=== PATIENT | male | born 1935 | race Caucasian/White ===

== ENCOUNTER → 2018-03-19 | Outpatient (CLI) | payer MEDICARE, BC ==
--- NOTE | 2018-03-19 08:14 | XR ---
EXAMINATION TYPE: XR chest 2V DATE OF EXAM: 03/19/2018 COMPARISON: Chest x-ray April 08, 2010 HISTORY: COPD per order. TECHNIQUE: Frontal and lateral views of the chest are obtained. FINDINGS: There is chronic emphysematous change with right apical scarring redemonstrated. There is no suspicious new focal air space opacity, pleural effusion, or pneumothorax seen. The cardiac silho uette size is stable and upper limits of normal. Underlying scoliosis near thoracolumbar junction is redemonstrated and felt more prominent. IMPRESSION: Chronic emphysematous change without acute pulmonary process.
--- NOTE | 2018-03-19 08:19 | US ---
EXAMINATION TYPE: US duplex aorta DATE OF EXAM: 03/19/2018 COMPARISON: Ultrasound duplex aorta February 26, 2016 CLINICAL HISTORY: I70.0 Atherosclerosis Of Aorta. EXAM MEASUREMENTS: Abdominal Aorta: Proximal: 2.0cm by 2.4 cm transversely Mid: 1.7cm by 1.7 cm Distal: 1.9cm by 1.9 cm Bifurcation: Rt: 1.0cm Lt: 1.0 Aorta is redemonstrated through the bifurcation without aneurysmal change. IMPRESSION: No greater than 3 cm aneurysmal change identified. No significant change from prior.
== END | disposition home or self-care (01) ==
LOC: RADUSWWP 07:26
PROVIDERS: ATTEND Family Medicine
DX: I70.0 Atherosclerosis of aorta (principal); J43.9 Emphysema, unspecified
CPT/HCPCS: 71046; 93979

== ENCOUNTER → 2018-10-31 | Outpatient (CLI) | payer MEDICARE, BC ==
--- NOTE | 2018-10-31 09:22 | US ---
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 FINDINGS: EXAM MEASUREMENTS: Right Kidney: 8.7 x 5.7 x 3.8 cm Left Kidney: 9.2 x 5.0 x 5.3 cm Post Void Residual Volume: 41.1 mL Right Kidney: simple cyst noted lateral mid cortex = 0.5 x 0.5 x 0.6cm; vascular calcifications noted medially as hyperechoic parallel wall lines. No hydronephrosis. Left Kidney: upper pole simple cyst = 1.0 x 1.2 x 0.8cm; vascular calcifications noted medially as hy perechoic parallel wall lines . No hydronephrosis. Bladder: wnl; prominent prostate is noted posteriorly Bilateral Jets seen: yes Normal Post Void Residual: yes IMPRESSION: 1. No hydronephrosis. Some vascular calcifications and a couple benign simple cysts measuring up to 1 .2 cm are demonstrated. 2. Prominent prostate gland. 3. Increased postvoid bladder volume of 41 mL. However, this falls within acceptable limits (normal < 50 mL).
== END | disposition home or self-care (01) ==
LOC: RADUSWWP 08:06
PROVIDERS: ATTEND Family Medicine
DX: N28.1 Cyst of kidney, acquired (principal); N25.9 Disorder resulting from impaired renal tubular function, unspecified
CPT/HCPCS: 76770

== ENCOUNTER 2019-01-27 11:52 | Emergency (ER) | payer MEDICARE, BC ==
[2019-01-27 12:09] VITALS: BP 141/84; PULSE 64; RESP 16; TEMP 98
[2019-01-27] MEDS ORDERED: methylPREDNISolone SOD SUCCI 125 MG/2 ML VIAL IM ONE (12:23)
--- NOTE | 2019-01-27 12:29 | ED ---
Allergic Reaction HPI - General Chief complaint: Allergic Reaction Stated complaint: multiple wasp stings Time Seen by Provider: 01/27/19 12:14 Source: patient, RN notes reviewed, old records reviewed Mode of arrival: ambulatory Limitations: no limitations - History of Present Illness Initial Comments: Patient is a 83-year-old male who presents emergency room today for complaint of ALLERGIC reaction. He reports that he was stung by multiple loss yesterday evening around 4:00. He states that he has over 10 bites over bilateral arms and rib areas. Patient states that he took Benadryl topically of those concerned because the swelling was continue to persist. Patient states that he has had a history of ALLERGIC reaction before but he did not have any tongue swelling or difficulty breathing. Patient states that he's had no fevers or chills or any other complaints. - Related Data Previous Rx's Medication Instructions Recorded EPINEPHrine (Auto Inject) [Epipen] 0.3 mg IM ONCE PRN #2 pen 01/27/19 Famotidine [Pepcid] 20 mg PO BID #20 tablet 01/27/19 predniSONE 20 mg PO BID #6 tab 01/27/19 Allergies Allergy/AdvReac Type Severity Reaction Status Date / Time bee venom protein (honey bee) Allergy Anaphylaxis Verified 01/27/19 12:09 Review of Systems ROS Statement: Those systems with pertinent positive or pertinent negative responses have been documented in the HPI. ROS Other: All systems not noted in ROS Statement are negative. Past Medical History Past Medical History: Cancer, Hyperlipidemia, Hypertension Additional Past Medical History / Comment(s): colon cancer History of Any Multi-Drug Resistant Organisms: None Reported Past Surgical History: Bowel Resection Past Psychological History: No Psychological Hx Reported Smoking Status: Current every day smoker Past Alcohol Use History: Daily Past Drug Use History: None Reported General Exam - General Exam Comments Initial Comments: This is an 83-year-old male. Alert and oriented 3. No distress.General: Well appearing, well nourished, in no distress. Oriented x 3, normal mood and affect . Ambulating without difficulty. Skin: Good turgor, no rash, unusual bruising or prominent lesions Hair: Normal texture and distribution. HEENT: Head: Normocephalic, atraumatic, no visible or palpable masses, depressions, or scaring. Eyes: Visual acuity intact, conjunctiva clear, sclera non-icteric, EOM intact, PERRL. Ears: EACs clear, TMs translucent & cone of light visualized. hearing intact. Nose: No external lesions, mucosa non-inflamed, septum and turbinates normal Mouth: Mucous membranes moist, no mucosal lesions. Teeth/Gums: No obvious caries or periodontal disease. No gingival inflammation or significant resorption. Pharynx: Mucosa non-inflamed, no tonsillar hypertrophy or exudate Neck: Supple, without lesions, bruits, or adenopathy, thyroid non-enlarged and non-tender Heart: No cardiomegaly or thrills; regular rate and rhythm, no murmur or gallop Lungs: Clear to auscultation and percussion Abdomen: Bowel sounds normal, no tenderness, organomegaly, masses, or hernia Back: Spine normal without deformity or tenderness, no CVA tenderness Extremities: No amputations or deformities, Patient has erythema, multiple bites over bilateral forearms. No evidence of stinger retained in the skin. Musculoskeletal: Normal gait and station. No misalignment, asymmetry, crepitation, defects, tenderness, masses, effusions, decreased range of motion, instability, atrophy or abnormal strength or tone in the head, neck, spine, ribs, pelvis or extremities. Neurologic: CN 2-12 normal. Sensation to pain, touch, and proprioception normal. DTRs normal in upper and lower extremities. No pathologic reflexes. Psychiatric: Oriented X3, intact recent and remote memory, judgment and insight, normal mood and affect. Limitations: no limitations Course Vital Signs 01/27/19 12:06 Temperature 98 F Pulse Rate 64 Respiratory 16 Rate Blood Pressure 141/84 O2 Sat by Pulse 100 Oximetry Medical Decision Making - Medical Decision Making Patient is an 83-year-old male presents with bilateral arm swelling and irritation after multiple wasp stings yesterday while weeding his garden. He has no tongue swelling or causing breathing. He reports that history of ALLERGIC reactions to bees. Patient at this time was given IM Solu-Medrol, will discharge Patient with a course of short course of steroid and Pepcid and continuing Benadryl at home. Discussed using Benadryl cream as well. All questions were answered return parameters were discussed. Disposition Clinical Impression: Allergic reaction to bee sting Disposition: HOME SELF-CARE Condition: Good Instructions (If sedation given, give patient instructions): General Allergic Reaction (ED) Additional Instructions: Patient advised to take medication as prescribed. Avoid heat over the area. Patient should have close follow-up with primary care physician of symptoms continue to persist. Apply Benadryl cream over the areas and take Benadryl every 4-6 hours as discussed. Prescriptions: EPINEPHrine (Auto Inject) [Epipen] 0.3 mg IM ONCE PRN #2 pen PRN Reason: Anaphylaxis Famotidine [Pepcid] 20 mg PO BID #20 tablet predniSONE 20 mg PO BID #6 tab Is patient prescribed a controlled substance at d/c from ED?: No Referrals: Sukhdev Wise MD [Primary Care Provider] - 1-2 days Time of Disposition: 12:26
== END 2019-01-27 12:55 | disposition home or self-care (01) ==
LOC: EC 11:52
DX: T63.441A Toxic effect of venom of bees, accidental (unintentional), initial encounter (principal); F17.200 Nicotine dependence, unspecified, uncomplicated; Z91.030 Bee allergy status; Z85.038 Personal history of other malignant neoplasm of large intestine
CPT/HCPCS: 99283; 96372; J2930

== ENCOUNTER 2020-03-15 16:39 | Emergency (ER) | payer MEDICARE, BC ==
[2020-03-15 16:48] VITALS: RESP 18; TEMP 97.5
--- NOTE | 2020-03-15 17:21 | ED ---
General Adult HPI - General Chief complaint: Abdominal Pain Stated complaint: Abd Pain Time Seen by Provider: 03/15/20 16:50 Source: patient, RN notes reviewed Mode of arrival: wheelchair Limitations: no limitations - History of Present Illness Initial comments: 85-year-old male with a past medical history of hyperlipidemia, hypertension, colon cancer with bowel resection presents to the emergency room for a chief complaint of "constipation." Patient reports that he has been unable to have a bowel movement for one week. He states that he had some diarrhea one week ago but has not had any bowel movement since. States that he fell a pressure in his rectum and feels as if he has to go. He does have some cramping abdominal pain. States it comes in waves. He denies fevers or chills. Denies nausea or vomiting or diarrhea.Patient has no other complaints at this time including shortness of breath, chest pain, nausea or vomiting, headache, or visual changes. - Related Data Previous Rx's Medication Instructions Recorded EPINEPHrine (Auto Inject) [Epipen] 0.3 mg IM ONCE PRN #2 pen 01/27/19 Famotidine [Pepcid] 20 mg PO BID #20 tablet 01/27/19 predniSONE [Deltasone] 20 mg PO BID #6 tab 01/27/19 Allergies Allergy/AdvReac Type Severity Reaction Status Date / Time bee venom protein (honey bee) Allergy Anaphylaxis Verified 03/15/20 16:48 Review of Systems ROS Statement: Those systems with pertinent positive or pertinent negative responses have been documented in the HPI. ROS Other: All systems not noted in ROS Statement are negative. Past Medical History Past Medical History: Cancer, Hyperlipidemia, Hypertension Additional Past Medical History / Comment(s): colon cancer, History of Any Multi-Drug Resistant Organisms: None Reported Past Surgical History: Bowel Resection Past Psychological History: No Psychological Hx Reported Smoking Status: Current every day smoker Past Alcohol Use History: Daily Past Drug Use History: None Reported General Exam Limitations: no limitations General appearance: alert, in no apparent distress Head exam: Present: atraumatic, normocephalic, normal inspection Eye exam: Present: normal appearance, PERRL, EOMI. Absent: scleral icterus, conjunctival injection, periorbital swelling ENT exam: Present: normal exam, mucous membranes moist Neck exam: Present: normal inspection, full ROM. Absent: tenderness, meningismus, lymphadenopathy Respiratory exam: Present: normal lung sounds bilaterally. Absent: respiratory distress, wheezes, rales, rhonchi, stridor Cardiovascular Exam: Present: regular rate, normal rhythm, normal heart sounds. Absent: systolic murmur, diastolic murmur, rubs, gallop, clicks GI/Abdominal exam: Present: soft, tenderness (Minimal generalized lower abdominal tenderness without guarding or rebound), normal bowel sounds. Absent: distended, guarding, rebound, rigid Neurological exam: Present: alert Course Vital Signs 03/15/20 16:46 Temperature 97.5 F L Pulse Rate 64 Respiratory 18 Rate Blood Pressure 128/76 O2 Sat by Pulse 99 Oximetry Medical Decision Making - Medical Decision Making Vitals are stable. Patient did initially have some mild lower abdominal tenderness. I did perform a rectal exam and patient does have a fecal impaction. I was able to disimpact him somewhat however was not able to completely disimpact patient. I did therefore order an x-ray that was nonspecific however no evidence of pneumoperitoneum or obstruction. Patient was given an enema and had a significant bowel movement. Patient states he is feeling so much better. States that his cramps are completely gone. Repeat examination reveals no abdominal tenderness whatsoever. Patient does not want further workup today. Patient is requesting discharge. I did discuss that if he has any worsening symptoms or fevers he needs to return to the emergency room for a workup. He is agreeable to this. He will follow-up with his doctor otherwise and try MiraLAX over the counters as well as a high-fiber diet.I discussed this case with attending Dr. Sahu who agrees with this assessment and treatment plan. Disposition Clinical Impression: Constipation Disposition: HOME SELF-CARE Condition: Good Instructions (If sedation given, give patient instructions): Constipation (ED), High Fiber Diet (ED) Additional Instructions: Please try MiraLAX once daily [id number]. Drink plenty of water. Eat fruits and vegetables. If you have any worsening abdominal pain or fevers you need to return to the emergency room. Otherwise follow-up with your doctor on Monday. Is patient prescribed a controlled substance at d/c from ED?: No Referrals: Sukhdev Wise MD [Primary Care Provider] - 1-2 days Time of Disposition: 18:06
--- NOTE | 2020-03-15 17:30 | XR ---
KUB HISTORY: Constipation Frontal KUB submitted and correlated to prior exam dated 04/09/2013 S-shaped thoracic lumbar scoliosis is present. Lung bases are clear, suggestion of hyperinflation may be indicative of underlying COPD. There is no evident bowel obstruction or pneumoperitoneum. Vascula r calcifications are present within the aorta and pelvis. IMPRESSION: Nonspecific abdomen
[2020-03-15 18:31] VITALS: BP 127/78; PULSE 62
== END 2020-03-15 18:29 | disposition home or self-care (01) ==
LOC: EC 16:39
DX: K59.00 Constipation, unspecified (principal); R10.817 Generalized abdominal tenderness; F17.200 Nicotine dependence, unspecified, uncomplicated; Z91.030 Bee allergy status; Z85.038 Personal history of other malignant neoplasm of large intestine; Z98.890 Other specified postprocedural states
CPT/HCPCS: 74018; 99284

== ENCOUNTER 2020-06-05 14:08 | Emergency (ER) | payer MEDICARE, BC ==
[2020-06-05 14:12] VITALS: TEMP 97.6
[2020-06-05 15:04] LABS: Basophils % (A) 0 %; Eosinophils # (A) 0.1 k/uL (0-0.7); Eosinophils % (A) 2 %; HCT 34.1 % (39.0-53.0); HGB 11.4 gm/dL (13.0-17.5); Lymphocytes # (A) 1.6 k/uL (1.0-4.8); Lymphocytes % (A) 34 %; MCH 37.1 pg (25.0-35.0); MCHC 33.5 g/dL (31.0-37.0); MCV 110.7 fL (80.0-100.0); Macrocytosis Marked; Mean Platelet Volume 7.1; Monocytes # (A) 0.4 k/uL (0-1.0); Monocytes % (A) 8 %; Neutrophils # (A) 2.5 k/uL (1.3-7.7); Neutrophils % (A) 52 %; Platelet Count 208 k/uL (150-450); RBC 3.08 m/uL (4.30-5.90); RDW 14.4 % (11.5-15.5); WBC 4.7 k/uL (3.8-10.6)
--- NOTE | 2020-06-05 15:04 | ED ---
General Adult HPI - General Chief complaint: Abdominal Pain Stated complaint: Abd Pain Time Seen by Provider: 06/05/20 14:18 Source: patient Mode of arrival: wheelchair Limitations: no limitations - History of Present Illness Initial comments: Patient is an 85-year-old male, with history of hypertension, colon cancer, presenting to the emergency Department with complaints of constipation. The patient states he has not had a bowel movement in 3-4 days. He states he did take a laxative last night however it did not help. He is able to pass gas. He states he is having some very little lower abdominal pressure but no significant pain. He denies any nausea or vomiting. No diarrhea. He denies any fever or chills, no chest pain or shortness of breath. He states he does have occasional constipation. Patient states he is under a lot of stress, taking care of his who has Alzheimer's. Patient denies any recent illness. Patient denies hi story of abdominal surgeries but upon chart review, he did have a partial colon resection, no other surgeries found. He has no further complaints at this time. Upon arrival to the ER, his vitals are stable. - Related Data Previous Rx's Medication Instructions Recorded EPINEPHrine (Auto Inject) [Epipen] 0.3 mg IM ONCE PRN #2 pen 01/27/19 Famotidine [Pepcid] 20 mg PO BID #20 tablet 01/27/19 predniSONE [Deltasone] 20 mg PO BID #6 tab 01/27/19 Allergies Allergy/AdvReac Type Severity Reaction Status Date / Time bee venom protein (honey bee) Allergy Anaphylaxis Verified 06/05/20 14:12 Review of Systems ROS Statement: Those systems with pertinent positive or pertinent negative responses have been documented in the HPI. ROS Other: All systems not noted in ROS Statement are negative. Past Medical History Past Medical History: Cancer, Hyperlipidemia, Hypertension Additional Past Medical History / Comment(s): colon cancer, History of Any Multi-Drug Resistant Organisms: None Reported Past Surgical History: Bowel Resection Past Psychological History: No Psychological Hx Reported Smoking Status: Current every day smoker Past Alcohol Use History: Daily Past Drug Use History: None Reported General Exam - General Exam Comments Initial Comments: GENERAL: Patient is well-developed and well-nourished. Patient is nontoxic and in no acute distress. HEAD: Atraumatic, normocephalic. EYES: Pupils equal round and reactive to light, extraocular movements intact, sclera anicteric, conjunctiva are normal. Eyelids were unremarkable. ENT: TMs normal, nares patent, oropharynx clear without exudates. Moist mucous membranes. NECK: Normal range of motion, supple without lymphadenopathy or JVD. LUNGS: Unlabored respirations. Breath sounds clear to auscultation bilaterally and equal. No wheezes rales or rhonchi. HEART: Regular rate and rhythm without murmurs, rubs or gallops. ABDOMEN: Minimal pressure with palpation of the lower abdomen, no specific area pain. Soft, normoactive bowel sounds. No guarding, no rebound. No masses appreciated. : Deferred MUSCULOSKELETAL: Normal extremities with adequate strength and normal range of motion, no pitting or edema. No clubbing or cyanosis. NEUROLOGICAL: Patient is alert and oriented x 3. Motor and sensory are also intact. Cranial nerves II through XII grossly intact. Symmetrical smile. Normal speech, normal gait. PSYCH: Normal mood, normal affect. SKIN: Warm, Dry, normal turgor, no rashes or lesions noted. Limitations: no limitations Course Vital Signs 06/05/20 14:09 Temperature 97.6 F Pulse Rate 78 Respiratory 18 Rate Blood Pressure 172/85 O2 Sat by Pulse 100 Oximetry Medical Decision Making - Medical Decision Making Patient is an 85-year-old male here for constipation, last bowel movement was 3- 4 days ago. He did try one laxative last night without success. He is able to pass gas. He has no areas abdominal pain, just lower abdominal pressure at times. No fevers, no other symptoms. Basic labs show no acute process, kidney function is normal, KUB x-ray shows a nonspecific abdomen. We did discuss using an enema to help his constipation however patient was able to have a large bowel movement in the ER before the enema. Patient states he feels so much better. Patient is stable for discharge. I did discuss taking MiraLAX daily for 1-2 weeks to help with regularity. Patient is in agreement with this plan of care. Parameters were discussed with the patient and he verbalized understanding. Case discussed Dr. Lafleur. - Lab Data Result diagrams: 06/05/20 14:50 06/05/20 14:50 Lab Results 06/05/20 06/05/20 Range/Units 14:50 14:50 WBC 4.7 (3.8-10.6) k/uL RBC 3.08 L (4.30-5.90) m/uL Hgb 11.4 L (13.0-17.5) gm/dL Hct 34.1 L (39.0-53.0) % MCV 110.7 H (80.0-100.0) fL MCH 37.1 H (25.0-35.0) pg MCHC 33.5 (31.0-37.0) g/dL RDW 14.4 (11.5-15.5) % Plt Count 208 (150-450) k/uL MPV 7.1 Neutrophils % 52 % Lymphocytes % 34 % Monocytes % 8 % Eosinophils % 2 % Basophils % 0 % Neutrophils # 2.5 (1.3-7.7) k/uL Lymphocytes # 1.6 (1.0-4.8) k/uL Monocytes # 0.4 (0-1.0) k/uL Eosinophils # 0.1 (0-0.7) k/uL Basophils # 0.0 (0-0.2) k/uL Manual Slide Review Performed Macrocytosis Marked A Sodium 137 (137-145) mmol/L Potassium 4.4 (3.5-5.1) mmol/L Chloride 107 (98-107) mmol/L Carbon Dioxide 25 (22-30) mmol/L Anion Gap 5 mmol/L BUN 17 (9-20) mg/dL Creatinine 1.31 H (0.66-1.25) mg/dL Est GFR (CKD-EPI)AfAm 58 (>60 ml/min/1.73 sqM) Est GFR (CKD-EPI)NonAf 50 (>60 ml/min/1.73 sqM) Glucose 114 H (74-99) mg/dL Calcium 9.9 (8.4-10.2) mg/dL Total Bilirubin 0.6 (0.2-1.3) mg/dL AST 32 (17-59) U/L ALT 15 (4-49) U/L Alkaline Phosphatase 68 (38-126) U/L Total Protein 7.7 (6.3-8.2) g/dL Albumin 4.3 (3.5-5.0) g/dL Disposition Clinical Impression: Constipation Disposition: HOME SELF-CARE Condition: Stable Instructions (If sedation given, give patient instructions): Constipation (ED) Additional Instructions: Please return to the Emergency Department if symptoms worsen or any other concerns. Recommend taking MiraLAX daily for 1-2 weeks in the morning, also make sure to drink plenty of water throughout the day. Follow-up with your PCP. Is patient prescribed a controlled substance at d/c from ED?: No Referrals: Sukhdev Wise MD [Primary Care Provider] - 1-2 days
[2020-06-05 15:20] LABS: Albumin 4.3 g/dL (3.5-5.0); Calcium 9.9 mg/dL (8.4-10.2); Potassium 4.4 mmol/L (3.5-5.1); Total Bilirubin 0.6 mg/dL (0.2-1.3); Total Protein 7.7 g/dL (6.3-8.2)
--- NOTE | 2020-06-05 15:46 | XR ---
EXAMINATION TYPE: XR KUB DATE OF EXAM: 06/05/2020 COMPARISON: 03/15/2020 INDICATION: Constipation TECHNIQUE: Single view abdomen upright view FINDINGS: Nonspecific bowel gas pattern Psoas margins are normal. No organomegaly is present. No suspicious calcifications. No significant interval change. IMPRESSION: 1. Nonspecific abdomen
[2020-06-05 17:10] VITALS: BP 128/79; PULSE 56; RESP 17
== END 2020-06-05 17:11 | disposition home or self-care (01) ==
LOC: EC 14:08
DX: K59.00 Constipation, unspecified (principal); F17.200 Nicotine dependence, unspecified, uncomplicated; Z91.030 Bee allergy status; Z85.038 Personal history of other malignant neoplasm of large intestine; Z90.49 Acquired absence of other specified parts of digestive tract
CPT/HCPCS: 36415; 74018; 80053; 85025; 99284

== ENCOUNTER → 2020-09-15 | Outpatient (CLI) | payer MEDICARE, BC ==
--- NOTE | 2020-09-15 15:51 | XR ---
EXAMINATION TYPE: XR chest 2V DATE OF EXAM: 09/15/2020 COMPARISON: Chest x-ray March 19, 2018 HISTORY: Chest pain. Abnormal weight loss. TECHNIQUE: Frontal and lateral views of the chest are obtained. FINDINGS: There there are chronic parenchymal changes bilaterally without suspicious new focal air s pace opacity, pleural effusion, or pneumothorax seen. The cardiac silhouette size is stable and with in normal limits. The osseous structures remain demineralized. Underlying scoliosis centered in the upper to mid lumbar spine is redemonstrated. There are old fractures of the posterolateral right fou rth through 10th ribs redemonstrated. IMPRESSION: Chronic changes without acute pulmonary process.
== END | disposition home or self-care (01) ==
LOC: RADXRMAIN 14:43
PROVIDERS: ATTEND Nurse Practitioner
DX: R63.4 Abnormal weight loss (principal); R07.9 Chest pain, unspecified
CPT/HCPCS: 71046

== ENCOUNTER → 2021-04-09 | Outpatient (CLI) | payer MEDICARE, BC ==
--- NOTE | 2021-04-09 09:50 | US ---
EXAMINATION TYPE: US abdomen complete DATE OF EXAM: 04/09/2021 COMPARISON: CT March 31, 2020 CLINICAL HISTORY: D72.819 Decreased white blood cell count,D64.89,E78.5. Patient states no symptoms EXAM MEASUREMENTS: Liver Length: 11.0 cm Gallbladder Wall: 0.2 cm CBD: 0.2 cm Spleen: 7.1 cm Right Kidney: 7.3 x 3.8 x 4.0 cm Left Kidney: 10.1 x 5.5 x 4.5 cm Pancreas: visualized portions wnl, limited by overlying midline bowel gas Liver: 2.5 x 4.4 x 3.5cm complex cystic area right lobe Gallbladder: wnl Evidence for sonographic Garcia's sign: no CBD: visualized portions wnl, limited by overlying bowel gas Spleen: visualized portions wnl, limited by overlying bowel gas Right Kidney: measures small in size, 0.3cm echogenic focus inferior pole Left Kidney: 1.2cm cyst lateral superior pole Upper IVC: wnl Abd Aorta: ectatic proximal aorta The visualized liver shows 4.4 cm lobulated thin-walled cyst. The intrahepatic portion of the IVC an d proximal abdominal aorta are within normal limits. There is no evidence of cholelithiasis. Common bile duct is unremarkable. The visualized portions of the pancreas are homogenous. The spleen is u nremarkable. Kidneys are symmetric and free of hydronephrosis. There is 1.2 cm thin-walled benign cy st upper pole of the left kidney. IMPRESSION: Spleen is noted to remain normal in size.
== END | disposition home or self-care (01) ==
LOC: RADUSWWP 08:47
PROVIDERS: ATTEND Internal Medicine Hematology & Oncology
DX: D72.819 Decreased white blood cell count, unspecified (principal); E78.5 Hyperlipidemia, unspecified; D64.89 Other specified anemias
CPT/HCPCS: 76700

== ENCOUNTER → 2021-05-11 | Outpatient (CLI) | payer MEDICARE, BC ==
--- NOTE | 2021-05-12 04:29 | XR ---
EXAMINATION TYPE: XR chest 2V DATE OF EXAM: 05/11/2021 COMPARISON: 09/15/2020 HISTORY: 86-year-old male J06.9, cough and congestion TECHNIQUE: Frontal and lateral views FINDINGS: Dextroconvex scoliosis. The spine projects over the right heart margin. Heart likely normal size. Aor ta within normal limits. Suspected bulla or pneumatocele measuring up to 7 cm along the lateral left upper lobe. Old healed right-sided rib fracture deformities. Hyperinflation. Some right apical pleura l parenchymal scarring redemonstrated. No definite consolidation or pleural effusion. Possible nodula rity in the anterior clear space on the lateral view. Additional area of nodularity projecting over t he left heart margin on the lateral view. IMPRESSION: 1. COPD with old healed right-sided rib fracture deformities, dextroconvex scoliosis, and a 7 cm left upper lobe bulla or pneumatocele. 2. Some nodularity in the anterior clear space on the lateral view and also along the posterior heart margin could represent summation artifact. Recommend contrast enhanced CT of the chest to exclude pu lmonary nodules.
== END | disposition home or self-care (01) ==
LOC: RADXRMAIN 15:25
PROVIDERS: ATTEND Nurse Practitioner
DX: J44.9 Chronic obstructive pulmonary disease, unspecified (principal)
CPT/HCPCS: 71046

== ENCOUNTER → 2021-05-14 | Outpatient (CLI) | payer MEDICARE, BC | END | disposition home or self-care (01) | LOC: LABWHC1 12:12 | PROVIDERS: ATTEND Family Medicine | DX: Z53.9 Procedure and treatment not carried out, unspecified reason (principal) ==

== ENCOUNTER → 2021-06-10 | Outpatient (CLI) | payer MEDICARE, BC ==
--- NOTE | 2021-06-10 14:26 | CT ---
EXAMINATION TYPE: CT chest w con DATE OF EXAM: 06/10/2021 COMPARISON: Chest CT March 31, 2010 chest x-ray May 11, 2021 HISTORY: Upper respiratory infection, chest xray showed nodules. CT DLP: 154.8 mGycm. Automated Exposure Control for Dose Reduction was Utilized. TECHNIQUE: CT scan of the thorax is performed following with IV Contrast, patient injected with 80 m L of Isovue M300. FINDINGS: LUNGS: Moderate biapical pleural/parenchymal scarring redemonstrated. Scattered peripheral bulla and blebs again seen extending along the left upper lobe periphery accounting for chest x-ray abnormality . No suspicious focal consolidation or groundglass opacity. There is no pleural effusion or pneumoth orax seen. The tracheobronchial tree is patent. Corresponding to x-ray no suspicious lesion anterior ly above the heart. There is however confirmation of suspicious central 1.3 x 1.2 cm right lower lobe nodule axial image 41. In addition there is posterior suspicious spiculated 1.1 x 1.0 cm nodule axia l image 16. Both findings new from 2010 CT. MEDIASTINUM: There are no greater than 1 cm hilar or mediastinal lymph nodes. No cardiomegaly or pe ricardial effusion is seen. Moderate to severe three-vessel coronary artery calcification. OTHER: There is 4.6 cm simple appearing thin-walled cyst in the liver redemonstrated stable from 2010 . No new adrenal masses. No asymmetric cortical thinning and atrophy to the right kidney with stable 4 mm anterior calculus axial image 64. Underlying scoliosis redemonstrated. Multilevel spurring and d isc space narrowing in the lower thoracic and upper lumbar spine this is more prominent from prior. O ld posterolateral right mid rib fractures redemonstrated. IMPRESSION: Confirmation of emphysematous and bullous change in the lungs with confirmation of suspic ious 1.3 cm right lower lobe nodule, in addition there is reticulated 1.1 cm posterior left upper lob e nodule. This is less well seen on x-ray. Neoplasm needs to be excluded. Further investigation with PET CT is advised.
== END | disposition home or self-care (01) ==
LOC: RADCTMAIN 11:38
PROVIDERS: ATTEND Family Medicine
DX: R91.8 Other nonspecific abnormal finding of lung field (principal); J43.9 Emphysema, unspecified
CPT/HCPCS: 82565; 84520; 71260; 36415; Q9967

== ENCOUNTER → 2021-06-24 | Outpatient (CLI) | payer MEDICARE, BC ==
--- NOTE | 2021-06-28 08:02 | PE ---
EXAMINATION TYPE: PET CT fusion skull to thigh DATE OF EXAM: 06/24/2021 COMPARISON: Prior CT chest June 10, 2021 HISTORY: Solitary pulmonary nodule, abnormal CT TECHNIQUE: Following the intravenous administration of 9.33 mCi of F-18 FDG, whole body images are p erformed from the skull base to the midthigh. Images are reviewed on the computer in the coronal, ax ial, and sagittal planes. Reconstructed rotating images are created on independent workstation and r eviewed on the computer. A localization and attenuation correction CT is performed in conjunction w ith the PET scan. Blood glucose level equals 109. SCAN: Initial Scan FINDINGS: SKULL BASE AND NECK: No areas of abnormal hypermetabolic uptake. CHEST, MEDIASTINUM, AND HILAR REGION: Background fairly moderate underlying emphysematous change rede monstrated. Biapical pleural/parenchymal scarring redemonstrated. There is persistent spiculated 12 x 8 mm left upper lobe nodule that is mildly hypermetabolic, max SUV is 2.61 on axial image 78. There is persistent 11 x 9 mm left lower lobe nodule on axial image 114 but it is ametabolic. No additional areas of abnormal hypermetabolic uptake. ABDOMEN AND PELVIS: No adrenal masses. Nonspecific mild bowel uptake at level of cecum. Normal excret ion. No additional areas of abnormal hypermetabolic uptake. OSSEOUS STRUCTURES: No areas of abnormal hypermetabolic uptake. OTHER CT: Nasal septum deviated to right of midline. Moderate to severe three-vessel coronary artery calcification redemonstrated. Roughly 5.0 cm thin-walled cyst in the liver axial image 137 redemonstrated. Cortical thinning and vo lume loss right kidney with scattered calculi is redemonstrated. Moderate calcified plaque of the aor ta extends into branch vessels. Spine is straightened with multilevel spurring and disc space narrowing. Underlying scoliosis. IMPRESSION: Suspicious hypermetabolic uptake in the left upper lobe nodule. Neoplasm cannot be exclud ed. Subtle right lower lobe nodule is ametabolic. No additional areas of abnormal hypermetabolic upta ke.
== END | disposition home or self-care (01) ==
LOC: RADPETMAIN 09:34
PROVIDERS: ATTEND Nurse Practitioner Family
DX: R91.8 Other nonspecific abnormal finding of lung field (principal); R91.1 Solitary pulmonary nodule
CPT/HCPCS: 78815; A9552

== ENCOUNTER → 2021-10-21 | Outpatient (CLI) | payer MEDICARE, BC ==
--- NOTE | 2021-10-21 23:29 | CT ---
EXAMINATION TYPE: CT chest w con DATE OF EXAM: 10/21/2021 COMPARISON: PET/CT 06/24/[address] chest 06/10/2021 HISTORY: Abnormal finding of lung field. Pt reporting no issues. CT DLP: 320 mGycm. Automated Exposure Control for Dose Reduction was Utilized. TECHNIQUE: Multiple contiguous axial CT images of the chest were obtained with IV Contrast, patient i njected with 80 mL of Isovue 300. Sagittal and coronal reformatted images were obtained. FINDINGS: Cardiac size appears within normal limits. No pericardial effusion. Thoracic aorta and main pulmonary arteries are of normal caliber. No mediastinal, hilar, or axillary lymphadenopathy. Central airways are normal course and caliber. Mild upper lobe predominant emphysematous changes. Curt gs appear clear. No pleural effusion or pneumothorax. -Unchanged spiculated nodule within the left upper lobe measuring 11 mm (previously measuring 11 mm). -Previously described right lower lobe pulmonary nodule has resolved. -New pulmonary nodule within the superior right lower lobe injuring 5 mm (axial image 27/57). -Unchanged 3 mm pulmonary nodule within the medial aspect of the right lower lobe (axial image 34/57) . Visualized osseous structures appear intact. Moderate multilevel degenerative changes of the thoracic spine. Unchanged hepatic cyst. Unchanged left renal cyst. Unchanged asymmetric atrophy of the right kidney w ith a calcification. IMPRESSION: 1. Unchanged 11 mm spiculated nodule in the left upper lobe. Recommend repeat CT in 6 months to ensur e stability. 2. Interval resolution of previously described right lower lobe pulmonary nodule. 3. New 5 mm pulmonary nodule in the superior right lower lobe. 4. Unchanged 3 mm pulmonary nodule in the right lower lobe.
== END | disposition home or self-care (01) ==
LOC: RADCTMAIN 14:53
PROVIDERS: ATTEND Internal Medicine
DX: R91.8 Other nonspecific abnormal finding of lung field (principal)
CPT/HCPCS: 82565; 84520; 71260; 36415; Q9967

== ENCOUNTER → 2022-04-07 | Outpatient (CLI) | payer MEDICARE, BC ==
--- NOTE | 2022-04-07 18:54 | CT ---
EXAMINATION TYPE: CT chest w con DATE OF EXAM: 04/07/2022 COMPARISON: Chest CT October 21, 2021 and older CTs HISTORY: f/u spots on lung. CT DLP: 191.60 mGycm. Automated Exposure Control for Dose Reduction was Utilized. TECHNIQUE: CT scan of the thorax is performed following with IV Contrast, patient injected with 70 m L of Isovue 300. FINDINGS: LUNGS: Mild to moderate underlying emphysematous changes redemonstrated. Moderate biapical pleural/pa renchymal scarring with blebs are redemonstrated. No suspicious focal consolidation or groundglass op acity. There is no pleural effusion or pneumothorax seen. The tracheobronchial tree is patent. There is posterior slow-growing spiculated nodule axial image 12 current study now measuring 1.6 x 1.3 cm. No new greater than 5 mm pulmonary nodules or masses MEDIASTINUM: There are no new greater than 1 cm hilar or mediastinal lymph nodes. No cardiomegaly o r pericardial effusion is seen. Moderate to severe three-vessel coronary artery calcification is red emonstrated. OTHER: There is 4.6 cm simple appearing bilobed thin-walled cyst in the liver redemonstrated stable f rom 2009. No new adrenal masses. Persistent asymmetric cortical thinning and atrophy to the visualize d portion of right kidney with stable 4 mm anterior calculus axial image 64. Underlying scoliosis red emonstrated. Multilevel spurring and disc space narrowing in the lower thoracic and upper lumbar spin e this is more prominent from prior. Old posterolateral right mid rib fractures are redemonstrated. IMPRESSION: Confirmation of emphysematous and bullous change in the lungs with slow growing suspiciou s 1.6 x 1.3 cm left upper lobe nodule. Neoplasm is suspected with mild hypermetabolic uptake noted on PET/CT. Advise cardiothoracic surgical referral.
== END | disposition home or self-care (01) ==
LOC: RADCTMAIN 17:00
PROVIDERS: ATTEND Internal Medicine
DX: J43.9 Emphysema, unspecified (principal)
CPT/HCPCS: 82565; 84520; 71260; 36415; Q9967

== ENCOUNTER → 2022-07-18 | Outpatient (CLI) | payer MEDICARE, BC ==
--- NOTE | 2022-07-18 12:49 | CT ---
EXAMINATION TYPE: CT chest w con CT DLP: 215.60 mGycm, Automated exposure control for dose reduction was used. DATE OF EXAM: 07/18/2022 12:33 PM COMPARISON: CT chest 04/07/2022, 10/21/2021, PET CT 06/24/2021. CLINICAL INDICATION:Male, 87 years old with history of R91.1 solitary pulmonary nodule; TECHNIQUE: Multiple axial images were obtained through the chest following the administration of 70 c c of Isovue 300. FINDINGS: LUNGS/ PLEURA: No pleural effusion or pneumothorax. Mild to moderate underlying emphysematous changes are demonstrated. Moderate biapical pleural parenchymal scarring with blebs redemonstrated. Decrease d size of posterior left upper lobe spiculated nodule measuring 1.2 x 0.6 cm, previously 1.6 x 1.3 cm (series 4, image 15). There are some new tree-in-bud nodules within the left lung base and lingula s uspicious for infectious/inflammatory bronchiolitis. AIRWAY: Patent and unremarkable.. HEART: Size within normal limits. No pericardial effusion. Moderate to severe three-vessel coronary a rtery calcification redemonstrated. MEDIASTINUM: No new adenopathy. VASCULATURE: No aortic aneurysm. MUSCULOSKELETAL: No acute osseous abnormalities. No aggressive osseous lesion. Remote right-sided rib fractures. Scoliotic curvature with multilevel degenerative changes of the visualized spine. SOFT TISSUES/LYMPH NODES: Unremarkable. LOWER NECK: No significant findings. UPPER ABDOMEN: Stable 4.6 mL simple-appearing bilobed cyst within the liver. Persistent asymmetric co rtical thinning and atrophy of the visualized right kidney with nonobstructive renal calculi. IMPRESSION: 1. Decreased size of 1.2 x 0.6 cm spiculated left upper lobe pulmonary nodule, previously 1.6 x 1.3 c m. 2. Several new tree-in-bud nodules within the lingula and left lower lobe suspicious for infectious/i nflammatory bronchiolitis. Malignancy is not entirely excluded. Attention on follow-up examination. 3. Moderate COPD changes.
== END | disposition home or self-care (01) ==
LOC: RADCTMAIN 11:23
PROVIDERS: ATTEND Radiology Radiation Oncology
DX: C34.12 Malignant neoplasm of upper lobe, left bronchus or lung (principal); J44.9 Chronic obstructive pulmonary disease, unspecified; F17.210 Nicotine dependence, cigarettes, uncomplicated; R91.8 Other nonspecific abnormal finding of lung field
CPT/HCPCS: 82565; 84520; 71260; 36415; Q9967

== ENCOUNTER → 2022-09-07 | Outpatient (CLI) | payer MEDICARE, BC ==
--- NOTE | 2022-09-08 11:30 | CA ---
Transthoracic Echo Report Name: Billy Garcia Age: 87 Gender: M : 1935 Exam Date: 09/07/2022 13:03 Exam Location: [place] [facility] Ht (in): 68 Wt (lb): 140 Ordering Physician: Bertram Espana MD Attending/Referring Phys: Bertram Espana MD Relationship Specialist Ortega Diego, [facility] Procedure CPT: Indications: R06.09 Dyspnea Cardiac Hx: COPD; HTN; Technical Quality: Fair Contrast 1: Total Dose (mL): Contrast 2: Total Dose (mL): MEASUREMENTS (Male / Female) Normal Values 2D ECHO LV Diastolic Diameter PLAX 5.0 cm 4.2 - 5.9 / 3.9 - 5.3 cm LV Systolic Diameter PLAX 4.4 cm IVS Diastolic Thickness 0.9 cm 0.6 - 1.0 / 0.6 - 0.9 cm LVPW Diastolic Thickness 0.9 cm 0.6 - 1.0 / 0.6 - 0.9 cm LV Relative Wall Thickness 0.4 RV Internal Dim ED PLAX 2.4 cm LVOT Diameter 2.0 cm LA Systolic Diameter LX 3.5 cm 3.0 - 4.0 / 2.7 - 3.8 cm LV Diastolic Volume MOD BP 76.7 cm??? 67 - 155 / 56 - 104 cm??? LV Systolic Volume MOD BP 29.3 cm??? 22 - 58 / 19 - 49 cm??? LV Ejection Fraction MOD BP 61.7 % >= 55 % LV Diastolic Volume MOD 4C 82.6 cm??? LV Systolic Volume MOD 4C 32.7 cm??? LV Ejection Fraction MOD 4C 60.4 % LV Diastolic Length 4C 7.6 cm LV Systolic Length 4C 5.9 cm LV Diastolic Volume MOD 2C 58.0 cm??? LV Systolic Volume MOD 2C 21.5 cm??? LV Ejection Fraction MOD 2C 62.9 % LV Diastolic Length 2C 6.1 cm LV Systolic Length 2C 4.8 cm Ascending Aorta Diameter 3.3 cm M-MODE Aortic Root Diameter MM 3.2 cm LA Systolic Diameter MM 3.9 cm LA Ao Ratio MM 1.2 MV E Point Septal Separation 0.5 cm AV Cusp Separation MM 1.7 cm DOPPLER AV Peak Velocity 250.9 cm/s AV Peak Gradient 25.2 mmHg LVOT Peak Velocity 134.7 cm/s LVOT Peak Gradient 7.3 mmHg AV Area Cont Eq pk 1.7 cm??? MV Peak Velocity 100.2 cm/s MV Peak Gradient 4.0 mmHg MV Mean Velocity 57.3 cm/s MV Mean Gradient 1.5 mmHg MV Velocity Time Integral 27.5 cm MR Peak Velocity 102.5 cm/s MR Peak Gradient 4.2 mmHg Mitral E Point Velocity 80.1 cm/s Mitral A Point Velocity 93.7 cm/s Mitral E to A Ratio 0.9 MV Deceleration Time 233.1 ms MV E' Velocity 6.7 cm/s Mitral E to MV E' Ratio 12.0 TR Peak Velocity 162.9 cm/s TR Peak Gradient 10.6 mmHg Right Ventricular Systolic Press 15.6 mmHg PV Peak Velocity 105.1 cm/s PV Peak Gradient 4.4 mmHg RVOT Peak Velocity 78.6 cm/s RVOT Peak Gradient 2.5 mmHg FINDINGS Left Ventricle Left ventricular ejection fraction is estimated at 55-60 %. Grade 1 diastolic dysfunction. Right Ventricle Normal right ventricular size and function. Right Atrium Normal right atrial size. Left Atrium Mild left atrial dilatation. Mitral Valve Mitral valve thickened. Mild mitral stenosis. Trace to mild mitral regurgitation. Aortic Valve Focal thickening of the aortic valve cusps. Trileaflet aortic valve. Diffuse thickening (sclerosis) of the aortic valve cusps with type l discreet subaortic stenosis (peak gradient 25 mm Hg) and reduced excursion. Tricuspid Valve mild tricuspid regurgitation. Pulmonic Valve Mild pulmonic regurgitation. Pericardium Echo free space anterior to the right ventricle likely represents a fat pad. Aorta Normal size aortic root and proximal ascending aorta. CONCLUSIONS Normal LV and RV dimension and systolic function Impaired relaxation of the left ventricle/stage I diastolic dysfunction Aortic sclerosis with mild aortic stenosis and mild aortic insufficiency Previewed by: Dr. Markel Loredo MD (Electronically Signed) Final Date: 08 September 2022 11:29
== END | disposition home or self-care (01) ==
LOC: RADECHMAIN 12:38
PROVIDERS: ATTEND Internal Medicine
DX: I08.0 Rheumatic disorders of both mitral and aortic valves (principal); R06.09 Other forms of dyspnea
CPT/HCPCS: 93306

== ENCOUNTER → 2022-12-07 | Outpatient (CLI) | payer MEDICARE, BC ==
[2022-12-07 14:18] LABS: African American GFR (CKD) 76 (>60 ml/min/1.73 sqM); Blood Urea Nitrogen 14 mg/dL (9-20); Non-African American GFR(CKD) 66 (>60 ml/min/1.73 sqM)
--- NOTE | 2022-12-07 15:11 | CT ---
EXAMINATION TYPE: CT chest w con DATE OF EXAM: 12/07/2022 COMPARISON: 08/30/2022 HISTORY: Solitary pulmonary nodule. CT DLP: 229.4 mGycm Automated exposure control for dose reduction was used. TECHNIQUE: CT scan of the chest is performed with IV Contrast, patient injected with 100ml mL of Isovue 300. TN P Images are created on CT scanner and reviewed. 3D reconstructed images are created on an Cross[employer] workstation and reviewed. FINDINGS: LUNGS: There is a spiculated nodule in the left upper lobe measuring 11.8 x 5.1 mm which is unchanged from the recent previous examination. Subpleural 3 mm nodule left lower lobe has a benign appearance. There is moderate diffuse centrilobular and upper lobe predominant paraseptal emphysema. There is phoenix e scattered linear bands of opacity otherwise seen throughout the lungs bilaterally which are likely atelectasis or scarring. There is additional peripheral changes in the right upper lobe which likely related to scarring and are unchanged. There is no focal area of consolidation. MEDIASTINUM: There are no greater than 1 cm hilar or mediastinal lymph nodes. No pericardial effusi on is seen. Heart is enlarged and there is coronary artery calcification. Atherosclerotic change of the aorta with ectasia. There are scattered subcentimeter lymph nodes in the mediastinum. OTHER: Diffuse reduced attenuation throughout the liver with a large hypodense lesion involving the right lobe measuring 3.9 cm and 9 Hounsfield units compatible with simple cyst. There is cortical los s involving the right kidney with cortical calcifications. Hypertrophic degenerative changes of the s pine. Small hiatal hernia. Scoliosis of the spine. Multilevel degenerative disc disease. IMPRESSION: 1. Stable 1.2 cm left apical spiculated nodule. This is been previously evaluated with PET scan with upper hyper-metabolic uptake noted on prior report. Malignancy in the differential diagnosis. 2. COPD 3. 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 4. is abnormal attenuation involving the pancreas on axial image 67 only partially included in field- of-view. Recommend ultrasound follow-up. 5. Cardiomegaly with coronary artery calcification.
== END | disposition home or self-care (01) ==
LOC: RADCTMAIN 13:14
PROVIDERS: ATTEND Radiology Radiation Oncology
DX: C34.12 Malignant neoplasm of upper lobe, left bronchus or lung (principal); J44.9 Chronic obstructive pulmonary disease, unspecified; I25.10 Atherosclerotic heart disease of native coronary artery without angina pectoris; I71.21 Aneurysm of the ascending aorta, without rupture; R91.1 Solitary pulmonary nodule
CPT/HCPCS: 82565; 84520; 71260; 36415; Q9967

== ENCOUNTER → 2023-01-04 | Outpatient (CLI) | payer MEDICARE, BC ==
[2023-01-04 13:07] VITALS: BP 115/73; PULSE 65; RESP 18; TEMP 98.1
--- NOTE | 2023-01-04 14:54 | P.PAINPG ---
PQRS Measure Charge Sheet Comment: HISTORY OF PRESENT ILLNESS: 87 yr old male as a referral from Dr Sukhdev Wise presents today w severe and chronic LBP secondary to DDD, spondylosis and facet arthropathy without myelopathy for evaluation. Pt states pain level is provoked at 8 /10 in intensity, constant, localized in the mid to lower lumbar spine, achy in character w shooting pain towards the R glute and RLE. Pain is provoked by weight bearing activity. Pain is alleviated by PT x 6 wks which ended in November 2022, chiropractic treatments semi weekly x 5 wks in October 2022, heat, ice, medications (Tyl #3, Tyl) topical, repositioning and rest. PMH: OA, Hyperlipidemia, HTN PSH: Bladder Cystoscopy per pt SH: Daily tobacco use, Daily ETOH use, No illicit drug use FH: Non contributory All: See list Meds: See list REVIEW OF ORGAN SYSTEMS: CONSTITUTIONAL: No fevers or chills. No recent weight loss. NEUROLOGICAL: + numbness and tingling along the distal extremities. No seizure disorders or headaches. MUSCULOSKELETAL: + pain PSYCHIATRIC: Denies current depression or suicidal thoughts. Physical Examinations : Constitutional : Cooperative , not in acute distress . Neurologic : Cranial nerve II to XII intact. No focal neurological deficits. Psychiatric : alert & oriented x 3. Matching mood & appropriate affect. Judgment & insight intact. Musculoskeletal : Cervical Spine Motor strength in the deltoid and biceps: Normal right side. Normal Left side Motor strength biceps and the wrist extensors: Normal right side . Normal left side Motor strength in the triceps muscle: Normal right side. Normal left side Deep tendon reflexes: Normal at the biceps. Normal at Brachioradialis. Normal at triceps Vertebral body tenderness to deep palpation over Cervical facet loading test: positive bilaterally Spurling test: positive bilaterally Neck distraction test: positive bilaterally Marco sign: positive bilaterally Lumbar spine Motor strength lower extremities ,thigh and legs 5/5 Right side , 5/5 Left side Deep tendon reflexes : Normal Knee Jerk. Normal Ankle Jerk Vertebral body tenderness over Hill Test positive Lumbar facet Loading Test: positive Right / positive Left Range of motion of the lumbar spine Flexion 30 degrees, extension 10 degrees Straight Leg Raise test: Left/ Right positive at degree Luna test: positive right / positive left. Severe tenderness over the Sacroiliac joint on the Right / Left sides Gaenslen test: positive bilaterally Seated flexion test: positive bilaterally. Sacral spine : Severe tenderness over the Sacroiliac joint: right side / left side Range of motion: Flexion of the lumbar spine <60 degrees Range of motion: Extension of the lumbar spine <20 degrees Gaenslen's Test positive Derek's Test positive Luna test: positive right side / left side Thigh Thrust Test Sacral Thrust Test Imaging: x ray cervical and lumbar sine from 09/07/22 reviewed Assessment/ Plan : Lumbar DDD Recommendation of MRI lumbar spine re: M51.36 and follow up at clinic in 2-4 wks. All questions answered. I have spent greater than 30 minutes on patient care today. Dr Aguayo was bar[place] ilable by phone for the evaluation of this patient. The time was used to review the medical records including relevant urine studies and Prescription history (MAPs), review of the available imaging, evaluation and examination of the patient, coordination of care with the medical staff and if applicable referring physicians, as well as creation of the medical record PQRS Narrative: Smoking Status Current every day smoker Home Medications: Ambulatory Orders EPINEPHrine (Auto Inject) [Epipen] 0.3 mg IM ONCE PRN #2 pen 01/27/19 Famotidine [Pepcid] 20 mg PO BID #20 tablet 01/27/19 predniSONE [Deltasone] 20 mg PO BID #6 tab 01/27/19 Controlled Substance Measures - Controlled Substance Measures Is patient prescribed a controlled substance at discharge?: No
== END ==
LOC: PNWHC3 12:35
PROVIDERS: ATTEND Specialist
DX: M51.36 Other intervertebral disc degeneration, lumbar region (principal); M19.90 Unspecified osteoarthritis, unspecified site; E78.5 Hyperlipidemia, unspecified; I11.0 Hypertensive heart disease with heart failure; F17.200 Nicotine dependence, unspecified, uncomplicated; Z91.030 Bee allergy status
CPT/HCPCS: 99211

== ENCOUNTER → 2023-01-16 | Outpatient (CLI) | payer MEDICARE, BC ==
--- NOTE | 2023-01-17 13:32 | MR ---
EXAMINATION TYPE: MR lumbar spine wo con DATE OF EXAM: 01/16/2023 8:26 PM COMPARISON: Pet/CT 06/24/2021. CLINICAL INDICATION: Male, 87 years old with history of M51.36 DISC DEGENERATION, LUMBAR REGION; PHH, Low back pain that radiates down right leg TECHNIQUE: Multi planar, multi sequence imaging was performed utilizing: T1-weighted, T2-weighted, a nd turbo inversion recovery imaging of the lumbar spine. IV Contrast: None. FINDINGS: Alignment: The lumbar vertebral bodies have preserved heights and straightening of the alignment. Cord: The conus medullaris and the distal spinal cord appear unremarkable with regards to their signa l intensity and morphology. Bones/Discs: Multilevel Modic endplate changes with disc space narrowing osteophyte formation and a f ew scattered Schmorl's nodes. Multilevel facet joint arthropathy is present. Multilevel disc desiccat ion is present. Reactive bony edema seen throughout the spine at areas of significant disc space heig ht loss. Suspected acute Schmorl's node at the inferior posterior endplate of L4. T12-L1: Disc bulge and facet joint arthropathy result in mild spinal canal and moderate to severe darci ateral neural foraminal stenosis. L1-L2: Disc bulge and facet joint arthropathy result in mild spinal canal and moderate to severe bila teral neural foraminal stenosis. L2-L3: Disc bulge and facet joint arthropathy result in mild spinal canal and moderate to severe righ t and moderate left neural foraminal stenosis. L3-L4: Disc bulge and facet joint arthropathy result in mild spinal canal and severe right and modera te severe left neural foraminal stenosis. L4-L5: Disc bulge and facet joint arthropathy result in mild spinal canal and moderate to severe bila teral neural foraminal stenosis. L5-S1: The disc is rounded posterior morphology without significant spinal canal stenosis. Facet join t arthropathy with severe bilateral neural foraminal stenosis. Partially evaluated, Multilevel disc space narrowing with mild spinal canal stenosis and moderate jhony ral foraminal stenosis in the visualized thoracic spine. Other findings: None. IMPRESSION: 1. No definitive evidence of disc herniation or significant spinal canal stenosis. 2. Moderate to severe disc degeneration with associated osteoarthritic changes with multilevel neura l foraminal stenosis which is moderate, moderate to severe and severe. Regarding the right leg radicu lar pain L5 -1 severe, L4-L5 moderate, L1-L2, L2-L3 and L3-L4 moderate to severe neural foraminal shaw nosis.
== END | disposition home or self-care (01) ==
LOC: RADMRIMAIN 19:27
PROVIDERS: ATTEND Specialist
DX: M51.16 Intervertebral disc disorders with radiculopathy, lumbar region (principal); M99.73 Connective tissue and disc stenosis of intervertebral foramina of lumbar region; M47.26 Other spondylosis with radiculopathy, lumbar region
CPT/HCPCS: 72148

== ENCOUNTER → 2023-01-23 | Outpatient (CLI) | payer MEDICARE, BC ==
[2023-01-23 13:35] VITALS: BP 146/88; PULSE 69; RESP 15; TEMP 97.9
--- NOTE | 2023-01-23 14:43 | P.PAINPG ---
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 Pt states pain level is provoked at 8 /10 in intensity, constant, localized in the mid to lower lumbar spine, achy in character w shooting pain towards the R glute and RLE. Pain is provoked by weight bearing activity. Pain is alleviated by PT x 6 wks which ended in November 2022, chiropractic treatments semi weekly x 5 wks in October 2022, heat, ice, medications (Tyl #3, Tyl) topical, repositioning and rest. Oswestry axial pain score of 21. Interventional procedures include DENIES Medications include Tyl #3, Tylenol REVIEW OF ORGAN SYSTEMS: CONSTITUTIONAL: No fevers or chills. No recent weight loss. NEUROLOGICAL: + numbness and tingling along the distal extremities. No seizure disorders or headaches. MUSCULOSKELETAL: + pain PSYCHIATRIC: Denies current depression or suicidal thoughts. Physical Examinations : Constitutional : Cooperative , not in acute distress . Neurologic : Cranial nerve II to XII intact. No focal neurological deficits. Psychiatric : alert & oriented x 3. Matching mood & appropriate affect. Judgment & insight intact. Musculoskeletal : Cervical Spine Motor strength in the deltoid and biceps: Normal right side. Normal Left side Motor strength biceps and the wrist extensors: Normal right side . Normal left side Motor strength in the triceps muscle: Normal right side. Normal left side Deep tendon reflexes: Normal at the biceps. Normal at Brachioradialis. Normal at triceps Vertebral body tenderness to deep palpation over Cervical facet loading test: positive bilaterally Spurling test: positive bilaterally Neck distraction test: positive bilaterally Marco sign: positive bilaterally Lumbar spine Motor strength lower extremities ,thigh and legs 5/5 Right side , 5/5 Left side Deep tendon reflexes : Normal Knee Jerk. Normal Ankle Jerk Vertebral body tenderness over L4 Hill Test positive Lumbar facet Loading Test: positive Right / positive Left Range of motion of the lumbar spine Flexion 30 degrees, extension 10 degrees Straight Leg Raise test: Left/ Right positive at 35 degrees Luna test: positive right / positive left. Severe tenderness over the Sacroiliac joint on the Right / Left sides Gaenslen test: positive bilaterally Seated flexion test: positive bilaterally. Sacral spine : Severe tenderness over the Sacroiliac joint: right side / left side Range of motion: Flexion of the lumbar spine <60 degrees Range of motion: Extension of the lumbar spine <20 degrees Gaenslen's Test positive Derek's Test positive Luna test: positive right side / left side Thigh Thrust Test Sacral Thrust Test Imaging: MRI non contrast of the lumbar spine from 01/16/23 reviewed Assessment/ Plan : Lumbar DDD Recommendation of LAWANDA L4-L5 #1. May need a series of injections for optimal pain relief. Risks, benefits of procedure discussed and patient verbalized understanding. Protocol for discontinuation/continuation of medications surrounding procedure discussed. All questions answered. I have spent greater than 30 minutes on patient care today. Dr Aguayo was available by phone for the evaluation of this patient. The time was used to review the medical records including relevant urine studies and Prescription history (MAPs), review of the available imaging, evaluation and examination of the patient, coordination of care with the medical staff and if applicable referring physicians, as well as creation of the medical record PQRS Narrative: Smoking Status Current every day smoker Hx Alcohol Use (MH) Yes: DAILY Home Medications: Ambulatory Orders EPINEPHrine (Auto Inject) [Epipen] 0.3 mg IM ONCE PRN #2 pen 01/27/19 Famotidine [Pepcid] 20 mg PO BID #20 tablet 01/27/19 predniSONE [Deltasone] 20 mg PO BID #6 tab 01/27/19 Controlled Substance Measures - Controlled Substance Measures Is patient prescribed a controlled substance at discharge?: No
== END ==
LOC: PNWHC3 12:41
PROVIDERS: ATTEND Specialist
DX: M51.36 Other intervertebral disc degeneration, lumbar region (principal); M47.816 Spondylosis without myelopathy or radiculopathy, lumbar region; F17.200 Nicotine dependence, unspecified, uncomplicated; Z91.030 Bee allergy status
CPT/HCPCS: 99211

== ENCOUNTER 2023-02-02 10:31 | Day surgery (SDC) | payer MEDICARE, BC ==
[~2023-02-02 10:31] MED LIST: LACTATED RINGERS 1,000 ML IV SCH
[2023-02-02 10:57] VITALS: TEMP 97.3
[2023-02-02 11:05] LABS: Glucose,Whole Blood 109 mg/dL (70-110)
[2023-02-02] MEDS ORDERED: methylPREDNISolone ACETATE 40 MG/ML 1 ML VIAL ONE (11:51)
[2023-02-02] MEDS ORDERED: IOPAMIDOL M200 10 ML VIAL ONE (11:51)
--- NOTE | 2023-02-02 11:58 | P.PCN ---
Date of Procedure: 02/02/23 Procedure(s) Performed: PREOPERATIVE DIAGNOSIS: 1- Lumbar Degenerative Disc Diseases 2-Lumbar spondylosis with Facet arthropathy without myelopathy. 3-lumbar foraminal stenosis POSTOPERATIVE DIAGNOSIS: 1-lumbar degenerative disc disease. 2-lumbar spondylosis with facet arthropathy without myelopathy. 3-lumbar foraminal stenosis. PROCEDURE 1. Lumbar epidural steroid injection under fluoroscopic guidance at the L4-5 level. (Fluoroscopy imaging was available in radiology department) 2. Lumbar epidurogram. ANESTHESIA: Lidocaine 1% 3 and then only. EBL: Minimal PROCEDURE INDICATION: The patient with low back pain and radiculitis symptoms unresponsive to conservative treatment. Fluoroscopy was used to optimize visualization of the needle placement and to maximize safety. PROCEDURE DESCRIPTION / TECHNIQUE: The patient was seen and identified in the preoperative area. Risks, benefits, complications including but not limited to infections ,bleeding ,allergic reaction to the medications ,nerve damage and not complete pain releife , and alternatives were discussed with the patient. The patient agreed to proceed with the procedure and signed the consent, and vital signs were stable. Patient was taken to the OR and time out was completed. The patient was placed in the prone position on procedure table and a pillow was placed under the abdomen to reduce lumbar lordosis. The lumbosacral area was prepped and draped in the usual sterile fashion.ere closely monitored during the procedure. Vital signs was monitered during the entire procedure. Using anterior-posterior fluoroscopy, the L4-5 interlaminar space was identified and the skin over this site was marked and then infiltrated with 1% lidocaine subcutaneously. Subsequently, a 20-gauge Tuohy epidural needle was inserted and advanced toward the epidural space using the ``Loss of resistance technique and guided by AP and lateral fluoroscopy. The correct needle position in the epidural space was verified with the injection of 2 mL of the water soluble contrast dye Isovue 200 contrast and observing an excellent epidurogram with the epidural spread of the dye, after negative aspiration for blood and CSF and in the absence of paresthesias. Again after negative aspiration, a 6 ml mixture containing 40 mg of Depo-medrol ( Preservetive Free ), and 2 ml of preservative free Normal Saline, and 2 ml of preservative free lidocaine 1% solution was injected and a washout of epidurogram was seen. Needle was withdrawn intact, skin was cleansed, and bandages were applied. COMPLICATIONS: None DISPOSITION / PLANS: The patient was placed in a supine position and transferred to the recovery area in a stable condition for observation. There was no evidence of lower extremity motor or sensory deficit after the procedure. Patient was discharged from the recovery room after meeting discharge criteria. Home discharge instructions were given to the patient by the staff. The patient was reexamined prior to discharge. The patient will schedule a follow up in the clinic in 2-4 weeks.
[2023-02-02 12:06] VITALS: BP 132/79; PULSE 70; RESP 16
--- NOTE | 2023-02-02 12:15 | FL ---
Intraoperative/procedural fluoroscopic services were provided for lumbar epidural steroid injection. Total fluoroscopy time is 12.9 seconds with a total of 1 submitted image to PACS. Total DAP [id number] m Gym[employer]. Please see the operative note for further details.
== END 2023-02-02 12:21 | disposition home or self-care (01) ==
LOC: ORPAIN 10:31
PROVIDERS: ATTEND Specialist
DX: M51.16 Intervertebral disc disorders with radiculopathy, lumbar region (principal); M47.26 Other spondylosis with radiculopathy, lumbar region; M48.061 Spinal stenosis, lumbar region without neurogenic claudication; Z88.8 Allergy status to other drugs, medicaments and biological substances
CPT/HCPCS: 62323; J1030; Q9966

== ENCOUNTER → 2023-02-20 | Outpatient (CLI) | payer MEDICARE, BC ==
[2023-02-20 14:22] VITALS: BP 127/79; PULSE 101; RESP 15; TEMP 98.7
--- NOTE | 2023-02-20 15:05 | P.PAINPG ---
PQRS Measure Charge Sheet Comment: HISTORY OF PRESENT ILLNESS: 87 yr old male presents today w severe and chronic LBP secondary to DDD, spondylosis and facet arthropathy without myelopathy for evaluation s/p LAWANDA L4- L5 #1. Pt states he experienced 70% pain relief x 4 days s/p procedure. Pt states pain level is provoked at 6 /10 in intensity, constant, localized in the mid to lower lumbar spine, achy in character w shooting pain towards the R glute and RLE. Pain is provoked by standing/ walking for periods of 10 min or more. Pain is alleviated by PT x 6 wks which ended in November 2022, chiropractic treatments semi weekly x 5 wks in October 2022, heat, ice, medications (Tyl #3, Tyl) topical, repositioning and rest. Oswestry axial pain score of 24. Interventional procedures include LAWANDA L4-L5 x1 Medications include Tyl #3, Tylenol REVIEW OF ORGAN SYSTEMS: CONSTITUTIONAL: No fevers or chills. No recent weight loss. NEUROLOGICAL: + numbness and tingling along the distal extremities. No seizure disorders or headaches. MUSCULOSKELETAL: + pain PSYCHIATRIC: Denies current depression or suicidal thoughts. Physical Examinations : Constitutional : Cooperative , not in acute distress . Neurologic : Cranial nerve II to XII intact. No focal neurological deficits. Psychiatric : alert & oriented x 3. Matching mood & appropriate affect. Judgment & insight intact. Musculoskeletal : Cervical Spine Motor strength in the deltoid and biceps: Normal right side. Normal Left side Motor strength biceps and the wrist extensors: Normal right side . Normal left side Motor strength in the triceps muscle: Normal right side. Normal left side Deep tendon reflexes: Normal at the biceps. Normal at Brachioradialis. Normal at triceps Vertebral body tenderness to deep palpation over Cervical facet loading test: positive bilaterally Spurling test: positive bilaterally Neck distraction test: positive bilaterally Marco sign: positive bilaterally Lumbar spine Motor strength lower extremities ,thigh and legs 5/5 Right side , 5/5 Left side Deep tendon reflexes : Normal Knee Jerk. Normal Ankle Jerk Vertebral body tenderness Hill Test positive Lumbar facet Loading Test: positive Right / positive Left over L4-L5, L5-S1 Range of motion of the lumbar spine Flexion 30 degrees, extension 10 degrees Straight Leg Raise test: Left/ Right positive Luna test: positive right / positive left. Severe tenderness over the Sacroiliac joint on the Right / Left sides Diogo test: positive bilaterally Seated flexion test: positive bilaterally. Sacral spine : Severe tenderness over the Sacroiliac joint: right side / left side Range of motion: Flexion of the lumbar spine <60 degrees Range of motion: Extension of the lumbar spine <20 degrees Gaenslen's Test positive Derek's Test positive Luna test: positive right side / left side Thigh Thrust Test Sacral Thrust Test Imaging: MRI non contrast of the lumbar spine from 01/16/23 reviewed Assessment/ Plan : Lumbar DDD Recommendation of BL facet block of the medial branches L4-L5, L5-S1 #1. May need a series of injections, up until RFA, for optimal pain relief. Risks, benefits of procedure discussed and patient verbalized understanding. Protocol for discontinuation/continuation of medications surrounding procedure discussed. [place] 5/325mg #15 NR. Use, side effects, adverse reactions and safe storage discussed. All questions answered. I have spent greater than 30 minutes on patient care today. Dr Aguayo was available by phone for the evaluation of this patient. The time was used to review the medical records including relevant urine studies and Prescription history (MAPs), review of the available imaging, evaluation and examination of t he patient, coordination of care with the medical staff and if applicable referring physicians, as well as creation of the medical record PQRS Narrative: Smoking Status Current every day smoker Hx Alcohol Use (MH) Yes: DAILY Home Medications: Ambulatory Orders EPINEPHrine (Auto Inject) [Epipen] 0.3 mg IM ONCE PRN #2 pen 01/27/19 predniSONE [Deltasone] 20 mg PO BID #6 tab 01/27/19 Acetaminophen-Codeine 300-30mg [Tylenol w/codeine #3] 1 tab PO TID PRN 01/26/23 Fluticasone/Umeclidin/Vilanter [Trelegy Ellipta 100-62.5-25] 1 puff INHALATION DAILY 01/26/23 Irbesartan 75 mg PO DAILY 01/26/23 LORazepam [Lorazepam] 0.5 mg PO DAILY 01/26/23 Levothyroxine Sodium 25 mcg PO DAILY 01/26/23 Propranolol HCl [Inderal] 60 mg PO DAILY 01/26/23 amLODIPine BESYLATE 10 mg PO DAILY 01/26/23 Controlled Substance Measures - Controlled Substance Measures Is patient prescribed a controlled substance at discharge?: Yes When asked, does pt state using other controlled substances?: Yes If prescribed controlled substance>3 days was MAPS reviewed?: Prescribed <3 Days
== END ==
LOC: PNWHC3 13:55
PROVIDERS: ATTEND Specialist
DX: M51.37 Other intervertebral disc degeneration, lumbosacral region (principal); F17.200 Nicotine dependence, unspecified, uncomplicated; Z91.030 Bee allergy status
CPT/HCPCS: 99211

== ENCOUNTER → 2023-04-03 | Outpatient (CLI) | payer MEDICARE, BC ==
[2023-04-03 12:51] VITALS: BP 124/77; PULSE 76; RESP 15; TEMP 98.2
--- NOTE | 2023-04-03 14:43 | P.PAINPG ---
PQRS Measure Charge Sheet Comment: HISTORY OF PRESENT ILLNESS: 88 yr old male presents today w severe and chronic LBP secondary to DDD, spondylosis and facet arthropathy without myelopathy for evaluation s/p BL MBB L3-L5 #1. Pt states he experienced 80% pain relief x 3 days s/p procedure. Pt states pain level is provoked at 6 /10 in intensity, constant, localized in the mid to lower lumbar spine, achy in character w shooting pain towards the BLEs. Pain is provoked by standing/ walking for periods of 10 min or more. Pain is alleviated by PT x 6 wks which ended in November 2022, chiropractic treatments semi weekly x 5 wks in October 2022, heat, ice, medications, topical, repositioning and rest. Oswestry axial pain score of 24. Interventional procedures include LAWANDA L4-L5 x1 Medications include Tyl #3, Tylenol REVIEW OF ORGAN SYSTEMS: CONSTITUTIONAL: No fevers or chills. No recent weight loss. NEUROLOGICAL: + numbness and tingling along the distal extremities. No seizure disorders or headaches. MUSCULOSKELETAL: + pain PSYCHIATRIC: Denies current depression or suicidal thoughts. Physical Examinations : Constitutional : Cooperative , not in acute distress . Neurologic : Cranial nerve II to XII intact. No focal neurological deficits. Psychiatric : alert & oriented x 3. Matching mood & appropriate affect. Judgment & insight intact. Musculoskeletal : Cervical Spine Motor strength in the deltoid and biceps: Normal right side. Normal Left side Motor strength biceps and the wrist extensors: Normal right side . Normal left side Motor strength in the triceps muscle: Normal right side. Normal left side Deep tendon reflexes: Normal at the biceps. Normal at Brachioradialis. Normal at triceps Vertebral body tenderness to deep palpation over Cervical facet loading test: positive bilaterally Spurling test: positive bilaterally Neck distraction test: positive bilaterally Marco sign: positive bilaterally Lumbar spine Motor strength lower extremities ,thigh and legs 5/5 Right side , 5/5 Left side Deep tendon reflexes : Normal Knee Jerk. Normal Ankle Jerk Vertebral body tenderness Hill Test positive Lumbar facet Loading Test: positive Right / positive Left over L4-L5, L5-S1 Range of motion of the lumbar spine Flexion 30 degrees, extension 10 degrees Straight Leg Raise test: Left/ Right positive Luna test: positive right / positive left. Severe tenderness over the Sacroiliac joint on the Right / Left sides Gaenslen test: positive bilaterally Seated flexion test: positive bilaterally. Sacral spine : Severe tenderness over the Sacroiliac joint: right side / left side Range of motion: Flexion of the lumbar spine <60 degrees Range of motion: Extension of the lumbar spine <20 degrees Gaenslen's Test positive Derek's Test positive Luna test: positive right side / left side Thigh Thrust Test Sacral Thrust Test Imaging: MRI non contrast of the lumbar spine from 01/16/23 reviewed Assessment/ Plan : Lumbar DDD Recommendation of BL facet block of the medial branches L4-L5, L5-S1 #2. May need a series of injections, up until RFA, for optimal pain relief. Risks, be nefits of procedure discussed and patient verbalized understanding. Protocol for discontinuation/continuation of medications surrounding procedure discussed. [place] 5/325mg #15 NR. Use, side effects, adverse reactions and safe storage discussed. All questions answered. I have spent greater than 30 minutes on patient care today. Dr Aguayo was available by phone for the evaluation of this patient. The time was used to review the medical records including relevant urine studies and Prescription history (MAPs), review of the available imaging, evaluation and examination of the patient, coordination of care with the medical staff and if applicable referring physicians, as well as creation of the medical record PQRS Narrative: Smoking Status Current every day smoker Hx Alcohol Use (MH) Yes: DAILY Home Medications: Ambulatory Orders EPINEPHrine (Auto Inject) [Epipen] 0.3 mg IM ONCE PRN #2 pen 01/27/19 predniSONE [Deltasone] 20 mg PO BID #6 tab 01/27/19 Fluticasone/Umeclidin/Vilanter [Trelegy Ellipta 100-62.5-25] 1 puff INHALATION DAILY 01/26/23 Irbesartan 75 mg PO DAILY 01/26/23 LORazepam [Lorazepam] 0.5 mg PO DAILY 01/26/23 Levothyroxine Sodium 25 mcg PO DAILY 01/26/23 Propranolol HCl [Inderal] 60 mg PO DAILY 01/26/23 amLODIPine BESYLATE 10 mg PO DAILY 01/26/23 HYDROcodone/APAP 5-325MG [[place] 5-325] 1 tab PO Q4HR PRN 3 Days #15 tab 02/20/23 Acetaminophen-Codeine 300-30mg [Tylenol w/codeine #3] 1 tab PO TID PRN 03/15/23 Controlled Substance Measures - Controlled Substance Measures Is patient prescribed a controlled substance at discharge?: No
== END ==
LOC: PNWHC3 12:08
PROVIDERS: ATTEND Specialist
DX: M51.37 Other intervertebral disc degeneration, lumbosacral region (principal); F17.200 Nicotine dependence, unspecified, uncomplicated; Z91.030 Bee allergy status
CPT/HCPCS: 99211

== ENCOUNTER → 2023-04-21 | Day surgery (SDC) | payer MEDICARE, BC ==
[~2023-04-21] MED LIST changes: +IV FLUID CONTINUATION 1,000 ML IV ONE; +ROPIVACAINE 5MG/ML 20ML VIAL ONE; +fentaNYL (PF) 50 MCG/ML 2 ML AMP ONE; +methylPREDNISolone ACETATE 40 MG/ML 1 ML VIAL ONE
[2023-04-21 09:58] LABS: Glucose,Whole Blood 115 mg/dL (70-110)
[2023-04-21 10:08] VITALS: TEMP 97.2
--- NOTE | 2023-04-21 10:36 | P.PCN ---
Date of Procedure: 04/21/23 Procedure(s) Performed: PREOPERATIVE DIAGNOSIS : 1- Lumbar spondylosis with Facet Arthropathy without myelopathy . 2- Lumber degenerative disc disease POSTOPERATIVE DIAGNOSIS: 1- Lumbar spondylosis with Facet Arthropathy without myelopathy . 2- Lumber degenerative disc disease PROCEDURE: Diagnostic bilateral L3 , L4 , and L5 medial branch block under fluoroscopy guidance(fluoroscopy images available in the radiology Department ) ( To target the facet joint between Bilateral L4-5 , and L5-S1 )#2nd ANESTHESIA: Monitored anesthesia care as per anesthesia department. EBL: Minimal COMPLICATION: None PROCEDURE INDICATION: Chronic low back pain secondary to Facet arthropathy unresponsive to conservative treatment. PROCEDURE DESCRIPTION: the patient was seen and identified in the preop holding area , risks and benefits and possible complications of the procedure and alternative were discussed with the patient, and the patient agreed to proceed with the procedure and signed the consent and vital signs monitored during the procedure and fluoroscopy was used to maximize the benefit and accuracy of the needle placement, and sedation was given to decrease patient anxiety, patient was taken to the procedure room and placed in prone position vital signs monitored in the back prepped with chlorhexidine X3 then under strict sterile technique using a right oblique fluoroscopy ,the junction of the transverse process and the superior articulating process of the right L3 , L4 , and L5 vertebra which corresponding to the fluoroscopy image of the eye of the Nestor dog on the block side for the medial branches and subsequently , after local infiltration of skin and subcu tissuies with Ropivacaine 0.5 % , one mL at each level ,then 22-gauge Quincke-type needles , 3 needle was used , each one of them placed at the junction of the base of the transverse process and the superior articular process at the appropriate level, and the needle was advanced until the periosteum contacted, needle placement confirmed with AP oblique and lateral view and after appropriate needle placement confirmed, and after negative aspiration for heme and CSF and there was no paresthesia 1-1/2 mL of Ropivacaine 0.5% mixed with 20 mg Depo-Medrol , then half mL injected at each level after negative aspiration the needle subsequently removed and the same procedure repeated for the left side at left side at L3 , L4 and L5 levels. At the end of the procedure and the needles removed and a bandage applied after the skin was cleaned the cleaning solution patient taken to recovery room in stable condition and monitors in the recovery room for 20-30 minutes and discharged home in stable condition after discharge criteria met and patient will follow up with the pain clinic in 2-4 weeks
[2023-04-21 10:50] VITALS: RESP 16
--- NOTE | 2023-04-21 10:51 | FL ---
Intraoperative/procedural fluoroscopic services were provided for bilateral lumbar facet block. Total fluoroscopy time is 7.4 seconds with a total of 5 submitted images to PACS. Total DAP [id number] mG[employer]2. Please see the operative note for further details.
[2023-04-21 11:11] VITALS: BP 128/78; PULSE 76
== END ==
LOC: ORPAIN 09:28
PROVIDERS: ATTEND Specialist
DX: M47.816 Spondylosis without myelopathy or radiculopathy, lumbar region (principal); M51.36 Other intervertebral disc degeneration, lumbar region; G89.29 Other chronic pain; I11.0 Hypertensive heart disease with heart failure; I50.9 Heart failure, unspecified; J44.9 Chronic obstructive pulmonary disease, unspecified; E78.5 Hyperlipidemia, unspecified; E07.9 Disorder of thyroid, unspecified; F32.A Depression, unspecified; F17.200 Nicotine dependence, unspecified, uncomplicated; Z85.118 Personal history of other malignant neoplasm of bronchus and lung; Z85.51 Personal history of malignant neoplasm of bladder; Z79.51 Long term (current) use of inhaled steroids; Z79.899 Other long term (current) drug therapy; Z79.890 Hormone replacement therapy; Z91.030 Bee allergy status
CPT/HCPCS: 64494 ×2; 64493; J1030; J3010; J2795

== ENCOUNTER → 2023-05-11 | Outpatient (CLI) | payer MEDICARE, BC ==
[2023-05-11 13:06] VITALS: BP 120/73; PULSE 71; RESP 15; TEMP 98.2
--- NOTE | 2023-05-11 14:44 | P.PAINPG ---
PQRS Measure Charge Sheet Comment: HISTORY OF PRESENT ILLNESS: An 88 yr old male presents today w severe and chronic LBP secondary to DDD, spondylosis and facet arthropathy without myelopathy for evaluation s/p BL MBB L3-L5 #1. Pt states he experienced 85% pain relief x 7 days s/p procedure. Pt states pain level is provoked at 6 /10 in intensity, constant, localized in the mid to lower lumbar spine. predominantly axial, achy in character w shooting pain towards the BLEs. Pain is provoked by standing/ walking for periods of 10 min or more. Pain is alleviated by PT x 6 wks which ended in November 2022, chiropractic treatments semi weekly x 5 wks in October 2022, heat, ice, medications, topical, use of a walking cane for ambulatory assistance, repositioning and rest. Oswestry axial pain score of 23. Interventional procedures include LAWANDA L4-L5 x1 Medications include Tyl #3, Tylenol REVIEW OF ORGAN SYSTEMS: CONSTITUTIONAL: No fevers or chills. No recent weight loss. NEUROLOGICAL: + numbness and tingling along the distal extremities. No seizure disorders or headaches. MUSCULOSKELETAL: + pain PSYCHIATRIC: Denies current depression or suicidal thoughts. Physical Examinations : Constitutional : Cooperative , not in acute distress . Neurologic : Cranial nerve II to XII intact. No focal neurological deficits. Psychiatric : alert & oriented x 3. Matching mood & appropriate affect. Judgment & insight intact. Musculoskeletal : Cervical Spine Motor strength in the deltoid and biceps: Normal right side. Normal Left side Motor strength biceps and the wrist extensors: Normal right side . Normal left side Motor strength in the triceps muscle: Normal right side. Normal left side Deep tendon reflexes: Normal at the biceps. Normal at Brachioradialis. Normal at triceps Vertebral body tenderness to deep palpation over Cervical facet loading test: positive bilaterally Spurling test: positive bilaterally Neck distraction test: positive bilaterally Marco sign: positive bilaterally Lumbar spine Motor strength lower extremities ,thigh and legs 5/5 Right side , 5/5 Left side Deep tendon reflexes : Normal Knee Jerk. Normal Ankle Jerk Vertebral body tenderness Hill Test positive Lumbar facet Loading Test: positive Right / positive Left over L4-L5, L5-S1 Range of motion of the lumbar spine Flexion 30 degrees, extension 10 degrees Straight Leg Raise test: Left/ Right positive Luna test: positive right / positive left. Severe tenderness over the Sacroiliac joint on the Right / Left sides Gaenslen test: positive bilaterally Seated flexion test: positive bilaterally. Sacral spine : Severe tenderness over the Sacroiliac joint: right side / left side Range of motion: Flexion of the lumbar spine <60 degrees Range of motion: Extension of the lumbar spine <20 degrees Gaenslen's Test positive Derek's Test positive Luna test: positive right side / left side Thigh Thrust Test Sacral Thrust Test Imaging: MRI non contrast of the lumbar spine from 01/16/23 reviewed Assessment/ Plan : Lumbar DDD Recommendation of BL RFA L4-L5, L5-S1. Exhibited optimal pain relief w prior MBB procedures. Risks, benefits of procedure discussed and patient verbalized understanding. Protocol for discontinuation/continuation of medications surrounding procedure discussed. All questions answered. I have spent greater than 30 minutes on patient care today. Dr Aguayo was available by phone for the evaluation of this patient. The time was used to review the medical records including relevant urine studies and Prescription history (MAPs), review of the available imaging, evaluation and examination of the patient, coordination of care with the medical staff and if applicable referring physicians, as well as creation of the medical record PQRS Narrative: Smoking Status Current every day smoker Hx Alcohol Use (MH) Yes: DAILY Home Medications: Ambulatory Orders EPINEPHrine (Auto Inject) [Epipen] 0.3 mg IM ONCE PRN #2 pen 01/27/19 predniSONE [Deltasone] 20 mg PO BID #6 tab 01/27/19 Fluticasone/Umeclidin/Vilanter [Trelegy Ellipta 100-62.5-25] 1 puff INHALATION DAILY 01/26/23 Irbesartan 75 mg PO DAILY 01/26/23 LORazepam [Lorazepam] 0.5 mg PO DAILY 01/26/23 Levothyroxine Sodium 25 mcg PO DAILY 01/26/23 Propranolol HCl [Inderal] 60 mg PO DAILY 01/26/23 amLODIPine BESYLATE 10 mg PO DAILY 01/26/23 Acetaminophen-Codeine 300-30mg [Tylenol w/codeine #3] 1 tab PO TID PRN 03/15/23 Controlled Substance Measures - Controlled Substance Measures Is patient prescribed a controlled substance at discharge?: No
== END ==
LOC: PNWHC3 12:19
PROVIDERS: ATTEND Specialist
DX: M51.37 Other intervertebral disc degeneration, lumbosacral region (principal); F17.200 Nicotine dependence, unspecified, uncomplicated; Z91.030 Bee allergy status
CPT/HCPCS: 99211

== ENCOUNTER → 2023-06-02 | Outpatient (CLI) | payer MEDICARE, BC ==
--- NOTE | 2023-06-02 14:21 | CT ---
EXAMINATION TYPE: CT chest wo con DATE OF EXAM: 06/02/2023 COMPARISON: 12/07/2022 HISTORY: Hx lung ca, routine follow up CT DLP: 317 mGycm. Automated Exposure Control for Dose Reduction was Utilized. TECHNIQUE: CT scan of the thorax is performed without IV contrast. FINDINGS: LUNGS: There has been significant interval growth in the spiculated left upper lobe mass abutting the major fissure. Currently it measures 11.7 mm. On the prior study was much more ill-defined and left masslik e. It is highly suspicious for recurrent neoplasm. There are moderate diffuse emphysematous changes. There is no airspace consolidation. There is no pleural effusion, pleural thickening or pneumothorax. There is a stable borderline enlarged anterior mediastinal lymph node measuring 9.9 mm in short axis. There is stable mild aneurysmal dilatation of ascending thoracic aorta measuring 3.9 cm. Limited scanning the upper abdomen reveals a stable simple hepatic cysts. The right kidney is markedl y atrophic and contains a small nonobstructing renal calcification. There are multiple healed rib fractures bilaterally but no focal lytic or sclerotic bone lesion. IMPRESSION: 1. Increase masslike density left upper lobe as described above. This is highly suspicious for recurr ent neoplasm. 2. Stable mild aneurysmal dilatation of ascending thoracic aorta. 3. No acute cardiopulmonary disease. 4. Stable emphysematous changes. 5. markedly atrophic right kidney.
== END | disposition home or self-care (01) ==
LOC: RADCTMAIN 12:37
PROVIDERS: ATTEND Radiology Radiation Oncology
DX: C34.12 Malignant neoplasm of upper lobe, left bronchus or lung (principal); I71.21 Aneurysm of the ascending aorta, without rupture; N26.1 Atrophy of kidney (terminal); J98.4 Other disorders of lung; J43.9 Emphysema, unspecified
CPT/HCPCS: 71250

== ENCOUNTER 2023-06-09 11:06 | Day surgery (SDC) | payer MEDICARE, BC ==
[2023-06-07 16:17] VITALS: BMI 20.9
[2023-06-09] MEDS ORDERED: LIDOCAINE 1% (10MG/ML) FOR IV START INTRADERMA PRN (11:29)
[2023-06-09] MEDS ORDERED: LACTATED RINGERS 1,000 ML IV SCH ×2 (11:29)
[2023-06-09 11:47] LABS: Glucose,Whole Blood 95 mg/dL (70-110)
[2023-06-09 11:54] VITALS: TEMP 97.6
[2023-06-09] MEDS ORDERED: fentaNYL (PF) 50 MCG/ML 2 ML AMP ONE (12:13)
[2023-06-09] MEDS ORDERED: MIDAZOLAM 2 MG/2 ML VIAL ONE (12:13)
[2023-06-09] MEDS ORDERED: ROPIVACAINE 5MG/ML 20ML VIAL ONE (12:18)
[2023-06-09] MEDS ORDERED: IV FLUID CONTINUATION 1,000 ML IV ONE (13:08)
--- NOTE | 2023-06-09 13:20 | P.PCN ---
Description of Procedure: Preprocedure diagnosis. 1. Lumbar spondylosis with facet joint arthropathy without myelopathy. 2. Lumbar degenerative disc disease. Procedure diagnosis. 1. Lumbar spondylosis with facet joint arthropathy without myelopathy. Space 2. Lumbar degenerative disc disease. Procedure.Bilateral radiofrequency thermocoagulation L3, L4 and L5 medial branch, with fluoroscopic guidance (fluoroscopy images are available in the radiology department) (to Denervate the facet joint at bilateral L4 5 and L5-S1 levels) Anesthesia. Monitored anesthesia care as per anesthesia department, moderate sedation with intravenous Versed 2 mg and fentanyl 100 g and local infiltration with ropivacaine 0.5%. EBL minimal. Procedure indication. The patient with low back pain secondary to lumbar facet arthropathy who he had more than 50% relief of her pain with previous diagnostic lumbar medial branch block with local anesthetics. Procedure description/technique. The patient was seen and identified in the preoperative area. Risks: Benefits, complications, including but not limited to risk of infection, bleeding, ALLERGIC reaction to the medications and no complete pain relief and alternatives were discussed with the patient, the patient admitted to proceed with the procedure and signed the consent. IV was started, vital signs remained stable throughout the procedure. Patient was taken to the OR and timeout was completed. The patient was placed in prone position on the procedure table. The lumbar area was prepped and draped in the usual sterile fashion. Vital signs were closely monitored during the procedure. IV sedation was used it during the procedure to decrease patient's anxiety. Using AP and then oblique fluoroscopy, the "eye of the Nestor dog" corresponding to the connection between the superior articular process and transverse process of right L4 and L5 and junction of superior articular process with the right ala of the sacrum was identified, marked and localized with 1% lidocaine. Space subsequently, a 18-gauge 100 mm radiofrequency cannula with a 10 mm active tip was advanced and guided by fluoroscopy to each of the" eyes of the Nestor dog" at right L4, L5 and ala of the sacrum. Each site then underwent sensory testing with 50 Hz and 0-1 V and motor testing at 2.5 Hz and 0-3 V with local stimulation but no radicular symptoms down the leg. Thereafter each sites underwent radiofrequency thermocoagulation at 80C for 90 seconds after injecting 1 mL of preservative-free 0.5% ropivacaine. Repeat radiofrequency ablation was done at each points after rotating the needle 180 with same setting. This same procedure was repeated at the level of left L4, L5 and S1 vertebral levels. RF needles were taken out. At the end of the procedure the skin was cleansed and Band-Aids were applied. Disposition patient tolerated the procedure well. No complication. She was placed in supine position and transferred to the recovery area in stable condition for observation and was discharged home from recovery room after meeting discharge criteria. Discharge instructions given to the patient by the staff. The patient were examined prior to discharge the patient will schedule a follow-up in the clinic in 2-4 weeks.
[2023-06-09 13:34] VITALS: RESP 16
[2023-06-09 13:58] VITALS: BP 113/73; PULSE 67
--- NOTE | 2023-06-09 14:02 | FL ---
EXAMINATION TYPE: FL guided pain mgmt statistic Intraoperative/procedural fluoroscopic services were provided. Total fluoroscopy time is 125.8 seconds with a total of 7 submitted images to PACS. Please see the operative/procedural note for further details. DAP: 0.48929 mGym2
== END 2023-06-09 13:59 | disposition home or self-care (01) ==
LOC: ORPAIN 11:06
PROVIDERS: ATTEND Pain Medicine Interventional Pain Medicine
DX: M47.816 Spondylosis without myelopathy or radiculopathy, lumbar region (principal); M51.36 Other intervertebral disc degeneration, lumbar region
CPT/HCPCS: 64635; 64636 ×2; J2250; J3010; J2795

== ENCOUNTER → 2023-07-05 | Outpatient (CLI) | payer MEDICARE, BC ==
[2023-07-05 13:50] VITALS: BP 142/72; PULSE 76; RESP 15; TEMP 97.5
--- NOTE | 2023-07-05 14:33 | P.PAINPG ---
PQRS Measure Charge Sheet Comment: HISTORY OF PRESENT ILLNESS: An 88 yr old male presents today w severe and chronic LBP x 6 mo secondary to DDD, spondylosis and facet arthropathy without myelopathy for evaluation s/p BL RFA L3-L5. Pt states he experienced 50% pain relief s/p procedure. Pt states pain level is provoked at 6 /10 in intensity, constant, localized in the lower lumbar spine, predominantly axial, achy in character w occasional shooting pain towards the BLEs. Pain is provoked by standing/ walking for periods of 10 min or more. Pain is alleviated by PT x 6 wks which ended in November 2022, chiropractic treatments semi weekly x 6 wks in October- Dec 2022, heat, ice, medications, topical, use of a walking cane for ambulatory assistance, repositioning and rest. Oswestry axial pain score of 22. Interventional procedures include LAWANDA L4-L5 x1 Medications include Tyl #3, Tylenol REVIEW OF ORGAN SYSTEMS: CONSTITUTIONAL: No fevers or chills. No recent weight loss. NEUROLOGICAL: + numbness and tingling along the distal extremities. No seizure disorders or headaches. MUSCULOSKELETAL: + pain PSYCHIATRIC: Denies current depression or suicidal thoughts. Physical Examinations : Constitutional : Cooperative , not in acute distress . Neurologic : Cranial nerve II to XII intact. No focal neurological deficits. Psychiatric : alert & oriented x 3. Matching mood & appropriate affect. Judgment & insight intact. Musculoskeletal : Cervical Spine Motor strength in the deltoid and biceps: Normal right side. Normal Left side Motor strength biceps and the wrist extensors: Normal right side . Normal left side Motor strength in the triceps muscle: Normal right side. Normal left side Deep tendon reflexes: Normal at the biceps. Normal at Brachioradialis. Normal at triceps Vertebral body tenderness to deep palpation over Cervical facet loading test: positive bilaterally Spurling test: positive bilaterally Neck distraction test: positive bilaterally Marco sign: positive bilaterally Lumbar spine Motor strength lower extremities ,thigh and legs 5/5 Right side , 5/5 Left side Deep tendon reflexes : Normal Knee Jerk. Normal Ankle Jerk Vertebral body tenderness Hill Test positive Lumbar facet Loading Test: positive Right / positive Left over L4-L5, L5-S1 Range of motion of the lumbar spine F lexion 30 degrees, extension 10 degrees Straight Leg Raise test: Left/ Right positive Luna test: positive right / positive left. Severe tenderness over the Sacroiliac joint on the Right / Left sides Gaenslen test: positive bilaterally Seated flexion test: positive bilaterally. Sacral spine : Severe tenderness over the Sacroiliac joint: right side / left side Range of motion: Flexion of the lumbar spine <60 degrees Range of motion: Extension of the lumbar spine <20 degrees Gaenslen's Test positive Derek's Test positive Luna test: positive right side / left side Thigh Thrust Test Sacral Thrust Test Imaging: MRI non contrast of the lumbar spine from 01/16/23 reviewed Assessment/ Plan : Lumbar DDD Recommendation of BL Iliolumbar Ligament injection #1. May need a series of inj ections for optimal pain relief. Risks, benefits of procedure discussed and patient verbalized understanding. Protocol for discontinuation/continuation of medications surrounding procedure discussed. All questions answered. I have spent greater than 30 minutes on patient care today. Dr Aguayo was available by phone for the evaluation of this patient. The time was used to review the medical records including relevant urine studies and Prescription history (MAPs), review of the available imaging, evaluation and examination of the patient, coordination of care with the medical staff and if applicable referring physicians, as well as creation of the medical record PQRS Narrative: Smoking Status Current every day smoker Hx Alcohol Use (MH) Yes: DAILY Home Medications: Ambulatory Orders EPINEPHrine (Auto Inject) [Epipen] 0.3 mg IM ONCE PRN #2 pen 01/27/19 predniSONE [Deltasone] 20 mg PO BID #6 tab 01/27/19 Fluticasone/Umeclidin/Vilanter [Trelegy Ellipta 100-62.5-25] 1 puff INHALATION DAILY 01/26/23 Irbesartan 75 mg PO DAILY 01/26/23 LORazepam [Lorazepam] 0.5 mg PO DAILY 01/26/23 Levothyroxine Sodium 25 mcg PO DAILY 01/26/23 Propranolol HCl [Inderal] 60 mg PO DAILY 01/26/23 amLODIPine BESYLATE 10 mg PO DAILY 01/26/23 Acetaminophen-Codeine 300-30mg [Tylenol w/codeine #3] 1 tab PO TID PRN 03/15/23 Controlled Substance Measures - Controlled Substance Measures Is patient prescribed a controlled substance at discharge?: No
== END ==
LOC: PNWHC3 13:08
PROVIDERS: ATTEND Specialist
DX: M51.37 Other intervertebral disc degeneration, lumbosacral region (principal); F17.200 Nicotine dependence, unspecified, uncomplicated; Z91.030 Bee allergy status
CPT/HCPCS: 99211

== ENCOUNTER 2023-07-18 12:30 | Day surgery (SDC) | payer MEDICARE, BC ==
[~2023-07-18 12:30] MED LIST changes: -IV FLUID CONTINUATION 1,000 ML IV ONE; -ROPIVACAINE 5MG/ML 20ML VIAL ONE; -fentaNYL (PF) 50 MCG/ML 2 ML AMP ONE; -methylPREDNISolone ACETATE 40 MG/ML 1 ML VIAL ONE
[2023-07-18 13:20] VITALS: TEMP 96.6
[2023-07-18 13:23] LABS: Glucose,Whole Blood 92 mg/dL (70-110)
[2023-07-18] MEDS ORDERED: ROPIVACAINE 5MG/ML 20ML VIAL ONE (13:58)
[2023-07-18] MEDS ORDERED: methylPREDNISolone ACETATE 40 MG/ML 1 ML VIAL ONE (13:58)
--- NOTE | 2023-07-18 14:06 | P.PCN ---
Date of Procedure: 07/18/23 Procedure(s) Performed: Procedure= bilateral iliolumbar ligament steroid injection under fluoroscopy guidance (fluoroscopy image stored on file in the radiology Department ) Preoperative diagnosis= 1- bilateral iliolumbar ligament neuralgia 2-lumbar degenerative disc disease 3-lumbar spondylosis with facet arthropathy Postoperative diagnosis=Same as preop Diagnosis . Complication = none Condition= stable Anesthesia= local anesthesia with ropivacaine 0.5% 4 ml only Indication for the procedure= patient complaining of low back pain , examination was positive for severe tenderness over the iliolumbar ligament bilaterally and patient diagnosed with iliolumbar ligament neuralgia, for this reason he was good candidate for iliolumbar ligament steroid injection. Description of the procedure= procedure risk and benefits discussed with the patient, including but not limited, risk of infection and bleeding, and ALLERGIC reaction to the medication and not complete pain relief and patient agreed with the preceding patient taken to the operating room, placed in prone position or standard monitors applied to the patient then after induction of anesthesia back prepped with chlorhexidine 3 times , Then under strict sterile technique, first I did the right side the which was identified under fluoroscopy guidance been local infiltration of the skin and subcu interstitial with lidocaine 1% then 22-gauge Quincke Needle advanced slowly under fluoroscopy and placed in the middle of the distance between the L5 transver process and the sacral ala ,needle placement confirmed with AP and oblique and lateral view, and after appropriate needle placement confirmed and after negative aspiration, or heme , then Ropivacaine 0.5% 3 mL, and 20 mg of Depo-Medrol mixed together and injected after negative aspiration patient tolerated the procedure well without any complication. Then the exact same procedure done for the left side.
--- NOTE | 2023-07-18 14:26 | FL ---
Intraoperative/procedural fluoroscopic services were provided for ilioinguinal nerve block. Total flu oroscopy time is 5.6 seconds with a total of 3 submitted images to PACS. Total DAP 0.45270 mGycm2. P lease see the operative note for further details.
[2023-07-18 14:36] VITALS: RESP 18
[2023-07-18 15:29] VITALS: BP 132/73; PULSE 63
== END 2023-07-18 14:40 | disposition home or self-care (01) ==
LOC: ORPAIN 12:30
PROVIDERS: ATTEND Specialist
DX: M47.816 Spondylosis without myelopathy or radiculopathy, lumbar region (principal); M51.36 Other intervertebral disc degeneration, lumbar region; G58.8 Other specified mononeuropathies
CPT/HCPCS: 64425; J1030; J2795

== ENCOUNTER → 2023-08-03 | Outpatient (CLI) | payer MEDICARE, BC ==
[2023-08-03 12:32] VITALS: BP 122/66; PULSE 75; RESP 16
--- NOTE | 2023-08-03 14:36 | P.PAINPG ---
PQRS Measure Charge Sheet Comment: HISTORY OF PRESENT ILLNESS: An 88 yr old male w nephew at side presents today w severe and chronic LBP x 6 mo secondary to DDD, spondylosis and facet arthropathy without myelopathy for evaluation s/p BL Iliolumbar Ligament injection #1. Pt states he experienced 0% pain relief s/p procedure. Pt states pain level is provoked at 8 /10 in intensity, constant, localized in the upper spine, predominantly axial, achy in character w occasional shooting pain towards the BL shoulders. Pain is provoked by standing/ walking for periods of 10 min or more. Pain is alleviated by PT x 6 wks which ended in November 2022, chiropractic treatments semi weekly x 6 wks in October- Dec 2022, heat, ice, medications, topical, use of a walking cane for ambulatory assistance, repositioning and rest. Oswestry axial pain score of 21. Interventional procedures include LAWANDA L4-L5 x1, BL RFA L3-L5 x1 (May 2023), BL Iliolumbar x1 (Jun 2023) Medications include Tyl #3, Tylenol REVIEW OF ORGAN SYSTEMS: CONSTITUTIONAL: No fevers or chills. No recent weight loss. NEUROLOGICAL: + numbness and tingling along the distal extremities. No seizure disorders or headaches. MUSCULOSKELETAL: + pain PSYCHIATRIC: Denies current depression or suicidal thought s. Physical Examinations : Constitutional : Cooperative , not in acute distress . Neurologic : Cranial nerve II to XII intact. No focal neurological deficits. Psychiatric : alert & oriented x 3. Matching mood & appropriate affect. Judgment & insight intact. Musculoskeletal : Cervical Spine Motor strength in the deltoid and biceps: Normal right side. Normal Left side Motor strength biceps and the wrist extensors: Normal right side . Normal left side Motor strength in the triceps muscle: Normal right side. Normal left side Deep tendon reflexes: Normal at the biceps. Normal at Brachioradialis. Normal at triceps Vertebral body tenderness to deep palpation over Cervical facet loading test: positive bilaterally Spurling test: positive bilaterally Neck distraction test: positive bilaterally Marco sign: positive bilaterally Lumbar spine Motor strength lower extremities ,thigh and legs 5/5 Right side , 5/5 Left side Deep tendon reflexes : Normal Knee Jerk. Normal Ankle Jerk Vertebral body tenderness Hill Test positive Taut bands w twitch response over BL T6-S1 Lumbar facet Loading Test: positive Right / positive Left over L4-L5, L5-S1 Range of motion of the lumbar spine Flexion 30 degrees, extension 10 degrees Straight Leg Raise test: Left/ Right positive Luna test: positive right / positive left. Severe tenderness over the Sacroiliac joint on the Right / Left sides Gaenslen test: positive bilaterally Seated flexion test: positive bilaterally. Sacral spine : Severe tenderness over the Sacroiliac joint: right side / left side Range of motion: Flexion of the lumbar spine <60 degrees Range of motion: Extension of the lumbar spine <20 degrees Gaenslen's Test positive Derek's Test positive Luna test: positive right side / left side Thigh Thrust Test Sacral Thrust Test Imaging: MRI non contrast of the lumbar spine from 01/16/23 reviewed Assessment/ Plan : Lumbar DDD Recommendation of BL TPIs T6-S1 #1. May need a series of injections for optimal pain relief. Risks, benefits of procedure discussed and patient verbalized understanding. Protocol for discontinuation/continuation of medications surrounding procedure discussed. Recommendation of medication management. Tramadol 50mg #90 and Robaxin 500mg #60 w 1 RF. Use, side effects, adverse reactions and safe stores discussed. Informed pt to discontinue Narcotic agreement w Dr Wise for Tyl #3 as pt states it doesn't help any more. Advised to stop use of Tyl #3 while on Tramadol. Opiate/narcotic agreement signed 08/03/23. All questions answered. I have spent greater than 30 minutes on patient care today. Dr Aguayo was available by phone for the evaluation of this patient. The time was used to review the medical records including relevant urine studies and Prescription history (MAPs), review of the available imaging, evaluation and examination of the patient, coordination of care with the medical staff and if applicable referring physicians, as well as creation of the medical record PQRS Narrative: Smoking Status Current every day smoker Hx Alcohol Use (MH) Yes: DAILY Home Medications: Ambulatory Orders EPINEPHrine (Auto Inject) [Epipen] 0.3 mg IM ONCE PRN #2 pen 01/27/19 Fluticasone/Umeclidin/Vilanter [Trelegy Ellipta 100-62.5-25] 1 puff INHALATION DAILY 01/26/23 Irbesartan 75 mg PO DAILY 01/26/23 LORazepam [Lorazepam] 0.5 mg PO DAILY 01/26/23 Levothyroxine Sodium 25 mcg PO DAILY 01/26/23 Propranolol HCl [Inderal] 60 mg PO DAILY 01/26/23 amLODIPine BESYLATE 10 mg PO DAILY 01/26/23 Acetaminophen-Codeine 300-30mg [Tylenol w/codeine #3] 1 tab PO TID PRN 03/15/23 Albuterol Inhaler [Ventolin Hfa Inhaler] 1 - 2 puff INHALATION Q6H PRN 07/12/23 Simvastatin [Zocor] 20 mg PO DAILY 07/12/23 methocarbamoL [Robaxin] 500 mg PO BID PRN 30 Days #60 tab 08/03/23 traMADol HCL 50 mg PO TID PRN 30 Days #90 tab 08/03/23 Controlled Substance Measures - Controlled Substance Measures Is patient prescribed a controlled substance at discharge?: Yes When asked, does pt state using other controlled substances?: No If prescribed controlled substance>3 days was MAPS reviewed?: Yes If Rx opioid, was Start Talking consent form obtained?: Yes Was information provided regarding opioid addiction?: Yes
== END ==
LOC: PNWHC3 11:21
PROVIDERS: ATTEND Specialist
DX: M51.35 Other intervertebral disc degeneration, thoracolumbar region (principal); M47.815 Spondylosis without myelopathy or radiculopathy, thoracolumbar region; M51.37 Other intervertebral disc degeneration, lumbosacral region; M47.817 Spondylosis without myelopathy or radiculopathy, lumbosacral region; F17.200 Nicotine dependence, unspecified, uncomplicated; Z91.030 Bee allergy status
CPT/HCPCS: 99211

== ENCOUNTER 2023-08-22 09:58 | Day surgery (SDC) | payer MEDICARE, BC ==
[2023-08-22 11:02] LABS: Glucose,Whole Blood 118 mg/dL (70-110)
[2023-08-22 11:20] VITALS: TEMP 97.7
[2023-08-22] MEDS ORDERED: ROPIVACAINE 5MG/ML 20ML VIAL ONE (11:54)
[2023-08-22] MEDS ORDERED: methylPREDNISolone ACETATE 80 MG/ML 1 ML VIAL ONE (11:54)
--- NOTE | 2023-08-22 12:09 | P.PCN ---
Description of Procedure: Preprocedure diagnosis. Myofascial pain. Myofascial trigger point. Postprocedure diagnosis. As above. Procedure done. Myofascial trigger point injection with local anesthetics and steroid at 6 points. Anesthesia. Ethyl chloride spray. Local anesthetic infiltration. In the OR continuous pulse ox, EKG, blood pressure, and verbal communication was maintained with the patient. Blood loss. None. Indication. Discussed with the patient procedure, alternatives and possible complications which may include infection, bleeding, nerve damage, aggravation of pain. Patient understands and all questions were answered. Procedure note. After getting consent patient in the procedure area. Most tender points were identified and marked. A 25-gauge needle attached to syringe was introduced at the trigger points and after negative aspiration 5 mL solution solution injected at each trigger point. I injected 6 trigger points over the paraspinal muscles bilaterally at L5,L4,T9 levels. At each trigger point 5 mL solution was used which consists of 4 mL of 0.5% ropivacaine mixed with 13.3 mg of Depo-Medrol. Disposition. Patient tolerated the procedure well. No complication. Discharged home in stable condition. PATIENT RELATES NO SIGNIFICANT IMPROVEMENT. MAY CONSIDER SURGICAL EVALUATION.
[2023-08-22 12:27] VITALS: BP 133/75; PULSE 63; RESP 16
== END 2023-08-22 12:33 | disposition home or self-care (01) ==
LOC: ORPAIN 09:58
PROVIDERS: ATTEND Pain Medicine Interventional Pain Medicine
DX: M79.18 Myalgia, other site (principal)
CPT/HCPCS: 20553; J1040; J2795

== ENCOUNTER → 2023-09-07 | Outpatient (CLI) | payer MEDICARE, BC ==
[2023-09-07 13:30] VITALS: BP 132/76; PULSE 92; RESP 15; TEMP 98.6
--- NOTE | 2023-09-07 14:00 | P.PAINPG ---
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 Pt states he experienced 50% pain relief x 3 wks s/p procedure. Pt states pain level is provoked at 7 /10 in intensity, constant, localized in the lumbar spine, predominantly axial, achy in character w occasional shooting pain towards the BLEs. Pain is provoked by standing/ walking for periods of 10 min or more. Pain is alleviated by PT x 6 wks which ended in November 2022, chiropractic treatments semi weekly x 6 wks in October- Dec 2022, heat, ice, medications, topical, use of a walking cane for ambulatory assistance, repositioning and rest. Oswestry axial pain score of 20. Interventional procedures include LAWANDA L4-L5 x1, BL RFA L3-L5 x1 (May 2023), BL Iliolumbar x1 (Jun 2023), BL TPIs T6-S1 x1 Medications include Tyl #3, Tylenol REVIEW OF ORGAN SYSTEMS: CONSTITUTIONAL: No fevers or chills. No recent weight loss. NEUROLOGICAL: + numbness and tingling along the distal extremities. No seizure disorders or headaches. MUSCULOSKELETAL: + pain PSYCHIATRIC: Denies current depression or suicidal thoughts. Physical Examinations : Constitutional : Cooperative , not in acute distress . Neurologic : Cranial nerve II to XII intact. No focal neurological deficits. Psychiatric : alert & oriented x 3. Matching mood & appropriate affect. Judgment & insight intact. Musculoskeletal : Cervical Spine Motor strength in the deltoid and biceps: Normal right side. Normal Left side Motor strength biceps and the wrist extensors: Normal right side . Normal left side Motor strength in the triceps muscle: Normal right side. Normal left side Deep tendon reflexes: Normal at the biceps. Normal at Brachioradialis. Normal at triceps Vertebral body tenderness to deep palpation over Cervical facet loading test: positive bilaterally Spurling test: positive bilaterally Neck distraction test: positive bilaterally Marco sign: positive bilaterally Lumbar spine Motor strength lower extremities ,thigh and legs 5/5 Right side , 5/5 Left side Deep tendon reflexes : Normal Knee Jerk. Normal Ankle Jerk Vertebral body tenderness Hill Test positive Taut bands w twitch response Lumbar facet Loading Test: positive Right / positive Left over L4-L5, L5-S1 Range of motion of the lumbar spine Flexion 30 degrees, extension 10 degrees Straight Leg Raise test: Left/ Right positive Luna test: positive right / positive left. Severe tenderness over the Sacroiliac joint on the Right / Left sides Gaenslen test: positive bilaterally Seated flexion test: positive bilaterally. Sacral spine : Severe tenderness over the Sacroiliac joint: right side / left side Range of motion: Flexion of the lumbar spine <60 degrees Range of motion: Extension of the lumbar spine <20 degrees Gaenslen's Test positive Derek's Test positive Luna test: positive right side / left side Thigh Thrust Test Sacral Thrust Test Imaging: MRI non contrast of the lumbar spine from 01/16/23 reviewed Assessment/ Plan : Lumbar DDD Recommendation of referral to [facility] provided G89.4 M54.16. May need a series of injections for optimal pain relief. Risks, benefits of procedure discussed and patient verbalized understanding. Protocol for discontinuation/continuation of medications surrounding procedure discussed. Recommendation of medication management. [place] 5/325mg #90 w 1 RF. Discontinue Tramadol. Has already discontinued Tylenol #3 per pt and nephew at side. Use, side effects, adverse reactions and safe stores discussed. Opiate/narcotic agreement signed 08/03/23. All questions answered. I have spent greater than 30 minutes on patient care today. Dr Aguayo was available by phone for the evaluation of this patient. The time was used to review the medical records including relevant urine studies and Prescription history (MAPs), review of the available imaging, evaluation and examination of the patient, coordination of care with the medical staff and if applicable referring physicians, as well as creation of the medical record PQRS Narrative: Smoking Status Current every day smoker Hx Alcohol Use (MH) Yes: DAILY Home Medications: Ambulatory Orders EPINEPHrine (Auto Inject) [Epipen] 0.3 mg IM ONCE PRN #2 pen 01/27/19 Fluticasone/Umeclidin/Vilanter [Trelegy Ellipta 100-62.5-25] 1 puff INHALATION DAILY 01/26/23 Irbesartan 75 mg PO DAILY 01/26/23 LORazepam [Lorazepam] 0.5 mg PO DAILY 01/26/23 Levothyroxine Sodium 25 mcg PO DAILY 01/26/23 Propranolol HCl [Inderal] 60 mg PO DAILY 01/26/23 amLODIPine BESYLATE 10 mg PO DAILY 01/26/23 Acetaminophen-Codeine 300-30mg [Tylenol w/codeine #3] 1 tab PO TID PRN 03/15/23 Albuterol Inhaler [Ventolin Hfa Inhaler] 1 - 2 puff INHALATION Q6H PRN 07/12/23 Simvastatin [Zocor] 20 mg PO DAILY 07/12/23 methocarbamoL [Robaxin] 500 mg PO BID PRN 30 Days #60 tab 08/03/23 HYDROcodone/APAP 5-325MG [[place] 5-325] 1 tab PO TID PRN 30 Days #90 tab 09/07/23 HYDROcodone/APAP 5-325MG [[place] 5-325] 1 tab PO TID PRN 30 Days #90 tab 09/07/23 Controlled Substance Measures - Controlled Substance Measures Is patient prescribed a controlled substance at discharge?: Yes When asked, does pt state using other controlled substances?: No If prescribed controlled substance>3 days was MAPS reviewed?: Yes
== END ==
LOC: PNWHC3 12:50
PROVIDERS: ATTEND Specialist
DX: G89.4 Chronic pain syndrome (principal); M51.37 Other intervertebral disc degeneration, lumbosacral region; M47.817 Spondylosis without myelopathy or radiculopathy, lumbosacral region; F17.200 Nicotine dependence, unspecified, uncomplicated; Z91.030 Bee allergy status
CPT/HCPCS: 99211

== ENCOUNTER → 2023-09-14 | Outpatient (CLI) | payer MEDICARE, BC ==
--- NOTE | 2023-09-18 07:00 | CT ---
EXAMINATION TYPE: CT chest wo con CT DLP: 190.9 mGycm, Automated exposure control for dose reduction was used. DATE OF EXAM: 09/14/2023 11:14 AM COMPARISON: CT chest June 02, 2023 and older exams CLINICAL INDICATION:Male, 88 years old with history of C34.12 Lung cancer; PHH, Nodule on left lung. TECHNIQUE: Multiple axial images were obtained through the chest. Sagittal and coronal reformats were created for review. Contrast used: None Oral contrast used: None FINDINGS: Examination limited by lack of IV contrast. LUNGS/ PLEURA: Pulmonary emphysematous changes with moderately severe bullous change towards the apic es. Solid slightly spiculated nodule in the posterior left upper lobe superiorly abutting the obliqu e fissure measures 12 x 11 mm and by my measurements was 11 x 10 mm on the previous scan. Lungs other epps are stable. There is no new or enlarging nodule, mass, or consolidation. Costophrenic granuloma in the right lung apex and areas of linear and bandlike scarring appear unchanged. No pleural effusio n or pneumothorax. AIRWAY: Central airways are patent. LOWER NECK: No significant findings. The visualized thyroid is unremarkable. MEDIASTINUM: No enlarged mediastinal nodes by CT criteria. A borderline prominent lymph node anterior to the ascending aorta measuring just under 10 mm short axis is stable over multiple prior scans. No hilar adenopathy visible.. HEART: Mildly to moderately enlarged.. Moderate to severe coronary artery calcification and/or stents . No appreciable pericardial effusion. VASCULATURE: Moderate atherosclerotic calcifications of the aorta and branches. Moderate calcificati on aortic valve.. Aortic root 3.5 cm. Ascending aorta is 3.9 CM, descending is 2.9 CM. Aorta is cons idered ectatic at the root and ascending segments; stable from prior exam. Pulmonary trunk measures 3 CM. Pulmonary trunk is borderline enlarged, can be seen with pulmonary hyp ertension. Vessels otherwise not further assessed without contrast. SOFT TISSUES/LYMPH NODES: Patient appears somewhat cachectic. No enlarged axillary nodes or chest wal l masses. UPPER ABDOMEN: Bilobed hypodense structure measuring up to 4.4 cm in the liver towards the dome remai ns stable, likely a cyst. Mild to moderate right renal atrophy again noted. Similar nonobstructing ca lcifications in the right kidney and mild bilateral perinephric stranding. No evidence of hydronephro sis. No adrenal mass. MUSCULOSKELETAL: Degenerative changes throughout the thoracic spine, wedge compression fracture defor mity of T7 with some overall loss of height and about 60% height loss anteriorly, appears similar to the last exam, but the exact age is indeterminate. Remote right rib fracture deformities appear uncha nged. Prominent apex right lower thoracic/upper lumbar scoliosis redemonstrated. IMPRESSION: 1. Stable to fractionally larger left upper lobe spiculated pulmonary nodule. Recommend continued cl ose follow-up to exclude slow-growing neoplasm. PET/CT may also be considered. 2. Emphysematous changes similar to prior. 3. Cardiomegaly with moderate to severe coronary artery calcifications. 4. Subacute T7 compression fracture with anterior wedge deformity, stable from the prior exam but th e exact age is indeterminate.
== END | disposition home or self-care (01) ==
LOC: RADCTMAIN 10:49
PROVIDERS: ATTEND Radiology Radiation Oncology
DX: C34.12 Malignant neoplasm of upper lobe, left bronchus or lung (principal); R91.1 Solitary pulmonary nodule; I25.10 Atherosclerotic heart disease of native coronary artery without angina pectoris; J43.9 Emphysema, unspecified; I51.7 Cardiomegaly; M48.54XA Collapsed vertebra, not elsewhere classified, thoracic region, initial encounter for fracture; F17.210 Nicotine dependence, cigarettes, uncomplicated
CPT/HCPCS: 71250

== ENCOUNTER 2023-12-14 16:56 | Inpatient (IN) | payer MEDICARE, BC ==
--- NOTE | 2023-12-14 18:13 | ED ---
General Adult HPI - General Chief complaint: Recheck/Abnormal Lab/Rx Stated complaint: Heart Palpitations Time Seen by Provider: 12/14/23 17:05 Source: patient Mode of arrival: wheelchair Limitations: no limitations - History of Present Illness Initial comments: 88-year-old male presents emergency department from Dr. Wise's office. He went into the office today complaining of lower extremity edema and exertional dyspnea. States that over the past week he has had worsening lower extremity edema and shortness of breath. He does have a history of emphysema and lung cancer. He is in remission. He does use inhalers at home however stated has not been helping. He denies fevers, chills or cough and denies any chest pain. No history of congestive heart failure. Patient does not take diuretics. Dr. Wise performed an EKG in office and was concerned about it and therefore sent the patient into the hospital for further evaluation. Patient does admit that he had a fall with head injury - Related Data Home Medications Medication Instructions Recorded Confirmed Fluticasone/Umeclidin/Vilanter 1 puff INHALATION RT-DAILY 01/26/23 12/14/23 [Trelegy Ellipta 100-62.5-25] Irbesartan 75 mg PO DAILY 01/26/23 12/14/23 LORazepam 0.5 mg PO BID PRN 01/26/23 12/14/23 Levothyroxine Sodium 25 mcg PO DAILY 01/26/23 12/14/23 Acetaminophen-Codeine 300-30mg 1 tab PO TID PRN 03/15/23 12/14/23 [Tylenol w/codeine #3] Simvastatin [Zocor] 20 mg PO DAILY 07/12/23 12/14/23 Cyanocobalamin [Vitamin B-12 1,000 mcg SQ QMONTHLY 12/14/23 12/14/23 Injection] Escitalopram [Lexapro] 20 mg PO DAILY 12/14/23 12/14/23 Primidone 50 mg PO HS 12/14/23 12/14/23 Propranolol LA [Inderal LA] 60 mg PO DAILY 12/14/23 12/14/23 Previous Rx's Medication Instructions Recorded EPINEPHrine (Auto Inject) [Epipen] 0.3 mg IM ONCE PRN #2 pen 01/27/19 HYDROcodone/APAP 5-325MG [[place] 1 tab PO TID PRN 30 Days #90 tab 09/07/23 5-325] Allergies Allergy/AdvReac Type Severity Reaction Status Date / Time bee venom protein (honey bee) Allergy Anaphylaxis Verified 12/15/23 08:26 Review of Systems ROS Statement: Those systems with pertinent positive or pertinent negative responses have been documented in the HPI. ROS Other: All systems not noted in ROS Statement are negative. Past Medical History Past Medical History: Cancer, COPD, Hyperlipidemia, Hypertension, Thyroid Disorder Additional Past Medical History / Comment(s): bladder and lung cancer, had radiation tx. lower back pain. sciatic nerve to rt, anemia History of Any Multi-Drug Resistant Organisms: None Reported Past Surgical History: Bowel Resection Additional Past Surgical History / Comment(s): colonscopy, Past Anesthesia/Blood Transfusion Reactions: No Reported Reaction Past Psychological History: Depression Smoking Status: Current every day smoker Past Alcohol Use History: Daily Past Drug Use History: None Reported - Past Family History Mother Family Medical History: Congestive Heart Failure (CHF), Diabetes Mellitus Father Family Medical History: Coronary Artery Disease (CAD) Additional Family Medical History / Comment(s): emphysema and black lung General Exam Limitations: no limitations General appearance: alert, in no apparent distress Head exam: Present: atraumatic, normocephalic, normal inspection Eye exam: Present: normal appearance, PERRL, EOMI. Absent: scleral icterus, c onjunctival injection, periorbital swelling ENT exam: Present: normal exam, mucous membranes moist Neck exam: Present: normal inspection. Absent: tenderness, meningismus, lymphadenopathy Respiratory exam: Present: normal lung sounds bilaterally. Absent: respiratory distress, wheezes, rales, rhonchi, stridor Cardiovascular Exam: Present: regular rate, normal rhythm, normal heart sounds. Absent: systolic murmur, diastolic murmur, rubs, gallop, clicks GI/Abdominal exam: Present: soft, normal bowel sounds. Absent: distended, tenderness, guarding, rebound, rigid Extremities exam: Present: full ROM, normal capillary refill, pedal edema. Absent: tenderness, joint swelling, calf tenderness Back exam: Present: normal inspection Neurological exam: Present: alert, oriented X3, CN II-XII intact Psychiatric exam: Present: normal affect, normal mood Skin exam: Present: warm, dry, intact, normal color. Absent: rash Course Vital Signs 12/14/23 12/14/23 12/14/23 16:59 18:00 20:19 Temperature 97.6 F 98.1 F Pulse Rate 69 66 65 Pulse Rate [ Pulse Oximetery ] Respiratory 20 18 18 Rate Blood Pressure 158/89 134/78 155/89 Blood Pressure [Right Arm] O2 Sat by Pulse 100 92 L 95 Oximetry 12/15/23 12/15/23 12/15/23 01:33 02:37 02:48 Temperature 98.7 F Pulse Rate 60 58 L Pulse Rate [ 65 Pulse Oximetery ] Respiratory 18 Rate Blood Pressure Blood Pressure 112/70 [Right Arm] O2 Sat by Pulse 96 Oximetry 12/15/23 07:04 Temperature Pulse Rate 63 Pulse Rate [ Pulse Oximetery ] Respiratory 16 Rate Blood Pressure 148/87 Blood Pressure [Right Arm] O2 Sat by Pulse 95 Oximetry Medical Decision Making - Medical Decision Making Was pt. sent in by a medical professional or institution (, PA, RN OR LVN, urgent care, hospital, or senior living...) When possible be specific @ -Patient was sent in from Dr. Wise's office Did you speak to anyone other than the patient for history (EMS, parent, family, police, friend...)? What history was obtained from this source @ -No Did you review nursing and triage notes (agree or disagree)? Why? @ -I reviewed and agree with nursing and triage notes Were old charts reviewed (outside hosp., previous admission, EMS record, old EKG, old radiological studies, urgent care reports/EKG's, senior living records)? Report findings @ -No old charts were reviewed Differential Diagnosis (chest pain, altered mental status, abdominal pain women, abdominal pain men, vaginal bleeding, weakness, fever, dyspnea, syncope, headache, dizziness, GI bleed, back pain, seizure, CVA, palpatations, mental health, musculoskeletal)? @ -Differential Dyspnea: Coronary syndrome, arrhythmia, tamponade, asthma, COPD, pulmonary embolism, pneumonia, pneumothorax, pulmonary effusion, anaphylaxis, diabetic ketoacidosis, flailed chest, pulmonary contusion, diaphragmatic rupture, anemia, neuromuscula r, this is not meant to be an all-inclusive list. EKG interpreted by me (3pts min.). @ -Yes and demonstrates sinus rhythm with a rate of 62. MA interval 176. QRS 82. QTc of 394. No acute ST segment elevations or depressions X-rays interpreted by me (1pt min.). @ -Yes and demonstrates COPD changes CT interpreted by me (1pt min.). @ -Yes and demonstrates no acute processes. No PE U/S interpreted by me (1pt. min.). @ -None done What testing was considered but not performed or refused? (CT, X-rays, U/S, labs)? Why? @ -None What meds were considered but not given or refused? Why? @ -None Did you discuss the management of the patient with other professionals (professionals i.e. DrLuz Elena, PA, RN OR LVN, lab, RT, psych nurse, case management social worker, foam rubber molder, teacher, flight deck officer, showcase trimmer)? Give summary @ -I spoke with [facility], Dr. Reinoso for admission Was smoking cessation discussed for >3mins.? @ -No Was critical care preformed (if so, how long)? @ -No Were there social determinants of health that impacted care today? How? (Homelessness, low income, unemployed, alcoholism, drug addiction, trans portation, low edu. Level, literacy, decrease access to med. care, retirement, rehab)? @ -No Was there de-escalation of care discussed even if they declined (Discuss DNR or withdrawal of care, Hospice)? DNR status @ -No What co-morbidities impacted this encounter? (DM, HTN, Smoking, COPD, CAD, Cancer, CVA, ARF, Chemo, Hep., AIDS, mental health diagnosis, sleep apnea, morbid obesity)? @ -COPD Was patient admitted / discharged? Hospital course, mention meds given and route, prescriptions, significant lab abnormalities, going to OR and other pertinent info. @ -Upon arrival patient seen and evaluated in room 7. Thorough history and physical exam was performed. IV was established. Laboratory studies are conducted. Patient has chest x-ray performed. Also has CT of the chest and CT of the brain. Results are discussed with patient. Patient will be admitted to [facility] for echo. Spoke with Dr. Reinoso for admission Undiagnosed new problem with uncertain prognosis? @ -Yes Drug Therapy requiring intensive monitoring for toxicity (Heparin, Nitro, Insulin, Cardizem)? @ -No Were any procedures done? @ -No Diagnosis/symptom? @ -Exertional dyspnea, bilateral lower extremity edema Acute, or Chronic, or Acute on Chronic? @Acute Uncomplicated (without systemic symptoms) or Complicated (systemic symptoms)? @ -Complicated Side effects of treatment? @ -No Exacerbation, Progression, or Severe Exacerbation? @ -No Poses a threat to life or bodily function? How? (Chest pain, [place], [place], pneumonia, PE, COPD, DKA, ARF, appy, cholecystitis, CVA, Diverticulitis, Homicidal, Suicidal, threat to staff... and all critical care pts) @ -Possibly as the patient has concern for new onset heart failure - Lab Data Result diagrams: 12/19/23 10:00 12/18/23 05:03 Lab Results 12/14/23 12/14/23 12/14/23 Range/Units 17:56 17:56 17:56 WBC 3.0 L (3.8-10.6) k/uL RBC 2.26 L (4.30-5.90) m/uL Hgb 9.2 L (13.0-17.5) gm/dL Hct 27.6 L (39.0-53.0) % MCV 122.3 H (80.0-100.0) fL MCH 40.7 H (25.0-35.0) pg MCHC 33.2 (31.0-37.0) g/dL RDW 13.9 (11.5-15.5) % Plt Count 181 (150-450) k/uL Estimated Plt Count (Adequate) MPV 8.0 Immature Gran % (Auto) % Absolute Nucleated RBC % Neutrophils % % Neutrophils % (Manual) 52 % Lymphocytes % % Lymphocytes % (Manual) 32 % Monocytes % % Monocytes % (Manual) 12 % Eosinophils % % Eosinophils % (Manual) 2 % Basophils % % Myelocytes % 3 % Immature Gran # (0.00-0.04) X 10*3/uL Neutrophils # (1.80-7.70) X 10*3/uL Neutrophils # (Manual) 1.56 (1.3-7.7) k/uL Lymphocytes # (0.90-5.00) X 10*3/uL Lymphocytes # (Manual) 0.96 L (1.0-4.8) k/uL Monocytes # (0.20-1.00) X 10*3/uL Monocytes # (Manual) 0.36 (0-1.0) k/uL Eosinophils # (0.04-0.35) X 10*3/uL Eosinophils # (Manual) 0.06 (0-0.7) k/uL Basophils # (0.00-0.10) X 10*3/uL Myelocytes # (Manual) 0.09 H (0) k/uL Nucleated RBCs 0 (0-0) /100 WBC NRBC/100 WBC Diff (0.00-0.01) X 10*3/uL Manual Slide Review Performed Macrocytosis Marked A Macrocytosis (manual) Retic Count (0.5-2.0) % Haptoglobin (31.2-198.0) mg/dL PT 11.6 (10.0-12.5) sec INR 1.1 (<1.2) APTT 24.0 (22.0-30.0) sec D-Dimer (<0.60) mg/L FEU Sodium 130 L (137-145) mmol/L Potassium 4.8 (3.5-5.1) mmol/L Chloride 101 (98-107) mmol/L Carbon Dioxide 22 (22-30) mmol/L Anion Gap 7 mmol/L BUN 23 H (9-20) mg/dL Creatinine 0.80 (0.66-1.25) mg/dL Est GFR (CKD-EPI) (>=60) Est GFR (CKD-EPI)AfAm >90 (>60 ml/min/1.73 sqM) Est GFR (CKD-EPI)NonAf 81 (>60 ml/min/1.73 sqM) BUN/Creatinine Ratio (12.00-20.00) Ratio Glucose 109 H (74-99) mg/dL Plasma Lactic Acid Rex (0.7-2.0) mmol/L Calcium 9.3 (8.4-10.2) mg/dL Magnesium 1.3 L (1.6-2.3) mg/dL Iron (65-175) UG/DL TIBC (228-460) UG/DL % Saturation (15.00-50.00) Transferrin (204.0-354.0) mg/dL Ferritin (22.0-322.0) ng/mL Total Bilirubin 1.1 (0.2-1.3) mg/dL AST 186 H (17-59) U/L ALT 91 H (4-49) U/L Alkaline Phosphatase 100 (38-126) U/L Lactate Dehydrogenase (120-246) U/L Troponin I (0.000-0.034) ng/mL NT-Pro-B Natriuret Pep 1080 pg/mL Total Protein 7.1 (6.3-8.2) g/dL Total Protein (PEP) (6.2-8.2) g/dL Albumin 4.0 (3.5-5.0) g/dL Albumin (PEP) (3.80-4.90) g/dL Nxnpg-6-Gmfryjgwf (0.10-0.40) g/dL Jxibc-9-Ljrbstefe (0.60-1.00) g/dL Beta Globulins (0.60-1.30) g/dL Gamma Globulins (0.70-1.50) g/dL PEP Interpretation Vitamin B12 (200.0-944.0) pg/mL Methylmalonic Acid (<0.40) umol/L Folate (4.40-31.00) ng/mL TSH (0.350-5.500) UIU/ML IgG (700.0-1600.0) mg/dL IgA (60.0-350.0) mg/dL IgM (40.0-280.0) mg/dL Serum MARIA DEL ROSARIO Interpret Free [place] LC, Quant (0.33-1.94) mg/dL Free Lambda LC, Quant (0.57-2.63) mg/dL Influenza Type A (PCR) (Not Detectd) Influenza Type B (PCR) (Not Detectd) RSV (PCR) (Not Detectd) SARS-CoV-2 (PCR) (Not Detectd) 12/14/23 12/14/23 12/14/23 Range/Units 17:56 17:56 17:56 WBC (3.8-10.6) k/uL RBC (4.30-5.90) m/uL Hgb (13.0-17.5) gm/dL Hct (39.0-53.0) % MCV (80.0-100.0) fL MCH (25.0-35.0) pg MCHC (31.0-37.0) g/dL RDW (11.5-15.5) % Plt Count (150-450) k/uL Estimated Plt Count (Adequate) MPV Immature Gran % (Auto) % Absolute Nucleated RBC % Neutrophils % % Neutrophils % (Manual) % Lymphocytes % % Lymphocytes % (Manual) % Monocytes % % Monocytes % (Manual) % Eosinophils % % Eosinophils % (Manual) % Basophils % % Myelocytes % % Immature Gran # (0.00-0.04) X 10*3/uL Neutrophils # (1.80-7.70) X 10*3/uL Neutrophils # (Manual) (1.3-7.7) k/uL Lymphocytes # (0.90-5.00) X 10*3/uL Lymphocytes # (Manual) (1.0-4.8) k/uL Monocytes # (0.20-1.00) X 10*3/uL Monocytes # (Manual) (0-1.0) k/uL Eosinophils # (0.04-0.35) X 10*3/uL Eosinophils # (Manual) (0-0.7) k/uL Basophils # (0.00-0.10) X 10*3/uL Myelocytes # (Manual) (0) k/uL Nucleated RBCs (0-0) /100 WBC NRBC/100 WBC Diff (0.00-0.01) X 10*3/uL Manual Slide Review Macrocytosis Macrocytosis (manual) Retic Count (0.5-2.0) % Haptoglobin (31.2-198.0) mg/dL PT (10.0-12.5) sec INR (<1.2) APTT (22.0-30.0) sec D-Dimer (<0.60) mg/L FEU Sodium (137-145) mmol/L Potassium (3.5-5.1) mmol/L Chloride (98-107) mmol/L Carbon Dioxide (22-30) mmol/L Anion Gap mmol/L BUN (9-20) mg/dL Creatinine (0.66-1.25) mg/dL Est GFR (CKD-EPI) (>=60) Est GFR (CKD-EPI)AfAm (>60 ml/min/1.73 sqM) Est GFR (CKD-EPI)NonAf (>60 ml/min/1.73 sqM) BUN/Creatinine Ratio (12.00-20.00) Ratio Glucose (74-99) mg/dL Plasma Lactic Acid Rex 1.7 (0.7-2.0) mmol/L Calcium (8.4-10.2) mg/dL Magnesium (1.6-2.3) mg/dL Iron (65-175) UG/DL TIBC (228-460) UG/DL % Saturation (15.00-50.00) Transferrin (204.0-354.0) mg/dL Ferritin (22.0-322.0) ng/mL Total Bilirubin (0.2-1.3) mg/dL AST (17-59) U/L ALT (4-49) U/L Alkaline Phosphatase (38-126) U/L Lactate Dehydrogenase (120-246) U/L Troponin I <0.012 (0.000-0.034) ng/mL NT-Pro-B Natriuret Pep pg/mL Total Protein (6.3-8.2) g/dL Total Protein (PEP) (6.2-8.2) g/dL Albumin (3.5-5.0) g/dL Albumin (PEP) (3.80-4.90) g/dL Kxfap-9-Yjsdthdwn (0.10-0.40) g/dL Wdrid-1-Kaplqzsfy (0.60-1.00) g/dL Beta Globulins (0.60-1.30) g/dL Gamma Globulins (0.70-1.50) g/dL PEP Interpretation Vitamin B12 (200.0-944.0) pg/mL Methylmalonic Acid (<0.40) umol/L Folate (4.40-31.00) ng/mL TSH (0.350-5.500) UIU/ML IgG (700.0-1600.0) mg/dL IgA (60.0-350.0) mg/dL IgM (40.0-280.0) mg/dL Serum MARIA DEL ROS[facility]IO Interpret Free [place] LC, Quant (0.33-1.94) mg/dL Free Lambda LC, Quant (0.57-2.63) mg/dL Influenza Type A (PCR) Not Detected (Not Detectd) Influenza Type B (PCR) Not Detected (Not Detectd) RSV (PCR) Not Detected (Not Detectd) SARS-CoV-2 (PCR) Not Detected (Not Detectd) 12/14/23 12/14/23 12/15/23 Range/Units 17:56 23:25 05:01 WBC (3.8-10.6) k/uL RBC (4.30-5.90) m/uL Hgb (13.0-17.5) gm/dL Hct (39.0-53.0) % MCV (80.0-100.0) fL MCH (25.0-35.0) pg MCHC (31.0-37.0) g/dL RDW (11.5-15.5) % Plt Count (150-450) k/uL Estimated Plt Count (Adequate) MPV Immature Gran % (Auto) % Absolute Nucleated RBC % Neutrophils % % Neutrophils % (Manual) % Lymphocytes % % Lymphocytes % (Manual) % Monocytes % % Monocytes % (Manual) % Eosinophils % % Eosinophils % (Manual) % Basophils % % Myelocytes % % Immature Gran # (0.00-0.04) X 10*3/uL Neutrophils # (1.80-7.70) X 10*3/uL Neutrophils # (Manual) (1.3-7.7) k/uL Lymphocytes # (0.90-5.00) X 10*3/uL Lymphocytes # (Manual) (1.0-4.8) k/uL Monocytes # (0.20-1.00) X 10*3/uL Monocytes # (Manual) (0-1.0) k/uL Eosinophils # (0.04-0.35) X 10*3/uL Eosinophils # (Manual) (0-0.7) k/uL Basophils # (0.00-0.10) X 10*3/uL Myelocytes # (Manual) (0) k/uL Nucleated RBCs (0-0) /100 WBC NRBC/100 WBC Diff (0.00-0.01) X 10*3/uL Manual Slide Review Macrocytosis Macrocytosis (manual) Retic Count (0.5-2.0) % Haptoglobin (31.2-198.0) mg/dL PT (10.0-12.5) sec INR (<1.2) APTT (22.0-30.0) sec D-Dimer 2.55 H (<0.60) mg/L FEU Sodium (137-145) mmol/L Potassium (3.5-5.1) mmol/L Chloride (98-107) mmol/L Carbon Dioxide (22-30) mmol/L Anion Gap mmol/L BUN (9-20) mg/dL Creatinine (0.66-1.25) mg/dL Est GFR (CKD-EPI) (>=60) Est GFR (CKD-EPI)AfAm (>60 ml/min/1.73 sqM) Est GFR (CKD-EPI)NonAf (>60 ml/min/1.73 sqM) BUN/Creatinine Ratio (12.00-20.00) Ratio Glucose (74-99) mg/dL Plasma Lactic Acid Rex (0.7-2.0) mmol/L Calcium (8.4-10.2) mg/dL Magnesium (1.6-2.3) mg/dL Iron (65-175) UG/DL TIBC (228-460) UG/DL % Saturation (15.00-50.00) Transferrin (204.0-354.0) mg/dL Ferritin (22.0-322.0) ng/mL Total Bilirubin (0.2-1.3) mg/dL AST (17-59) U/L ALT (4-49) U/L Alkaline Phosphatase (38-126) U/L Lactate Dehydrogenase (120-246) U/L Troponin I 0.016 <0.012 (0.000-0.034) ng/mL NT-Pro-B Natriuret Pep pg/mL Total Protein (6.3-8.2) g/dL Total Protein (PEP) (6.2-8.2) g/dL Albumin (3.5-5.0) g/dL Albumin (PEP) (3.80-4.90) g/dL Flzen-9-Kaijaenmb (0.10-0.40) g/dL Zuplt-0-Bflksmfyy (0.60-1.00) g/dL Beta Globulins (0.60-1.30) g/dL Gamma Globulins (0.70-1.50) g/dL PEP Interpretation Vitamin B12 (200.0-944.0) pg/mL Methylmalonic Acid (<0.40) umol/L Folate (4.40-31.00) ng/mL TSH (0.350-5.500) UIU/ML IgG (700.0-1600.0) mg/dL IgA (60.0-350.0) mg/dL IgM (40.0-280.0) mg/dL Serum MARIA [facility] ROS[facility] Interpret Free [place] LC, Quant (0.33-1.94) mg/dL Free Lambda LC, Quant (0.57-2.63) mg/dL Influenza Type A (PCR) (Not Detectd) Influenza Type B (PCR) (Not Detectd) RSV (PCR) (Not Detectd) SARS-CoV-2 (PCR) (Not Detectd) 12/15/23 12/15/23 12/16/23 Range/Units 05:01 05:01 06:27 WBC 2.7 L 3.01 L (3.8-10.6) k/uL RBC 2.09 L 1.92 L (4.30-5.90) m/uL Hgb 8.5 L 7.9 L (13.0-17.5) gm/dL Hct 25.6 L 23.3 L (39.0-53.0) % MCV 122.4 H 121.4 H (80.0-100.0) fL MCH 40.7 H 41.1 H (25.0-35.0) pg MCHC 33.2 33.9 (31.0-37.0) g/dL RDW 13.8 13.7 (11.5-15.5) % Plt Count 180 169 (150-450) k/uL Estimated Plt Count (Adequate) MPV 8.0 9.8 Immature Gran % (Auto) 0.70 % Absolute Nucleated RBC 0 % Neutrophils % 33.6 % Neutrophils % (Manual) 35 % Lymphocytes % 46.5 % Lymphocytes % (Manual) 51 % Monocytes % 16.6 % Monocytes % (Manual) 12 % Eosinophils % 2.3 % Eosinophils % (Manual) 2 % Basophils % 0.3 % Myelocytes % % Immature Gran # 0.02 (0.00-0.04) X 10*3/uL Neutrophils # 1.01 L (1.80-7.70) X 10*3/uL Neutrophils # (Manual) 0.95 L (1.3-7.7) k/uL Lymphocytes # 1.40 (0.90-5.00) X 10*3/uL Lymphocytes # (Manual) 1.38 (1.0-4.8) k/uL Monocytes # 0.50 (0.20-1.00) X 10*3/uL Monocytes # (Manual) 0.32 (0-1.0) k/uL Eosinophils # 0.07 (0.04-0.35) X 10*3/uL Eosinophils # (Manual) 0.05 (0-0.7) k/uL Basophils # 0.01 (0.00-0.10) X 10*3/uL Myelocytes # (Manual) (0) k/uL Nucleated RBCs 0 (0-0) /100 WBC NRBC/100 WBC Diff 0 (0.00-0.01) X 10*3/uL Manual Slide Review Performed Macrocytosis Marked A Macrocytosis (manual) Retic Count (0.5-2.0) % Haptoglobin (31.2-198.0) mg/dL PT (10.0-12.5) sec INR (<1.2) APTT (22.0-30.0) sec D-Dimer (<0.60) mg/L FEU Sodium 130 L (137-145) mmol/L Potassium 4.6 (3.5-5.1) mmol/L Chloride 101 (98-107) mmol/L Carbon Dioxide 21 L (22-30) mmol/L Anion Gap 8 mmol/L BUN 23 H (9-20) mg/dL Creatinine 0.81 (0.66-1.25) mg/dL Est GFR (CKD-EPI) (>=60) Est GFR (CKD-EPI)AfAm >90 (>60 ml/min/1.73 sqM) Est GFR (CKD-EPI)NonAf 80 (>60 ml/min/1.73 sqM) BUN/Creatinine Ratio (12.00-20.00) Ratio Glucose 99 (74-99) mg/dL Plasma Lactic Acid Rex (0.7-2.0) mmol/L Calcium 9.0 (8.4-10.2) mg/dL Magnesium (1.6-2.3) mg/dL Iron (65-175) UG/DL TIBC (228-460) UG/DL % Saturation (15.00-50.00) Transferrin (204.0-354.0) mg/dL Ferritin (22.0-322.0) ng/mL Total Bilirubin (0.2-1.3) mg/dL AST (17-59) U/L ALT (4-49) U/L Alkaline Phosphatase (38-126) U/L Lactate Dehydrogenase (120-246) U/L Troponin I (0.000-0.034) ng/mL NT-Pro-B Natriuret Pep pg/mL Total Protein (6.3-8.2) g/dL Total Protein (PEP) (6.2-8.2) g/dL Albumin (3.5-5.0) g/dL Albumin (PEP) (3.80-4.90) g/dL Rsyzo-5-Xyhekdokk (0.10-0.40) g/dL Vmlhb-3-Gygxipddg (0.60-1.00) g/dL Beta Globulins (0.60-1.30) g/dL Gamma Globulins (0.70-1.50) g/dL PEP Interpretation Vitamin B12 (200.0-944.0) pg/mL Methylmalonic Acid (<0.40) umol/L Folate (4.40-31.00) ng/mL TSH (0.350-5.500) UIU/ML IgG (700.0-1600.0) mg/dL IgA (60.0-350.0) mg/dL IgM (40.0-280.0) mg/dL Serum MARIA DEL ROS[facility] Interpret Free [place] LC, Quant (0.33-1.94) mg/dL Free Lambda LC, Quant (0.57-2.63) mg/dL Influenza Type A (PCR) (Not Detectd) Influenza Type B (PCR) (Not Detectd) RSV (PCR) (Not Detectd) SARS-CoV-2 (PCR) (Not Detectd) 12/16/23 12/17/23 12/17/23 Range/Units 06:27 03:25 03:25 WBC (3.8-10.6) k/uL RBC (4.30-5.90) m/uL Hgb (13.0-17.5) gm/dL Hct (39.0-53.0) % MCV (80.0-100.0) fL MCH (25.0-35.0) pg MCHC (31.0-37.0) g/dL RDW (11.5-15.5) % Plt Count (150-450) k/uL Estimated Plt Count (Adequate) MPV Immature Gran % (Auto) % Absolute Nucleated RBC % Neutrophils % % Neutrophils % (Manual) % Lymphocytes % % Lymphocytes % (Manual) % Monocytes % % Monocytes % (Manual) % Eosinophils % % Eosinophils % (Manual) % Basophils % % Myelocytes % % Immature Gran # (0.00-0.04) X 10*3/uL Neutrophils # (1.80-7.70) X 10*3/uL Neutrophils # (Manual) (1.3-7.7) k/uL Lymphocytes # (0.90-5.00) X 10*3/uL Lymphocytes # (Manual) (1.0-4.8) k/uL Monocytes # (0.20-1.00) X 10*3/uL Monocytes # (Manual) (0-1.0) k/uL Eosinophils # (0.04-0.35) X 10*3/uL Eosinophils # (Manual) (0-0.7) k/uL Basophils # (0.00-0.10) X 10*3/uL Myelocytes # (Manual) (0) k/uL Nucleated RBCs (0-0) /100 WBC NRBC/100 WBC Diff (0.00-0.01) X 10*3/uL Manual Slide Review Macrocytosis Macrocytosis (manual) Retic Count (0.5-2.0) % Haptoglobin (31.2-198.0) mg/dL PT (10.0-12.5) sec INR (<1.2) APTT (22.0-30.0) sec D-Dimer (<0.60) mg/L FEU Sodium 129 L 129 L (137-145) mmol/L Potassium 4.3 4.2 (3.5-5.1) mmol/L Chloride 99 94 L (98-107) mmol/L Carbon Dioxide 26 22.3 (22-30) mmol/L Anion Gap 4 12.70 H mmol/L BUN 18 20.1 (9-20) mg/dL Creatinine 0.70 0.9 (0.66-1.25) mg/dL Est GFR (CKD-EPI) 83 (>=60) Est GFR (CKD-EPI)AfAm >90 (>60 ml/min/1.73 sqM) Est GFR (CKD-EPI)NonAf 86 (>60 ml/min/1.73 sqM) BUN/Creatinine Ratio 22.33 H (12.00-20.00) Ratio Glucose 97 120 H (74-99) mg/dL Plasma Lactic Acid Rex (0.7-2.0) mmol/L Calcium 9.5 9.2 (8.4-10.2) mg/dL Magnesium 1.3 L (1.6-2.3) mg/dL Iron (65-175) UG/DL TIBC (228-460) UG/DL % Saturation (15.00-50.00) Transferrin (204.0-354.0) mg/dL Ferritin (22.0-322.0) ng/mL Total Bilirubin (0.2-1.3) mg/dL AST (17-59) U/L ALT (4-49) U/L Alkaline Phosphatase (38-126) U/L Lactate Dehydrogenase (120-246) U/L Troponin I (0.000-0.034) ng/mL NT-Pro-B Natriuret Pep pg/mL Total Protein (6.3-8.2) g/dL Total Protein (PEP) (6.2-8.2) g/dL Albumin (3.5-5.0) g/dL Albumin (PEP) (3.80-4.90) g/dL Vlloc-0-Nazythwzs (0.10-0.40) g/dL Aqbbj-7-Lcjpzmmdk (0.60-1.00) g/dL Beta Globulins (0.60-1.30) g/dL Gamma Globulins (0.70-1.50) g/dL PEP Interpretation Vitamin B12 (200.0-944.0) pg/mL Methylmalonic Acid (<0.40) umol/L Folate (4.40-31.00) ng/mL TSH (0.350-5.500) UIU/ML IgG (700.0-1600.0) mg/dL IgA (60.0-350.0) mg/dL IgM (40.0-280.0) mg/dL Serum [place] Interpret Free [place] LC, Quant (0.33-1.94) mg/dL Free [place] LC, Quant (0.57-2.63) mg/dL Influenza Type A (PCR) (Not Detectd) Influenza Type B (PCR) (Not Detectd) RSV (PCR) (Not Detectd) SARS-CoV-2 (PCR) (Not Detectd) 12/17/23 12/17/23 12/17/23 Range/Units 03:29 11:21 11:21 WBC 2.93 L (3.8-10.6) k/uL RBC 1.81 L (4.30-5.90) m/uL Hgb 7.5 L (13.0-17.5) gm/dL Hct 21.8 L (39.0-53.0) % MCV 120.4 H (80.0-100.0) fL MCH 41.4 H (25.0-35.0) pg MCHC 34.4 (31.0-37.0) g/dL RDW 13.7 (11.5-15.5) % Plt Count 173 (150-450) k/uL Estimated Plt Count Adequate (Adequate) MPV 10.2 Immature Gran % (Auto) 0.70 % Absolute Nucleated RBC 0 % Neutrophils % 33.1 % Neutrophils % (Manual) % Lymphocytes % 46.4 % Lymphocytes % (Manual) % Monocytes % 17.1 % Monocytes % (Manual) % Eosinophils % 2.4 % Eosinophils % (Manual) % Basophils % 0.3 % Myelocytes % % Immature Gran # 0.02 (0.00-0.04) X 10*3/uL Neutrophils # 0.97 L (1.80-7.70) X 10*3/uL Neutrophils # (Manual) (1.3-7.7) k/uL Lymphocytes # 1.36 (0.90-5.00) X 10*3/uL Lymphocytes # (Manual) (1.0-4.8) k/uL Monocytes # 0.50 (0.20-1.00) X 10*3/uL Monocytes # (Manual) (0-1.0) k/uL Eosinophils # 0.07 (0.04-0.35) X 10*3/uL Eosinophils # (Manual) (0-0.7) k/uL Basophils # 0.01 (0.00-0.10) X 10*3/uL Myelocytes # (Manual) (0) k/uL Nucleated RBCs (0-0) /100 WBC NRBC/100 WBC Diff 0 (0.00-0.01) X 10*3/uL Manual Slide Review Morph Only Macrocytosis Macrocytosis (manual) 3+ A Retic Count (0.5-2.0) % Haptoglobin (31.2-198.0) mg/dL PT (10.0-12.5) sec INR (<1.2) APTT (22.0-30.0) sec D-Dimer (<0.60) mg/L FEU Sodium (137-145) mmol/L Potassium (3.5-5.1) mmol/L Chloride (98-107) mmol/L Carbon Dioxide (22-30) mmol/L Anion Gap mmol/L BUN (9-20) mg/dL Creatinine (0.66-1.25) mg/dL Est GFR (CKD-EPI) (>=60) Est GFR (CKD-EPI)AfAm (>60 ml/min/1.73 sqM) Est GFR (CKD-EPI)NonAf (>60 ml/min/1.73 sqM) BUN/Creatinine Ratio (12.00-20.00) Ratio Glucose (74-99) mg/dL Plasma Lactic Acid Rex (0.7-2.0) mmol/L Calcium (8.4-10.2) mg/dL Magnesium (1.6-2.3) mg/dL Iron 95 (65-175) UG/DL TIBC 209 L (228-460) UG/DL % Saturation 45.45 (15.00-50.00) Transferrin 149.0 L (204.0-354.0) mg/dL Ferritin 1620.0 H (22.0-322.0) ng/mL Total Bilirubin (0.2-1.3) mg/dL AST (17-59) U/L ALT (4-49) U/L Alkaline Phosphatase (38-126) U/L Lactate Dehydrogenase 277 H (120-246) U/L Troponin I (0.000-0.034) ng/mL NT-Pro-B Natriuret Pep pg/mL Total Protein (6.3-8.2) g/dL Total Protein (PEP) (6.2-8.2) g/dL Albumin (3.5-5.0) g/dL Albumin (PEP) (3.80-4.90) g/dL Lqtxs-0-Ggazducxr (0.10-0.40) g/dL Qudjd-1-Jpklxptvk (0.60-1.00) g/dL Beta Globulins (0.60-1.30) g/dL Gamma Globulins (0.70-1.50) g/dL PEP Interpretation Vitamin B12 793.0 (200.0-944.0) pg/mL Methylmalonic Acid (<0.40) umol/L Folate 7.50 (4.40-31.00) ng/mL TSH 5.480 (0.350-5.500) UIU/ML IgG (700.0-1600.0) mg/dL IgA (60.0-350.0) mg/dL IgM (40.0-280.0) mg/dL Serum MARIA DEL ROSARIO Interpret Free [place] LC, Quant (0.33-1.94) mg/dL Free Lambda LC, Quant (0.57-2.63) mg/dL Influenza Type A (PCR) (Not Detectd) Influenza Type B (PCR) (Not Detectd) RSV (PCR) (Not Detectd) SARS-CoV-2 (PCR) (Not Detectd) 12/17/23 12/17/23 12/17/23 Range/Units 11:21 11:21 11:21 WBC (3.8-10.6) k/uL RBC (4.30-5.90) m/uL Hgb (13.0-17.5) gm/dL Hct (39.0-53.0) % MCV (80.0-100.0) fL MCH (25.0-35.0) pg MCHC (31.0-37.0) g/dL RDW (11.5-15.5) % Plt Count (150-450) k/uL Estimated Plt Count (Adequate) MPV Immature Gran % (Auto) % Absolute Nucleated RBC % Neutrophils % % Neutrophils % (Manual) % Lymphocytes % % Lymphocytes % (Manual) % Monocytes % % Monocytes % (Manual) % Eosinophils % % Eosinophils % (Manual) % Basophils % % Myelocytes % % Immature Gran # (0.00-0.04) X 10*3/uL Neutrophils # (1.80-7.70) X 10*3/uL Neutrophils # (Manual) (1.3-7.7) k/uL Lymphocytes # (0.90-5.00) X 10*3/uL Lymphocytes # (Manual) (1.0-4.8) k/uL Monocytes # (0.20-1.00) X 10*3/uL Monocytes # (Manual) (0-1.0) k/uL Eosinophils # (0.04-0.35) X 10*3/uL Eosinophils # (Manual) (0-0.7) k/uL Basophils # (0.00-0.10) X 10*3/uL Myelocytes # (Manual) (0) k/uL Nucleated RBCs (0-0) /100 WBC NRBC/100 WBC Diff (0.00-0.01) X 10*3/uL Manual Slide Review Macrocytosis Macrocytosis (manual) Retic Count 2.4 H (0.5-2.0) % Haptoglobin (31.2-198.0) mg/dL PT (10.0-12.5) sec INR (<1.2) APTT (22.0-30.0) sec D-Dimer (<0.60) mg/L FEU Sodium (137-145) mmol/L Potassium (3.5-5.1) mmol/L Chloride (98-107) mmol/L Carbon Dioxide (22-30) mmol/L Anion Gap mmol/L BUN (9-20) mg/dL Creatinine (0.66-1.25) mg/dL Est GFR (CKD-EPI) (>=60) Est GFR (CKD-EPI)AfAm (>60 ml/min/1.73 sqM) Est GFR (CKD-EPI)NonAf (>60 ml/min/1.73 sqM) BUN/Creatinine Ratio (12.00-20.00) Ratio Glucose (74-99) mg/dL Plasma Lactic Acid Rex (0.7-2.0) mmol/L Calcium (8.4-10.2) mg/dL Magnesium (1.6-2.3) mg/dL Iron (65-175) UG/DL TIBC (228-460) UG/DL % Saturation (15.00-50.00) Transferrin (204.0-354.0) mg/dL Ferritin (22.0-322.0) ng/mL Total Bilirubin (0.2-1.3) mg/dL AST (17-59) U/L ALT (4-49) U/L Alkaline Phosphatase (38-126) U/L Lactate Dehydrogenase (120-246) U/L Troponin I (0.000-0.034) ng/mL NT-Pro-B Natriuret Pep pg/mL Total Protein (6.3-8.2) g/dL Total Protein (PEP) 6.3 (6.2-8.2) g/dL Albumin (3.5-5.0) g/dL Albumin (PEP) 3.26 L (3.80-4.90) g/dL Jjutj-4-Sortkevps 0.28 (0.10-0.40) g/dL Hluvg-7-Lsazlzenq 0.72 (0.60-1.00) g/dL Beta Globulins 1.01 (0.60-1.30) g/dL Gamma Globulins 1.03 (0.70-1.50) g/dL PEP Interpretation Vitamin B12 (200.0-944.0) pg/mL Methylmalonic Acid 0.18 (<0.40) umol/L Folate (4.40-31.00) ng/mL TSH (0.350-5.500) UIU/ML IgG 1075.0 (700.0-1600.0) mg/dL IgA 654.0 H (60.0-350.0) mg/dL IgM 150.0 (40.0-280.0) mg/dL Serum MARIA DEL ROSARIO Interpret Free [place] LC, Quant 6.72 H (0.33-1.94) mg/dL Free Lambda LC, Quant 3.94 H (0.57-2.63) mg/dL Influenza Type A (PCR) (Not Detectd) Influenza Type B (PCR) (Not Detectd) RSV (PCR) (Not Detectd) SARS-CoV-2 (PCR) (Not Detectd) 12/17/23 12/18/23 Range/Units 11:21 05:03 WBC (3.8-10.6) k/uL RBC (4.30-5.90) m/uL Hgb (13.0-17.5) gm/dL Hct (39.0-53.0) % MCV (80.0-100.0) fL MCH (25.0-35.0) pg MCHC (31.0-37.0) g/dL RDW (11.5-15.5) % Plt Count (150-450) k/uL Estimated Plt Count (Adequate) MPV Immature Gran % (Auto) % Absolute Nucleated RBC % Neutrophils % % Neutrophils % (Manual) % Lymphocytes % % Lymphocytes % (Manual) % Monocytes % % Monocytes % (Manual) % Eosinophils % % Eosinophils % (Manual) % Basophils % % Myelocytes % % Immature Gran # (0.00-0.04) X 10*3/uL Neutrophils # (1.80-7.70) X 10*3/uL Neutrophils # (Manual) (1.3-7.7) k/uL Lymphocytes # (0.90-5.00) X 10*3/uL Lymphocytes # (Manual) (1.0-4.8) k/uL Monocytes # (0.20-1.00) X 10*3/uL Monocytes # (Manual) (0-1.0) k/uL Eosinophils # (0.04-0.35) X 10*3/uL Eosinophils # (Manual) (0-0.7) k/uL Basophils # (0.00-0.10) X 10*3/uL Myelocytes # (Manual) (0) k/uL Nucleated RBCs (0-0) /100 WBC NRBC/100 WBC Diff (0.00-0.01) X 10*3/uL Manual Slide Review Macrocytosis Macrocytosis (manual) Retic Count (0.5-2.0) % Haptoglobin 125.0 (31.2-198.0) mg/dL PT (10.0-12.5) sec INR (<1.2) APTT (22.0-30.0) sec D-Dimer (<0.60) mg/L FEU Sodium 129 L (137-145) mmol/L Potassium 4.3 (3.5-5.1) mmol/L Chloride 94 L (98-107) mmol/L Carbon Dioxide 24.6 (22-30) mmol/L Anion Gap 10.40 mmol/L BUN 18.9 (9-20) mg/dL Creatinine 1.0 (0.66-1.25) mg/dL Est GFR (CKD-EPI) 73 (>=60) Est GFR (CKD-EPI)AfAm (>60 ml/min/1.73 sqM) Est GFR (CKD-EPI)NonAf (>60 ml/min/1.73 sqM) BUN/Creatinine Ratio 18.90 (12.00-20.00) Ratio Glucose 103 (74-99) mg/dL Plasma Lactic Acid Rex (0.7-2.0) mmol/L Calcium 9.2 (8.4-10.2) mg/dL Magnesium (1.6-2.3) mg/dL Iron (65-175) UG/DL TIBC (228-460) UG/DL % Saturation (15.00-50.00) Transferrin (204.0-354.0) mg/dL Ferritin (22.0-322.0) ng/mL Total Bilirubin (0.2-1.3) mg/dL AST (17-59) U/L ALT (4-49) U/L Alkaline Phosphatase (38-126) U/L Lactate Dehydrogenase (120-246) U/L Troponin I (0.000-0.034) ng/mL NT-Pro-B Natriuret Pep pg/mL Total Protein (6.3-8.2) g/dL Total Protein (PEP) (6.2-8.2) g/dL Albumin (3.5-5.0) g/dL Albumin (PEP) (3.80-4.90) g/dL Tbahr-9-Katbxoomb (0.10-0.40) g/dL Yfeba-5-Lykiuuvrk (0.60-1.00) g/dL Beta Globulins (0.60-1.30) g/dL Gamma Globulins (0.70-1.50) g/dL PEP Interpretation Vitamin B12 (200.0-944.0) pg/mL Methylmalonic Acid (<0.40) umol/L Folate (4.40-31.00) ng/mL TSH (0.350-5.500) UIU/ML IgG (700.0-1600.0) mg/dL IgA (60.0-350.0) mg/dL IgM (40.0-280.0) mg/dL Serum MARIA DEL ROSARIO Interpret Free [place] LC, Quant (0.33-1.94) mg/dL Free Lambda LC, Quant (0.57-2.63) mg/dL Influenza Type A (PCR) (Not Detectd) Influenza Type B (PCR) (Not Detectd) RSV (PCR) (Not Detectd) SARS-CoV-2 (PCR) (Not Detectd) Disposition Clinical Impression: Exertional dyspnea, Bilateral lower extremity edema Disposition: ADMITTED IP TO THIS HOSP Condition: Stable Is patient prescribed a controlled substance at d/c from ED?: No Time of Disposition: 21:28 Decision to Admit Reason: Admit from EC Decision Date: 12/14/23 Decision Time: 21:28
[2023-12-14 18:33] LABS: HCT 27.6 % (39.0-53.0); HGB 9.2 gm/dL (13.0-17.5); MCH 40.7 pg (25.0-35.0); MCHC 33.2 g/dL (31.0-37.0); MCV 122.3 fL (80.0-100.0); Macrocytosis Marked; Platelet Count 181 k/uL (150-450); RBC 2.26 m/uL (4.30-5.90); RDW 13.9 % (11.5-15.5)
[2023-12-14 18:35] LABS: ALT 91 U/L (4-49); AST 186 U/L (17-59); African American GFR (CKD) >90 (>60 ml/min/1.73 sqM); Alkaline Phosphatase 100 U/L (38-126); Anion Gap 7 mmol/L; Blood Urea Nitrogen 23 mg/dL (9-20); Calcium 9.3 mg/dL (8.4-10.2); Carbon Dioxide 22 mmol/L (22-30); Chloride 101 mmol/L (98-107); Glucose 109 mg/dL (74-99); Magnesium 1.3 mg/dL (1.6-2.3); Non-African American GFR(CKD) 81 (>60 ml/min/1.73 sqM); Potassium 4.8 mmol/L (3.5-5.1); Sodium 130 mmol/L (137-145); Total Bilirubin 1.1 mg/dL (0.2-1.3); Total Protein 7.1 g/dL (6.3-8.2)
[2023-12-14 18:37] LABS: INR 1.1 (<1.2); Prothrombin Time 11.6 sec (10.0-12.5)
[2023-12-14 18:44] LABS: NT-Pro-B-Type Natriuretic Pept 1080 pg/mL
--- NOTE | 2023-12-14 19:07 | XR ---
EXAMINATION TYPE: XR chest 2V DATE OF EXAM: 12/14/2023 COMPARISON: 01/23/2023 INDICATION: Difficulty breathing TECHNIQUE: Frontal and lateral views of the chest are obtained. FINDINGS: The heart size is mildly prominent. The pulmonary vasculature is normal. The lungs are clear. Scoliosis within the thoracic spine. IMPRESSION: 1. No acute pulmonary process. 2. Cardiomegaly
[2023-12-14 19:09] LABS: Eosinophils # (M) 0.06 k/uL (0-0.7); Lymphocytes # (M) 0.96 k/uL (1.0-4.8); Monocytes # (M) 0.36 k/uL (0-1.0); Myelocytes # (M) 0.09 k/uL (0); Myelocytes % 3 %; Neutrophils # (M) 1.56 k/uL (1.3-7.7); Neutrophils % (M) 52 %; Nucleated Red Blood Cells 0 /100 WBC (0-0); Total Cells Counted 200
--- NOTE | 2023-12-14 19:30 | CT ---
EXAMINATION TYPE: CT brain adriel palmer con DATE OF EXAM: 12/14/2023 COMPARISON: None HISTORY: fall, head injury CT DLP: 1419.6 mGycm, Automated exposure control for dose reduction was used. CONTRAST: Patient injected with 0 mL of Isovue 300. CT of the brain is performed utilizing 3 mm thick sections through the posterior fossa and 3 mm thick sections through the remaining calvarium. Study is performed within 24 hours of arrival to the hospital. No abnormal hyperdensity is present to suggest an acute intracranial hemorrhage. No mass lesion is evident. No acute infarcts are evident. Mild periventricular white matter hypodensity is present, likely on t he basis of chronic white matter ischemic changes. Ventricles and sulci are prominent for the patient age. Paranasal sinuses and mastoid air cells within the gmxho-au-scdt are clear. IMPRESSIONS: 1. Atrophy with chronic appearing periventricular white matter ischemic changes CT cervical spine. COMPARISON: None CT of the cervical spine is performed in the axial plane at 2 mm thick sections. Reconstructed image s in the coronal, and sagittal plane are reviewed on the computer. Other is loss of disc height and possible fusion of the C3-C6 vertebral levels. Loss of disc height i s present C6-7 and C7-T1. Anterior and posterior vertebral body spurring is noted. No acute fractures are evident. 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 Vertebral body heights are preserved. Uncovertebral joint hypertrophy is present contributing to foraminal stenosis. Endplate spurring at C 3-4 may have some spinal canal stenosis. Milder endplate changes are present C4-5 C5-6 without stenos is. Uncovertebral joint hypertrophy C6-7 has mild bilateral foraminal narrowing. Emphysematous changes are in the lung apices. There is some increased density adjacent to the major f issure left apex measuring 1.3 cm there is likely some scarring posterior right apex. IMPRESSION: 1. Advanced degenerative disc changes with endplate spurring contributing to spinal canal narrowing g reatest at C3-4. 2. Uncovertebral joint hypertrophy contributing to multilevel foraminal stenosis. 3. No acute osseous abnormality
--- NOTE | 2023-12-14 21:06 | CT ---
EXAMINATION TYPE: CT chest angio for PE CT DLP: 303.3 mGycm, Automated exposure control for dose reduction was used. DATE OF EXAM: 12/14/2023 8:53 PM COMPARISON: CT chest 09/14/2023. CLINICAL INDICATION:Male, 88 years old with history of sob, leg swelling; SOB, HX OF COPD, Has a posi tive dimer. TECHNIQUE/CONTRAST: CTA scan of the thorax is performed with IV Contrast, patient injected with 65ml mL of Isovue 370, NC P images are created and reviewed these are created on a separate workstation.. FINDINGS: Pulmonary Artery: There is no evidence for a filling defect within the pulmonary vasculature to sugge st acute pulmonary embolism. The pulmonary artery is of normal size. Lungs/Pleura: There is redemonstration of extensive paraseptal and centrilobular emphysematous change s. Overall stable appearance of a solid left upper lung pulmonary nodule which measures 1.[address] eural effusions or pneumothorax. Pleural-based scarring is noted in the right lung apex. Airway: Large airways are patent. Heart: Within normal limits of size. Coronary artery calcifications identified. Vasculature: Mild atherosclerotic calcifications are present throughout the aorta and its branches. Mediastinum: No gross evidence of adenopathy. Musculoskeletal: Dextrocurvature of the thoracic spine. Moderate multilevel degenerative changes are identified. Redemonstration compression deformities of the thoracic spine at T7 with approximately 50 % height loss. Soft Tissues: Unremarkable. Lower neck: No significant findings. Upper Abdomen: No significant findings. IMPRESSION: 1. No evidence of pulmonary embolism. 2. Extensive emphysematous changes. 3. Redemonstrated solid 1.1 cm left upper lung pulmonary nodule. Consider further evaluation with PET /CT or tissue sampling.
[2023-12-14] MEDS ORDERED: NALOXONE 0.4 MG/ML 1 ML VIAL IV PRN (21:28)
[2023-12-14] MEDS: HYDROcodone/APAP 5-325MG 1 EACH TAB PO PRN (22:50)
[2023-12-14] MEDS: PRIMIDONE 50 MG TAB PO SCH (22:51)
[2023-12-14] MEDS: CEFDINIR 300 MG CAP PO SCH (22:51)
[2023-12-15] MEDS: IPRATROPIUM-ALBUTEROL 3 ML NEB INHALATION SCH (02:36)
[2023-12-15 05:36] LABS: African American GFR (CKD) >90 (>60 ml/min/1.73 sqM); Anion Gap 8 mmol/L; Blood Urea Nitrogen 23 mg/dL (9-20); Carbon Dioxide 21 mmol/L (22-30); Chloride 101 mmol/L (98-107); Glucose 99 mg/dL (74-99); Non-African American GFR(CKD) 80 (>60 ml/min/1.73 sqM); Potassium 4.6 mmol/L (3.5-5.1); Sodium 130 mmol/L (137-145)
[2023-12-15 06:06] LABS: HCT 25.6 % (39.0-53.0); HGB 8.5 gm/dL (13.0-17.5); MCH 40.7 pg (25.0-35.0); MCHC 33.2 g/dL (31.0-37.0); MCV 122.4 fL (80.0-100.0); Macrocytosis Marked; Platelet Count 180 k/uL (150-450); RBC 2.09 m/uL (4.30-5.90); RDW 13.8 % (11.5-15.5); WBC 2.7 k/uL (3.8-10.6)
[2023-12-15 07:18] LABS: Eosinophils # (M) 0.05 k/uL (0-0.7); Lymphocytes # (M) 1.38 k/uL (1.0-4.8); Monocytes # (M) 0.32 k/uL (0-1.0); Neutrophils # (M) 0.95 k/uL (1.3-7.7); Neutrophils % (M) 35 %; Nucleated Red Blood Cells 0 /100 WBC (0-0); Total Cells Counted 100
[2023-12-15] MEDS: ATORVASTATIN 10 MG TAB PO SCH (08:29)
[2023-12-15] MEDS: LOSARTAN 25 MG TAB PO SCH (08:29)
[2023-12-15] MEDS: ESCITALOPRAM 20 MG TAB PO SCH (08:29)
[2023-12-15] MEDS: LEVOTHYROXINE 25 MCG TAB PO SCH (08:31)
[2023-12-15] MEDS: PROPRANOLOL LA 60 MG CAP.SA.24H PO SCH (08:31)
[2023-12-15] MEDS: CALCIUM CARBONATE 500 MG CHEWABLE PO ONE (08:40)
[2023-12-15] MEDS: SYMBICORT 80-4.5 MCG INHALER INHALATION SCH (09:03)
--- NOTE | 2023-12-15 09:54 | US ---
EXAMINATION TYPE: US venous doppler duplex LE DATE OF EXAM: 12/14/2023 10:22 PM COMPARISON: NONE CLINICAL INDICATION: Male, 88 years old with history of lower extremity swelling; edema SIDE PERFORMED: Bilateral TECHNIQUE: The lower extremity deep venous system is examined utilizing real time linear array sonog jourdan with graded compression, doppler sonography and color-flow sonography. VESSELS IMAGED: Common Femoral Vein Deep Femoral Vein Greater Saphenous Vein * Femoral Vein Popliteal Vein Small Saphenous Vein * Proximal Calf Veins (* superficial vessels) Right Leg: Negative for DVT Left Leg: Negative for DVT IMPRESSION: Grayscale, color doppler, spectral doppler imaging performed of the deep veins of the lo wer extremities. There is normal flow, compressibility, vascular waveforms.
[2023-12-15] MEDS ORDERED: LORazepam 2 MG/ML INJ IV PRN ×2 (11:41)
[2023-12-15] MEDS: LORazepam 1 MG TAB PO PRN (11:47)
--- NOTE | 2023-12-15 11:56 | CA ---
Transthoracic Echo Report Name: Billy Garcia Age: 88 Gender: M : 1935 Exam Date: 12/15/2023 09:02 Exam Location: [place] [facility] Ht (in): 68 Wt (lb): 135 Ordering Physician: Shannan Simons DO Attending/Referring Phys: [id number], Kristyn Advanced Practice Professional Marycruz Noguera, GERSON Procedure CPT: Indications: exertional dyspnea Cardiac Hx: Technical Quality: Good Contrast 1: Total Dose (mL): Contrast 2: Total Dose (mL): MEASUREMENTS (Male / Female) Normal Values 2D ECHO LV Diastolic Diameter PLAX 4.1 cm 4.2 - 5.9 / 3.9 - 5.3 cm LV Systolic Diameter PLAX 2.9 cm IVS Diastolic Thickness 1.0 cm 0.6 - 1.0 / 0.6 - 0.9 cm LVPW Diastolic Thickness 1.2 cm 0.6 - 1.0 / 0.6 - 0.9 cm LV Relative Wall Thickness 0.5 RV Internal Dim ED PLAX 3.4 cm LVOT Diameter 2.2 cm LA Systolic Diameter LX 3.5 cm 3.0 - 4.0 / 2.7 - 3.8 cm LV Diastolic Volume MOD 4C 39.2 cm??? LV Systolic Volume MOD 4C 15.9 cm??? LV Ejection Fraction MOD 4C 59.5 % LV Cardiac Index MOD 4C 970.2 cm???/min???m??? LV Diastolic Length 4C 7.3 cm LV Systolic Length 4C 6.5 cm LV Diastolic Volume MOD 2C 48.4 cm??? LV Systolic Volume MOD 2C 19.1 cm??? LV Ejection Fraction MOD 2C 60.5 % LV Cardiac Index MOD 2C 1214.9 cm???/min???m??? LV Diastolic Length 2C 7.9 cm LV Systolic Length 2C 6.4 cm M-MODE Aortic Root Diameter MM 3.9 cm DOPPLER AV Peak Velocity 292.0 cm/s AV Peak Gradient 38.0 mmHg AV Mean Velocity 204.7 cm/s AV Mean Gradient 22.0 mmHg AV Velocity Time Integral 67.8 cm Mitral E Point Velocity 80.0 cm/s Mitral A Point Velocity 93.7 cm/s Mitral E to A Ratio 0.9 MV Deceleration Time 348.8 ms MV E' Velocity 9.1 cm/s Mitral E to MV E' Ratio 8.8 TR Peak Velocity 248.3 cm/s TR Peak Gradient 24.7 mmHg Right Ventricular Systolic Press 34.7 mmHg FINDINGS Left Ventricle Left ventricular ejection fraction is estimated at 55-60 %. Left ventricular cavity size normal. Left ventricular wall thickness normal. Right Ventricle Mild right ventricular dilatation. Mild pulmonary hypertension. Right Atrium Normal right atrial size. No right atrial thrombus or mass seen. Left Atrium Normal left atrial size. No left atrial thrombus or mass present. Mitral Valve Structurally normal mitral valve. No mitral stenosis, regurgitation or prolapse. Aortic Valve Trileaflet aortic valve. Aortic valve sclerosis. Moderate aortic stenosis with a peak gradient of 38 mmHg and a mean gradient of 22 mmHg. Tricuspid Valve Structurally normal tricuspid valve. Mild tricuspid regurgitation. Pulmonic Valve Structurally normal pulmonic valve. No pulmonic regurgitation. Pericardium No pericardial effusion. Aorta Mild aortic dilatation at the level of the sinuses of valsalva 39 mm CONCLUSIONS Normal LV systolic function Aortic sclerosis with moderate aortic stenosis Previewed by: Dr. Markel Loredo MD (Electronically Signed) Final Date: 15 December 2023 11:55
--- NOTE | 2023-12-15 15:32 | P.CNPUL ---
History of Present Illness Consult date: 12/15/23 Requesting physician: Sukhdev Wise Reason for consult: dyspnea Chief complaint: Lower extremity edema, shortness of breath History of present illness: This is a pleasant 88-year-old male patient with a known history of lung cancer including a left lung nodule status post radiation proximately 1 year ago, chronic obstructive pulmonary disease, chronic tobacco dependence, hypertension, hyperlipidemia, hypothyroidism, bladder cancer, chronic back pain, daily alcohol use. He had a 1 week history of increasing lower extremity edema and increasing shortness of breath and was seen by his PCP yesterday and was referred here to the emergency room. Chest x-ray revealed cardiomegaly but no acute pulmonary process. CT angiogram ruled out pulmonary embolism. There is extensive and for somatic changes. A redemonstrated solid 1.1 cm left upper lung pulmonary nodule. Doppler of the lower extremity were negative for DVT. Echocardiogram revealed preserved left ventricular systolic function with moderate aortic stenosis. White count 2.7. Hemoglobin 8.5. Platelets 180. Sodium 130. Pota ssium 4.6. Bicarb 21. BUN 23. Creatinine 0.81. Troponins were negative x 3. proBNP 1080. Viral screen was negative. Patient is seen today in consultation on the regular medical floor. He is currently resting comfortably in bed. Awake and alert in no acute distress. He is having some dyspnea on exertion. He is currently maintaining good O2 saturations in the mid 90s on room air. He admits to a cough with white productive mucus. No fever or chills. No hemoptysis. He has been afebrile. Hemodynamically stable. Review of Systems REVIEW OF SYSTEMS: CONSTITUTIONAL: Denies any recent significant weight loss or weight gain. EYES: Denies change in vision. EARS, NOSE, MOUTH, THROAT: Denies headaches, denies sore throat. CARDIOVASCULAR: Denies chest pain, palpitations or syncopal episodes. RESPIRATORY: Positive for shortness of breath, cough, congestion no hemoptysis. GASTROINTESTINAL: Denies change in appetite, denies abdominal pain GENITOURINARY: Denies hematuria, denies infections. MUSKULOSKELETAL: Positive for swelling of the lower extremities. INTEGUMENTARY: Denies rash, denies eczema. NEUROLOGICAL: Denies recent memory loss, no recent seizure activity. PSYCHIATRIC: Denies anxiety, denies depression. HEMATOLOGIC/LYMPHATIC: Denies anemia, denies enlarged lymph nodes. Past Medical History Past Medical History: Cancer, Heart Failure, COPD, Hyperlipidemia, Hypertension, Thyroid Disorder Additional Past Medical History / Comment(s): bladder and lung cancer, had radiation tx a year ago. lower back pain. sciatic nerve to rt, anemia History of Any Multi-Drug Resistant Organisms: None Reported Past Surgical History: Bowel Resection Additional Past Surgical History / Comment(s): colonscopy, Past Anesthesia/Blood Transfusion Reactions: No Reported Reaction Past Psychological History: Depression Smoking Status: Current every day smoker Past Alcohol Use History: Daily Additional Past Alcohol Use History / Comment(s): smokes since 16 yrs ago. 1ppd. > 14 drinks in week. beer and whiskey Past Drug Use History: None Reported - Past Family History Mother Family Medical History: Congestive Heart Failure (CHF), Diabetes Mellitus Father Family Medical History: Coronary Artery Disease (CAD) Additional Family Medical History / Comment(s): emphysema and black lung Medications and Allergies Home Medications Medication Instructions Recorded Confirmed Type EPINEPHrine (Auto Inject) [Epipen] 0.3 mg IM ONCE PRN #2 pen 01/27/19 12/14/23 Rx Fluticasone/Umeclidin/Vilanter 1 puff INHALATION RT-DAILY 01/26/23 12/14/23 History [Trelegy Ellipta 100-62.5-25] Irbesartan 75 mg PO DAILY 01/26/23 12/14/23 History LORazepam [Lorazepam] 0.5 mg PO BID PRN 01/26/23 12/14/23 History Levothyroxine Sodium 25 mcg PO DAILY 01/26/23 12/14/23 History Acetaminophen-Codeine 300-30mg 1 tab PO TID PRN 03/15/23 12/14/23 History [Tylenol w/codeine #3] Simvastatin [Zocor] 20 mg PO DAILY 07/12/23 12/14/23 History HYDROcodone/APAP 5-325MG [[place] 1 tab PO TID PRN 30 Days #90 tab 09/07/23 Rx 5-325] Cefdinir 300 mg PO BID 12/14/23 12/14/23 History Cyanocobalamin [Vitamin B-12 1,000 mcg SQ QMONTHLY 12/14/23 12/14/23 History Injection] Escitalopram [Lexapro] 20 mg PO DAILY 12/14/23 12/14/23 History Primidone 50 mg PO HS 12/14/23 12/14/23 History Propranolol LA [Inderal LA] 60 mg PO DAILY 12/14/23 12/14/23 History amLODIPine [Norvasc] 10 mg PO DAILY 12/14/23 12/14/23 History Allergies Allergy/AdvReac Type Severity Reaction Status Date / Time bee venom protein (honey bee) Allergy Anaphylaxis Verified 12/15/23 08:26 Physical Exam Vitals: Vital Signs Temp Pulse Pulse Resp BP BP Pulse Ox 12/15/23 11:47 62 12/15/23 11:33 65 12/15/23 08:04 98.7 F 61 18 152/77 95 12/15/23 07:04 63 16 148/87 95 12/15/23 02:48 58 L 12/15/23 02:37 60 12/15/23 01:33 98.7 F 65 18 112/70 96 12/14/23 20:19 65 18 155/89 95 12/14/23 18:00 98.1 F 66 18 134/78 92 L 12/14/23 16:59 97.6 F 69 20 158/89 100 Intake and Output 12/15/23 12/15/23 12/15/23 06:59 14:59 22:59 Other: # Voids 2 # Bowel Movements 1 Weight 61.235 kg GENERAL EXAM: Alert, pleasant 88-year-old male patient, on room air, comfortable in no apparent distress. HEAD: Normocephalic. EYES: Normal reaction of pupils, equal size. NOSE: Clear with pink turbinates. THROAT: No erythema or exudates. NECK: No masses, no JVD. CHEST: No chest wall deformity. LUNGS: Equal air entry with no crackles, wheeze, rhonchi or dullness. Diminished. CVS: S1 and S2 normal with an audible murmur, regular rhythm. ABDOMEN: No hepatosplenomegaly, normal bowel sounds, no guarding or rigidity. SPINE: No scoliosis or deformity SKIN: No rashes CENTRAL NERVOUS SYSTEM: No focal deficits, tone is normal in all 4 extremities. EXTREMITIES: There is 1+ peripheral edema. No clubbing, no cyanosis. Peripheral pulses are intact. Results - Laboratory Findings CBC and BMP: 12/15/23 05:01 12/15/23 05:01 PT/INR, D-dimer PT 11.6 sec (10.0-12.5) 12/14/23 17:56 INR 1.1 (<1.2) 12/14/23 17:56 D-Dimer 2.55 mg/L FEU (<0.60) H 12/14/23 17:56 Abnormal lab findings: Abnormal Labs 12/14/23 12/14/23 12/14/23 17:56 17:56 17:56 WBC 3.0 L RBC 2.26 L Hgb 9.2 L Hct 27.6 L MCV 122.3 H MCH 40.7 H Neutrophils # (Manual) Lymphocytes # (Manual) 0.96 L Myelocytes # (Manual) 0.09 H Macrocytosis Marked A D-Dimer 2.55 H Sodium 130 L Carbon Dioxide BUN 23 H Glucose 109 H Magnesium 1.3 L AST 186 H ALT 91 H 12/15/23 12/15/23 05:01 05:01 WBC 2.7 L RBC 2.09 L Hgb 8.5 L Hct 25.6 L MCV 122.4 H MCH 40.7 H Neutrophils # (Manual) 0.95 L Lymphocytes # (Manual) Myelocytes # (Manual) Macrocytosis Marked A D-Dimer Sodium 130 L Carbon Dioxide 21 L BUN 23 H Glucose Magnesium AST ALT - Diagnostic Findings Chest x-ray: image reviewed CT scan - chest: image reviewed Assessment and Plan Assessment: Shortness of breath and lower extremity edema suspect secondary to mild diastolic congestive heart failure and mild COPD exacerbation. Pulmonary embolism ruled out. DVT ruled out. History of left upper lobe nodule suspicious for neoplasm. Status post radiation. Redemonstrated solid 1.1 cm left upper lung pulmonary nodule. Chronic obstructive pulmonary disease, extensive emphysematous changes on CT scan Chronic and ongoing tobacco dependence Daily alcohol use Moderate aortic stenosis Hypertension Hyperlipidemia Hypothyroidism History of bladder cancer History of depression Plan: The patient was seen and evaluated Imaging, labs and medications reviewed Stable and on room air Continued on DuoNeb inhalations, Symbicort Empiric antibiotics in the form of Omnicef Currently in the CIWA protocol We will continue to follow and make further recommendations based on his clinical status I have personally seen and examined the patient, performed the documentation and the assessment and plan as written. Number of minutes spent on the visit: 20.
--- NOTE | 2023-12-15 16:40 | P.HPIM ---
History of Present Illness H&P Date: 12/15/23 Chief Complaint: Dyspnea 88-year-old male patient with a known history of lung cancer including a left lung nodule status post radiation proximately 1 year ago, chronic obstructive pulmonary disease, chronic tobacco dependence, hypertension, hyperlipidemia, hypothyroidism, bladder cancer, chronic back pain, daily alcohol use. He had a 1 week history of increasing lower extremity edema and increasing shortness of breath and was seen by his PCP yesterday and was referred here to the emergency room. Chest x-ray revealed cardiomegaly but no acute pulmonary process. CT angiogram ruled out pulmonary embolism. There is extensive and for somatic changes. A redemonstrated solid 1.1 cm left upper lung pulmonary nodule. Doppler of the lower extremity were negative for DVT. Echocardiogram revealed preserved left ventricular systolic function with moderate aortic stenosis. White count 2.7. Hemoglobin 8.5. Platelets 180. Sodium 130. Potassium 4.6. Bicarb 21. BUN 23. Creatinine 0.81. Troponins were negative x 3. proBNP 1080. Viral screen was negative. Patient is seen today in consultation on the regular medical floor. He is currently resting comfortably in bed. Awake and alert in no acute distress. He is having some dyspnea on exertion. He is cu rrently maintaining good O2 saturations in the mid 90s on room air. He admits to a cough with white productive mucus. Review of Systems REVIEW OF SYSTEMS: CONSTITUTIONAL: No fever, no malaise, no fatigue. HEENT: No recent visual problems or hearing problems. Denied any sore throat. CARDIOVASCULAR: No chest pain, orthopnea, PND, no palpitations, no syncope. PULMONARY: No shortness of breath, no cough, no hemoptysis. GASTROINTESTINAL: No diarrhea, no nausea, no vomiting, no abdominal pain. NEUROLOGICAL: No headaches, no weakness, no numbness. HEMATOLOGICAL: Denies any bleeding or petechiae. GENITOURINARY: Denies any burning micturition, frequency, or urgency. MUSCULOSKELETAL/RHEUMATOLOGICAL: Denies any joint pain, swelling, or any muscle pain. ENDOCRINE: Denies any polyuria or polydipsia. The rest of the 14-point review of systems is negative. Past Medical History Past Medical History: Cancer, Heart Failure, COPD, Hyperlipidemia, Hypertension, Thyroid Disorder Additional Past Medical History / Comment(s): bladder and lung cancer, had radiation tx a year ago. lower back pain. sciatic nerve to rt, anemia History of Any Multi-Drug Resistant Organisms: None Reported Past Surgical History: Bowel Resection Additional Past Surgical History / Comment(s): colonscopy, Past Anesthesia/Blood Transfusion Reactions: No Reported Reaction Past Psychological History: Depression Smoking Status: Current every day smoker Past Alcohol Use History: Daily Additional Past Alcohol Use History / Comment(s): smokes since 16 yrs ago. 1ppd. > 14 drinks in week. beer and whiskey Past Drug Use History: None Reported - Past Family History Mother Family Medical History: Congestive Heart Failure (CHF), Diabetes Mellitus Father Family Medical History: Coronary Artery Disease (CAD) Additional Family Medical History / Comment(s): emphysema and black lung Medications and Allergies Home Medications Medication Instructions Recorded Confirmed Type EPINEPHrine (Auto Inject) [Epipen] 0.3 mg IM ONCE PRN #2 pen 01/27/19 12/14/23 Rx Fluticasone/Umeclidin/Vilanter 1 puff INHALATION RT-DAILY 01/26/23 12/14/23 His tory [Trelegy Ellipta 100-62.5-25] Irbesartan 75 mg PO DAILY 01/26/23 12/14/23 History LORazepam [Lorazepam] 0.5 mg PO BID PRN 01/26/23 12/14/23 History Levothyroxine Sodium 25 mcg PO DAILY 01/26/23 12/14/23 History Acetaminophen-Codeine 300-30mg 1 tab PO TID PRN 03/15/23 12/14/23 History [Tylenol w/codeine #3] Simvastatin [Zocor] 20 mg PO DAILY 07/12/23 12/14/23 History HYDROcodone/APAP 5-325MG [[place] 1 tab PO TID PRN 30 Days #90 tab 09/07/23 12/14/23 Rx 5-325] Cefdinir 300 mg PO BID 12/14/23 12/14/23 History Cyanocobalamin [Vitamin B-12 1,000 mcg SQ QMONTHLY 12/14/23 12/14/23 History Injection] Escitalopram [Lexapro] 20 mg PO DAILY 12/14/23 12/14/23 History Primidone 50 mg PO HS 12/14/23 12/14/23 History Propranolol LA [Inderal LA] 60 mg PO DAILY 12/14/23 12/14/23 History amLODIPine [Norvasc] 10 mg PO DAILY 12/14/23 12/14/23 History Allergies Allergy/AdvReac Type Severity Reaction Status Date / Time bee venom protein (honey bee) Allergy Anaphylaxis Verified 12/15/23 08:26 Physical Exam Vitals: Vital Signs Temp Pulse Pulse Resp BP BP Pulse Ox 12/15/23 08:04 98.7 F 61 18 152/77 95 12/15/23 07:04 63 16 148/87 95 12/15/23 02:48 58 L 12/15/23 02:37 60 12/14/23 20:19 65 18 155/89 95 12/14/23 18:00 98.1 F 66 18 134/78 92 L 12/14/23 16:59 97.6 F 69 20 158/89 100 Intake and Output 12/14/23 12/15/23 12/15/23 22:59 06:59 14:59 Other: Weight 61.235 kg 61.235 kg GENERAL EXAM: Alert, pleasant 88-year-old male patient, on room air, comfortable in no apparent distress. HEAD: Normocephalic. EYES: Normal reaction of pupils, equal size. THROAT: No erythema or exudates. NECK: No masses, no JVD. CHEST: No chest wall deformity. LUNGS: Equal air entry with no crackles, wheeze, rhonchi or dullness. Diminished. CVS: S1 and S2 normal with an audible murmur, regular rhythm. ABDOMEN: No hepatosplenomegaly, normal bowel sounds, no guarding or rigidity. SKIN: No rashes CENTRAL NERVOUS SYSTEM: No focal deficits, tone is normal in all 4 extremities. EXTREMITIES: There is 1+ peripheral edema. No clubbing, no cyanosis. Peripheral pulses are intact. Results CBC & Chem 7: 12/15/23 05:01 12/15/23 05:01 Labs: Abnormal Lab Results - Last 24 Hours (Table) 12/14/23 12/14/23 12/14/23 Range/Units 17:56 17:56 17:56 WBC 3.0 L (3.8-10.6) k/uL RBC 2.26 L (4.30-5.90) m/uL Hgb 9.2 L (13.0-17.5) gm/dL Hct 27.6 L (39.0-53.0) % MCV 122.3 H (80.0-100.0) fL MCH 40.7 H (25.0-35.0) pg Neutrophils # (Manual) (1.3-7.7) k/uL Lymphocytes # (Manual) 0.96 L (1.0-4.8) k/uL Myelocytes # (Manual) 0.09 H (0) k/uL Macrocytosis Marked A D-Dimer 2.55 H (<0.60) mg/L FEU Sodium 130 L (137-145) mmol/L Carbon Dioxide (22-30) mmol/L BUN 23 H (9-20) mg/dL Glucose 109 H (74-99) mg/dL Magnesium 1.3 L (1.6-2.3) mg/dL AST 186 H (17-59) U/L ALT 91 H (4-49) U/L 12/15/23 12/15/23 Range/Units 05:01 05:01 WBC 2.7 L (3.8-10.6) k/uL RBC 2.09 L (4.30-5.90) m/uL Hgb 8.5 L (13.0-17.5) gm/dL Hct 25.6 L (39.0-53.0) % MCV 122.4 H (80.0-100.0) fL MCH 40.7 H (25.0-35.0) pg Neutrophils # (Manual) 0.95 L (1.3-7.7) k/uL Lymphocytes # (Manual) (1.0-4.8) k/uL Myelocytes # (Manual) (0) k/uL Macrocytosis Marked A D-Dimer (<0.60) mg/L FEU Sodium 130 L (137-145) mmol/L Carbon Dioxide 21 L (22-30) mmol/L BUN 23 H (9-20) mg/dL Glucose (74-99) mg/dL Magnesium (1.6-2.3) mg/dL AST (17-59) U/L ALT (4-49) U/L Thrombosis Risk Factor Assmnt - Choose All That Apply Any of the Below Risk Factors Present?: Yes Each Factor Represents 1 point: Heart failure (<1month), Swollen legs (current) Other Risk Factors: Yes Each Risk Factor Represents 3 Points: Age 75 years or older Other congenital or acquired thrombophilia - If yes, enter type in comment: Yes Thrombosis Risk Factor Assessment Total Risk Factor Score: 5 Thrombosis Risk Factor Assessment Level: High Risk Assessment and Plan Assessment: 1. Acute onset dyspnea; likely multifactorial; related to CHF and COPD 2. Mild diastolic CHF in acute exacerbation; patient is currently on room air; chest x-ray reveals pulmonary vascular congestion -2D echo is ordered and pending 3. Acute exacerbation COPD -- Patient remains on DuoNeb nebulizer treatments 4 times daily and as needed; Symbicort inhaler therapy; pulmonary service recommending empiric antibiotics in form of Omnicef 4. Hypertension; Inderal LA 60 mg daily, losartan 25 mg daily 5. Hyperlipidemia; Lipitor 10 mg daily 6. Hypothyroidism; levothyroxine 25 mcg daily 7. History of depression; Lexapro 20 mg daily 8. Daily alcohol use; patient has been placed on Ativan per [facility] protocol DVT prophylaxis; subcu heparin CODE STATUS; full code
[2023-12-15] MEDS: HEPARIN SODIUM,PORCINE 5,000 UNIT/ML 1 ML VIAL SQ SCH (20:00)
[2023-12-16] MEDS: LORazepam 0.5 MG TAB PO PRN (02:19)
[2023-12-16 07:27] LABS: African American GFR (CKD) >90 (>60 ml/min/1.73 sqM); Anion Gap 4 mmol/L; Blood Urea Nitrogen 18 mg/dL (9-20); Calcium 9.5 mg/dL (8.4-10.2); Carbon Dioxide 26 mmol/L (22-30); Chloride 99 mmol/L (98-107); Glucose 97 mg/dL (74-99); Non-African American GFR(CKD) 86 (>60 ml/min/1.73 sqM); Potassium 4.3 mmol/L (3.5-5.1); Sodium 129 mmol/L (137-145)
[2023-12-16 09:41] LABS: Basophils # (A) 0.01 X 10*3/uL (0.00-0.10); Basophils % (A) 0.3 %; Eosinophils # (A) 0.07 X 10*3/uL (0.04-0.35); Eosinophils % (A) 2.3 %; HCT 23.3 % (39.6-50.0); HGB 7.9 g/dL (13.0-17.0); Lymphocytes % (A) 46.5 %; MCH 41.1 pg (27.0-32.0); MCHC 33.9 g/dL (32.0-37.0); MCV 121.4 FL (80.0-97.0); Mean Platelet Volume 9.8 FL (9.5-12.2); Monocytes % (A) 16.6 %; NRBC Per 100 WBC 0 X 10*3/uL (0.00-0.01); Neutrophils # (A) 1.01 X 10*3/uL (1.80-7.70); Neutrophils % (A) 33.6 %; Platelet Count 169 X 10*3/uL (140-440); RBC 1.92 X 10*6/uL (4.40-5.60); RDW 13.7 % (11.5-14.5); WBC 3.01 X 10*3/uL (4.50-10.00)
--- NOTE | 2023-12-16 11:59 | P.PN ---
Subjective Progress Note Date: 12/16/23 This is a pleasant 88-year-old male patient with a known history of lung cancer including a left lung nodule status post radiation proximately 1 year ago, chronic obstructive pulmonary disease, chronic tobacco dependence, hypertension, hyperlipidemia, hypothyroidism, bladder cancer, chronic back pain, daily alcohol use. He had a 1 week history of increasing lower extremity edema and increasing shortness of breath and was seen by his PCP yesterday and was referred here to the emergency room. Chest x-ray revealed cardiomegaly but no acute pulmonary process. CT angiogram ruled out pulmonary embolism. There is extensive and for somatic changes. A redemonstrated solid 1.1 cm left upper lung pulmonary nodule. Doppler of the lower extremity were negative for DVT. Echocardiogram revealed preserved left ventricular systolic function with moderate aortic stenosis. White count 2.7. Hemoglobin 8.5. Platelets 180. Sodium 130. Potassium 4.6. Bicarb 21. BUN 23. Creatinine 0.81. Troponins were negative x 3. proBNP 1080. Viral screen was negative. Patient is seen today in consultation on the regular medical floor. He is currently resting comfortably in bed. Awake and alert in no acute distress. He is having some dyspnea on exertion. He is currently maintaining good O2 saturations in the mid 90s on room air. He admits to a cough with white productive mucus. No fever or chills. No hemoptysis. He has been afebrile. Hemodynamically stable. The patient is seen today December 16, 2023 in follow-up on the regular medical floor. He is currently awake and alert in no acute distress. Resting flat in bed. Maintaining O2 saturations in the 90s on room air. Count 3.0. Hemoglobin 7.9. Platelets 169. Sodium 129. Potassium 4.3. Bicarb 26. BUN 18. Creatinine 0.70. Continue on DuoNeb ventilations, Symbicort. Antibiotics in the form of Omnicef. Heparin for DVT prophylaxis. Remains on the [facility] protocol. Objective - Vital Signs Vital signs: Vital Signs Temp 98.5 F 12/16/23 06:58 Pulse 82 12/16/23 08:58 Resp 18 12/16/23 08:42 BP 156/73 12/16/23 06:58 Pulse Ox 98 12/16/23 06:58 FiO2 Intake & Output 12/15/23 12/16/23 12/16/23 18:59 06:59 18:59 Weight 61.235 kg 59 kg Other: Voiding Method Toilet # Voids 2 4 # Bowel Movements 2 - Exam GENERAL EXAM: Alert, 88-year-old male patient, on room air, in no apparent distress. HEAD: Normocephalic. EYES: Normal reaction of pupils, equal size. NOSE: Clear with pink turbinates. THROAT: No erythema or exudates. NECK: No masses, no JVD. CHEST: No chest wall deformity. LUNGS: Equal air entry with no crackles, wheeze, rhonchi or dullness. Diminished. CVS: S1 and S2 normal with an audible murmur, regular rhythm. ABDOMEN: No hepatosplenomegaly, normal bowel sounds, no guarding or rigidity. SPINE: No scoliosis or deformity SKIN: No rashes CENTRAL NERVOUS SYSTEM: No focal deficits, tone is normal in all 4 extremities. EXTREMITIES: There is 1+ peripheral edema. No clubbing, no cyanosis. Peripheral pulses are intact. - Labs CBC & Chem 7: 12/16/23 06:27 12/16/23 06:27 Labs: Abnormal Lab Results - Last 24 Hours (Table) 12/16/23 12/16/23 Range/Units 06:27 06:27 WBC 3.01 L (4.50-10.00) X 10*3/uL RBC 1.92 L (4.40-5.60) X 10*6/uL Hgb 7.9 L (13.0-17.0) g/dL Hct 23.3 L (39.6-50.0) % MCV 121.4 H (80.0-97.0) FL MCH 41.1 H (27.0-32.0) pg Neutrophils # 1.01 L (1.80-7.70) X 10*3/uL Sodium 129 L (137-145) mmol/L Assessment and Plan Assessment: Shortness of breath and lower extremity edema suspect secondary to mild diastolic congestive heart failure and mild COPD exacerbation. Pulmonary e mbolism ruled out. DVT ruled out. History of left upper lobe nodule suspicious for neoplasm. Status post radiation. Redemonstrated solid 1.1 cm left upper lung pulmonary nodule Chronic obstructive pulmonary disease, extensive emphysematous changes on CT scan Chronic and ongoing tobacco dependence Daily alcohol use Hyponatremia, possible beer potomania Moderate aortic stenosis Hypertension Hyperlipidemia Hypothyroidism History of bladder cancer History of depression Plan: The patient was seen and evaluated Labs and medications reviewed Stable and on room air Continued on DuoNeb inhalations, Symbicort Cleared for discharge from the pulmonary standpoint I have personally seen and examined the patient, performed the documentation and the assessment and plan as written. Number of minutes spent on the visit: 10.
[2023-12-16] MEDS: FUROSEMIDE 20 MG TAB PO STA (13:10)
--- NOTE | 2023-12-16 16:00 | P.PN ---
Subjective Progress Note Date: 12/16/23 88-year-old male patient with a known history of lung cancer including a left lung nodule status post radiation proximately 1 year ago, chronic obstructive pulmonary disease, chronic tobacco dependence, hypertension, hyperlipidemia, hypothyroidism, bladder cancer, chronic back pain, daily alcohol use. He had a 1 week history of increasing lower extremity edema and increasing shortness of breath and was seen by his PCP yesterday and was referred here to the emergency room. Chest x-ray revealed cardiomegaly but no acute pulmonary process. CT angiogram ruled out pulmonary embolism. There is extensive and for somatic changes. A redemonstrated solid 1.1 cm left upper lung pulmonary nodule. Doppl er of the lower extremity were negative for DVT. Echocardiogram revealed preserved left ventricular systolic function with moderate aortic stenosis. White count 2.7. Hemoglobin 8.5. Platelets 180. Sodium 130. Potassium 4.6. Bicarb 21. BUN 23. Creatinine 0.81. Troponins were negative x 3. proBNP 1080. Viral screen was negative. Patient is seen today in consultation on the regular medical floor. He is currently resting comfortably in bed. Awake and alert in no acute distress. He is having some dyspnea on exertion. He is currently maintaining good O2 saturations in the mid 90s on room air. He admits to a cough with white productive mucus. Objective - Vital Signs Vital signs: Vital Signs Temp 98.5 F 12/16/23 06:58 Pulse 82 12/16/23 08:58 Resp 18 12/16/23 08:42 BP 156/73 12/16/23 06:58 Pulse Ox 98 12/16/23 06:58 FiO2 Intake & Output 12/15/23 12/16/23 12/16/23 18:59 06:59 18:59 Weight 61.235 kg 59 kg Other: Voiding Method Toilet # Voids 2 4 # Bowel Movements 2 - Exam GENERAL EXAM: Alert, pleasant 88-year-old male patient, on room air, comfortable in no apparent distress. HEAD: Normocephalic. EYES: Normal reaction of pupils, equal size. THROAT: No erythema or exudates. NECK: No masses, no JVD. CHEST: No chest wall deformity. LUNGS: Equal air entry with no crackles, wheeze, rhonchi or dullness. Dimin ished. CVS: S1 and S2 normal with an audible murmur, regular rhythm. ABDOMEN: No hepatosplenomegaly, normal bowel sounds, no guarding or rigidity. SKIN: No rashes CENTRAL NERVOUS SYSTEM: No focal deficits, tone is normal in all 4 extremities. EXTREMITIES: There is 1+ peripheral edema. No clubbing, no cyanosis. Peripheral pulses are intact. - Labs CBC & Chem 7: 12/16/23 06:27 12/16/23 06:27 Labs: Abnormal Lab Results - Last 24 Hours (Table) 12/16/23 12/16/23 Range/Units 06:27 06:27 WBC 3.01 L (4.50-10.00) X 10*3/uL RBC 1.92 L (4.40-5.60) X 10*6/uL Hgb 7.9 L (13.0-17.0) g/dL Hct 23.3 L (39.6-50.0) % MCV 121.4 H (80.0-97.0) FL MCH 41.1 H (27.0-32.0) pg Neutrophils # 1.01 L (1.80-7.70) X 10*3/uL Sodium 129 L (137-145) mmol/L Assessment and Plan Assessment: 1. Acute onset dyspnea; likely multifactorial; related to CHF and COPD 2. Mild diastolic CHF in acute exacerbation; patient is currently on room air; chest x-ray reveals pulmonary vascular congestion -2D echo is ordered and pending 3. Acute exacerbation COPD -- Patient remains on DuoNeb nebulizer treatments 4 times daily and as needed; Symbicort inhaler therapy; pulmonary service recommending empiric antibiotics in form of Omnicef 4. Hypertension; Inderal LA 60 mg daily, losartan 25 mg daily 5. Hyperlipidemia; Lipitor 10 mg daily 6. Hypothyroidism; levothyroxine 25 mcg daily 7. History of depression; Lexapro 20 mg daily 8. Daily alcohol use; patient has been placed on Ativan per [facility] protocol DVT prophylaxis; subcu heparin CODE STATUS; full code
[2023-12-16] MEDS: LORazepam 2 MG/ML INJ IV PRN (21:39)
[2023-12-17] MEDS: Acetaminophen-Codeine 300-30mg TAB PO PRN (01:08)
[2023-12-17 09:21] LABS: HCT 21.8 % (39.6-50.0); HGB 7.5 g/dL (13.0-17.0); MCH 41.4 pg (27.0-32.0); MCHC 34.4 g/dL (32.0-37.0); MCV 120.4 FL (80.0-97.0); Mean Platelet Volume 10.2 FL (9.5-12.2); NRBC Per 100 WBC 0 X 10*3/uL (0.00-0.01); Platelet Count 173 X 10*3/uL (140-440); RBC 1.81 X 10*6/uL (4.40-5.60); RDW 13.7 % (11.5-14.5); WBC 2.93 X 10*3/uL (4.50-10.00)
[2023-12-17 10:41] LABS: BUN/Creat Ratio 22.33 Ratio (12.00-20.00); Blood Urea Nitrogen 20.1 mg/dL (9.0-27.0); Carbon Dioxide 22.3 mmol/L (21.6-31.8); Chloride 94 mmol/L (96-109); Glucose 120 mg/dL (70-110); Potassium 4.2 mmol/L (3.5-5.5); Sodium 129 mmol/L (135-145)
[2023-12-17 10:42] LABS: Calcium 9.2 mg/dL (8.7-10.3)
[2023-12-17 11:11] LABS: Basophils # (A) 0.01 X 10*3/uL (0.00-0.10); Basophils % (A) 0.3 %; Eosinophils # (A) 0.07 X 10*3/uL (0.04-0.35); Eosinophils % (A) 2.4 %; Lymphocytes # (A) 1.36 X 10*3/uL (0.90-5.00); Lymphocytes % (A) 46.4 %; Macrocytosis (M) 3+; Monocytes % (A) 17.1 %; Neutrophils # (A) 0.97 X 10*3/uL (1.80-7.70); Neutrophils % (A) 33.1 %
[2023-12-17] MEDS: PANTOPRAZOLE 40 MG/10 ML VIAL IVP SCH (12:03)
--- NOTE | 2023-12-17 12:11 | P.PN ---
Subjective Progress Note Date: 12/17/23 This is a pleasant 88-year-old male patient with a known history of lung cancer including a left lung nodule status post radiation proximately 1 year ago, chronic obstructive pulmonary disease, chronic tobacco dependence, hypertension, hyperlipidemia, hypothyroidism, bladder cancer, chronic back pain, daily alcohol use. He had a 1 week history of increasing lower extremity edema and increasing shortness of breath and was seen by his PCP yesterday and was referred here to the emergency room. Chest x-ray revealed cardiomegaly but no acute pulmonary process. CT angiogram ruled out pulmonary embolism. There is extensive and for somatic changes. A redemonstrated solid 1.1 cm left upper lung pulmonary nodule. Doppler of the lower extremity were negative for DVT. Echocardiogram revealed preserved left ventricular systolic function with moderate aortic stenosis. White count 2.7. Hemoglobin 8.5. Platelets 180. Sodium 130. Potassium 4.6. Bicarb 21. BUN 23. Creatinine 0.81. Troponins were negative x 3. proBNP 1080. Viral screen was negative. Patient is seen today in consultation on the regular medical floor. He is currently resting comfortably in bed. Awake and alert in no acute distress. He is having some dyspnea on exertion. He is currently maintaining good O2 saturations in the mid 90s on room air. He admits to a cough with white productive mucus. No fever or chills. No hemoptysis. He has been afebrile. Hemodynamically stable. The patient is seen today December 16, 2023 in follow-up on the regular medical floor. He is currently awake and alert in no acute distress. Resting flat in bed. Maintaining O2 saturations in the 90s on room air. Count 3.0. Hemoglobin 7.9. Platelets 169. Sodium 129. Potassium 4.3. Bicarb 26. BUN 18. Creatinine 0.70. Continue on DuoNeb ventilations, Symbicort. Antibiotics in the form of Omnicef. Heparin for DVT prophylaxis. Remains on the [facility] protocol. The patient is seen today December 17, 2023 in follow-up on the regular medical floor. He is resting in bed. Awake and alert in no acute distress. Maintaining good O2 saturations in the 90s on room air. White count 2.9. Hemoglobin 7.5. Platelets 173. Sodium 129. Potassium 4.2. Bicarb 22. BUN 20. Creatinine 0.9. Glucose 120. He remains on DuoNeb inhalations, Symbicort. Antibiotics in the form of Omnicef. Heparin for DVT prophylaxis. Objective - Vital Signs Vital signs: Vital Signs Temp 98.7 F 12/17/23 06:51 Pulse 76 12/17/23 08:21 Resp 19 12/17/23 07:40 BP 145/89 12/17/23 06:51 Pulse Ox 97 12/17/23 06:51 FiO2 Intake & Output 12/16/23 12/17/23 12/17/23 18:59 06:59 18:59 Intake Total 600 Output Total 500 100 Balance -500 600 -100 Intake: Oral 600 Output: Urine 500 100 Other: Voiding Method Toilet Toilet Urinal # Voids 1 3 # Bowel Movements 1 2 - Exam GENERAL EXAM: Alert, pleasant 88-year-old male patient, resting in bed, on room air, in no apparent distress. HEAD: Normocephalic. EYES: Normal reaction of pupils, equal size. NOSE: Clear with pink turbinates. THROAT: No erythema or exudates. NECK: No masses, no JVD. CHEST: No chest wall deformity. LUNGS: Equal air entry with no crackles, wheeze, rhonchi or dullness. Diminished. CVS: S1 and S2 normal with an audible murmur, regular rhythm. ABDOMEN: No hepatosplenomegaly, normal bowel sounds, no guarding or rigidity. SPINE: No scoliosis or deformity SKIN: No rashes CENTRAL NERVOUS SYSTEM: No focal deficits, tone is normal in all 4 extremities. EXTREMITIES: There is 1+ peripheral edema. No clubbing, no cyanosis. Peripheral pulses are intact. - Labs CBC & Chem 7: 12/17/23 03:29 12/17/23 03:25 Labs: Abnormal Lab Results - Last 24 Hours (Table) 12/17/23 12/17/23 Range/Units 03:25 03:29 WBC 2.93 L (4.50-10.00) X 10*3/uL RBC 1.81 L (4.40-5.60) X 10*6/uL Hgb 7.5 L (13.0-17.0) g/dL Hct 21.8 L (39.6-50.0) % MCV 120.4 H (80.0-97.0) FL MCH 41.4 H (27.0-32.0) pg Neutrophils # 0.97 L (1.80-7.70) X 10*3/uL Macrocytosis (manual) 3+ A Sodium 129 L (135-145) mmol/L Chloride 94 L (96-109) mmol/L Anion Gap 12.70 H (4.00-12.00) mmol/L BUN/Creatinine Ratio 22.33 H (12.00-20.00) Ratio Glucose 120 H (70-110) mg/dL Assessment and Plan Assessment: Shortness of breath and lower extremity edema suspect secondary to mild diastolic congestive heart failure and mild COPD exacerbation. Pulmonary embo lism ruled out. DVT ruled out. History of left upper lobe nodule suspicious for neoplasm. Status post radiation. Redemonstrated solid 1.1 cm left upper lung pulmonary nodule Chronic obstructive pulmonary disease, extensive emphysematous changes on CT scan Chronic and ongoing tobacco dependence Daily alcohol use Transaminitis secondary to above Hyponatremia, possible beer potomania Bicytopenia Moderate aortic stenosis Hypertension Hyperlipidemia Hypothyroidism History of bladder cancer History of depression Plan: The patient was seen and evaluated Labs and medications reviewed Hematology consulted per medicine Remains stable and on room air Continued on DuoNeb inhalations, Symbicort I have personally seen and examined the patient, performed the documentation and the assessment and plan as written. Number of minutes spent on the visit: 10.
[2023-12-17 13:06] LABS: Reticulocyte % 2.4 % (0.5-2.0)
--- NOTE | 2023-12-17 14:20 | P.CONS ---
History of Present Illness - Reason for Consult Consult date: 12/17/23 Anemia, neutropenia - Chief Complaint Dyspnea - History of Present Illness Mr. Garcia is an 88-year-old gentleman with a past medical history significant for lung nodule status post radiation therapy, alcohol abuse, COPD, congestive heart failure, hypertension, and hyperlipidemia for whom we are consulted regarding macrocytic anemia and neutropenia. He has been following with one of my partners, Dr. Thornton, with regards to his macrocytic anemia last on 10/19/2023. CBC at that time was 9.4 (MCV 123.8), WBC 4.53 (ANC 2.14), platelets 225. Workup on that visit revealed no evidence of vitamin B12, folic acid, or iron deficiency. Ferritin was 1616 with iron saturation 55.3%. Absolute reticul ocyte count was inappropriately normal at 5000. Haptoglobin was normal with normal kappa to lambda ratio and no M protein on serum protein electrophoresis. Plan at that time was to follow-up in 3 months with follow-up scheduled on 01/18/2024. He presented to [facility] on 12/14/2023 with increased dyspnea and lower extremity edema concerning for acute exacerbation of diastolic congestive heart failure along with COPD exacerbation. CTA of the chest noted no evidence of pulmonary embolism along with redemonstration of 1.1 cm left upper lung nodule that was previously irradiated and stable in size. Viral PCR was negative. Echocardiogram on 12/15/2023 revealed EF of 55 to 60% with moderate aortic stenosis. He has been receiving DuoNeb inhalers along with Omnicef twice daily. He is on CIWA and has required a total of 4 mg of Ativan since admission. CBC on initial presentation revealed WBC 3 (ANC 1.56), hemoglobin 9.2 (MCV 122.3), platelets 181. CBC on today's consultation reveals WBC 2.93 (ANC 0.97), hemoglobin 7.5 (MCV 120.4), platelets 173. Since admission, he notes improvement in dyspnea and lower extremity edema. He still notes having weakness that is worse than his baseline, but is also improved. He denies any fevers, chills, night sweats, lymphadenopathy, an orexia, or focal bone pain. Review of Systems 14 point review of systems conducted with pertinent positives and negatives as noted per HPI Past Medical History Past Medical History: Cancer, Heart Failure, COPD, Hyperlipidemia, Hypertension, Thyroid Disorder Additional Past Medical History / Comment(s): bladder and lung cancer, had radiation tx a year ago. lower back pain. sciatic nerve to rt, anemia History of Any Multi-Drug Resistant Organisms: None Reported Past Surgical History: Bowel Resection Additional Past Surgical History / Comment(s): colonscopy, Past Anesthesia/Blood Transfusion Reactions: No Reported Reaction Past Psychological History: Depression Smoking Status: Current every day smoker Past Alcohol Use History: Daily Additional Past Alcohol Use History / Comment(s): smokes since 16 yrs ago. 1ppd. > 14 drinks in week. beer and whiskey Past Drug Use History: None Reported - Past Family History Mother Family Medical History: Congestive Heart Failure (CHF), Diabetes Mellitus Father Family Medical History: Coronary Artery Disease (CAD) Additional Family Medical History / Comment(s): emphysema and black lung Medications and Allergies Home Medications Medication Instructions Recorded Confirmed Type EPINEPHrine (Auto Inject) [Epipen] 0.3 mg IM ONCE PRN #2 pen 01/27/19 12/14/23 Rx Fluticasone/Umeclidin/Vilanter 1 puff INHALATION RT-DAILY 01/26/23 12/14/23 History [Trelegy Ellipta 100-62.5-25] Irbesartan 75 mg PO DAILY 01/26/23 12/14/23 History LORazepam [Lorazepam] 0.5 mg PO BID PRN 01/26/23 12/14/23 History Levothyroxine Sodium 25 mcg PO DAILY 01/26/23 12/14/23 History Acetaminophen-Codeine 300-30mg 1 tab PO TID PRN 03/15/23 12/14/23 History [Tylenol w/codeine #3] Simvastatin [Zocor] 20 mg PO DAILY 07/12/23 12/14/23 History HYDROcodone/APAP 5-325MG [Sylvia 1 tab PO TID PRN 30 Days #90 tab 09/07/23 12/14/23 Rx 5-325] Cefdinir 300 mg PO BID 12/14/23 12/14/23 History Cyanocobalamin [Vitamin B-12 1,000 mcg SQ QMONTHLY 12/14/23 12/14/23 History Injection] Escitalopram [Lexapro] 20 mg PO DAILY 12/14/23 12/14/23 History Primidone 50 mg PO HS 12/14/23 12/14/23 History Propranolol LA [Inderal LA] 60 mg PO DAILY 12/14/23 12/14/23 History amLODIPine [Norvasc] 10 mg PO DAILY 12/14/23 12/14/23 History Allergies Allergy/AdvReac Type Severity Reaction Status Date / Time bee venom protein (honey bee) Allergy Anaphylaxis Verified 12/15/23 08:26 Physical Exam Vitals: Vital Signs Temp Pulse Pulse Resp BP Pulse Ox 12/17/23 08:21 76 12/17/23 08:08 74 12/17/23 07:40 74 19 12/17/23 06:51 98.7 F 74 19 145/89 97 12/17/23 01:49 98.7 F 67 17 158/82 96 12/16/23 19:51 97.6 F 69 18 153/75 97 12/16/23 19:50 20 12/16/23 13:43 97.7 F 58 L 18 137/77 95 Intake and Output 12/16/23 12/17/23 12/17/23 22:59 06:59 14:59 Intake Total 600 Output Total 500 100 Balance -500 600 -100 Intake: Oral 600 Output: Urine 500 100 Other: Voiding Method Toilet Urinal # Voids 1 3 # Bowel Movements 1 2 - Constitutional General appearance: cooperative, no acute distress - EENT Eyes: EOMI ENT: hard of hearing - Respiratory Respiratory: bilateral: CTA - Cardiovascular Rhythm: regular Abnormal Heart Sounds: systolic murmur (Crescendo decrescendo murmur heard best at the left lower sternal border) - Gastrointestinal General gastrointestinal: no distended, normal bowel sounds, soft, no tenderness - Integumentary Integumentary: no rash - Neurologic Neurologic: CNII-XII intact Results CBC & Chem 7: 12/17/23 03:29 12/17/23 03:25 Labs: Abnormal Lab Results - Last 24 Hours (Table) 12/17/23 12/17/23 Range/Units 03:25 03:29 WBC 2.93 L (4.50-10.00) X 10*3/uL RBC 1.81 L (4.40-5.60) X 10*6/uL Hgb 7.5 L (13.0-17.0) g/dL Hct 21.8 L (39.6-50.0) % MCV 120.4 H (80.0-97.0) FL MCH 41.4 H (27.0-32.0) pg Neutrophils # 0.97 L (1.80-7.70) X 10*3/uL Macrocytosis (manual) 3+ A Sodium 129 L (135-145) mmol/L Chloride 94 L (96-109) mmol/L Anion Gap 12.70 H (4.00-12.00) mmol/L BUN/Creatinine Ratio 22.33 H (12.00-20.00) Ratio Glucose 120 H (70-110) mg/dL Assessment and Plan (1) Macrocytic anemia Current Visit: Yes Status: Acute Code(s): D53.9 - NUTRITIONAL ANEMIA, UNSPECIFIED SNOMED Code(s): 89508141 (2) Neutropenia Current Visit: Yes Status: Acute Code(s): D70.9 - NEUTROPENIA, UNSPECIFIED SNOMED Code(s): 212454515 Plan: #Macrocytic anemia, neutropenia -This has been noted to be slowly progressive over the past 2 to 3 years -Follows outpatient with primary senior project coordinator Dr. Thornton -Recent outpatient workup on 10/19/2023 revealed no evidence of vitamin B12/efren te deficiency, hemolysis, or monoclonal gammopathy with elevated ferritin and iron saturation -It was thought that he could have underlying dysplasia in addition to prior and current alcohol use -Plan was to have continued close monitoring with follow-up in 3 months -He was admitted on 12/14/2023 with exacerbation of COPD/CHF with mild decrease in hemoglobin and neutrophils likely secondary to acute inflammation superimposed on underlying decreased production from the marrow as above -We will repeat folic acid, vitamin B12, along with thyroid profile -We will not repeat additional workup already obtained in clinic -We did discuss potential for bone marrow biopsy if he has progressive unexplai blaine cytopenias, but discussed he does not require this at this time -If he has progressive decrease in hemoglobin, repeat hemolysis labs could be considered -Transfuse for hemoglobin less than 7 -If labs are stable, he would not require any additional workup until follow-up visit on 01/18/2024 at 1 PM. If he does require transfusion this admission, he may need CBC follow-up outpatient after discharge Eddy Marie MD
[2023-12-17 23:27] LABS: % Iron Saturation 45.45 (15.00-50.00); Iron 95 UG/DL (65-175); LDH 277 U/L (120-246); Total Iron Binding Capacity 209 UG/DL (228-460)
[2023-12-18 08:30] LABS: Protein, Total 6.3 g/dL (6.2-8.2)
[2023-12-18] MEDS: THIAMINE 100 MG/ML 2 ML VIAL IVP SCH (08:32)
[2023-12-18 08:48] LABS: Blood Urea Nitrogen 18.9 mg/dL (9.0-27.0); Calcium 9.2 mg/dL (8.7-10.3); Carbon Dioxide 24.6 mmol/L (21.6-31.8); Chloride 94 mmol/L (96-109); Glucose 103 mg/dL (70-110); Potassium 4.3 mmol/L (3.5-5.5); Sodium 129 mmol/L (135-145)
[2023-12-18] MEDS ORDERED: THIAMINE 100 MG in SODIUM CHLORIDE 0.9% 50 ML IVPB SCH (09:00)
[2023-12-18 12:02] VITALS: BMI 20.4
--- NOTE | 2023-12-18 13:09 | P.PN ---
Subjective Progress Note Date: 12/17/23 88-year-old male patient with a known history of lung cancer including a left lung nodule status post radiation proximately 1 year ago, chronic obstructive pulmonary disease, chronic tobacco dependence, hypertension, hyperlipidemia, hypothyroidism, bladder cancer, chronic back pain, daily alcohol use. He had a 1 week history of increasing lower extremity edema and increasing shortness of breath and was seen by his PCP yesterday and was referred here to the emergency room. Chest x-ray revealed cardiomegaly but no acute pulmonary process. CT angiogram ruled out pulmonary embolism. There is extensive and for somatic changes. A redemonstrated solid 1.1 cm left upper lung pulmonary nodule. Doppl er of the lower extremity were negative for DVT. Echocardiogram revealed preserved left ventricular systolic function with moderate aortic stenosis. White count 2.7. Hemoglobin 8.5. Platelets 180. Sodium 130. Potassium 4.6. Bicarb 21. BUN 23. Creatinine 0.81. Troponins were negative x 3. proBNP 1080. Viral screen was negative. Patient is seen today in consultation on the regular medical floor. He is currently resting comfortably in bed. Awake and alert in no acute distress. He is having some dyspnea on exertion. He is currently maintaining good O2 saturations in the mid 90s on room air. He admits to a cough with white productive mucus. 12/17/2023 Patient is seen and evaluated in room at bedside; eager to be discharged home - vital signs has been reviewed and are stable Blood work reveals a WBC of 2.93 which is trended down from 3.01 yesterday, hemoglobin continues to trend down and is at 7.5 from 8.5 upon admission and platelet count of 173 which is stable, sodium of 129, potassium 4.2, BUNs/creatinine of 20/0.9 -- Bicytopenia discussed with patient in great detail; I recommend patient be evaluated by hematology prior to being discharged; patient is agreeable with the plan -- We will plan to start patient on Protonix 40 mg every 12 hours, monitor H&H closely, stool occult blood x 3 -Further recommendations once patient evaluated by hematology --Plan to discharge patient home in next 24 hours if blood work remains stable and patient is cleared for discharge by hematology Objective - Vital Signs Vital signs: Vital Signs Temp 98.7 F 12/17/23 06:51 Pulse 76 12/17/23 08:21 Resp 19 12/17/23 07:40 BP 145/89 12/17/23 06:51 Pulse Ox 97 12/17/23 06:51 FiO2 Intake & Output 12/16/23 12/17/23 12/17/23 18:59 06:59 18:59 Intake Total 600 Output Total 500 100 Balance -500 600 -100 Intake: Oral 600 Output: Urine 500 100 Other: Voiding Method Toilet Toilet Urinal # Voids 1 3 # Bowel Movements 1 2 - Exam GENERAL EXAM: Alert, pleasant 88-year-old male patient, on room air, comfortable in no apparent distress. HEAD: Normocephalic. EYES: Normal reaction of pupils, equal size. THROAT: No erythema or exudates. NECK: No masses, no JVD. CHEST: No chest wall deformity. LUNGS: Equal air entry with no crackles, wheeze, rhonchi or dullness. Dimini shed. CVS: S1 and S2 normal with an audible murmur, regular rhythm. ABDOMEN: No hepatosplenomegaly, normal bowel sounds, no guarding or rigidity. SKIN: No rashes CENTRAL NERVOUS SYSTEM: No focal deficits, tone is normal in all 4 extremities. EXTREMITIES: There is 1+ peripheral edema. No clubbing, no cyanosis. Peripheral pulses are intact. - Labs CBC & Chem 7: 12/17/23 03:29 12/18/23 05:03 Labs: Abnormal Lab Results - Last 24 Hours (Table) 12/17/23 12/17/23 Range/Units 03:25 03:29 WBC 2.93 L (4.50-10.00) X 10*3/uL RBC 1.81 L (4.40-5.60) X 10*6/uL Hgb 7.5 L (13.0-17.0) g/dL Hct 21.8 L (39.6-50.0) % MCV 120.4 H (80.0-97.0) FL MCH 41.4 H (27.0-32.0) pg Neutrophils # 0.97 L (1.80-7.70) X 10*3/uL Macrocytosis (manual) 3+ A Sodium 129 L (135-145) mmol/L Chloride 94 L (96-109) mmol/L Anion Gap 12.70 H (4.00-12.00) mmol/L BUN/Creatinine Ratio 22.33 H (12.00-20.00) Ratio Glucose 120 H (70-110) mg/dL Assessment and Plan Assessment: 1. Acute onset dyspnea; likely multifactorial; related to CHF and COPD 2. Mild diastolic CHF in acute exacerbation; patient is currently on room air; chest x-ray reveals pulmonary vascular congestion -2D echo is ordered and pending 3. Acute exacerbation COPD -- Patient remains on DuoNeb nebulizer treatments 4 times daily and as needed; Symbicort inhaler therapy; pulmonary service recommending empiric antibiotics in form of Omnicef 4. Hypertension; Inderal LA 60 mg daily, losartan 25 mg daily 5. Hyperlipidemia; Lipitor 10 mg daily 6. Hypothyroidism; levothyroxine 25 mcg daily 7. History of depression; Lexapro 20 mg daily 8. Daily alcohol use; patient has been placed on Ativan per [facility] protocol DVT prophylaxis; subcu heparin CODE STATUS; full code
--- NOTE | 2023-12-18 15:26 | P.PN ---
Subjective Progress Note Date: 12/18/23 This is a pleasant 88-year-old male patient with a known history of lung cancer including a left lung nodule status post radiation proximately 1 year ago, chronic obstructive pulmonary disease, chronic tobacco dependence, hypertension, hyperlipidemia, hypothyroidism, bladder cancer, chronic back pain, daily alcohol use. He had a 1 week history of increasing lower extremity edema and increasing shortness of breath and was seen by his PCP yesterday and was referred here to the emergency room. Chest x-ray revealed cardiomegaly but no acute pulmonary process. CT angiogram ruled out pulmonary embolism. There is extensive and for somatic changes. A redemonstrated solid 1.1 cm left upper lung pulmonary nodule. Doppler of the lower extremity were negative for DVT. Echocardiogram revealed preserved left ventricular systolic function with moderate aortic stenosis. White count 2.7. Hemoglobin 8.5. Platelets 180. Sodium 130. Potassium 4.6. Bicarb 21. BUN 23. Creatinine 0.81. Troponins were negative x 3. proBNP 1080. Viral screen was negative. Patient is seen today in consultation on the regular medical floor. He is currently resting comfortably in bed. Awake and alert in no acute distress. He is having some dyspnea on exertion. He is currently maintaining good O2 saturations in the mid 90s on room air. He admits to a cough with white productive mucus. No fever or chills. No hemoptysis. He has been afebrile. Hemodynamically stable. The patient is seen today December 16, 2023 in follow-up on the regular medical floor. He is currently awake and alert in no acute distress. Resting flat in bed. Maintaining O2 saturations in the 90s on room air. Count 3.0. Hemoglobin 7.9. Platelets 169. Sodium 129. Potassium 4.3. Bicarb 26. BUN 18. Creatinine 0.70. Continue on DuoNeb ventilations, Symbicort. Antibiotics in the form of Omnicef. Heparin for DVT prophylaxis. Remains on the CIWA protocol. The patient is seen today December 17, 2023 in follow-up on the regular medical floor. He is resting in bed. Awake and alert in no acute distress. Maintaining good O2 saturations in the 90s on room air. White count 2.9. Hemoglobin 7.5. Platelets 173. Sodium 129. Potassium 4.2. Bicarb 22. BUN 20. Creatinine 0.9. Glucose 120. He remains on DuoNeb inhalations, Symbicort. Antibiotics in the form of Omnicef. Heparin for DVT prophylaxis. The patient is seen today December 18, 2023 in follow-up on the regular medical floor. He is currently resting in bed. Awake and alert in no acute distress. Continues to maintain good O2 saturations in the 90s on room air. He denies any shortness of breath, cough or congestion. He is afebrile. Hemodynamically stab le. Sodium 129. Potassium 4.3. Bicarb 25. BUN 19. Creatinine 1.0. Glucose 103. He remains on bronchodilators. Antibiotics in the form of Omnicef. Heparin for DVT prophylaxis. Remains on the CIWA protocol. Objective - Vital Signs Vital signs: Vital Signs Temp 98.6 F 12/18/23 08:00 Pulse 74 12/18/23 12:31 Resp 17 12/18/23 08:00 BP 149/81 12/18/23 08:00 Pulse Ox 97 12/18/23 08:00 FiO2 Intake & Output 12/17/23 12/18/23 12/18/23 18:59 06:59 18:59 Output Total 100 Balance -100 Weight 61 kg 61 kg Output: Urine 100 Other: Voiding Method Toilet Urinal # Voids 3 # Bowel Movements 0 - Exam GENERAL EXAM: Alert, 88-year-old male patient,on room air, in no apparent distress. HEAD: Normocephalic. EYES: Normal reaction of pupils, equal size. NOSE: Clear with pink turbinates. THROAT: No erythema or exudates. NECK: No masses, no JVD. CHEST: No chest wall deformity. LUNGS: Equal air entry with no crackles, wheeze, rhonchi or dullness. Diminished. CVS: S1 and S2 normal with an audible murmur, regular rhythm. ABDOMEN: No hepatosplenomegaly, normal bowel sounds, no guarding or rigidity. SPINE: No scoliosis or deformity SKIN: No rashes CENTRAL NERVOUS SYSTEM: No focal deficits, tone is normal in all 4 extremities. EXTREMITIES: There is 1+ peripheral edema. No clubbing, no cyanosis. Peripheral pulses are intact. - Labs CBC & Chem 7: 12/17/23 03:29 12/18/23 05:03 Labs: Abnormal Lab Results - Last 24 Hours (Table) 12/17/23 12/17/23 12/17/23 Range/Units 03:25 11:21 11:21 Sodium (135-145) mmol/L Chloride (96-109) mmol/L Magnesium 1.3 L (1.5-2.4) mg/dL TIBC 209 L (228-460) UG/DL Transferrin 149.0 L (204.0-354.0) mg/dL Ferritin 1620.0 H (22.0-322.0) ng/mL Lactate Dehydrogenase 277 H (120-246) U/L IgA 654.0 H (60.0-350.0) mg/dL 12/18/23 Range/Units 05:03 Sodium 129 L (135-145) mmol/L Chloride 94 L (96-109) mmol/L Magnesium (1.5-2.4) mg/dL TIBC (228-460) UG/DL Transferrin (204.0-354.0) mg/dL Ferritin (22.0-322.0) ng/mL Lactate Dehydrogenase (120-246) U/L IgA (60.0-350.0) mg/dL Assessment and Plan Assessment: Shortness of breath and lower extremity edema suspect secondary to mild diastolic congestive heart failure and mild COPD exacerbation. Pulmonary embolism ruled out. DVT ruled out. History of left upper lobe nodule suspicious for neoplasm. Status post radiation. Redemonstrated solid 1.1 cm left upper lung pulmonary nodule Chronic obstructive pulmonary disease, extensive emphysematous changes on CT scan Chronic and ongoing tobacco dependence Daily alcohol use Transaminitis secondary to above Hyponatremia, possible beer potomania Macrocytic anemia, neutropenia Moderate aortic stenosis Hypertension Hyperlipidemia Hypothyroidism History of bladder cancer History of depression Plan: The patient was seen and evaluated Labs and medications reviewed Remains stable and on room air Continued on DuoNeb inhalations, Symbicort Hematology following regarding anemia I have personally seen and examined the patient, performed the documentation and the assessment and plan as written. Number of minutes spent on the visit: 10.
[2023-12-18 16:24] LABS: Free Kappa Lt Chain Qnt, Serum 6.72 mg/dL (0.33-1.94); Free Lambda Lt Chain Qnt, Seru 3.94 mg/dL (0.57-2.63)
--- NOTE | 2023-12-18 21:19 | P.PN ---
Subjective 88-year-old male patient with a known history of lung cancer including a left lung nodule status post radiation proximately 1 year ago, chronic obstructive pulmonary disease, chronic tobacco dependence, hypertension, hyperlipidemia, hypothyroidism, bladder cancer, chronic back pain, daily alcohol use. He had a 1 week history of increasing lower extremity edema and increasing shortness of breath and was seen by his PCP yesterday and was referred here to the emergency room. Chest x-ray revealed cardiomegaly but no acute pulmonary process. CT angiogram ruled out pulmonary embolism. There is extensive and for somatic changes. A redemonstrated solid 1.1 cm left upper lung pulmonary nodule. Doppler of the lower extremity were negative for DVT. Echocardiogram revealed preserved left ventricular systolic function with moderate aortic stenosis. White count 2.7. Hemoglobin 8.5. Platelets 180. Sodium 130. Potassium 4.6. Bicarb 21. BUN 23. Creatinine 0.81. Troponins were negative x 3. proBNP 1080. Viral screen was negative. Patient is seen today in consultation on the regular medical floor. He is currently resting comfortably in bed. Awake and alert in no acute distress. He is having some dyspnea on exertion. He is currently maintaining good O2 saturations in the mid 90s on room air. He admits to a cough with white productive mucus. 12/17/2023 Patient is seen and evaluated in room at bedside; eager to be discharged home - vital signs has been reviewed and are stable Blood work reveals a WBC of 2.93 which is trended down from 3.01 yesterday, hemoglobin continues to trend down and is at 7.5 from 8.5 upon admission and platelet count of 173 which is stable, sodium of 129, potassium 4.2, BUNs/creatinine of 20/0.9 -- Bicytopenia discussed with patient in great detail; I recommend patient be evaluated by hematology prior to being discharged; patient is agreeable with the plan -- We will plan to start patient on Protonix 40 mg every 12 hours, monitor H&H closely, stool occult blood x 3 -Further recommendations once patient evaluated by hematology 12/18/23 Patient states dyspnea is better No abdominal pain, he tolerates diet 50 to 100% No diarrhea No leg edema No fever chills CIWA is 4 Objective - Vital Signs Vital signs: Vital Signs Temp 98.6 F 12/18/23 08:00 Pulse 74 12/18/23 12:31 Resp 17 06/24/24 08:00 BP 149/81 12/18/23 08:00 Pulse Ox 97 12/18/23 08:00 FiO2 Intake & Output 12/17/23 12/18/23 12/18/23 18:59 06:59 18:59 Output Total 100 Balance -100 Weight 61 kg 61 kg Output: Urine 100 Other: Voiding Method Toilet Urinal # Voids 3 # Bowel Movements 0 - Exam GENERAL: The patient is alert and oriented x3, not in any acute distress. Well developed, well nourished. HEENT: Pupils are round and equally reacting to light. EOMI. No scleral icterus. No conjunctival pallor. Normocephalic, atraumatic. No pharyngeal erythema. No thyromegaly. CARDIOVASCULAR: S1 and S2 present. No murmurs, rubs, or gallops. PULMONARY: Chest is clear to auscultation, no wheezing , no crackles. ABDOMEN: Soft, nontender, nondistended, normoactive bowel sounds. No palpable organomegaly. MUSCULOSKELETAL: No joint swelling or deformity. EXTREMITIES: No cyanosis, clubbing, or pedal edema. NEUROLOGICAL: Gross neurological examination did not reveal any focal deficits. SKIN: No rashes. no petechiae. - Labs CBC & Chem 7: 12/17/23 03:29 12/18/23 05:03 Labs: Abnormal Lab Results - Last 24 Hours (Table) 12/17/23 12/17/23 12/17/23 Range/Units 03:25 11:21 11:21 Retic Count (0.5-2.0) % Sodium (135-145) mmol/L Chloride (96-109) mmol/L Magnesium 1.3 L (1.5-2.4) mg/dL TIBC 209 L (228-460) UG/DL Transferrin 149.0 L (204.0-354.0) mg/dL Ferritin 1620.0 H (22.0-322.0) ng/mL Lactate Dehydrogenase 277 H (120-246) U/L IgA 654.0 H (60.0-350.0) mg/dL 12/17/23 12/18/23 Range/Units 11:21 05:03 Retic Count 2.4 H (0.5-2.0) % Sodium 129 L (135-145) mmol/L Chloride 94 L (96-109) mmol/L Magnesium (1.5-2.4) mg/dL TIBC (228-460) UG/DL Transferrin (204.0-354.0) mg/dL Ferritin (22.0-322.0) ng/mL Lactate Dehydrogenase (120-246) U/L IgA (60.0-350.0) mg/dL Assessment and Plan Assessment: 1. Acute onset dyspnea; likely multifactorial; related to CHF and COPD 2. Mild diastolic CHF in acute exacerbation; patient is currently on room air; chest x-ray reveals pulmonary vascular congestion -2D echo is ordered and pending 3. Acute exacerbation COPD -- Patient remains on DuoNeb nebulizer treatments 4 times daily and as needed; Symbicort inhaler therapy; pulmonary service recommending empiric antibiotics in form of Omnicef 4. Hypertension; Inderal LA 60 mg daily, losartan 25 mg daily 5. Hyperlipidemia; Lipitor 10 mg daily 6. Hypothyroidism; levothyroxine 25 mcg daily 7. History of depression; Lexapro 20 mg daily 8. Daily alcohol use; patient has been placed on Ativan per [facility] protocol DVT prophylaxis; subcu heparin CODE STATUS; full code
[2023-12-19] MEDS ORDERED: IPRATROPIUM-ALBUTEROL 3 ML NEB INHALATION PRN (00:13)
[2023-12-19] MEDS: IPRATROPIUM-ALBUTEROL 3 ML NEB INHALATION SCH (08:31)
[2023-12-19 10:23] LABS: HCT 28.3 % (39.0-53.0); MCH 40.7 pg (25.0-35.0); MCHC 31.9 g/dL (31.0-37.0); Macrocytosis Marked; Mean Platelet Volume 8.6; Platelet Count 253 k/uL (150-450); RBC 2.22 m/uL (4.30-5.90); RDW 14.4 % (11.5-15.5); WBC 3.8 k/uL (3.8-10.6)
[2023-12-19 10:53] LABS: MCV 127.7 fL (80.0-100.0)
--- NOTE | 2023-12-19 11:05 | P.PN ---
Subjective 88-year-old male patient with a known history of lung cancer including a left lung nodule status post radiation proximately 1 year ago, chronic obstructive pulmonary disease, chronic tobacco dependence, hypertension, hyperlipidemia, hypothyroidism, bladder cancer, chronic back pain, daily alcohol use. He had a 1 week history of increasing lower extremity edema and increasing shortness of breath and was seen by his PCP yesterday and was referred here to the emergency room. Chest x-ray revealed cardiomegaly but no acute pulmonary process. CT angiogram ruled out pulmonary embolism. There is extensive and for somatic changes. A redemonstrated solid 1.1 cm left upper lung pulmonary nodule. Doppler of the lower extremity were negative for DVT. Echocardiogram revealed preserved left ventricular systolic function with moderate aortic stenosis. White count 2.7. Hemoglobin 8.5. Platelets 180. Sodium 130. Potassium 4.6. Bicarb 21. BUN 23. Creatinine 0.81. Troponins were negative x 3. proBNP 1080. Viral screen was negative. Patient is seen today in consultation on the regular medical floor. He is currently resting comfortably in bed. Awake and alert in no acute distress. He is having some dyspnea on exertion. He is currently maintaining good O2 saturations in the mid 90s on room air. He admits to a cough with white productive mucus. 12/17/2023 Patient is seen and evaluated in room at bedside; eager to be discharged home - vital signs has been reviewed and are stable Blood work reveals a WBC of 2.93 which is trended down from 3.01 yesterday, hemoglobin continues to trend down and is at 7.5 from 8.5 upon admission and platelet count of 173 which is stable, sodium of 129, potassium 4.2, BUNs/creatinine of 20/0.9 -- Bicytopenia discussed with patient in great detail; I recommend patient be evaluated by hematology prior to being discharged; patient is agreeable with the plan -- We will plan to start patient on Protonix 40 mg every 12 hours, monitor H&H closely, stool occult blood x 3 -Further recommendations once patient evaluated by hematology 12/18/23 Patient states dyspnea is better No abdominal pain, he tolerates diet 50 to 100% No diarrhea No leg edema No fever chills CIWA is 4 12/19/2023 Patient breathing is improving slowly and gradually. His oxygen saturation is acceptable. Afebrile Labs reviewed showing improvement in WBC up to normal at 3.8, hemoglobin impr jules up to 9, platelet count normal 253 He remains hyponatremic but sodium stable over a few days at 129. Will add fluid restriction 1000 mL/day Patient was informed about his lung nodule and the need for PET scan as an outpatient and he verbalized understanding and acceptance Objective - Vital Signs Vital signs: Vital Signs Temp 98.7 F 12/19/23 01:41 Pulse 60 12/19/23 08:32 Resp 18 12/19/23 01:41 BP 123/66 12/19/23 01:41 Pulse Ox 99 12/19/23 01:41 FiO2 Intake & Output 12/18/23 12/19/23 12/19/23 18:59 06:59 18:59 Intake Total 480 Balance 480 Weight 61 kg 59.5 kg Intake: Oral 480 Other: Voiding Method Urinal # Voids 2 3 1 # Bowel Movements 1 - Exam GENERAL: The patient is alert and oriented x3, not in any acute distress. Well developed, well nourished. HEENT: Pupils are round and equally reacting to light. EOMI. No scleral icterus. No conjunctival pallor. Normocephalic, atraumatic. No pharyngeal erythema. No thyromegaly. CARDIOVASCULAR: S1 and S2 present. No murmurs, rubs, or gallops. PULMONARY: Chest is clear to auscultation, no wheezing , no crackles. ABDOMEN: Soft, nontender, nondistended, normoactive bowel sounds. No palpable organomegaly. MUSCULOSKELETAL: No joint swelling or deformity. EXTREMITIES: No cyanosis, clubbing, or pedal edema. NEUROLOGICAL: Gross neurological examination did not reveal any focal deficits. SKIN: No rashes. no petechiae. - Labs CBC & Chem 7: 12/19/23 10:00 12/18/23 05:03 Labs: Abnormal Lab Results - Last 24 Hours (Table) 12/17/23 12/19/23 Range/Units 11:21 10:00 RBC 2.22 L (4.30-5.90) m/uL Hgb 9.0 L (13.0-17.5) gm/dL Hct 28.3 L (39.0-53.0) % MCV 127.7 H D (80.0-100.0) fL MCH 40.7 H (25.0-35.0) pg Macrocytosis Marked A Free [place] LC, Quant 6.72 H (0.33-1.94) mg/dL Free [place]ambda LC, Quant 3.94 H (0.57-2.63) mg/dL Assessment and Plan Assessment: 1. Acute onset dyspnea; likely multifactorial; related to CHF and COPD 2. Mild diastolic CHF in acute exacerbation; patient is currently on room air; chest x-ray reveals pulmonary vascular congestion -2D echo is ordered and pending 3. Acute exacerbation COPD -- Patient remains on DuoNeb nebulizer treatments 4 times daily and as needed; Symbicort inhaler therapy; pulmonary service recommending empiric antibiotics in form of Omnicef 4. Hypertension; Inderal LA 60 mg daily, losartan 25 mg daily 5. Hyperlipidemia; Lipitor 10 mg daily 6. Hypothyroidism; levothyroxine 25 mcg daily 7. History of depression; Lexapro 20 mg daily 8. Daily alcohol use; patient has been placed on Ativan per CIWA protocol 9. Lung nodule, PET scan as an outpatient is recommended, patient informed and he agrees DVT prophylaxis; subcu heparin CODE STATUS; full code
[2023-12-19 11:15] LABS: Band Neutrophils % 1 %; Eosinophils # (M) 0.11 k/uL (0-0.7); Lymphocytes # (M) 1.14 k/uL (1.0-4.8); Monocytes # (M) 0.65 k/uL (0-1.0); Neutrophils % (M) 49 %; Nucleated Red Blood Cells 0 /100 WBC (0-0); Total Cells Counted 100
--- NOTE | 2023-12-19 13:12 | P.PN ---
Subjective Progress Note Date: 12/19/23 This is a pleasant 88-year-old male patient with a known history of lung cancer including a left lung nodule status post radiation proximately 1 year ago, chronic obstructive pulmonary disease, chronic tobacco dependence, hypertension, hyperlipidemia, hypothyroidism, bladder cancer, chronic back pain, daily alcohol use. He had a 1 week history of increasing lower extremity edema and increasing shortness of breath and was seen by his PCP yesterday and was referred here to the emergency room. Chest x-ray revealed cardiomegaly but no acute pulmonary process. CT angiogram ruled out pulmonary embolism. There is extensive and for somatic changes. A redemonstrated solid 1.1 cm left upper lung pulmonary nodule. Doppler of the lower extremity were negative for DVT. Echocardiogram revealed preserved left ventricular systolic function with moderate aortic stenosis. White count 2.7. Hemoglobin 8.5. Platelets 180. Sodium 130. Potassium 4.6. Bicarb 21. BUN 23. Creatinine 0.81. Troponins were negative x 3. proBNP 1080. Viral screen was negative. Patient is seen today in consultation on the regular medical floor. He is currently resting comfortably in bed. Awake and alert in no acute distress. He is having some dyspnea on exertion. He is currently maintaining good O2 saturations in the mid 90s on room air. He admits to a cough with white productive mucus. No fever or chills. No hemoptysis. He has been afebrile. Hemodynamically stable. The patient is seen today December 16, 2023 in follow-up on the regular medical floor. He is currently awake and alert in no acute distress. Resting flat in bed. Maintaining O2 saturations in the 90s on room air. Count 3.0. Hemoglobin 7.9. Platelets 169. Sodium 129. Potassium 4.3. Bicarb 26. BUN 18. Creatinine 0.70. Continue on DuoNeb ventilations, Symbicort. Antibiotics in the form of Omnicef. Heparin for DVT prophylaxis. Remains on the CIWA protocol. The patient is seen today December 17, 2023 in follow-up on the regular medical floor. He is resting in bed. Awake and alert in no acute distress. Maintaining good O2 saturations in the 90s on room air. White count 2.9. Hemoglobin 7.5. Platelets 173. Sodium 129. Potassium 4.2. Bicarb 22. BUN 20. Creatinine 0.9. Glucose 120. He remains on DuoNeb inhalations, Symbicort. Antibiotics in the form of Omnicef. Heparin for DVT prophylaxis. The patient is seen today December 18, 2023 in follow-up on the regular medical floor. He is currently resting in bed. Awake and alert in no acute distress. Continues to maintain good O2 saturations in the 90s on room air. He denies any shortness of breath, cough or congestion. He is afebrile. Hemodynamically stab le. Sodium 129. Potassium 4.3. Bicarb 25. BUN 19. Creatinine 1.0. Glucose 103. He remains on bronchodilators. Antibiotics in the form of Omnicef. Heparin for DVT prophylaxis. Remains on the CIWA protocol. The patient is seen today December 19, 2023 in follow-up on the regular medical floor. He is awake and alert in no acute distress. Resting comfortably in bed. Maintaining good O2 saturations in the 90s on room air. No IV fluids. White count 3.8. Hemoglobin 9.0. Platelets 253. He is continued on DuoNeb inhalations, Symbicort. Heparin for DVT prophylaxis. Objective - Vital Signs Vital signs: Vital Signs Temp 98.3 F 12/19/23 08:00 Pulse 56 L 12/19/23 11:30 Resp 16 12/19/23 08:00 BP 138/81 12/19/23 08:00 Pulse Ox 96 12/19/23 08:00 FiO2 Intake & Output 12/18/23 12/19/23 12/19/23 18:59 06:59 18:59 Intake Total 480 Balance 480 Weight 61 kg 59.5 kg Intake: Oral 480 Other: Voiding Method Urinal # Voids 2 3 1 # Bowel Movements 1 - Exam GENERAL EXAM: Alert, pleasant 88-year-old male patient, on room air, in no apparent distress. HEAD: Normocephalic. EYES: Normal reaction of pupils, equal size. NOSE: Clear with pink turbinates. THROAT: No erythema or exudates. NECK: No masses, no JVD. CHEST: No chest wall deformity. LUNGS: Equal air entry with no crackles, wheeze, rhonchi or dullness. Dimin ished. CVS: S1 and S2 normal with an audible murmur, regular rhythm. ABDOMEN: No hepatosplenomegaly, normal bowel sounds, no guarding or rigidity. SPINE: No scoliosis or deformity SKIN: No rashes CENTRAL NERVOUS SYSTEM: No focal deficits, tone is normal in all 4 extremities. EXTREMITIES: There is 1+ peripheral edema. No clubbing, no cyanosis. Peripheral pulses are intact. - Labs CBC & Chem 7: 12/19/23 10:00 12/18/23 05:03 Labs: Abnormal Lab Results - Last 24 Hours (Table) 12/17/23 12/19/23 Range/Units 11:21 10:00 RBC 2.22 L (4.30-5.90) m/uL Hgb 9.0 L (13.0-17.5) gm/dL Hct 28.3 L (39.0-53.0) % MCV 127.7 H D (80.0-100.0) fL MCH 40.7 H (25.0-35.0) pg Macrocytosis Marked A Free [place] LC, Quant 6.72 H (0.33-1.94) mg/dL Free Lambda LC, Quant 3.94 H (0.57-2.63) mg/dL Assessment and Plan Assessment: Shortness of breath and lower extremity edema suspect secondary to mild diastolic congestive heart failure and mild COPD exacerbation. Pulmonary embolism ruled out. DVT ruled out. History of left upper lobe nodule suspicious for neoplasm. Status post radiation. Redemonstrated solid 1.1 cm left upper lung pulmonary nodule Chronic obstructive pulmonary disease, extensive emphysematous changes on CT scan Chronic and ongoing tobacco dependence Daily alcohol use Transaminitis secondary to above Hyponatremia, possible beer potomania Macrocytic anemia, neutropenia Moderate aortic stenosis Hypertension Hyperlipidemia Hypothyroidism History of bladder cancer History of depression Plan: The patient was seen and evaluated Labs and medications reviewed Remains stable and on room air Cleared for discharge from the pulmonary standpoint I have personally seen and examined the patient, performed the documentation and the assessment and plan as written. Number of minutes spent on the visit: 10.
[2023-12-19 13:31] VITALS: BP 117/69; RESP 18; TEMP 98.2
[2023-12-19 15:40] VITALS: PULSE 58
[2023-12-19 18:31] LABS: Albumin 3.26 g/dL (3.80-4.90); Gamma Globulin 1.03 g/dL (0.70-1.50)
== END 2023-12-19 17:08 | disposition home health service (06) | DRG 291 ==
LOC: EC 16:56 → 6NMEDSUR 21:28 → 4SSUR 12-15 00:39 → OBSVTOIN 12-18 11:46
PROVIDERS: ADMIT Internal Medicine; ATTEND Internal Medicine
DX: I11.0 Hypertensive heart disease with heart failure (principal); I50.33 Acute on chronic diastolic (congestive) heart failure; J44.1 Chronic obstructive pulmonary disease with (acute) exacerbation; E87.1 Hypo-osmolality and hyponatremia; D80.8 Other immunodeficiencies with predominantly antibody defects; R91.1 Solitary pulmonary nodule; G89.29 Other chronic pain; M54.9 Dorsalgia, unspecified; D64.9 Anemia, unspecified; R74.01 Elevation of levels of liver transaminase levels; F10.10 Alcohol abuse, uncomplicated; E03.9 Hypothyroidism, unspecified; E78.5 Hyperlipidemia, unspecified; F17.200 Nicotine dependence, unspecified, uncomplicated; F32.A Depression, unspecified; I35.0 Nonrheumatic aortic (valve) stenosis; J43.9 Emphysema, unspecified; Z92.3 Personal history of irradiation; Z79.890 Hormone replacement therapy; Z79.899 Other long term (current) drug therapy; Z85.118 Personal history of other malignant neoplasm of bronchus and lung; Z85.51 Personal history of malignant neoplasm of bladder; Z90.49 Acquired absence of other specified parts of digestive tract
CPT/HCPCS: 36415; 70450; 71046; 71275; 72125; 80048; 80053; 82607; 82728; 82746; 82784; 83010; 83540; 83550; 83605; 83615; 83735; 83880; 83883; 83921; 84165; 84443; 84484; 85025; 85045; 85379; 85610; 85730; 86334; 87636; 93005; 93306; 93970; 94640; 99285

== ENCOUNTER 2024-01-26 04:49 | Emergency (ER) | payer MEDICARE, BC ==
--- NOTE | 2024-01-26 08:13 | ED ---
General Adult HPI - General Chief complaint: Back Pain/Injury Stated complaint: Back Pain Time Seen by Provider: 01/26/24 07:40 Source: patient, EMS, RN notes reviewed, old records reviewed Mode of arrival: wheelchair Limitations: no limitations - History of Present Illness Initial comments: This is an 88-year-old male who has a past medical history significant for chronic back pain and history of alcoholism. Patient stopped drinking alcohol 1 month ago. Patient states he is fallen multiple times at home and a couple days ago he fell and hit his head and yesterday had a headache but he does not have a headache today. Patient denies any neck pain. Patient denies any numbness or weakness. Patient states he is not eating or drinking much and is lost about 10 pounds over the last week. Patient denies any vomiting diarrhea. Patient [place] any abdominal pain. Patient denies any chest pain difficulty breathing shortness of breath. Patient has any fever chills or cough patient denies any numbness or weakness. Patient does have some lower back pain but he states that is chronic and there is no new symptoms with that except increased pain. - Related Data Home Medications Medication Instructions Recorded Confirmed Fluticasone/Umeclidin/Vilanter 1 puff INHALATION RT-DAILY 01/26/23 12/14/23 [Trelegy Ellipta 100-62.5-25] Irbesartan 75 mg PO DAILY 01/26/23 12/14/23 LORazepam 0.5 mg PO BID PRN 01/26/23 12/14/23 Levothyroxine Sodium 25 mcg PO DAILY 01/26/23 12/14/23 Acetaminophen-Codeine 300-30mg 1 tab PO TID PRN 03/15/23 12/14/23 [Tylenol w/codeine #3] Simvastatin [Zocor] 20 mg PO DAILY 07/12/23 12/14/23 Cyanocobalamin [Vitamin B-12 1,000 mcg SQ QMONTHLY 12/14/23 12/14/23 Injection] Escitalopram [Lexapro] 20 mg PO DAILY 12/14/23 12/14/23 Primidone 50 mg PO HS 12/14/23 12/14/23 Propranolol LA [Inderal LA] 60 mg PO DAILY 12/14/23 12/14/23 Previous Rx's Medication Instructions Recorded EPINEPHrine (Auto Inject) [Epipen] 0.3 mg IM ONCE PRN #2 pen 01/27/19 HYDROcodone/APAP 5-325MG [[place] 1 tab PO TID PRN 30 Days #90 tab 09/07/23 5-325] Allergies Allergy/AdvReac Type Severity Reaction Status Date / Time bee venom protein (honey bee) Allergy Anaphylaxis Verified 01/26/24 05:06 Review of Systems ROS Statement: Those systems with pertinent positive or pertinent negative responses have been documented in the HPI. ROS Other: All systems not noted in ROS Statement are negative. Past Medical History Past Medical History: Cancer, COPD, Hyperlipidemia, Hypertension, Thyroid Disorder Additional Past Medical History / Comment(s): bladder and lung cancer, had radiation tx. lower back pain. sciatic nerve to rt, anemia History of Any Multi-Drug Resistant Organisms: None Reported Past Surgical History: Bowel Resection Additional Past Surgical History / Comment(s): colonscopy, Past Anesthesia/Blood Transfusion Reactions: No Reported Reaction Past Psychological History: Depression Smoking Status: Current every day smoker Past Alcohol Use History: Daily Past Drug Use History: None Reported - Past Family History Mother Family Medical History: Congestive Heart Failure (CHF), Diabetes Mellitus Father Family Medical History: Coronary Artery Disease (CAD) Additional Family Medical History / Comment(s): emphysema and black lung General Exam - General Exam Comments Initial Comments: GENERAL: Patient is well-developed but does appear somewhat cachectic. Patient is nontoxic and well-hydrated and is in mild distress. ENT: Neck is soft and supple. No significant lymphadenopathy is noted. Oropharynx is clear. Dry mucous membranes. Neck has full range of motion without e liciting any pain. EYES: The sclera were anicteric and conjunctiva were pink and moist. Extraocular movements were intact and pupils were equal round and reactive to light. Eyelids were unremarkable. PULMONARY: Unlabored respirations. Good breath sounds bilaterally. No audible rales rhonchi or wheezing was noted. CARDIOVASCULAR: There is a regular rate and rhythm without any murmurs gallops or rubs. ABDOMEN: Soft and nontender with normal bowel sounds. SKIN: Skin is clear with no lesions or rashes and otherwise unremarkable. NEUROLOGIC: Patient is alert and oriented x3. Cranial nerves II through XII are grossly intact. Motor and sensory are also intact. Normal speech, volume and content. Symmetrical smile. MUSCULOSKELETAL: Normal extremities with adequate strength and full range of motion. No lower extremity swelling or edema. No calf tenderness. Patient has negative straight leg test bilaterally LYMPHATICS: No significant lymphadenopathy is noted PSYCHIATRIC: Normal psychiatric evaluation. Limitations: no limitations Course Vital Signs 01/26/24 01/26/24 05:02 09:09 Temperature 98.5 F 97.7 F Pulse Rate 54 L 51 L Respiratory 16 16 Rate Blood Pressure 159/93 176/85 O2 Sat by Pulse 97 98 Oximetry Medical Decision Making - Medical Decision Making EKG is interpreted by myself. EKG shows a sinus bradycardia at 58 beats a minute WA interval is 118 QRS is 89 QT interval is 439 QTc is 436. Patient's EKG shows no ST segment ovation or depression. Was pt. sent in by a medical professional or institution (, PA, MACHINE [employer]ER, urgent care, hospital, or [facility]...) When possible be specific @ -No Did you speak to anyone other than the patient for history (EMS, parent, family, police, friend...)? What history was obtained from this source @ -I spoke with the patient's neighbor and she gave quite a bit of the history that the patient was unable to give Did you review nursing and triage notes (agree or disagree)? Why? @ -I reviewed and agree with nursing and triage notes Were old charts reviewed (outside hosp., previous admission, EMS record, old EKG, old radiological studies, urgent care reports/EKG's, [facility] records)? Report findings @ -No old charts were reviewed Differential Diagnosis? @ -Chronic back pain, subarachnoid, subdural, epidural, cervical spine fracture, compression fractures, this is not an all-inclusive list EKG interpreted by me (3pts min.). @ -As above X-rays interpreted by me (1pt min.). @ -None done CT interpreted by me (1pt min.). @ -CT of the brain shows a small subdural and a CT of the C-spine shows a type III odontoid fracture U/S interpreted by me (1pt. min.). @ -None done What testing was considered but not performed or refused? (CT, X-rays, U/S, labs)? Why? @ -None What meds were considered but not given or refused? Why? @ -None Did you discuss the management of the patient with other professionals (professionals i.e. , PA, MACHINE F[employer] CLEANER, lab, RT, psych nurse, geriatric social worker, trial lawyer, teacher, systems support officer, hospice case manager)? Give summary @ -An attempt was made to speak with the trauma surgeon at [facility] he was busy but did except the patient but was unable to speak with me Was smoking cessation discussed for >3mins.? @ -No Was critical care preformed (if so, how long)? @ -35 minutes Were there social determinants of health that impacted care today? How? (Homelessness, low income, unemployed, alcoholism, drug addiction, transportation, low edu. Level, literacy, decrease access to med. care, usp, rehab)? @ -No Was there de-escalation of care discussed even if they declined (Discuss DNR or withdrawal of care, Hospice)? DNR status @ -No What co-morbidities impacted this encounter? (DM, HTN, Smoking, COPD, CAD, Cancer, CVA, ARF, Chemo, Hep., AIDS, mental health diagnosis, sleep apnea, morbid obesity)? @ -None Was patient admitted / discharged? Hospital course, mention meds given and route, prescriptions, significant lab abnormalities, going to OR and other pertinent info. @ -Patient was taken over to x-ray to x-rays lumbar spine and was told not to get off the stretcher but he attempted to get off the stretcher when the x-ray tech turned around and he fell and hit his head. Patient was taken directly to CAT scan after he was rolled with C-spine per cautions and a collar was placed on him. CAT scan showed a subacute dural hemorrhage as well as a type III odontoid fracture patient will be transferred [facility] Undiagnosed new problem with uncertain prognosis? @ -No Drug Therapy requiring intensive monitoring for toxicity (Heparin, Nitro, Insulin, Cardizem)? @ -No Were any procedures done? @ -No Diagnosis/symptom? @ -Subdural hemorrhage Acute, or Chronic, or Acute on Chronic? @ -Acute Uncomplicated (without systemic symptoms) or Complicated (systemic symptoms)? @ -Complicated Side effects of treatment? @ -No Exacerbation, Progression, or Severe Exacerbation? @ -No Poses a threat to life or bodily function? How? (Chest pain, [place], [place], pneumonia, PE, COPD, DKA, ARF, appy, cholecystitis, CVA, Diverticulitis, Homicidal, Suicidal, threat to staff... and all critical care pts) @ -Yes this can lead to a further bleed and Diagnosis/symptom? @ -Odontoid fracture Acute, or Chronic, or Acute on Chronic? @ -Acute Uncomplicated (without systemic symptoms) or Complicated (systemic symptoms)? @ -Complicated Side effects of treatment? @ -None Exacerbation, Progression, or Severe Exacerbation] @ -No Poses a threat to life or bodily function? @ -Yes this can lead to paralysis. - Lab Data Result diagrams: 01/26/24 08:22 01/26/24 08:22 Lab Results 01/26/24 01/26/24 01/26/24 Range/Units 08:22 08:22 08:22 WBC 4.1 (3.8-10.6) k/uL RBC 2.47 L (4.30-5.90) m/uL Hgb 9.9 L (13.0-17.5) gm/dL Hct 29.4 L (39.0-53.0) % MCV 118.9 H D (80.0-100.0) fL MCH 40.0 H (25.0-35.0) pg MCHC 33.6 (31.0-37.0) g/dL RDW 13.6 (11.5-15.5) % Plt Count 215 (150-450) k/uL MPV 7.4 Neutrophils % (Manual) 55 % Band Neuts % (Manual) 1 % Lymphocytes % (Manual) 36 % Monocytes % (Manual) 8 % Neutrophils # (Manual) 2.20 (1.3-7.7) k/uL Lymphocytes # (Manual) 1.48 (1.0-4.8) k/uL Monocytes # (Manual) 0.33 (0-1.0) k/uL Nucleated RBCs 0 (0-0) /100 WBC Manual Slide Review Performed Macrocytosis Marked A Sodium 137 (137-145) mmol/L Potassium 4.5 (3.5-5.1) mmol/L Chloride 108 H (98-107) mmol/L Carbon Dioxide 23 (22-30) mmol/L Anion Gap 6 mmol/L BUN 19 (9-20) mg/dL Creatinine 0.87 (0.66-1.25) mg/dL Est GFR (CKD-EPI)AfAm >90 (>60 ml/min/1.73 sqM) Est GFR (CKD-EPI)NonAf 78 (>60 ml/min/1.73 sqM) Glucose 104 H (74-99) mg/dL Plasma Lactic Acid Rex 0.9 (0.7-2.0) mmol/L Calcium 9.8 (8.4-10.2) mg/dL Magnesium 1.6 (1.6-2.3) mg/dL Total Bilirubin 0.6 (0.2-1.3) mg/dL AST 35 (17-59) U/L ALT 21 (4-49) U/L Alkaline Phosphatase 99 (38-126) U/L Total Protein 6.9 (6.3-8.2) g/dL Albumin 3.6 (3.5-5.0) g/dL Serum Alcohol <10 mg/dL Critical Care Time Critical Care Time: Yes Total Critical Care Time: 35 Disposition Clinical Impression: Chronic back pain, Subdural hematoma, Odontoid fracture Disposition: OTHER INSTITUTION NOT DEFINED Referrals: Sukhdev Wise MD [Primary Care Provider] - 1-2 days Time of Disposition: 10:22 - Out of Hospital Transfer - Req. Specs Out of Hospital Transfer - Requested Specifics: Other Emergency Center ([facility])
[2024-01-26] MEDS: SODIUM CHLORIDE 0.9% 1,000 ML IV ONE (08:25)
[2024-01-26 08:53] LABS: HCT 29.4 % (39.0-53.0); HGB 9.9 gm/dL (13.0-17.5); MCHC 33.6 g/dL (31.0-37.0); Macrocytosis Marked; Mean Platelet Volume 7.4; Platelet Count 215 k/uL (150-450); RBC 2.47 m/uL (4.30-5.90); RDW 13.6 % (11.5-15.5); WBC 4.1 k/uL (3.8-10.6)
[2024-01-26 08:54] LABS: MCV 118.9 fL (80.0-100.0)
[2024-01-26] MEDS: DIPH,PERTUS(ACELL)TETVAC-LF 0.5 ML VIAL IM ONE (09:06)
[2024-01-26 09:13] VITALS: PULSE 51
[2024-01-26] MEDS: KETOROLAC 15 MG/ML 1 ML VIAL IVP STA (09:17)
[2024-01-26 09:18] LABS: Band Neutrophils % 1 %; Lymphocytes # (M) 1.48 k/uL (1.0-4.8); Monocytes # (M) 0.33 k/uL (0-1.0); Neutrophils % (M) 55 %; Nucleated Red Blood Cells 0 /100 WBC (0-0); Total Cells Counted 100
[2024-01-26] MEDS: HYDROmorphone 0.5 MG/0.5 ML SYRINGE IVP STA (09:18)
[2024-01-26 09:22] LABS: ALT 21 U/L (4-49); AST 35 U/L (17-59); African American GFR (CKD) >90 (>60 ml/min/1.73 sqM); Albumin 3.6 g/dL (3.5-5.0); Alcohol <10 mg/dL; Alkaline Phosphatase 99 U/L (38-126); Anion Gap 6 mmol/L; Blood Urea Nitrogen 19 mg/dL (9-20); Calcium 9.8 mg/dL (8.4-10.2); Carbon Dioxide 23 mmol/L (22-30); Chloride 108 mmol/L (98-107); Glucose 104 mg/dL (74-99); Magnesium 1.6 mg/dL (1.6-2.3); Non-African American GFR(CKD) 78 (>60 ml/min/1.73 sqM); Potassium 4.5 mmol/L (3.5-5.1); Sodium 137 mmol/L (137-145); Total Bilirubin 0.6 mg/dL (0.2-1.3); Total Protein 6.9 g/dL (6.3-8.2)
--- NOTE | 2024-01-26 09:24 | CT ---
EXAMINATION TYPE: CT brain adriel wo con DATE OF EXAM: 01/26/2024 COMPARISON: 12/14/2023 HISTORY: fall CT DLP: 1400.[address] of the brain was performed. The ventricles, basal cisterns and sulci overlying the cerebral convexities demonstrate mild enlargem ent. Small subdural hematoma is difficult to exclude posterior left temporal lobe seen best on sagittal im age 56 sequence 2034, coronal image 48 sequence 2033 and axial image 31 sequence 2032. Small adjacent contusive hemorrhage is also difficult to exclude. There is decreased attenuation about the perivent ricular white matter and deep white matter of both cerebral hemispheres, compatible with chronic smal l vessel ischemia. No mass effects are seen. If symptoms persist consider MRI. Osseous calvarium is intact. Right frontal scalp hematoma. IMPRESSION: 1. Small left-sided posterior temporal subdural hematoma is difficult to exclude as well as adjacent contusive hemorrhage see above. 2. Age related atrophic and chronic small vessel ischemic change. CT Cervical Spine: Unenhanced CT of the cervical spine was performed with bone and soft tissue window settings submitted . Coronal and sagittal reconstruction is obtained. There is a type III odontoid fracture with mild extension into the lateral masses of C2. Displacement of 1.6 mm. Additional fracture seen. Severe degenerative narrowing C3-C6. Anterior subluxation stabl e at C6-7 of 3 mm. Biapical opacities may be related to scarring without edematous change. IMPRESSION: 1. There is a type III odontoid fracture with mild extension into the lateral masses of C2. Displace ment of 1.6 mm.
[2024-01-26 10:39] VITALS: BP 179/98; RESP 18; TEMP 98
[2024-01-26 11:00] LABS: INR 1.1 (<1.2); Partial Thromboplastin Time 21.6 sec (22.0-30.0)
== END 2024-01-26 10:58 | disposition other institution (70) ==
LOC: EC 04:49
DX: M54.50 Low back pain, unspecified
CPT/HCPCS: 36415; 70450; 72125; 80053; 80320; 83605; 83735; 85025; 85610; 85730; 90471; 90715; 93005; 96361; 96374; 99291

== ENCOUNTER 2024-02-29 11:01 | Emergency (ER) | payer MEDICARE, BC ==
[2024-02-29 11:09] VITALS: RESP 18; TEMP 98
--- NOTE | 2024-02-29 11:15 | ED ---
Fall HPI - General Chief Complaint: Fall Stated Complaint: Fall Time Seen by Provider: 02/29/24 11:09 Source: patient, EMS, RN notes reviewed Mode of arrival: ambulatory Limitations: no limitations - History of Present Illness Initial Comments: 88-year-old male presents emergency department with chief complaint of a fall. Patient is currently at rehab he states that he is going to the bathroom states that he slipped off the toilet striking his head on the tile floor. Patient is in current c-collar as he had a recent C2 fracture and prior intracranial hemorrhage. Patient states he does have increasing pain on the right side of his face he has noted hematoma, abrasion. Patient denies any significant extremity injury. He is not on any current blood thinners. - Related Data Home Medications Medication Instructions Recorded Confirmed Fluticasone/Umeclidin/Vilanter 1 puff INHALATION RT-DAILY 01/26/23 12/14/23 [Trelegy Ellipta 100-62.5-25] Irbesartan 75 mg PO DAILY 01/26/23 12/14/23 LORazepam 0.5 mg PO BID PRN 01/26/23 12/14/23 Levothyroxine Sodium 25 mcg PO DAILY 01/26/23 12/14/23 Acetaminophen-Codeine 300-30mg 1 tab PO TID PRN 03/15/23 12/14/23 [Tylenol w/codeine #3] Simvastatin [Zocor] 20 mg PO DAILY 07/12/23 12/14/23 Cyanocobalamin [Vitamin B-12 1,000 mcg SQ QMONTHLY 12/14/23 12/14/23 Injection] Escitalopram [Lexapro] 20 mg PO DAILY 12/14/23 12/14/23 Primidone 50 mg PO HS 12/14/23 12/14/23 Propranolol LA [Inderal LA] 60 mg PO DAILY 12/14/23 12/14/23 Previous Rx's Medication Instructions Recorded EPINEPHrine (Auto Inject) [Epipen] 0.3 mg IM ONCE PRN #2 pen 01/27/19 HYDROcodone/APAP 5-325MG [[place] 1 tab PO TID PRN 30 Days #90 tab 09/07/23 5-325] Allergies Allergy/AdvReac Type Severity Reaction Status Date / Time bee venom protein (honey bee) Allergy Anaphylaxis Verified 02/29/24 11:08 Review of Systems ROS Statement: Those systems with pertinent positive or pertinent negative responses have been documented in the HPI. ROS Other: All systems not noted in ROS Statement are negative. Past Medical History Past Medical History: Cancer, COPD, Hyperlipidemia, Hypertension, Thyroid Disorder Additional Past Medical History / Comment(s): bladder and lung cancer, had radiation tx. lower back pain. sciatic nerve to rt, anemia History of Any Multi-Drug Resistant Organisms: None Reported Past Surgical History: Bowel Resection Additional Past Surgical History / Comment(s): colonscopy, c2 fx no surgery. Past Anesthesia/Blood Transfusion Reactions: No Reported Reaction Past Psychological History: Depression Smoking Status: Current every day smoker Past Alcohol Use History: Daily Past Drug Use History: None Reported - Past Family History Mother Family Medical History: Congestive Heart Failure (CHF), Diabetes Mellitus Father Family Medical History: Coronary Artery Disease (CAD) Additional Family Medical History / Comment(s): emphysema and black lung General Exam Limitations: no limitations General appearance: alert, in no apparent distress Head exam: Present: atraumatic, normocephalic. Absent: normal inspection (Frontal hematoma) Eye exam: Present: normal appearance, PERRL, EOMI. Absent: scleral icterus, conjunctival injection, periorbital swelling ENT exam: Present: normal exam, normal oropharynx, mucous membranes moist, TM's normal bilaterally Neck exam: Present: normal inspection, tenderness. Absent: meningismus, full ROM, lymphadenopathy Respiratory exam: Present: normal lung sounds bilaterally. Absent: respiratory distress, wheezes, rales, rhonchi, stridor Cardiovascular Exam: Present: regular rate, normal rhythm, normal heart sounds. Absent: systolic murmur, diastolic murmur, rubs, gallop, clicks Neurological exam: Present: alert, oriented X3, CN II-XII intact, reflexes normal. Absent: motor sensory deficit Skin exam: Present: warm, dry, intact, normal color. Absent: rash Course Vital Signs 02/29/24 11:02 Temperature 98 F Pulse Rate 100 Respiratory 18 Rate Blood Pressure 142/99 O2 Sat by Pulse 96 Oximetry Medical Decision Making - Medical Decision Making Was pt. sent in by a medical professional or institution (, PA, TOOLS PROGRAMMER, urgent care, hospital, or retirement...) When possible be specific @ -No Did you speak to anyone other than the patient for history (EMS, parent, family, police, friend...)? What history was obtained from this source @ -No Did you review nursing and triage notes (agree or disagree)? Why? @ -I reviewed and agree with nursing and triage notes Were old charts reviewed (outside hosp., previous admission, EMS record, old EKG, old radiological studies, urgent care reports/EKG's, retirement records)? Report findings @ -No old charts were reviewed Differential Diagnosis (chest pain, altered mental status, abdominal pain women, abdominal pain men, vaginal bleeding, weakness, fever, dyspnea, syncope, headache, dizziness, GI bleed, back pain, seizure, CVA, palpatations, mental health, musculoskeletal)? @ -Intracranial hemorrhage, facial contusion, cervical fracture EKG interpreted by me (3pts min.). @ -As above X-rays interpreted by me (1pt min.). @ -None done CT interpreted by me (1pt min.). @ -CT brain, C-spine showing soft tissue swelling, no intracranial hemorrhage C2 fracture noted on prior CT no significant interval changes. U/S interpreted by me (1pt. min.). @ -None done What testing was considered but not performed or refused? (CT, X-rays, U/S, labs)? Why? @ -None What meds were considered but not given or refused? Why? @ -None Did you discuss the management of the patient with other professionals (professionals i.e. , PA, TOOLS PROGRAMMER, lab, RT, psych nurse, marriage and family social worker, printing engineer, teacher, chief knowledge officer, case investigator)? Give summary @ -No Was smoking cessation discussed for >3mins.? @ -No Was critical care preformed (if so, how long)? @ -No Were there social determinants of health that impacted care today? How? (Homelessness, low income, unemployed, alcoholism, drug addiction, transportation, low edu. Level, literacy, decrease access to med. care, penitentiary, rehab)? @ -No Was there de-escalation of care discussed even if they declined (Discuss DNR or withdrawal of care, Hospice)? DNR status @ -No What co-morbidities impacted this encounter? (DM, HTN, Smoking, COPD, CAD, Cancer, CVA, ARF, Chemo, Hep., AIDS, mental health diagnosis, sleep apnea, morbid obesity)? @ -None Was patient admitted / discharged? Hospital course, mention meds given and route, prescriptions, significant lab abnormalities, going to OR and other pertinent info. @ -Discharge patient's CT did not show any significant changes he is neurologically intact he has a facial abrasion without need for repair patient will be discharged in stable condition return for as discussed Undiagnosed new problem with uncertain prognosis? @ -No Drug Therapy requiring intensive monitoring for toxicity (Heparin, Nitro, Insulin, Cardizem)? @ -No Were any procedures done? @ -No Diagnosis/symptom? @ -Fall, facial contusion, head injury Acute, or Chronic, or Acute on Chronic? @ -Acute Uncomplicated (without systemic symptoms) or Complicated (systemic symptoms)? @ -Uncomplicated Side effects of treatment? @ -No Exacerbation, Progression, or Severe Exacerbation? @ -No Poses a threat to life or bodily function? How? (Chest pain, [place], [place], pneumonia, PE, COPD, DKA, ARF, appy, cholecystitis, CVA, Diverticulitis, Homicidal, Suicidal, threat to staff... and all critical care pts) @ -No Disposition Clinical Impression: Fall, Facial contusion, Head injury Disposition: HOME SELF-CARE Condition: Stable Instructions (If sedation given, give patient instructions): Fall Prevention (ED) Additional Instructions: Please return to the Emergency Department if symptoms worsen or any other concerns. Is patient prescribed a controlled substance at d/c from ED?: No Referrals: Sukhdev Wise MD [Primary Care Provider] - 1-2 days Time of Disposition: 12:37
--- NOTE | 2024-02-29 11:33 | CT ---
EXAMINATION TYPE: CT brain cspine wo con DATE OF EXAM: 02/29/2024 COMPARISON: 01/26/2024 HISTORY: fall CT DLP: 1276.2 mGycm Automated exposure control for dose reduction was used. TECHNIQUE: CT scan of the head and cervical spine are performed without contrast. Findings: Head CT: The ventricles, basal cisterns and sulci over the convexities are moderately to markedly enlarged con sistent with moderate to marked atrophy. There is mild to moderate decreased density in the periventr icular white matter consistent with chronic ischemic white matter demyelination. There is no mass effect or shift in midline structures. There is no acute intra or extra-axial hemorrhage. Posterior fossa including the brainstem, fourth ventricle and cerebellar pontine angles are grossly n ormal. The intraorbital contents appear normal and symmetric. There is mild soft tissue swelling over the ri ght frontal bone laterally. Visualized paranasal sinuses are well aerated. CT cervical spine: Craniovertebral junction relationships and prevertebral soft tissues are normal. As seen on the prior study, there is a transverse fracture through the C2 vertebral segment with mild displacement which might have increased slightly in the interval. The remaining vertebral segments are normal in height. There is severe degenerative disc disease from C3 through C7. The degeneration of the facet joints but there are intact. There is no bony compromise of the cervica l canal. There are severe bony neural foraminal encroachment at C3-4 level bilaterally.. IMPRESSION: 1. No acute trauma to the head with no acute bleed or mass effect. Degenerative changes as described above. 2. Mildly displaced comminuted fracture of C2 as was seen on the prior study. There may be slight inc reased displacement compared to prior. 3. Severe degenerative disc disease and bony neural foraminal encroachment at C3-4 bilaterally.
[2024-02-29 13:59] VITALS: BP 142/76; PULSE 70
== END 2024-02-29 13:59 | disposition home or self-care (01) ==
LOC: EC 11:01
CPT/HCPCS: 70450; 72125; 99284

== ENCOUNTER 2024-04-11 10:52 | Emergency (ER) | payer MEDICARE, BC ==
[2024-04-11 11:07] VITALS: TEMP 98.2
--- NOTE | 2024-04-11 11:29 | ED ---
General Adult HPI - General Chief complaint: Recheck/Abnormal Lab/Rx Stated complaint: low hemoglobin Time Seen by Provider: 04/11/24 11:00 Source: patient, EMS, RN notes reviewed, old records reviewed Mode of arrival: EMS - History of Present Illness Initial comments: This is an 89-year-old male who presents to the emergency department with a history of anemia. Patient was at a halfway and they had blood work from last week that showed he had a hemoglobin 7.2 but today it was 6.8 so they sent him to the emergency department. Patient himself states he feels no different than he normally does he often will be lightheaded when he stands up but he states that is relatively normal for him. Patient denies any chest pain palpitations difficulty breathing or shortness of breath. Patient has any back pain. Patient has any fever chills or cough. Patient has headache patient has numbness weakness. Patient has abdominal pain patient has nausea vomiting diarrhea. - Related Data Home Medications Medication Instructions Recorded Confirmed Primidone 25 mg PO HS 12/14/23 04/11/24 Acetaminophen [Tylenol 8 Hour] 650 mg PO Q4H PRN 04/11/24 04/11/24 Albuterol Sulfate [Albuterol 2 puff INHALATION RT-QID PRN 04/11/24 04/11/24 Sulfate Hfa] Atorvastatin [Lipitor] 10 mg PO HS 04/11/24 04/11/24 Citalopram Hydrobromide [CeleXA] 40 mg PO DAILY 04/11/24 04/11/24 Epoetin Yoav-Epbx [Retacrit] 20,000 unit SQ FR 04/11/24 04/11/24 Fluticasone/Vilanterol [Breo 1 puff INHALATION RT-DAILY 04/11/24 04/11/24 Ellipta 100-25 Mcg Inhalr] Ipratropium-Albuterol Nebulize 3 ml INHALATION RT-Q8H PRN 04/11/24 04/11/24 [Duoneb 0.5 mg-3 mg/3 ml Soln] Levothyroxine Sodium [Synthroid] 50 mcg PO DAILY 04/11/24 04/11/24 Losartan [Cozaar] 25 mg PO DAILY 04/11/24 04/11/24 methocarbamoL [Robaxin] 500 mg PO Q8H PRN 04/11/24 04/11/24 oxyCODONE HCL [OxyIR] 5 mg PO Q4H PRN 04/11/24 04/11/24 Allergies Allergy/AdvReac Type Severity Reaction Status Date / Time bee venom protein (honey bee) Allergy Anaphylaxis Verified 04/11/24 11:30 Review of Systems ROS Statement: Those systems with pertinent positive or pertinent negative responses have been documented in the HPI. ROS Other: All systems not noted in ROS Statement are negative. Past Medical History Past Medical History: Cancer, COPD, Hyperlipidemia, Hypertension, Thyroid Disorder Additional Past Medical History / Comment(s): bladder and lung cancer, had radiation tx. lower back pain. sciatic nerve to rt, anemia History of Any Multi-Drug Resistant Organisms: None Reported Past Surgical History: Bowel Resection Additional Past Surgical History / Comment(s): colonscopy, c2 fx no surgery. Past Anesthesia/Blood Transfusion Reactions: No Reported Reaction Past Psychological History: Depression Smoking Status: Former smoker Past Alcohol Use History: Daily Past Drug Use History: None Reported - Past Family History Mother Family Medical History: Congestive Heart Failure (CHF), Diabetes Mellitus Father Family Medical History: Coronary Artery Disease (CAD) Additional Family Medical History / Comment(s): emphysema and black lung General Exam - General Exam Comments Initial Comments: GENERAL: Patient is well-developed and well-nourished. Patient is nontoxic and well- hydrated and is in mild distress. ENT: Neck is soft and supple. No significant lymphadenopathy is noted. Oropharynx is clear. Moist mucous membranes. Neck has full range of motion without eliciting any pain. EYES: The sclera were anicteric and conjunctiva were pink and moist. Extraocular movements were intact and pupils were equal round and reactive to light. Eyelids were unremarkable. PULMONARY: Unlabored respirations. Good breath sounds bilaterally. No audible rales rhonchi or wheezing was noted. CARDIOVASCULAR: There is a regular rate and rhythm without any murmurs gallops or rubs. ABDOMEN: Soft and nontender with normal bowel sounds. SKIN: Patient is somewhat pale NEUROLOGIC: Patient is alert and oriented x3. Cranial nerves II through XII are grossly intact. Motor and sensory are also intact. Normal speech, volume and content. Symmetrical smile. MUSCULOSKELETAL: Normal extremities with adequate strength and full range of motion. LYMPHATICS: No significant lymphadenopathy is noted PSYCHIATRIC: Normal psychiatric evaluation. Course Vital Signs 10/17/24 10/17/24 10/17/24 10:58 11:32 12:46 Temperature 98.2 F Pulse Rate 74 76 78 Respiratory 18 20 18 Rate Blood Pressure 101/66 103/67 118/75 O2 Sat by Pulse 94 L 93 L 98 Oximetry Medical Decision Making - Medical Decision Making Was pt. sent in by a medical professional or institution (, BRANDY, FILM SOUND ENGINEER, urgent care, hospital, or halfway...) When possible be specific @ -Nursing will send the patient in. Did you speak to anyone other than the patient for history (EMS, parent, family, police, friend...)? What history was obtained from this source @ -Spoke with the halfway and they stated that there was no other concern except for the low hemoglobin Did you review nursing and triage notes (agree or disagree)? Why? @ -Yes and I agree with the nursing notes and the triage notes Were old charts reviewed (outside hosp., previous admission, EMS record, old EKG, old radiological studies, urgent care reports/EKG's, halfway records)? Report findings @ -No old charts were reviewed Differential Diagnosis? @ -Anemia, GI bleed, lab error this is not an all-inclusive list EKG interpreted by me (3pts min.). @ -As above X-rays interpreted by me (1pt min.). @ -None done CT interpreted by me (1pt min.). @ -None done U/S interpreted by me (1pt. min.). @ -None done What testing was considered but not performed or refused? (CT, X-rays, U/S, labs)? Why? @ -None What meds were considered but not given or refused? Why? @ -None Did you discuss the management of the patient with other professionals (professionals i.e. , BRANDY, FILM SOUND ENGINEER, lab, RT, psych nurse, oncology social work, development analyst, teacher, armor officer, caseworker intake)? Give summary @ -No Was smoking cessation discussed for >3mins.? @ -No Was critical care preformed (if so, how long)? @ -No Were there social determinants of health that impacted care today? How? (Homelessness, low income, unemployed, alcoholism, drug addiction, transportation, low edu. Level, literacy, decrease access to med. care, [facility], rehab)? @ -No Was there de-escalation of care discussed even if they declined (Discuss DNR or withdrawal of care, Hospice)? DNR status @ -No What co-morbidities impacted this encounter? (DM, HTN, Smoking, COPD, CAD, Cancer, CVA, ARF, Chemo, Hep., AIDS, mental health diagnosis, sleep apnea, morbid obesity)? @ -None Was patient admitted / discharged? Hospital course, mention meds given and route, prescriptions, significant lab abnormalities, going to OR and other pertinent info. @ -Patient had no complaints throughout his ED stay hemoglobin 7.5 so patient will be discharged home to the halfway Undiagnosed new problem with uncertain prognosis? @ -No Drug Therapy requiring intensive monitoring for toxicity (Heparin, Nitro, Insulin, Cardizem)? @ -No Were any procedures done? @ -No Diagnosis/symptom? @ -Anemia Acute, or Chronic, or Acute on Chronic? @ -Chronic Uncomplicated (without systemic symptoms) or Complicated (systemic symptoms)? @ -Uncomplicated Side effects of treatment? @ -No Exacerbation, Progression, or Severe Exacerbation? @ -No Poses a threat to life or bodily function? How? (Chest pain, [place], [place], pneumonia, PE, COPD, DKA, ARF, appy, cholecystitis, CVA, Diverticulitis, Homicidal, Suicidal, threat to staff... and all critical care pts) @ -No - Lab Data Result diagrams: 04/11/24 11:26 04/11/24 11:26 Lab Results 04/11/24 04/11/24 04/11/24 Range/Units 11:26 11:26 11:26 WBC 3.8 (3.8-10.6) k/uL RBC 1.98 L (4.30-5.90) m/uL Hgb 7.5 L (13.0-17.5) gm/dL Hct 22.5 L (39.0-53.0) % MCV 113.6 H (80.0-100.0) fL MCH 37.7 H (25.0-35.0) pg MCHC 33.2 (31.0-37.0) g/dL RDW 19.8 H (11.5-15.5) % Plt Count 365 (150-450) k/uL MPV 7.0 Neutrophils % (Manual) 52 % Lymphocytes % (Manual) 37 % Monocytes % (Manual) 7 % Eosinophils % (Manual) 4 % Neutrophils # (Manual) 1.98 (1.3-7.7) k/uL Lymphocytes # (Manual) 1.41 (1.0-4.8) k/uL Monocytes # (Manual) 0.27 (0-1.0) k/uL Eosinophils # (Manual) 0.15 (0-0.7) k/uL Nucleated RBCs 0 (0-0) /100 WBC Manual Slide Review Performed Anisocytosis Slight Macrocytosis Marked A Spherocytes Present PT 11.5 (10.0-12.5) sec INR 1.1 (<1.2) APTT 23.6 (22.0-30.0) sec Sodium 133 L (137-145) mmol/L Potassium 4.6 (3.5-5.1) mmol/L Chloride 102 (98-107) mmol/L Carbon Dioxide 25 (22-30) mmol/L Anion Gap 6 mmol/L BUN 22 H (9-20) mg/dL Creatinine 0.77 (0.66-1.25) mg/dL Est GFR (CKD-EPI)AfAm >90 (>60 ml/min/1.73 sqM) Est GFR (CKD-EPI)NonAf 82 (>60 ml/min/1.73 sqM) Glucose 96 (74-99) mg/dL Calcium 9.6 (8.4-10.2) mg/dL Magnesium 1.6 (1.6-2.3) mg/dL Total Bilirubin 0.5 (0.2-1.3) mg/dL AST 31 (17-59) U/L ALT 20 (4-49) U/L Alkaline Phosphatase 61 (38-126) U/L Troponin I (0.000-0.034) ng/mL Total Protein 7.0 (6.3-8.2) g/dL Albumin 3.2 L (3.5-5.0) g/dL Blood Type Blood Type Recheck Bld Type Recheck Status Antibody Screen Spec Expiration Date 04/11/24 04/11/24 Range/Units 11:26 11:26 WBC (3.8-10.6) k/uL RBC (4.30-5.90) m/uL Hgb (13.0-17.5) gm/dL Hct (39.0-53.0) % MCV (80.0-100.0) fL MCH (25.0-35.0) pg MCHC (31.0-37.0) g/dL RDW (11.5-15.5) % Plt Count (150-450) k/uL MPV Neutrophils % (Manual) % Lymphocytes % (Manual) % Monocytes % (Manual) % Eosinophils % (Manual) % Neutrophils # (Manual) (1.3-7.7) k/uL Lymphocytes # (Manual) (1.0-4.8) k/uL Monocytes # (Manual) (0-1.0) k/uL Eosinophils # (Manual) (0-0.7) k/uL Nucleated RBCs (0-0) /100 WBC Manual Slide Review Anisocytosis Macrocytosis Spherocytes PT (10.0-12.5) sec INR (<1.2) APTT (22.0-30.0) sec Sodium (137-145) mmol/L Potassium (3.5-5.1) mmol/L Chloride (98-107) mmol/L Carbon Dioxide (22-30) mmol/L Anion Gap mmol/L BUN (9-20) mg/dL Creatinine (0.66-1.25) mg/dL Est GFR (CKD-EPI)AfAm (>60 ml/min/1.73 sqM) Est GFR (CKD-EPI)NonAf (>60 ml/min/1.73 sqM) Glucose (74-99) mg/dL Calcium (8.4-10.2) mg/dL Magnesium (1.6-2.3) mg/dL Total Bilirubin (0.2-1.3) mg/dL AST (17-59) U/L ALT (4-49) U/L Alkaline Phosphatase (38-126) U/L Troponin I <0.012 (0.000-0.034) ng/mL Total Protein (6.3-8.2) g/dL Albumin (3.5-5.0) g/dL Blood Type O Negative Blood Type Recheck O Neg Bld Type Recheck Status No Antibody Screen NEGATIVE Spec Expiration Date 04/14/20242325 Disposition Clinical Impression: Anemia Disposition: HOME SELF-CARE Instructions (If sedation given, give patient instructions): Anemia (ED) Is patient prescribed a controlled substance at d/c from ED?: No Referrals: Sukhdev Wise MD [Primary Care Provider] - 1-2 days Time of Disposition: 12:59
[2024-04-11] MEDS: SODIUM CHLORIDE 0.9% 500 ML 500 ML IV STA (11:31)
[2024-04-11 11:53] LABS: INR 1.1 (<1.2); Partial Thromboplastin Time 23.6 sec (22.0-30.0); Prothrombin Time 11.5 sec (10.0-12.5)
[2024-04-11 11:55] LABS: Anisocytosis Slight; HCT 22.5 % (39.0-53.0); HGB 7.5 gm/dL (13.0-17.5); MCH 37.7 pg (25.0-35.0); MCHC 33.2 g/dL (31.0-37.0); MCV 113.6 fL (80.0-100.0); Macrocytosis Marked; Platelet Count 365 k/uL (150-450); RBC 1.98 m/uL (4.30-5.90); RDW 19.8 % (11.5-15.5); WBC 3.8 k/uL (3.8-10.6)
[2024-04-11 12:13] LABS: ALT 20 U/L (4-49); AST 31 U/L (17-59); African American GFR (CKD) >90 (>60 ml/min/1.73 sqM); Albumin 3.2 g/dL (3.5-5.0); Alkaline Phosphatase 61 U/L (38-126); Anion Gap 6 mmol/L; Blood Urea Nitrogen 22 mg/dL (9-20); Calcium 9.6 mg/dL (8.4-10.2); Carbon Dioxide 25 mmol/L (22-30); Chloride 102 mmol/L (98-107); Glucose 96 mg/dL (74-99); Magnesium 1.6 mg/dL (1.6-2.3); Non-African American GFR(CKD) 82 (>60 ml/min/1.73 sqM); Potassium 4.6 mmol/L (3.5-5.1); Sodium 133 mmol/L (137-145); Total Bilirubin 0.5 mg/dL (0.2-1.3)
[2024-04-11 12:18] LABS: Eosinophils # (M) 0.15 k/uL (0-0.7); Lymphocytes # (M) 1.41 k/uL (1.0-4.8); Monocytes # (M) 0.27 k/uL (0-1.0); Neutrophils # (M) 1.98 k/uL (1.3-7.7); Neutrophils % (M) 52 %; Nucleated Red Blood Cells 0 /100 WBC (0-0); Total Cells Counted 100
[2024-04-11 12:20] LABS: Spherocytes Present
[2024-04-11 12:47] VITALS: BP 118/75; PULSE 78; RESP 18
== END 2024-04-11 13:15 | disposition home or self-care (01) ==
LOC: EC 10:52
DX: D64.9 Anemia, unspecified (principal); Z91.030 Bee allergy status; Z87.891 Personal history of nicotine dependence
CPT/HCPCS: 36415; 80053; 83735; 84484; 85025; 85610; 85730; 86850; 86900; 86901; 99284

== ENCOUNTER → 2024-05-06 | Outpatient (CLI) | payer MEDICARE ==
[2024-05-06 14:45] LABS: African American GFR (CKD) 86 (>60 ml/min/1.73 sqM); Blood Urea Nitrogen 20 mg/dL (9-20); Non-African American GFR(CKD) 75 (>60 ml/min/1.73 sqM)
--- NOTE | 2024-05-07 14:11 | CT ---
EXAMINATION TYPE: CT chest w con DATE OF EXAM: 05/06/2024 3:20 PM COMPARISON: Multiple CT imaging including 12/14/2023, 09/14/2023. CLINICAL INDICATION: Male, 89 years old with history of M17.12 UNILATERAL PRIMARY OSTEOARTHRITIS, LEF T KNE; PHH, lung nodule hx of lung cancer TECHNIQUE: Multiple axial images were obtained through the chest. Sagittal and coronal reformats were created for review. MIP was performed on a separate workstation. Contrast used:100 mL of Isovue 300 with IV Contrast (None if empty) Oral contrast used: (None if empty) CT DLP: 315 mGycm, Automated exposure control for dose reduction was used. FINDINGS: LUNGS/ PLEURA: Left upper lobe consolidation immediately adjacent to some large bullae and paraseptal emphysema changes. The more solid component on axial imaging measuring up to 10 mm in on coronal real ging measuring 11 mm series 5 image 50. Finding seen on 12/14/2023 and also 09/14/2023 95 increased con solidation on today's exam which is in the area of prior nodules measured. Centrilobular and parasept al emphysema changes are present. Scattered related upper lung nodules including 6 mm linear series 3 image 23, somewhat elongated 3 image 19.r left upper lung image 15 measuring 6 mm. AIRWAY: Patent and unremarkable. HEART: Size within normal limits.Atherosclerosis of the arterial vasculature. MEDIASTINUM: No gross evidence of adenopathy. VASCULATURE: No aortic aneurysm. MUSCULOSKELETAL: No acute osseous abnormalities, multi level compression deformities throughout the s pine including T2 T4 T6. SOFT TISSUES/LYMPH NODES: Unremarkable. LOWER NECK: No significant findings. UPPER ABDOMEN: Right hepatic lobe probable slightly complex's. No obstructing right renal calculi. At rophic right kidney. IMPRESSION: 1. Scattered nodular densities throughout the lungs, given history of cancer malignancy is not exclu ded. Consider follow-up PET/CT. Left upper lobe consolidation which is somewhat patchy. Correlate for superimposed infection. Continued surveillance recommended. 2. Compression deformities throughout the upper thoracic spine correlate with back pain consider MRI if this concern for fracture. [facility], , 05/07/2024 2:09 PM
== END | disposition home or self-care (01) ==
LOC: RADCTMAIN 13:02
PROVIDERS: ATTEND Internal Medicine
DX: C34.12 Malignant neoplasm of upper lobe, left bronchus or lung (principal); M17.12 Unilateral primary osteoarthritis, left knee; F17.210 Nicotine dependence, cigarettes, uncomplicated; J98.4 Other disorders of lung; M48.54XA Collapsed vertebra, not elsewhere classified, thoracic region, initial encounter for fracture; N26.1 Atrophy of kidney (terminal)
CPT/HCPCS: 82565; 84520; 71260; 36415; Q9967

== ENCOUNTER → 2024-06-07 | Outpatient (CLI) | payer MEDICARE ==
--- NOTE | 2024-06-09 22:02 | PE ---
EXAMINATION TYPE: PET CT fusion skull to thigh DATE OF EXAM: 06/07/2024 COMPARISON: 05/06/2024 CT chest Prior PET/CT: 06/24/2021 CLINICAL INDICATION: Male, 89 years old with history of R91.8 LUNG NODULE, TECHNIQUE: Following the intravenous administration of 10.77 mCi of F-18 FDG, whole body images are performed from the skull base to the midthigh. Images are reviewed on the computer in the coronal, a xial, and sagittal planes. Reconstructed rotating images are created on independent workstation and reviewed on the computer. A localization and attenuation correction CT is performed in conjunction with the PET scan. DLP: 312.22 mGycm SCAN: Initial Blood glucose: 105 mg/dL Average Mediastinum SUV: 2.38 Average Liver SUV: 2.80 FINDINGS: NECK: No abnormal uptake THORAX: There is diffuse uptake within the left upper lobe density. SUV measures approximately 2.53 t here is a punctate areas of more intense measuring 4.57, image 62. This is different than the There is an intense uptake in the anterior mediastinum, image 93, SUV 5.0 to. Couple of small lymph n odes within the left intermammillary region image 99, had an SUV of 3.64 medially and 2.94 laterally. ABDOMEN: There is intense uptake in the left inferior vena cava region with an SUV of 20.08. The supe rior adrenal gland appears normal. This may be a large retrocaval lymph node. Hyperintense nodule fro m the prior study. This is new from comparison PELVIS: No abnormal uptake OSSEOUS STRUCTURES: No abnormal uptake LOCALIZATION CT: Mass in the right upper quadrant difficult to localize. Pericaval adenopathy is felt to be most likely. Metastasis could be considered COMPARISON: Uptake within the chest in the abdomen are new from comparison. A previous area of uptake is not identified on the current exam. IMPRESSION: 1. Findings within the left apex, anterior chest, and right upper quadrant abdomen are new from prior PET/CT. Workup for metastasis is recommended [facility], Workstation: [facility], 06/09/2024 10:00 PM
== END | disposition home or self-care (01) ==
LOC: RADPETMAIN 12:28
PROVIDERS: ATTEND Family Medicine
DX: R91.8 Other nonspecific abnormal finding of lung field (principal); R19.01 Right upper quadrant abdominal swelling, mass and lump
CPT/HCPCS: 78815; A9552

== ENCOUNTER → 2024-07-09 | Outpatient (CLI) | payer MEDICARE, BC ==
--- NOTE | 2024-07-09 11:06 | MR ---
EXAMINATION TYPE: MR brain wo/w con DATE OF EXAM: 07/09/2024 10:50 AM COMPARISON: 01/02/2024. 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 The patient was then given intravenous contrast and multi planar, T1 fat-saturation images wer e obtained. IV Contrast: 6 mL Gadobutrol FINDINGS: The fajardo-white junctions, ventricular system, basal cisterns appear unremarkable. Diffusion-weighted imaging shows no evidence of restricted diffusion to suggest acute/subacute infarct. Intracranial ar terial flow voids are maintained. Midline structures show no abnormality. Scattered foci of high T2 s ignal intensity are seen within the periventricular white matter. The susceptibility weighted images do not reveal any evidence for micro-hemorrhage. After administration of gadolinium, no abnormal enha ncement is seen. The bone marrow signal is within normal limits. Paranasal sinuses and mastoid air cells: No significant paranasal sinus disease. Visualized orbits: Orbital contents are intact. IMPRESSION: 1. No evidence of intracranial mass, acute/subacute infarct, or abnormal enhancement. 2. Nonspecific white matter changes, likely related to small vessel ischemic disease. [facility], , 07/09/2024 11:03 AM
== END | disposition home or self-care (01) ==
LOC: RADMRIMAIN 10:00
PROVIDERS: ATTEND Internal Medicine Hematology & Oncology
DX: C34.90 Malignant neoplasm of unspecified part of unspecified bronchus or lung (principal); Z85.51 Personal history of malignant neoplasm of bladder; R90.82 White matter disease, unspecified; E78.5 Hyperlipidemia, unspecified; D64.89 Other specified anemias; D72.819 Decreased white blood cell count, unspecified; I10 Essential (primary) hypertension
CPT/HCPCS: 70553; A9585

== ENCOUNTER → 2024-07-25 | Outpatient (CLI) | payer MEDICARE, BC ==
[~2024-07-25] MED LIST changes: -LACTATED RINGERS 1,000 ML IV SCH; +REGADENOSON 0.4 MG/5 ML SYRINGE IV PRN
--- NOTE | 2024-07-25 12:48 | NM ---
EXAMINATION TYPE: NM stress lexiscan cardiolite DATE OF EXAM: 07/25/2024 COMPARISON: NONE CLINICAL INDICATION: Male, 89 years old with history of Z01.818 Pre-surgical clearance; TECHNIQUE: After the intravenous administration of 9.2 mCi Tc 99m Sestamibi - Cardiolite resting SPE CT images acquired 60 minutes post injection. The patient received 0.4mg Lexiscan, 24 mCi Tc 99m Sestamibi - Stress images obtained 50 minutes post injection FINDINGS: Review of stress and rest SPECT images demonstrates small fixed defect lateral basal wall probably at tenuation artifact. Otherwise, no distinct perfusion abnormality. Gated analysis shows normal wall m otion with an estimated left ventricular ejection fraction of 70 %. TID calculated upper limits of normal at 1.12. IMPRESSION: Suspect small area of attenuation artifact lateral basal wall. Otherwise, no scintigraphic evidence f or reversible ischemia. [facility], , 07/25/2024 12:46 PM
--- NOTE | 2024-07-25 13:03 | CA ---
Lexiscan Nuclear Stress Test Report Name: Billy Garcia Exam Date: 07/25/2024 10:12 Exam Location: [place] Stress Ht (in): 64 Wt (lb): 117 BSA: 1.56 Ordering Phys: Sukhdev Wise MD Referring Phys: Sukhdev Wise MD Technologist: ESTHER/JESSI Age: 89 Gender: M : 1935 Procedure CPT: Indications: Z01.818 Pre-surgical clearance ICD-10 Codes: Patient History: Pre OP Shortness of breath on exertion Medications: Meds past 24 hrs: Pretest Chest Pain: STRESS TEST Lexiscan Protocol Exercise Duration (min:sec): 02:[address] Depressions (mm): Angina Score: Felix Score: Resting HR (bpm): 73 Peak HR (bpm): 101 Resting BP (mmHg): 160 / 77 Peak BP (mmHg): 109 / 67 MPHR: 133 Target HR: 113 % MPHR: 76 METS: 1.0 Total Dose: Peak Dose: Atropine: Double Product: 30528 BP Response: Stress Termination: Infusion complete Stress Symptoms: No chest pain or symptoms Stress Summary: ECG ANALYSIS Resting ECG: Stress ECG: CONCLUSIONS RESTING EKG: [Normal sinus rhythm, normal EKG] , Heart rate 73 BPM Patient recieved IV infusion of Lexiscan 0.4mg and at peak infusion. Patient did not encounter any significant symptoms with Lexiscan infusion. STRESS EKG showed: There is [address] depressions noticed in aVF, V5 and V6 with peak Lexiscan infusion. ARRYTHMIAS: [No ectopic rhythms or sustained arrythmias] CONCLUSION: 1. Normal hemodynamic and clinical response to Lexiscan infusion. 2. Abnormal ECG response to Lexiscan infusion Please refer to the nuclear imaging portion of this stress test for complete interpretation of the study. Dr Tyrone Luong (Electronically Signed) Final Date: 25 July 2024 12:36
== END | disposition home or self-care (01) ==
LOC: RADNMMAIN 08:19
PROVIDERS: ATTEND Family Medicine
DX: Z01.818 Encounter for other preprocedural examination (principal); R94.31 Abnormal electrocardiogram [ECG] [EKG]; R06.02 Shortness of breath
CPT/HCPCS: 93017; 78452; A9500; J2785

== ENCOUNTER 2024-08-13 03:15 | Inpatient (IN) | payer MEDICARE, BC ==
--- NOTE | 2024-08-13 03:20 | ED ---
SOB HPI - General Chief Complaint: Shortness of Breath Stated Complaint: NURY Time Seen by Provider: 08/13/24 03:19 Source: EMS, RN notes reviewed, old records reviewed Mode of arrival: EMS Limitations: no limitations - History of Present Illness Initial Comments: This is an 89-year-old male in severe respiratory distress patient comes in respiratory failure hypoxic respiratory failure with known lung cancer COPD severe, patient presents in severe respiratory distress on BiPAP history obtained from EMS Family is on the way MD Complaint: shortness of breath, cough, chest pain, anxiety -: days(s) Severity: moderate Severity scale (1-10): 7 Quality: sharp Consistency: constant Improves With: nothing Worsens With: nothing Known History Of: COPD Context: recent URI, recent illness Associated Symptoms: denies other symptoms - Related Data Home Medications Medication Instructions Recorded Confirmed Primidone 50 mg PO HS 12/14/23 08/13/24 Atorvastatin [Lipitor] 10 mg PO HS 04/11/24 08/13/24 Citalopram Hydrobromide [CeleXA] 20 mg PO DAILY 04/11/24 08/13/24 Epoetin Yoav-Epbx [Retacrit] 20,000 unit SQ TH 04/11/24 08/13/24 Losartan [Cozaar] 25 mg PO DAILY 04/11/24 08/13/24 Cyproheptadine [Cyproheptadine HCl] 2 mg PO BID 08/13/24 08/13/24 Ferrous Sulfate [Feosol] 325 mg PO DAILY 08/13/24 08/13/24 Levothyroxine Sodium [Synthroid] 25 mcg PO DAILY 08/13/24 08/13/24 Magnesium Oxide [Mag-Ox] 400 mg PO DAILY 08/13/24 08/13/24 Multivit-Mins/Iron/Folic/Lycop 1 tab PO DAILY 08/13/24 08/13/24 [Centrum Men's Tablet] Allergies Allergy/AdvReac Type Severity Reaction Status Date / Time bee venom protein (honey bee) Allergy Anaphylaxis Verified 08/13/24 10:03 Review of Systems ROS Statement: Those systems with pertinent positive or pertinent negative responses have been documented in the HPI. ROS Other: All systems not noted in ROS Statement are negative. Past Medical History Past Medical History: Cancer, COPD, Hyperlipidemia, Hypertension, Thyroid Disorder Additional Past Medical History / Comment(s): bladder and lung cancer, had radiation tx. lower back pain. sciatic nerve to rt, anemia History of Any Multi-Drug Resistant Organisms: None Reported Past Surgical History: Bowel Resection Additional Past Surgical History / Comment(s): colonscopy, c2 fx no surgery. Past Anesthesia/Blood Transfusion Reactions: No Reported Reaction Past Psychological History: Depression Smoking Status: Former smoker Past Alcohol Use History: Daily Past Drug Use History: None Reported - Past Family History Mother Family Medical History: Congestive Heart Failure (CHF), Diabetes Mellitus Father Family Medical History: Coronary Artery Disease (CAD) Additional Family Medical History / Comment(s): emphysema and black lung General Exam Limitations: altered mental status, physical limitation General appearance: alert, anxious, in distress Head exam: Present: atraumatic, normocephalic, normal inspection Eye exam: Present: normal appearance, PERRL, EOMI. Absent: scleral icterus, conjunctival injection, periorbital swelling ENT exam: Present: normal exam, mucous membranes moist Neck exam: Present: normal inspection. Absent: tenderness, meningismus, lymphadenopathy Respiratory exam: Present: respiratory distress, wheezes, rhonchi, accessory muscle use, decreased breath sounds, prolonged expiratory. Absent: rales, stridor Cardiovascular Exam: Present: normal rhythm, tachycardia, normal heart sounds. Absent: systolic murmur, diastolic murmur, rubs, gallop, clicks GI/Abdominal exam: Present: soft, normal bowel sounds. Absent: distended, tenderness, guarding, rebound, rigid Extremities exam: Present: normal inspection, full ROM, normal capillary refill. Absent: tenderness, pedal edema, joint swelling, calf tenderness Back exam: Present: normal inspection Neurological exam: Present: alert, oriented X3, CN II-XII intact Psychiatric exam: Present: normal affect, normal mood Skin exam: Present: warm, dry, intact, normal color. Absent: rash Course Vital Signs 08/13/24 08/13/24 08/13/24 03:16 03:19 03:28 Temperature 97.7 F Pulse Rate 170 H 165 H 154 H Respiratory 38 H 40 H Rate Blood Pressure 147/116 138/100 O2 Sat by Pulse 76 L Oximetry Fraction of Inspired Oxygen (FIO2) 08/13/24 08/13/24 08/13/24 03:29 03:31 03:34 Temperature Pulse Rate 151 H Respiratory 40 H 40 H Rate Blood Pressure 115/92 O2 Sat by Pulse Oximetry Fraction of 100 Inspired Oxygen (FIO2) 08/13/24 08/13/24 08/13/24 03:44 03:52 04:00 Temperature Pulse Rate 128 H 133 H 117 H Respiratory 31 H 28 H Rate Blood Pressure 86/61 O2 Sat by Pulse 98 98 Oximetry Fraction of Inspired Oxygen (FIO2) 08/13/24 08/13/24 08/13/24 04:25 04:45 05:00 Temperature Pulse Rate 117 H 112 H 109 H Respiratory 36 H 25 H 33 H Rate Blood Pressure 76/54 69/43 79/50 O2 Sat by Pulse 100 98 100 Oximetry Fraction of Inspired Oxygen (FIO2) 08/13/24 08/13/24 08/13/24 05:07 05:15 05:19 Temperature Pulse Rate 107 H 109 H Respiratory 35 H Rate Blood Pressure 67/55 O2 Sat by Pulse 100 Oximetry Fraction of 70 Inspired Oxygen (FIO2) 08/13/24 08/13/24 08/13/24 05:25 05:30 05:45 Temperature Pulse Rate 109 H 112 H 109 H Respiratory 22 30 H Rate Blood Pressure 68/53 68/53 O2 Sat by Pulse 97 99 Oximetry Fraction of Inspired Oxygen (FIO2) 08/13/24 08/13/24 06:00 06:29 Temperature Pulse Rate 118 H 120 H Respiratory 27 H 24 Rate Blood Pressure 71/52 86/56 O2 Sat by Pulse 100 100 Oximetry Fraction of Inspired Oxygen (FIO2) - Reevaluation(s) Reevaluation #1: 08/13/24 03:30 Records reviewed Reevaluation #2: 08/13/24 04:44 Mild improvement here in the ER blood pressure remains low Patient remains calm able to answer questions on BiPAP blood pressure improving with resuscitation here in the emergency department to systolics over 90 Patient's agitation has improved mental status continues to improve on BiPAP Reevaluation #3: 08/13/24 04:44 Informed of results questions answered Spoke with family, patient is DNR, no intubation Reevaluation #4: Was pt. sent in by a medical professional or institution (, PA, [employer], urgent care, hospital, or fdc...) When possible be specific @ -no Did you speak to anyone other than the patient for history (EMS, parent, family, police, friend...)? What history was obtained from this source @ -no Did you review nursing and triage notes (agree or disagree)? Why? @ -agree Are old charts reviewed (outside hosp., previous admission, EMS record, old EKG, old radiological studies, urgent care reports/EKG's, fdc records)? Report findings @ -yes Differential Diagnosis (chest pain, altered mental status, abdominal pain women, abdominal pain men, vaginal bleeding, weakness, fever, dyspnea, syncope, headache, dizziness, GI bleed, back pain, seizure, CVA, palpatations, mental health, musculoskeletal)? @ -prior EKG interpreted by me (3pts min.). @ -yes X-rays interpreted by me (1pt min.). @ -yes positive for pulmonary edema CT interpreted by me (1pt min.). @ -no U/S interpreted by me (1pt. min.). @ -no What testing was considered but not performed or refused? (CT, X-rays, U/S, labs)? Why? @ -none What meds were considered but not given or refused? Why? @ -none Did you discuss the management of the patient with other professionals (professionals i.e. , PA, [facility] [employer], lab, RT, psych nurse, vp digital marketing social media and crm, pacs specialist, teacher, protection officer, binder caser)? Give summary @ -no Was smoking cessation discussed for >3mins.? @ -no Was critical care preformed (if so, how long)? @ -yes65 Were there social determinants of health that impacted care today? How? (Homelessness, low income, unemployed, alcoholism, drug addiction, transportation, low edu. Level, literacy, decrease access to med. care, senior living, rehab)? @ -none Was there de-escalation of care discussed even if they declined (Discuss DNR or withdrawal of care, Hospice)? DNR status @ -no What co-morbidities impacted this encounter? (DM, HTN, Smoking, COPD, CAD, Cancer, CVA, ARF, Chemo, Hep., AIDS, mental health diagnosis, sleep apnea, morbid obesity)? @ -none Was patient admitted / discharged? Hospital course, mention meds given and route, prescriptions, significant lab abnormalities, going to OR and other pertinent info. @ - 89 male will be admitted in severe respiratory distress on BiPAP respirato ry failure hypoxic patient has low blood pressures here in the ER improving with resuscitation. Patient has multiple medical comorbidities, family states they do want to keep the patient has a no resuscitation no code patient, DO NOT INTUBATE, patient is able to answer questions here in the emergency department Admitted acute respiratory failure hypoxic respiratory failure hypotension sepsis problem Undiagnosed new problem with uncertain prognosis? @ -no Drug Therapy requiring intensive monitoring for toxicity (Heparin, Nitro, Insulin, Cardizem)? @ -no Were any procedures done? @ -no Diagnosis/symptom? @ - Acute, or Chronic, or Acute on Chronic? @ -Acute Uncomplicated (without systemic symptoms) or Complicated (systemic symptoms)? @ -Complicated Side effects of treatment? @ -no Exacerbation, Progression, or Severe Exacerbation? @ -exacerbation Poses a threat to life or bodily function? How? (Chest pain, USA, DC, pneumonia, PE, COPD, DKA, ARF, appy, cholecystitis, CVA, Diverticulitis, Homicidal, Suicidal, threat to staff... and all critical care pts) @ -yes severe respiratory distress Reevaluation #5: Differential Dyspnea: Coronary syndrome, arrhythmia, tamponade, asthma, COPD, pulmonary embolism, pneumonia, pneumothorax, pulmonary effusion, anaphylaxis, diabetic ketoacidosis, flailed chest, pulmonary contusion, diaphragmatic rupture, anemia, neuromuscular, this is not meant to be an all-inclusive list. - Consultations Consultation #1: With EM who agrees to admit the patient Procedures - Sepsis Sepsis Focused Exam #1 Time Sepsis Criteria Met: 04:00 Sepsis Focused Exam Date: 08/13/24 Sepsis Focused Exam Time: 06:30 Sepsis Focused Exam Complete: Yes Vital Signs & RN Notes Reviewed: Yes Capillary Refill: < 2 Seconds: Fingers, Toes Peripheral Pulses: Normal: Radial (R), Radial (L), Posterior Tibialis (R), Posterior Tibialis (L), Dorsalis Pedis (R), Dorsalis Pedis (L) Skin Color: Flushed Respiratory Exam: respiratory distress, wheezes, rales, rhonchi Cardiovascular Exam: tachycardia Medical Decision Making - Medical Decision Making 89 male will be admitted in severe respiratory distress on BiPAP respiratory failure hypoxic patient has low blood pressures here in the ER improving with resuscitation. Patient has multiple medical comorbidities, family states they do want to keep the patient has a no resuscitation no code patient, DO NOT INTUBATE, patient is able to answer questions here in the emergency department - Lab Data Result diagrams: 08/15/24 05:10 08/15/24 09:35 Lab Results 08/13/24 08/13/24 08/13/24 Range/Units 03:28 03:28 03:28 WBC 7.3 (3.8-10.6) k/uL RBC 2.17 L (4.30-5.90) m/uL Hgb 8.4 L (13.0-17.5) gm/dL Hct 26.0 L (39.0-53.0) % MCV 119.9 H (80.0-100.0) fL MCH 38.9 H (25.0-35.0) pg MCHC 32.4 (31.0-37.0) g/dL RDW 16.8 H (11.5-15.5) % Plt Count 333 (150-450) k/uL MPV 8.3 Neutrophils % (Manual) 39 % Band Neuts % (Manual) 1 % Lymphocytes % (Manual) 52 % Monocytes % (Manual) 4 % Eosinophils % (Manual) 4 % Metamyelocytes % 1 % Neutrophils # (Manual) 2.90 (1.3-7.7) k/uL Lymphocytes # (Manual) 3.80 (1.0-4.8) k/uL Monocytes # (Manual) 0.29 (0-1.0) k/uL Eosinophils # (Manual) 0.29 (0-0.7) k/uL Metamyelocytes # (Man) 0.07 H (0) k/uL Nucleated RBCs 0 (0-0) /100 WBC Manual Slide Review Performed Hypochromasia Moderate Poikilocytosis (manual Present Anisocytosis Slight Macrocytosis Marked A PT 11.9 (10.0-12.5) sec INR 1.1 (<1.2) APTT 22.3 (22.0-30.0) sec D-Dimer (<0.60) mg/L FEU Sodium 133 L (137-145) mmol/L Potassium 5.3 H (3.5-5.1) mmol/L Chloride 103 (98-107) mmol/L Carbon Dioxide 11 L (22-30) mmol/L Anion Gap 19 mmol/L BUN 14 (9-20) mg/dL Creatinine 1.05 (0.66-1.25) mg/dL Est GFR (CKD-EPI)AfAm 74 (>60 ml/min/1.73 sqM) Est GFR (CKD-EPI)NonAf 64 (>60 ml/min/1.73 sqM) Glucose 202 H (74-99) mg/dL Lactic Ac Sepsis Rflx Plasma Lactic Acid Rex (0.7-2.0) mmol/L Calcium 8.8 (8.4-10.2) mg/dL Magnesium 1.8 (1.6-2.3) mg/dL Total Bilirubin 0.7 (0.2-1.3) mg/dL AST 33 (17-59) U/L ALT 16 (4-49) U/L Alkaline Phosphatase 69 (38-126) U/L Troponin I (0.000-0.034) ng/mL NT-Pro-B Natriuret Pep 1070 pg/mL Total Protein 6.7 (6.3-8.2) g/dL Albumin 3.3 L (3.5-5.0) g/dL Procalcitonin (0.02-0.50) ng/mL 08/13/24 08/13/24 08/13/24 Range/Units 03:28 03:28 03:28 WBC (3.8-10.6) k/uL RBC (4.30-5.90) m/uL Hgb (13.0-17.5) gm/dL Hct (39.0-53.0) % MCV (80.0-100.0) fL MCH (25.0-35.0) pg MCHC (31.0-37.0) g/dL RDW (11.5-15.5) % Plt Count (150-450) k/uL MPV Neutrophils % (Manual) % Band Neuts % (Manual) % Lymphocytes % (Manual) % Monocytes % (Manual) % Eosinophils % (Manual) % Metamyelocytes % % Neutrophils # (Manual) (1.3-7.7) k/uL Lymphocytes # (Manual) (1.0-4.8) k/uL Monocytes # (Manual) (0-1.0) k/uL Eosinophils # (Manual) (0-0.7) k/uL Metamyelocytes # (Man) (0) k/uL Nucleated RBCs (0-0) /100 WBC Manual Slide Review Hypochromasia Poikilocytosis (manual Anisocytosis Macrocytosis PT (10.0-12.5) sec INR (<1.2) APTT (22.0-30.0) sec D-Dimer 12.47 H (<0.60) mg/L FEU Sodium (137-145) mmol/L Potassium (3.5-5.1) mmol/L Chloride (98-107) mmol/L Carbon Dioxide (22-30) mmol/L Anion Gap mmol/L BUN (9-20) mg/dL Creatinine (0.66-1.25) mg/dL Est GFR (CKD-EPI)AfAm (>60 ml/min/1.73 sqM) Est GFR (CKD-EPI)NonAf (>60 ml/min/1.73 sqM) Glucose (74-99) mg/dL Lactic Ac Sepsis Rflx Plasma Lactic Acid Rex 9.0 H* (0.7-2.0) mmol/L Calcium (8.4-10.2) mg/dL Magnesium (1.6-2.3) mg/dL Total Bilirubin (0.2-1.3) mg/dL AST (17-59) U/L ALT (4-49) U/L Alkaline Phosphatase (38-126) U/L Troponin I 0.136 H* (0.000-0.034) ng/mL NT-Pro-B Natriuret Pep pg/mL Total Protein (6.3-8.2) g/dL Albumin (3.5-5.0) g/dL Procalcitonin (0.02-0.50) ng/mL 08/13/24 08/13/24 Range/Units 03:28 04:15 WBC (3.8-10.6) k/uL RBC (4.30-5.90) m/uL Hgb (13.0-17.5) gm/dL Hct (39.0-53.0) % MCV (80.0-100.0) fL MCH (25.0-35.0) pg MCHC (31.0-37.0) g/dL RDW (11.5-15.5) % Plt Count (150-450) k/uL MPV Neutrophils % (Manual) % Band Neuts % (Manual) % Lymphocytes % (Manual) % Monocytes % (Manual) % Eosinophils % (Manual) % Metamyelocytes % % Neutrophils # (Manual) (1.3-7.7) k/uL Lymphocytes # (Manual) (1.0-4.8) k/uL Monocytes # (Manual) (0-1.0) k/uL Eosinophils # (Manual) (0-0.7) k/uL Metamyelocytes # (Man) (0) k/uL Nucleated RBCs (0-0) /100 WBC Manual Slide Review Hypochromasia Poikilocytosis (manual Anisocytosis Macrocytosis PT (10.0-12.5) sec INR (<1.2) APTT (22.0-30.0) sec D-Dimer (<0.60) mg/L FEU Sodium (137-145) mmol/L Potassium (3.5-5.1) mmol/L Chloride (98-107) mmol/L Carbon Dioxide (22-30) mmol/L Anion Gap mmol/L BUN (9-20) mg/dL Creatinine (0.66-1.25) mg/dL Est GFR (CKD-EPI)AfAm (>60 ml/min/1.73 sqM) Est GFR (CKD-EPI)NonAf (>60 ml/min/1.73 sqM) Glucose (74-99) mg/dL Lactic Ac Sepsis Rflx Y Plasma Lactic Acid Rex (0.7-2.0) mmol/L Calcium (8.4-10.2) mg/dL Magnesium (1.6-2.3) mg/dL Total Bilirubin (0.2-1.3) mg/dL AST (17-59) U/L ALT (4-49) U/L Alkaline Phosphatase (38-126) U/L Troponin I (0.000-0.034) ng/mL NT-Pro-B Natriuret Pep pg/mL Total Protein (6.3-8.2) g/dL Albumin (3.5-5.0) g/dL Procalcitonin 0.24 (0.02-0.50) ng/mL - EKG Data -: EKG Interpreted by Me (EKG Is SVT 163 QRS 106 QTc 358) Rate: tachycardia (EKG is tachycardia 142 LA 134 QRS 94 QTc 394) - Radiology Data Radiology results: report reviewed (Chest x-ray is for pulmonary edema), image reviewed Critical Care Time Critical Care Time: Yes Total Critical Care Time: 65 Disposition Clinical Impression: Exertional dyspnea, Bilateral lower extremity edema, Acute exacerbation of chronic obstructive pulmonary disease, Acute respiratory failure, Acute respiratory distress syndrome in adult, Lactic acidosis, Acute pulmonary edema, Sepsis, Tachycardia, Hypotension Disposition: ADMITTED IP TO THIS HOSP Condition: Critical Is patient prescribed a controlled substance at d/c from ED?: No Time of Disposition: 06:30
[2024-08-13] MEDS: ALBUTEROL NEBULIZED 2.5 MG/3 ML INHALATION STA (03:25)
[2024-08-13] MEDS: IPRATROPIUM 0.5 MG/2.5 ML NEBU INHALATION STA (03:25)
[2024-08-13] MEDS: methylPREDNISolone SOD SUCCI 125 MG/2 ML VIAL IV STA (03:26)
[2024-08-13] MEDS: MORPHINE SULFATE 2 MG/ML SYRINGE IVP STA (03:27)
[2024-08-13 03:52] LABS: ALT 16 U/L (4-49); AST 33 U/L (17-59); African American GFR (CKD) 74 (>60 ml/min/1.73 sqM); Albumin 3.3 g/dL (3.5-5.0); Alkaline Phosphatase 69 U/L (38-126); Anion Gap 19 mmol/L; Blood Urea Nitrogen 14 mg/dL (9-20); Calcium 8.8 mg/dL (8.4-10.2); Carbon Dioxide 11 mmol/L (22-30); Chloride 103 mmol/L (98-107); Glucose 202 mg/dL (74-99); Magnesium 1.8 mg/dL (1.6-2.3); Non-African American GFR(CKD) 64 (>60 ml/min/1.73 sqM); Potassium 5.3 mmol/L (3.5-5.1); Sodium 133 mmol/L (137-145); Total Bilirubin 0.7 mg/dL (0.2-1.3); Total Protein 6.7 g/dL (6.3-8.2)
[2024-08-13 04:00] LABS: NT-Pro-B-Type Natriuretic Pept 1070 pg/mL
[2024-08-13] MEDS ORDERED: PNEUMONIA PROTOCOL UTILIZED 1 EACH MISC PO PRN (04:40)
[2024-08-13] MEDS ORDERED: ONDANSETRON 4 MG/2 ML VIAL IVP PRN (04:40)
[2024-08-13] MEDS ORDERED: NALOXONE 0.4 MG/ML 1 ML VIAL IV PRN (04:40)
[2024-08-13] MEDS: SODIUM CHLORIDE 0.9% 1,000 ML IV STA (04:49)
[2024-08-13] MEDS: LACTATED RINGERS 1,000 ML BAG IV STA (04:53)
[2024-08-13 05:03] LABS: Anisocytosis Slight; HGB 8.4 gm/dL (13.0-17.5); Hypochromasia Moderate; MCH 38.9 pg (25.0-35.0); MCHC 32.4 g/dL (31.0-37.0); MCV 119.9 fL (80.0-100.0); Macrocytosis Marked; Mean Platelet Volume 8.3; Platelet Count 333 k/uL (150-450); RBC 2.17 m/uL (4.30-5.90); RDW 16.8 % (11.5-15.5); WBC 7.3 k/uL (3.8-10.6)
[2024-08-13] MEDS: IPRATROPIUM-ALBUTEROL 3 ML NEB INHALATION PRN (05:04)
[2024-08-13 05:15] LABS: ABG Base Excess -6.5 mmol/L; ABG HCO3 18 mmol/L (21-25); ABG Oxygen Saturation 99.9 % (94-97); ABG PCO2 28 mmHg (35-45); ABG PH 7.41 (7.35-7.45); ABG PO2 191 mmHg (83-108); ABG TCO2 18 mmol/L (19-24); Allen Test Performed? Yes
[2024-08-13] MEDS: PIPERACILLIN-TAZOBACTAM 3.375 GM in SODIUM CHLORIDE 0.9% 100 ML IVPB STA (05:28)
--- NOTE | 2024-08-13 05:38 | XR ---
EXAM: XR Chest, 1 View CLINICAL HISTORY: ITS.REASON XR Reason: sob TECHNIQUE: Frontal view of the chest. COMPARISON: No relevant prior studies available. IMPRESSION: 1. Cardiomegaly with diffuse interstitial changes which can be seen with interstitial pulmonary edema. Associated with this is a small right pleural effusion. 2. Asymmetric right lung airspace disease, most prominent in the right lower lung. Additional airspace disease within the left upper lung. Findings may be infectious in nature.
[2024-08-13] MEDS: AZITHROMYCIN 500 MG in SODIUM CHLORIDE 0.9% 250 ML IVPB STA (05:46)
[2024-08-13 06:02] LABS: Band Neutrophils % 1 %; Eosinophils # (M) 0.29 k/uL (0-0.7); Metamyelocytes # (M) 0.07 k/uL (0); Metamyelocytes % 1 %; Monocytes # (M) 0.29 k/uL (0-1.0); Neutrophils % (M) 39 %; Nucleated Red Blood Cells 0 /100 WBC (0-0); Total Cells Counted 200
[2024-08-13 06:04] LABS: Poikilocytosis (M) Present
[2024-08-13] MEDS: SODIUM CHLORIDE 0.9% 1,000 ML IV ONE (06:05)
[2024-08-13 06:25] LABS: INR 1.1 (<1.2); Partial Thromboplastin Time 22.3 sec (22.0-30.0); Prothrombin Time 11.9 sec (10.0-12.5)
[2024-08-13] MEDS: DEXTROSE 5%-0.45% NACL 1,000 ML IV SCH (06:27)
[2024-08-13] MEDS: NOREPINEPHRINE 4 MG in SODIUM CHLORIDE 0.9% 250 ML IV ONE (06:27)
[2024-08-13 06:54] LABS: Glucose,Whole Blood 168 mg/dL (70-110)
[2024-08-13] MEDS: ADENOSINE 3 MG/ML 2 ML VIAL IVP STA ×2 (07:05→07:22)
[2024-08-13] MEDS: DEXTROSE 5% IN WATER 100 ML with AMIODARONE 150 MG IV ONE (07:18)
[2024-08-13] MEDS: LORazepam 2 MG/ML INJ IV STA (07:19)
[2024-08-13] MEDS: AMIODARONE 360 MG in DEXTROSE 5% IN WATER 200 ML IV ONE (07:23)
[2024-08-13] MEDS: MORPHINE SULFATE 2 MG/ML SYRINGE IV PRN (07:25)
[2024-08-13] MEDS ORDERED: PIPERACILLIN-TAZOBACTAM 3.375 GM in SODIUM CHLORIDE 0.9% 100 ML IVPB SCH (08:00)
[2024-08-13] MEDS: ALBUTEROL NEBULIZED 2.5 MG/3 ML INHALATION SCH (08:29)
[2024-08-13] MEDS: BUDESONIDE 1 MG/2 ML NEBU INHALATION SCH (08:29)
[2024-08-13] MEDS: FORMOTEROL FUMARATE 20 MCG/2 ML NEBU INHALATION SCH (08:32)
[2024-08-13] MEDS: IPRATROPIUM-ALBUTEROL 3 ML NEB INHALATION SCH (08:52)
[2024-08-13] MEDS ORDERED: VANCOMYCIN IV PER PHARMACY 1 EACH MISC MISCELLANE PRN (09:14)
[2024-08-13 09:25] LABS: Influenza A Not Detected (Not Detectd); Influenza B Not Detected (Not Detectd); RSV Not Detected (Not Detectd)
[2024-08-13] MEDS: SODIUM CHLORIDE 0.9% 1,000 ML IV SCH (10:42)
[2024-08-13] MEDS: VANCOMYCIN 1,500 MG in SODIUM CHLORIDE 0.9% 500 ML 500 ML IVPB ONE (10:53)
[2024-08-13] MEDS: HEPARIN SODIUM,PORCINE 5,000 UNIT/ML 1 ML VIAL SQ SCH (11:47)
[2024-08-13] MEDS: methylPREDNISolone SOD SUCCI 125 MG/2 ML VIAL IV SCH (11:50)
--- NOTE | 2024-08-13 12:23 | P.CNPUL ---
History of Present Illness Consult date: 08/13/24 Reason for consult: dyspnea History of present illness: 89-year-old male patient, brought into the emergency department because of increased shortness of breath, hypoxemia, diminished level of consciousness, and the patient was subsequently transferred to the intensive care unit. At the time of my arrival to the ICU, the patient was quite lethargic, arousable, maintained on the BiPAP at a pressure of 12 over 6 cm of water and FiO2 of 100%. The patient was hemodynamically unstable. He was running high dose pressors and the patient is on norepinephrine running at 0.35 mcg/kg/min. He received a total of 2 L of normal saline and 1 L of lactated Ringer and the patient was on D5 half-normal saline at rate of 100 cc an hour. At the same time, the patient was maintained on a BiPAP. He did encounter a episode of SVT, started on amiodarone drip and currently amiodarone running at 1 mg/min and the patient's rhythm is sinus tachycardia. In terms of his blood work, the patient was found to have a white cell count of 7.3 with a hemoglobin 8.4 and a platelet count of 333. Initial lactic acid level was 9.0 dropped down to 4.2 with fluid resuscitation. Serum bicarb was 11 and the patient had an anion gap metabolic acidosis. Sodium levels at 133 with a potassium level of 5.3. BUN was 14 with a creatinine of 1.05. LFTs are normal. Troponin was 0.136. proBNP level was 1070. Albumin level is at 3.3. Urinalysis and urine cultures were not done. Blood cultures were not done. The patient was given broad-spectrum IV antibiotics and the patient is currently on a combination of Zosyn and vancomycin. I had a nice discussion with the patient's family. The niece and her arrived to the intensive care unit. The patient is known to have advanced COPD and the patient has been followed up in our office. At the same time, the patient was being worked up for a left upper lobe mass measuring 1.1 cm in size that was suspicious for malignancy. However, no further diagnostics were done based on his advanced lung disease and poor baseline performance and functional status. Furthermore, a PET/CT that was done back in 2023 showed intense metabolic activity in the right upper quadrant and the patient had a lesion in the IVC area with an SUV of 20. The right-sided adrenal gland was within normal limits. This may be a large retrocaval lymph node. At the same time, the PET scan showed a left upper lobe opacity with an SUV of 2.5 with punctate areas of more intense activity with an SUV of 4.5. There is also some activity anterior mediastinum with an SUV of 5 and couple of smaller lymph nodes in the left intramedullary lesion with an SUV of 3.6. This was worked up through [facility]. Fine-needle aspirate of the lymph node in the right upper quadrant was consistent with non-Hodgkin's lymphoma. He was supposed to start systemic chemotherapy on outpatient basis and treatment has not been initiated. He was being followed up by medical oncology. He also has other comorbidities including history of smoking, history of alcoholism, moderate degree of aortic stenosis based on previous echocardiograms, hypertension hyperlipidemia and hypothyroidism and previous history of bladder cancer. Review of Systems ROS unobtainable: due to mental status Past Medical History Past Medical History: Cancer, COPD, Hyperlipidemia, Hypertension, Thyroid Disorder Additional Past Medical History / Comment(s): bladder and lung cancer, had radiation tx. lower back pain. sciatic nerve to rt, anemia, Non-hodgkin lymphoma, aortic stenosis History of Any Multi-Drug Resistant Organisms: None Reported Past Surgical History: Bowel Resection Additional Past Surgical History / Comment(s): colonscopy, c2 fx no surgery. Past Anesthesia/Blood Transfusion Reactions: No Reported Reaction Past Psychological History: Depression Smoking Status: Former smoker Past Alcohol Use History: Daily Past Drug Use History: None Reported - Past Family History Mother Family Medical History: Congestive Heart Failure (CHF), Diabetes Mellitus Father Family Medical History: Coronary Artery Disease (CAD) Additional Family Medical History / Comment(s): emphysema and black lung Medications and Allergies Home Medications Medication Instructions Recorded Confirmed Type Primidone 50 mg PO HS 12/14/23 08/13/24 History Atorvastatin [Lipitor] 10 mg PO HS 04/11/24 08/13/24 History Citalopram Hydrobromide [CeleXA] 20 mg PO DAILY 04/11/24 08/13/24 History Epoetin Yoav-Epbx [Retacrit] 20,000 unit SQ TH 04/11/24 08/13/24 History Losartan [Cozaar] 25 mg PO DAILY 04/11/24 08/13/24 History Cyproheptadine [Cyproheptadine HCl] 2 mg PO BID 08/13/24 08/13/24 History Ferrous Sulfate [Feosol] 325 mg PO DAILY 08/13/24 08/13/24 History Levothyroxine Sodium [Synthroid] 25 mcg PO DAILY 08/13/24 08/13/24 History Magnesium Oxide [Mag-Ox] 400 mg PO DAILY 08/13/24 08/13/24 History Multivit-Mins/Iron/Folic/Lycop 1 tab PO DAILY 08/13/24 08/13/24 History [Centrum Men's Tablet] Allergies Allergy/AdvReac Type Severity Reaction Status Date / Time bee venom protein (honey bee) Allergy Anaphylaxis Verified 08/13/24 10:03 Physical Exam Vitals: Vital Signs Temp Pulse Resp BP Pulse Ox FiO2 08/13/24 08:44 115 H 08/13/24 08:43 115 H 08/13/24 08:29 118 H 08/13/24 08:16 100 08/13/24 07:30 141 H 34 H 136/89 08/13/24 07:15 158 H 34 H 140/93 08/13/24 07:00 152 H 33 H 138/120 75 L 90 08/13/24 06:52 97.2 F L 156 H 34 H 138/120 82 L 70 08/13/24 06:29 120 H 24 86/56 100 08/13/24 06:00 118 H 27 H 71/52 100 08/13/24 05:45 109 H 30 H 68/53 99 08/13/24 05:30 112 H 22 68/53 97 08/13/24 05:25 109 H 08/13/24 05:19 70 08/13/24 05:15 109 H 35 H 67/55 100 08/13/24 05:07 107 H 08/13/24 05:00 109 H 33 H 79/50 100 08/13/24 04:45 112 H 25 H 69/43 98 08/13/24 04:25 117 H 36 H 76/54 100 08/13/24 04:00 117 H 28 H 86/61 98 08/13/24 03:52 133 H 08/13/24 03:44 128 H 31 H 98 08/13/24 03:34 100 08/13/24 03:31 151 H 40 H 115/92 08/13/24 03:29 40 H 08/13/24 03:28 154 H 08/13/24 03:23 100 08/13/24 03:19 165 H 40 H 138/100 08/13/24 03:16 97.7 F 170 H 38 H 147/116 76 L Intake and Output 08/12/24 08/13/24 08/13/24 22:59 06:59 14:59 Other: Weight 65.771 kg 9 the patient appeared well nourished and normally developed. Vital signs as documented. The patient is elderly, labored breathing and the patient is currently on a BiPAP pressures of 12 over 6 cm with an FiO2 of 100%. Breathing is labored. Head exam is unremarkable. No scleral icterus or corneal arcus noted. Neck is without jugular venous distension, thyromegaly, or carotid bruits. Carotid upstrokes are brisk bilaterally. Lungs diminished breath sound bilaterally and scattered expiratory wheezes heard throughout the lung gomez. Cardiac exam reveals the PMI to be normally sized and situated. Rhythm is regular. First and second heart sounds normal. No murmurs, rubs or gallops. Patient is tachycardic and the patient is currently in sinus tachycardia Abdominal exam reveals normal bowel sounds, no masses, no organomegaly and no aortic enlargement. Extremities are nonedematous and both femoral and pedal pulses are quite diminished and the skin is mottled lower extremities bilaterally. Unable to obtain palpable pulses in the lower extremity. Positive Doppler signals. Examination of the skin revealed no evidence of significant rashes, suspicious appearing nevi or other concerning lesions. Neurologically, the patient is awake and has diminished level of consciousness. Able to move all extremities. Cranial nerves are intact. Results - Laboratory Findings CBC and BMP: 08/13/24 03:28 08/13/24 03:28 ABG ABG pH 7.41 (7.35-7.45) 08/13/24 05:11 ABG pCO2 28 mmHg (35-45) L 08/13/24 05:11 ABG pO2 191 mmHg (83-108) H 08/13/24 05:11 ABG O2 Saturation 99.9 % (94-97) H 08/13/24 05:11 PT/INR, D-dimer PT 11.9 sec (10.0-12.5) 08/13/24 03:28 INR 1.1 (<1.2) 08/13/24 03:28 D-Dimer 12.47 mg/L FEU (<0.60) H 08/13/24 03:28 Abnormal lab findings: Abnormal Labs 08/13/24 08/13/24 08/13/24 03:28 03:28 03:28 RBC 2.17 L Hgb 8.4 L Hct 26.0 L MCV 119.9 H MCH 38.9 H RDW 16.8 H Metamyelocytes # (Man) 0.07 H Macrocytosis Marked A D-Dimer ABG pCO2 ABG pO2 ABG HCO3 ABG Total CO2 ABG O2 Saturation Sodium 133 L Potassium 5.3 H Carbon Dioxide 11 L Glucose 202 H POC Glucose (mg/dL) Plasma Lactic Acid Rex 9.0 H* Troponin I Albumin 3.3 L 08/13/24 08/13/24 08/13/24 03:28 03:28 05:11 RBC Hgb Hct MCV MCH RDW Metamyelocytes # (Man) Macrocytosis D-Dimer 12.47 H ABG pCO2 28 L ABG pO2 191 H ABG HCO3 18 L ABG Total CO2 18 L ABG O2 Saturation 99.9 H Sodium Potassium Carbon Dioxide Glucose POC Glucose (mg/dL) Plasma Lactic Acid Rex Troponin I 0.136 H* Albumin 08/13/24 08/13/24 06:22 06:52 RBC Hgb Hct MCV MCH RDW Metamyelocytes # (Man) Macrocytosis D-Dimer ABG pCO2 ABG pO2 ABG HCO3 ABG Total CO2 ABG O2 Saturation Sodium Potassium Carbon Dioxide Glucose POC Glucose (mg/dL) 168 H Plasma Lactic Acid Rex 4.2 H* Troponin I Albumin - Diagnostic Findings Chest x-ray: image reviewed Assessment and Plan Plan: Shock, likely septic in nature. Exact source is not clear and this needs to be further investigated. The patient is being resuscitated with IV fluids and pressors. The patient received a total of 3 L of IV fluid and the patient will be switched to normal saline at rate of 150 cc an hour. The patient is currently on norepinephrine running at 0.35 mcg/kg/min. Urine output is quite diminished. Acute lactic acidosis Mild hyperkalemia secondary to metabolic acidosis/anion gap metabolic acidosis Acute on chronic shortness of breath with hypoxemic respiratory failure. Curre ntly on a BiPAP pressure of 12/6 with an FiO2 of 100%. Advanced COPD History of left upper lobe nodule suspicious for neoplasm. Patient has a solid 1.1 cm left upper lung pulmonary nodule treated by SBRT. No tissue diagnosis been established. Non-Hodgkin's lymphoma, diagnosed established by biopsy of a right upper quadrant lymph node that has shown intense metabolic activity on the prior PET /CT. Patient also has some nonspecific mediastinal lymph node uptake. Being followed up by medical oncology on outpatient basis. SVT, currently in sinus tachycardia and the patient is on amiodarone drip Daily alcohol use History of smoking Chronic anemia Valvular heart disease with a moderate degree aortic stenosis Hypertension Hyperlipidemia Hypothyroidism History of bladder cancer History of depression Plan: Condition is critical. Discussed intubation and mechanical ventilation with the family. The patient has stated to the family that he does not want to be intubated and he is a DNI DNR CODE STATUS. Continue BiPAP for now at the same setting of 12/6 with an FiO2 of 100%. Continue fluid resuscitation the patient is on normal saline at rate of 150 cc an hour Continue norepinephrine Broad-spectrum IV antibiotics with Zosyn and vancomycin Monitor lactic acid levels Check procalcitonin level Urine analysis and urine cultures Blood cultures x 2 Viral 4 Plex Continue amiodarone drip Involve medical oncology Check amylase and lipase Will need a CAT scan of the chest abdomen and pelvis once more stable. Keep the patient n.p.o. for now Condition is critical and will continue to follow make further recommendations based on the progress. Will establish lines. Evaluation was done and 60 minutes. Time with Patient: Greater than 30
--- NOTE | 2024-08-13 12:24 | P.PCN ---
Date of Procedure: 08/13/24 Preoperative Diagnosis: Septic shock Postoperative Diagnosis: Septic shock Procedure(s) Performed: Triple-lumen insertion, femoral Anesthesia: local Surgeon: Alona Strange Estimated Blood Loss (ml): 0 Pathology: other Condition: critical Disposition: ICU Operative Findings: Indication: Hemodynamic monitoring/Intravenous access. A time-out was completed verifying correct patient, procedure, site, positioning, and implant(s) or special equipment if applicable. The patient was placed in a dependent position appropriate for triple lumen catheter placement based on the vein to be cannulated. The patient's right femoral area was prepped and draped in sterile fashion. 1% Lidocaine was used to anesthetize the surrounding skin area. A triple lumen 9F Cordis catheter was introduced into the femoral vein using Seldinger technique. The catheter was threaded smoothly over the guide wire and appropriate blood return was obtained. Each lumen of the catheter was evacuated of air and flushed with sterile saline. The catheter was then sutured in place to the skin and a sterile dressing applied. Perfusion to the extremity distal to the point of catheter insertion was checked and found to be adequate.
[2024-08-13] MEDS: AMIODARONE 450 MG in DEXTROSE 5% IN WATER 250 ML IV SCH (13:14)
[2024-08-13 13:59] VITALS: BMI 23.3
[2024-08-13] MEDS: PIPERACILLIN-TAZOBACTAM 3.375 GM in SODIUM CHLORIDE 0.9% 100 ML IVPB SCH (14:12)
--- NOTE | 2024-08-13 14:30 | P.HPIM ---
History of Present Illness 89-year-old male came with increased shortness of breath hypoxemia and decreased level of consciousness and patient is presently on BiPAP at this time with FiO2 of 100% patient was also hypotensive presently on norepinephrine and also receiving normal saline at 150 cc/h had an episode of SVT was started on amiodarone drip. Patient source of sepsis is not clear at this time patient is on broad-spectrum antibiotics Zosyn and vancomycin urine analysis was not done yet chest x-ray showed cardiomegaly with diffuse interstitial changes and possible pulmonary edema small right-sided pleural effusion patient was started on empiric antibiotics waiting for pneumonia. Patient does complain of abdominal pain which is very nonspecific. Serum creatinine is 1.05. Patient has history of advanced COPD and had a left upper lobe mass of 1.1 cm suspicious for malignancy and is being worked up as an outpatient patient was diagnosed with non-Hodgkin's lymphoma recently, not yet started on chemotherapy. REVIEW OF SYSTEMS: All other systems are negative except those mentioned in the HPI PHYSICAL EXAMINATION: GENERAL: The patient is alert,Thin built cachectic, on BiPAP HEENT: Pupils are round and equally reacting to light. EOMI. No scleral icterus. No conjunctival pallor. Normocephalic, atraumatic. No pharyngeal erythema. No thyromegaly. CARDIOVASCULAR: S1 and S2 present. No murmurs, rubs, or gallops. PULMONARY: Significantly diminished air entry to bilateral lung gomez. ABDOMEN: Soft, nontender, nondistended, normoactive bowel sounds. No palpable organomegaly. MUSCULOSKELETAL: No joint swelling or deformity. EXTREMITIES: No cyanosis, clubbing, or pedal edema. NEUROLOGICAL: Gross neurological examination did not reveal any focal deficits. SKIN: No rashes. Assessment and plan -Shock possibly septic patient is on broad-spectrum antibiotics vancomycin and Zosyn source of sepsis is not clear, infectious disease will be consulted patient is on norepinephrine drip which will be continued -Acute renal failure possibly acute tubular necrosis serum creatinine is presently 1.1 expected to go up patient urine output is quite low today -Lactic acidosis secondary to severe sepsis-hyperkalemia secondary to acute renal failure and secondary to metabolic acidosis-acute hypoxic respiratory failure on BiPAP will obtain a proBNP patient is presently requiring IV fluids which will be continued -Advanced COPD -Non-Hodgkin's lymphoma -SVT for which patient is on amiodarone drip -Alcohol abuse and nicotine use -Moderate aortic stenosis -Hypertension patient is presently hypotensive -Hyperlipidemia -Hypothyroidism -History of bladder cancer in the past -Depression For above-mentioned chronic medical problems patient resumed on appropriate home medications DVT prophylaxis:, Subcutaneous heparin Past Medical History Past Medical History: Cancer, COPD, Hyperlipidemia, Hypertension, Thyroid Disorder Additional Past Medical History / Comment(s): bladder and lung cancer, had radiation tx. lower back pain. sciatic nerve to rt, anemia, Non-hodgkin lymphoma, aortic stenosis History of Any Multi-Drug Resistant Organisms: None Reported Past Surgical History: Bowel Resection Additional Past Surgical History / Comment(s): colonscopy, c2 fx no surgery. Past Anesthesia/Blood Transfusion Reactions: No Reported Reaction Past Psychological History: Depression Smoking Status: Former smoker Past Alcohol Use History: Daily Past Drug Use History: None Reported - Past Family History Mother Family Medical History: Congestive Heart Failure (CHF), Diabetes Mellitus Father Family Medical History: Coronary Artery Disease (CAD) Additional Family Medical History / Comment(s): emphysema and black lung Medications and Allergies Home Medications Medication Instructions Recorded Confirmed Type Primidone 50 mg PO HS 12/14/23 08/13/24 History Atorvastatin [Lipitor] 10 mg PO HS 04/11/24 08/13/24 History Citalopram Hydrobromide [CeleXA] 20 mg PO DAILY 04/11/24 08/13/24 History Epoetin Yoav-Epbx [Retacrit] 20,000 unit SQ TH 04/11/24 08/13/24 History Losartan [Cozaar] 25 mg PO DAILY 04/11/24 08/13/24 History Cyproheptadine [Cyproheptadine HCl] 2 mg PO BID 08/13/24 08/13/24 History Ferrous Sulfate [Feosol] 325 mg PO DAILY 08/13/24 08/13/24 History Levothyroxine Sodium [Synthroid] 25 mcg PO DAILY 08/13/24 08/13/24 History Magnesium Oxide [Mag-Ox] 400 mg PO DAILY 08/13/24 08/13/24 History Multivit-Mins/Iron/Folic/Lycop 1 tab PO DAILY 08/13/24 08/13/24 History [Centrum Men's Tablet] Allergies Allergy/AdvReac Type Severity Reaction Status Date / Time bee venom protein (honey bee) Allergy Anaphylaxis Verified 02/18/25 10:03 Physical Exam Vitals: Vital Signs Temp Pulse Resp BP Pulse Ox FiO2 08/13/24 13:15 97 25 H 104/88 08/13/24 13:00 30 H 103/89 08/13/24 12:45 89 22 98/82 08/13/24 12:42 96 08/13/24 12:30 89 22 98/64 08/13/24 12:24 89 100 08/13/24 12:15 89 20 102/69 08/13/24 12:00 91 22 108/86 100 08/13/24 11:45 97 25 H 102/70 08/13/24 11:30 96 24 73/60 08/13/24 11:15 98 26 H 96/80 08/13/24 11:00 96 26 H 89/44 08/13/24 10:45 95 21 86/63 08/13/24 10:30 92 17 92/70 08/13/24 10:15 92 19 75/60 08/13/24 10:00 94 20 76/59 08/13/24 09:45 104 H 21 78/57 08/13/24 09:30 108 H 25 H 89/78 98 08/13/24 09:15 110 H 26 H 98/69 08/13/24 09:00 112 H 25 H 93/78 08/13/24 08:45 114 H 26 H 105/92 90 08/13/24 08:44 115 H 08/13/24 08:43 115 H 08/13/24 08:30 118 H 26 H 90/56 08/13/24 08:29 118 H 08/13/24 08:16 100 08/13/24 08:15 126 H 34 H 58/44 08/13/24 08:00 97.2 F L 129 H 30 H 89/71 80 08/13/24 07:45 130 H 33 H 97/75 08/13/24 07:30 141 H 34 H 136/89 08/13/24 07:15 158 H 34 H 140/93 08/13/24 07:00 152 H 33 H 138/120 75 L 90 08/13/24 06:52 97.2 F L 156 H 34 H 138/120 82 L 70 08/13/24 06:29 120 H 24 86/56 100 08/13/24 06:00 118 H 27 H 71/52 100 08/13/24 05:45 109 H 30 H 68/53 99 08/13/24 05:30 112 H 22 68/53 97 08/13/24 05:25 109 H 08/13/24 05:19 70 08/13/24 05:15 109 H 35 H 67/55 100 08/13/24 05:07 107 H 08/13/24 05:00 109 H 33 H 79/50 100 08/13/24 04:45 112 H 25 H 69/43 98 08/13/24 04:25 117 H 36 H 76/54 100 08/13/24 04:00 117 H 28 H 86/61 98 08/13/24 03:52 133 H 08/13/24 03:44 128 H 31 H 98 08/13/24 03:34 100 08/13/24 03:31 151 H 40 H 115/92 08/13/24 03:29 40 H 08/13/24 03:28 154 H 08/13/24 03:23 100 08/13/24 03:19 165 H 40 H 138/100 08/13/24 03:16 97.7 F 170 H 38 H 147/116 76 L Intake and Output 08/12/24 08/13/24 08/13/24 22:59 06:59 14:59 Intake Total 1425.908 Output Total 150 Balance 1275.908 Intake: Intake, IV Titration 1425.908 Amount Dextrose 5%-0.45% NaCl 1, 100 000 ml @ 100 mls/hr IV . Q10H [facility] Rx#:[id number] Norepinephrine 4 mg In 225.908 Sodium Chloride 0.9% 250 ml @ 0.03 MCG/KG/MIN 7. 518 mls/hr IV .Q24H [facility] Rx#:[id number] Sodium Chloride 0.9% 1, 600 000 ml @ 150 mls/hr IV . Q6H40M [facility] Rx#:[id number] Vancomycin 1,500 mg In 500 Sodium Chloride 0.9% 500 ml 500 ml @ 167 mls/hr IVPB ONCE [facility] Rx#: [id number] Output: Urine 150 Other: Voiding Method Indwelling Catheter Weight 65.771 kg 65.771 kg Results CBC & Chem 7: 08/13/24 03:28 08/13/24 03:28 Labs: Abnormal Lab Results - Last 24 Hours (Table) 08/13/24 08/13/24 08/13/24 Range/Units 03:28 03: 03:28 RBC 2.17 L (4.30-5.90) m/uL Hgb 8.4 L (13.0-17.5) gm/dL Hct 26.0 L (39.0-53.0) % MCV 119.9 H (80.0-100.0) fL MCH 38.9 H (25.0-35.0) pg RDW 16.8 H (11.5-15.5) % Metamyelocytes # (Man) 0.07 H (0) k/uL Macrocytosis Marked A D-Dimer (<0.60) mg/L FEU ABG pCO2 (35-45) mmHg ABG pO2 (83-108) mmHg ABG HCO3 (21-25) mmol/L ABG Total CO2 (19-24) mmol/L ABG O2 Saturation (94-97) % Sodium 133 L (137-145) mmol/L Potassium 5.3 H (3.5-5.1) mmol/L Carbon Dioxide 11 L (22-30) mmol/L Glucose 202 H (74-99) mg/dL POC Glucose (mg/dL) (70-110) mg/dL Plasma Lactic Acid Rex 9.0 H* (0.7-2.0) mmol/L Troponin I (0.000-0.034) ng/mL Albumin 3.3 L (3.5-5.0) g/dL 08/13/24 08/13/24 08/13/24 Range/Units 03:28 03:28 05:11 RBC (4.30-5.90) m/uL Hgb (13.0-17.5) gm/dL Hct (39.0-53.0) % MCV (80.0-100.0) fL MCH (25.0-35.0) pg RDW (11.5-15.5) % Metamyelocytes # (Man) (0) k/uL Macrocytosis D-Dimer 12.47 H (<0.60) mg/L FEU ABG pCO2 28 L (35-45) mmHg ABG pO2 191 H (83-108) mmHg ABG HCO3 18 L (21-25) mmol/L ABG Total CO2 18 L (19-24) mmol/L ABG O2 Saturation 99.9 H (94-97) % Sodium (137-145) mmol/L Potassium (3.5-5.1) mmol/L Carbon Dioxide (22-30) mmol/L Glucose (74-99) mg/dL POC Glucose (mg/dL) (70-110) mg/dL Plasma Lactic Acid Rex (0.7-2.0) mmol/L Troponin I 0.136 H* (0.000-0.034) ng/mL Albumin (3.5-5.0) g/dL 08/13/24 08/13/24 08/13/24 Range/Units 06:22 06:52 09:12 RBC (4.30-5.90) m/uL Hgb (13.0-17.5) gm/dL Hct (39.0-53.0) % MCV (80.0-100.0) fL MCH (25.0-35.0) pg RDW (11.5-15.5) % Metamyelocytes # (Man) (0) k/uL Macrocytosis D-Dimer (<0.60) mg/L FEU ABG pCO2 (35-45) mmHg ABG pO2 (83-108) mmHg ABG HCO3 (21-25) mmol/L ABG Total CO2 (19-24) mmol/L ABG O2 Saturation (94-97) % Sodium (137-145) mmol/L Potassium (3.5-5.1) mmol/L Carbon Dioxide (22-30) mmol/L Glucose (74-99) mg/dL POC Glucose (mg/dL) 168 H (70-110) mg/dL Plasma Lactic Acid Rex 4.2 H* 7.4 H* (0.7-2.0) mmol/L Troponin I (0.000-0.034) ng/mL Albumin (3.5-5.0) g/dL
[2024-08-13] MEDS: NOREPINEPHRINE 8 MG in SODIUM CHLORIDE 0.9% 250 ML IV SCH (16:18)
[2024-08-13 16:37] LABS: Amylase 86 U/L (30-110); Lipase 131 U/L (23-300)
[2024-08-13 17:12] LABS: Appearance,Urine Cloudy (Clear); Bilirubin,Urine Negative (Negative); Blood,Urine Trace (Negative); Color,Urine Yellow; Glucose,Urine (UA) Negative (Negative); Hyaline Casts,Urine 5 /lpf (0-2); Ketones,Urine Negative (Negative); Leukocyte Esterase,Urine Large (Negative); Mucus,Urine Rare /hpf; Nitrite,Urine Positive (Negative); Protein,Urine 1+ (Negative); RBC,Urine 16 /hpf (0-5); WBC,Urine >182 /hpf (0-5)
[2024-08-13] MEDS: DEXMEDETOMIDINE/0.9% NACL(PMX) 400 MCG in EMPTY BAG 1 BAG IV SCH (21:14)
[2024-08-13] MEDS: FUROSEMIDE 10 MG/ML 10 ML VIAL IV STA (21:41)
[2024-08-13 23:26] LABS: Glucose,Whole Blood 183 mg/dL (70-110)
[2024-08-14] MEDS: VASOPRESSIN 60 UNIT in SODIUM CHLORIDE 0.9% 150 ML IV SCH (00:23)
[2024-08-14 06:54] LABS: African American GFR (CKD) 41 (>60 ml/min/1.73 sqM); Alkaline Phosphatase 77 U/L (38-126); Blood Urea Nitrogen 22 mg/dL (9-20); Calcium 7.5 mg/dL (8.4-10.2); Chloride 109 mmol/L (98-107); Glucose 103 mg/dL (74-99); Non-African American GFR(CKD) 35 (>60 ml/min/1.73 sqM); Phosphorus 8.7 mg/dL (2.5-4.5); Sodium 134 mmol/L (137-145); Total Bilirubin 1.7 mg/dL (0.2-1.3)
[2024-08-14 07:43] LABS: Carbon Dioxide <5 mmol/L (22-30); Potassium 6.7 mmol/L (3.5-5.1)
[2024-08-14 07:46] LABS: ALT 1624 U/L (4-49); AST >750 U/L (17-59)
[2024-08-14 08:00] LABS: Anisocytosis Slight; Basophils # (A) 0.1 k/uL (0-0.2); Basophils % (A) 1 %; Eosinophils % (A) 0 %; HGB 7.9 gm/dL (13.0-17.5); Hypochromasia Marked; Lymphocytes # (A) 1.5 k/uL (1.0-4.8); Lymphocytes % (A) 8 %; MCH 38.1 pg (25.0-35.0); MCHC 30.2 g/dL (31.0-37.0); Macrocytosis Marked; Mean Platelet Volume 9.4; Monocytes # (A) 1.3 k/uL (0-1.0); Monocytes % (A) 6 %; Neutrophils % (A) 81 %; Platelet Count 271 k/uL (150-450); RBC 2.06 m/uL (4.30-5.90); RDW 16.9 % (11.5-15.5); WBC 19.7 k/uL (3.8-10.6)
--- NOTE | 2024-08-14 08:13 | XR ---
EXAMINATION TYPE: XR chest 1V portable DATE OF EXAM: 08/14/2024 5:27 AM COMPARISON: Chest radiographs from 08/13/2024 TECHNIQUE: XR chest 1V portable Portable AP radiograph of the chest. CLINICAL INDICATION:Male, 89 years old with history of pneumonia; FINDINGS: The patient is rotated which limits evaluation. Lungs/Pleura: Blunting of both costophrenic angles with right greater than left. Similar right basila r patchy airspace opacities. Diffuse interstitial prominence redemonstrated. Heart/mediastinum: Cardiomediastinal silhouette is enlarged and stable. Musculoskeletal: No acute osseous pathology. IMPRESSION: 1. Similar right basilar airspace opacities with small bilateral pleural effusions right greater montrell n left. Findings are suspicious for pneumonia. 2. Similar diffuse interstitial prominence which may represent underlying interstitial pulmonary [email or web address], , 08/14/2024 8:11 AM
[2024-08-14] MEDS: SODIUM BICARB 8.4% 50 ML SYR (1 MEQ/ML) IV STA ×2 (08:28→08:57)
[2024-08-14] MEDS: INSULIN REGULAR 100 UNIT/ML VIAL (IV) IV ONE (08:35)
[2024-08-14] MEDS: DEXTROSE 50% SYRINGE 50 ML IVP ONE (08:35)
[2024-08-14] MEDS: CALCIUM GLUCONATE IN NACL 1 GM in SALINE 1 100ML.BAG IVPB ONE (08:36)
--- NOTE | 2024-08-14 08:38 | P.CONS ---
History of Present Illness - Reason for Consult Consult date: 08/13/24 Sepsis, unclear source Requesting physician: Shawnee Marshall - Chief Complaint Shortness of breath x few days - History of Present Illness Patient is a 89-year-old male with a past medical history significant for COPD hypertension hyperlipidemia thyroid disorder non-Hodgkin lymphoma patient was brought into the hospital for evaluation of increasing shortness of breath and decreased level of consciousness and this patient symptom apparently has been getting worse for the last few days patient denies high-grade fever did have some chills denies chest pain he did have some cough but not bring up any sputum patient denies any nausea vomiting abdominal pain or diarrhea and no urinary symptoms on presentation to the hospital patient was afebrile and no fev er have recorded subsequently patient was tachycardic on presentation to the hospital and also hypotensive requiring pressor support and admission to the ICU patient is currently on a BiPAP requiring 100% FiO2 did have a white count of 7.3 creatinine 1.05 elevated lactic acid of 10.9 urine has been positive did have a chest x-ray cardiomegaly diffuse attritional changes asymmetric right lung airspace disease patient tested negative for influenza RSV and COVID patient was started on vancomycin and Zosyn infectious he was consulted regarding sepsis and unclear source Review of Systems Positive point and negatives has been mentioned in the HPI, complete review of systems was performed and all other systems are negative Past Medical History Past Medical History: Cancer, COPD, Hyperlipidemia, Hypertension, Thyroid Disorder Additional Past Medical History / Comment(s): bladder and lung cancer, had r adiation tx. lower back pain. sciatic nerve to rt, anemia, Non-hodgkin lymphoma, aortic stenosis History of Any Multi-Drug Resistant Organisms: None Reported Past Surgical History: Bowel Resection Additional Past Surgical History / Comment(s): colonscopy, c2 fx no surgery. Past Anesthesia/Blood Transfusion Reactions: No Reported Reaction Past Psychological History: Depression Smoking Status: Former smoker Past Alcohol Use History: Daily Additional Past Alcohol Use History / Comment(s): smokes since 18 yrs ago. 1ppd. > 14 drinks in week. beer and whiskey Past Drug Use History: None Reported - Past Family History Mother Family Medical History: Congestive Heart Failure (CHF), Diabetes Mellitus Father Family Medical History: Coronary Artery Disease (CAD) Additional Family Medical History / Comment(s): emphysema and black lung Medications and Allergies Home Medications Medication Instructions Recorded Confirmed Type Primidone 50 mg PO HS 12/14/23 08/13/24 History Atorvastatin [Lipitor] 10 mg PO HS 04/11/24 08/13/24 History Citalopram Hydrobromide [CeleXA] 20 mg PO DAILY 04/11/24 08/13/24 History Epoetin Yoav-Epbx [Retacrit] 20,000 unit SQ TH 04/11/24 08/13/24 History Losartan [Cozaar] 25 mg PO DAILY 04/11/24 08/13/24 History Cyproheptadine [Cyproheptadine HCl] 2 mg PO BID 08/13/24 08/13/24 History Ferrous Sulfate [Feosol] 325 mg PO DAILY 08/13/24 08/13/24 History Levothyroxine Sodium [Synthroid] 25 mcg PO DAILY 08/13/24 08/13/24 History Magnesium Oxide [Mag-Ox] 400 mg PO DAILY 08/13/24 08/13/24 History Multivit-Mins/Iron/Folic/Lycop 1 tab PO DAILY 08/13/24 08/13/24 History [Centrum Men's Tablet] Allergies Allergy/AdvReac Type Severity Reaction Status Date / Time bee venom protein (honey bee) Allergy Anaphylaxis Verified 08/13/24 10:03 Physical Exam Vitals: Vital Signs Temp Pulse Resp BP Pulse Ox FiO2 08/13/24 14:30 86 17 114/78 08/13/24 14:15 89 18 111/83 08/13/24 14:00 97.8 F 89 21 90/70 98 100 08/13/24 13:45 90 20 74/38 08/13/24 13:30 93 28 H 121/93 08/13/24 13:15 97 25 H 104/88 08/13/24 13:00 30 H 103/89 08/13/24 12:45 89 22 98/82 08/13/24 12:42 96 08/13/24 12:30 89 22 98/64 08/13/24 12:24 89 100 08/13/24 12:15 89 20 102/69 08/13/24 12:00 91 22 108/86 100 08/13/24 11:45 97 25 H 102/70 08/13/24 11:30 96 24 73/60 08/13/24 11:15 98 26 H 96/80 08/13/24 11:00 96 26 H 89/44 08/13/24 10:45 95 21 86/63 08/13/24 10:30 92 17 92/70 08/13/24 10:15 92 19 75/60 08/13/24 10:00 94 20 76/59 08/13/24 09:45 104 H 21 78/57 08/13/24 09:30 108 H 25 H 89/78 98 08/13/24 09:15 110 H 26 H 98/69 08/13/24 09:00 112 H 25 H 93/78 08/13/24 08:45 114 H 26 H 105/92 90 08/13/24 08:44 115 H 08/13/24 08:43 115 H 08/13/24 08:30 118 H 26 H 90/56 08/13/24 08:29 118 H 08/13/24 08:16 100 08/13/24 08:15 126 H 34 H 58/44 08/13/24 08:00 97.2 F L 129 H 30 H 89/71 80 08/13/24 07:45 130 H 33 H 97/75 08/13/24 07:30 141 H 34 H 136/89 08/13/24 07:15 158 H 34 H 140/93 08/13/24 07:00 152 H 33 H 138/120 75 L 90 08/13/24 06:52 97.2 F L 156 H 34 H 138/120 82 L 70 08/13/24 06:29 120 H 24 86/56 100 08/13/24 06:00 118 H 27 H 71/52 100 08/13/24 05:45 109 H 30 H 68/53 99 08/13/24 05:30 112 H 22 68/53 97 08/13/24 05:25 109 H 08/13/24 05:19 70 08/13/24 05:15 109 H 35 H 67/55 100 08/13/24 05:07 107 H 08/13/24 05:00 109 H 33 H 79/50 100 08/13/24 04:45 112 H 25 H 69/43 98 08/13/24 04:25 117 H 36 H 76/54 100 08/13/24 04:00 117 H 28 H 86/61 98 08/13/24 03:52 133 H 08/13/24 03:44 128 H 31 H 98 08/13/24 03:34 100 08/13/24 03:31 151 H 40 H 115/92 08/13/24 03:29 40 H 08/13/24 03:28 154 H 08/13/24 03:23 100 08/13/24 03:19 165 H 40 H 138/100 08/13/24 03:16 97.7 F 170 H 38 H 147/116 76 L Intake and Output 08/12/24 08/13/24 08/13/24 22:59 06:59 14:59 Intake Total 1675.908 Output Total 155 Balance 1520.908 Intake: Intake, IV Titration 1675.908 Amount Dextrose 5%-0.45% NaCl 1, 100 000 ml @ 100 mls/hr IV . Q10H [facility] Rx#:[id number] Norepinephrine 4 mg In 225.908 Sodium Chloride 0.9% 250 ml @ 0.03 MCG/KG/MIN 7. 518 mls/hr IV .Q24H [facility] Rx#:[id number] Piperacillin-Tazobactam 3 100 .375 gm In Sodium Chloride 0.9% 100 ml @ 25 mls/hr IVPB Q8H [facility] Rx#: [id number] Sodium Chloride 0.9% 1, 750 000 ml @ 150 mls/hr IV . Q6H40M [facility] Rx#:[id number] Vancomycin 1,500 mg In 500 Sodium Chloride 0.9% 500 ml 500 ml @ 167 mls/hr IVPB [facility] Rx#: [id number] Output: Urine 155 Other: Voiding Method Indwelling Catheter Weight 65.771 kg 65.771 kg GENERAL DESCRIPTION: Elderly male lying in bed, mild distress. No tachypnea or accessory muscle of respiration use. HEENT: Shows Pallor , no scleral icterus. Oral cavity could not be damaged bec ause of the BiPAP NECK: Trachea central, no thyromegaly. LUNGS: Unlabored breathing. Coarse breath sounds HEART: S1, S2, regular rate and rhythm. No loud murmur ABDOMEN: Soft, no tenderness , EXTREMITIES: No edema of feet. SKIN: No rash, no masses palpable. NEUROLOGICAL: The patient is lethargic but arousable, mood and affect normal. Results CBC & Chem 7: 08/14/24 06:09 08/14/24 06:09 Labs: Abnormal Lab Results - Last 24 Hours (Table) 08/13/24 08/13/24 08/13/24 Range/Units 03: 03: 03:28 RBC 2.17 L (4.30-5.90) m/uL Hgb 8.4 L (13.0-17.5) gm/dL Hct 26.0 L (39.0-53.0) % MCV 119.9 H (80.0-100.0) fL MCH 38.9 H (25.0-35.0) pg RDW 16.8 H (11.5-15.5) % Metamyelocytes # (Man) 0.07 H (0) k/uL Macrocytosis Marked A D-Dimer (<0.60) mg/L FEU ABG pCO2 (35-45) mmHg ABG pO2 (83-108) mmHg ABG HCO3 (21-25) mmol/L ABG Total CO2 (19-24) mmol/L ABG O2 Saturation (94-97) % Sodium 133 L (137-145) mmol/L Potassium 5.3 H (3.5-5.1) mmol/L Carbon Dioxide 11 L (22-30) mmol/L Glucose 202 H (74-99) mg/dL POC Glucose (mg/dL) (70-110) mg/dL Plasma Lactic Acid Rex 9.0 H* (0.7-2.0) mmol/L Troponin I (0.000-0.034) ng/mL Albumin 3.3 L (3.5-5.0) g/dL 08/13/24 08/13/24 08/13/24 Range/Units 03: 03:28 05:11 RBC (4.30-5.90) m/uL Hgb (13.0-17.5) gm/dL Hct (39.0-53.0) % MCV (80.0-100.0) fL MCH (25.0-35.0) pg RDW (11.5-15.5) % Metamyelocytes # (Man) (0) k/uL Macrocytosis D-Dimer 12.47 H (<0.60) mg/L FEU ABG pCO2 28 L (35-45) mmHg ABG pO2 191 H (83-108) mmHg ABG HCO3 18 L (21-25) mmol/L ABG Total CO2 18 L (19-24) mmol/L ABG O2 Saturation 99.9 H (94-97) % Sodium (137-145) mmol/L Potassium (3.5-5.1) mmol/L Carbon Dioxide (22-30) mmol/L Glucose (74-99) mg/dL POC Glucose (mg/dL) (70-110) mg/dL Plasma Lactic Acid Rex (0.7-2.0) mmol/L Troponin I 0.136 H* (0.000-0.034) ng/mL Albumin (3.5-5.0) g/dL 08/13/24 08/13/24 08/13/24 Range/Units 06:22 06:52 09:12 RBC (4.30-5.90) m/uL Hgb (13.0-17.5) gm/dL Hct (39.0-53.0) % MCV (80.0-100.0) fL MCH (25.0-35.0) pg RDW (11.5-15.5) % Metamyelocytes # (Man) (0) k/uL Macrocytosis D-Dimer (<0.60) mg/L FEU ABG pCO2 (35-45) mmHg ABG pO2 (83-108) mmHg ABG HCO3 (21-25) mmol/L ABG Total CO2 (19-24) mmol/L ABG O2 Saturation (94-97) % Sodium (137-145) mmol/L Potassium (3.5-5.1) mmol/L Carbon Dioxide (22-30) mmol/L Glucose (74-99) mg/dL POC Glucose (mg/dL) 168 H (70-110) mg/dL Plasma Lactic Acid Rex 4.2 H* 7.4 H* (0.7-2.0) mmol/L Troponin I (0.000-0.034) ng/mL Albumin (3.5-5.0) g/dL Assessment and Plan (1) Sepsis Current Visit: Yes Status: Acute Code(s): A41.9 - SEPSIS, UNSPECIFIED ORGANISM SNOMED Code(s): 38108443 (2) Pneumonia Current Visit: Yes Status: Acute Code(s): J18.9 - PNEUMONIA, UNSPECIFIED ORGANISM SNOMED Code(s): 356506878 Plan: 1patient presented hospital with sepsis/septic shock in this patient who did have a tachycardia hypotension requiring pressor support as well as elevated lactic acid concerning for possible pneumonia underlying abdominal source not entirely excluded. 2try to obtain a sputum for Gram stain and culture, still waiting for UA to be reported. 3once his condition stabilizes we will obtain CT of abdominal pelvis to make sure no evidence of any intra-abdominal source keeping in mind his non-Hodgkin lymphoma involving his abdominal organ 4-patient is broadly covered with vancomycin and Zosyn to continue however need to monitor his kidney function closely with his antibiotic combination and may need to adjust if any worsening of the kidney function Family at the bedside multiple question concern answered We will follow on clinical condition and cultures to further adjust medication if needed Thank you for this consultation we will follow the patient along with you Dictation was produced using [employer] dictation software. please excuse any grammatical, word or spelling errors. Time with Patient: Greater than 30
[2024-08-14] MEDS ORDERED: AZITHROMYCIN 500 MG in SODIUM CHLORIDE 0.9% 250 ML IVPB SCH (09:00)
[2024-08-14] MEDS ORDERED: VANCOMYCIN 1,250 MG in SODIUM CHLORIDE 0.9% 250 ML IVPB SCH (09:00)
[2024-08-14] MEDS: DEXTROSE 5% IN WATER 1,000 ML with SODIUM BICARB (1 MEQ/ML) 150 ML IV SCH (09:14)
[2024-08-14] MEDS: LINEZOLID 600 MG in DEXTROSE/WATER 1 300ML.BAG IVPB SCH (09:14)
[2024-08-14] MEDS: SODIUM ZIRCONIUM CYCLOSILICATE 10 GM PACKET PO ONE (11:48)
[2024-08-14 13:26] LABS: African American GFR (CKD) 38 (>60 ml/min/1.73 sqM); Anion Gap 19 mmol/L; Blood Urea Nitrogen 26 mg/dL (9-20); Calcium 7.2 mg/dL (8.4-10.2); Carbon Dioxide 12 mmol/L (22-30); Chloride 107 mmol/L (98-107); Glucose 197 mg/dL (74-99); Non-African American GFR(CKD) 33 (>60 ml/min/1.73 sqM); Sodium 138 mmol/L (137-145)
--- NOTE | 2024-08-14 16:00 | P.PN ---
Subjective Progress Note Date: 08/14/24 89-year-old male patient, brought into the emergency department because of increased shortness of breath, hypoxemia, diminished level of consciousness, and the patient was subsequently transferred to the intensive care unit. At the time of my arrival to the ICU, the patient was quite lethargic, arousable, maintained on the BiPAP at a pressure of 12 over 6 cm of water and FiO2 of 100%. The patient was hemodynamically unstable. He was running high dose pressors and the patient is on norepinephrine running at 0.35 mcg/kg/min. He received a total of 2 L of normal saline and 1 L of lactated Ringer and the patient was on D5 half-normal saline at rate of 100 cc an hour. At the same time, the patient was maintained on a BiPAP. He did encounter a episode of SVT, started on amiodarone drip and currently amiodarone running at 1 mg/min and the patient's rhythm is sinus tachycardia. In terms of his blood work, the patient was found to have a white cell count of 7.3 with a hemoglobin 8.4 and a platelet count of 333. Initial lactic acid level was 9.0 dropped down to 4.2 with fluid resuscitation. Serum bicarb was 11 and the patient had an anion gap metabolic acidosis. Sodium levels at 133 with a potassium level of 5.3. BUN was 14 with a creatinine of 1.05. LFTs are normal. Troponin was 0.136. proBNP level was 1070. Albumin level is at 3.3. Urinalysis and urine cultures were not done. Blood cultures were not done. The patient was given broad-spectrum IV antibiotics and the patient is currently on a combination of Zosyn and vancomycin. I had a nice discussion with the patient's family. The niece and her arrived to the intensive care unit. The patient is known to have advanced COPD and the patient has been followed up in our office. At the same time, the patient was being worked up for a left upper lobe mass measuring 1.1 cm in size that was suspicious for malignancy. However, no further diagnostics were done based on his advanced lung disease and poor baseline performance and functional status. Furthermore, a PET/CT that was done back in 2023 showed intense metabolic activity in the right upper quadrant and the patient had a lesion in the IVC area with an SUV of 20. The right-sided adrenal gland was within normal limits. This may be a large retrocaval lymph node. At the same time, the PET scan showed a left upper lobe opacity with an SUV of 2.5 with punctate areas of more intense activity with an SUV of 4.5. There is also some activity anterior mediastinum with an SUV of 5 and couple of smaller lymph nodes in the left intramedullary lesion with an SUV of 3.6. This was worked up through [facility]. Fine-needle aspirate of the lymph node in the right upper quadrant was consistent with non-Hodgkin's lymphoma. He was supposed to start systemic chemotherapy on outpatient basis and treatment has not been initiated. He was being followed up by medical oncology. He also has other comorbidities including history of smoking, history of alcoholism, moderate degree of aortic stenosis based on previous echocardiograms, hypertension hyperlipidemia and hypothyroidism and previous history of bladder cancer. On 08/14/2024, the patient is still on a BiPAP pressure of 12/6 with an FiO2 of 100%. He is arousable. He is following some simple commands. Nevertheless, he continues to be profoundly septic. This morning, the patient is off Precedex. Lethargic yet arousable. He remains hemodynamically unstable. Remains on no repinephrine which is running at 0.45 mcg/kg/min and the patient is also on vasopressin at 0.03 units. Urine output is noted of 5 cc an hour. The patient is currently on a bicarb infusion which is running at the rate of 150 cc an hour. Cardiac rhythm is sinus. Chest x-ray shows development of bilateral pleural effusion and possibly right lower lobe consolidation. He remains on amiodarone drip at 0.5 mg/min. Follow-up labs from today showed significant abnormalities. Of concern is the leukocytosis and the patient was seconds at 19.7 with a heme of 7.9 and platelet count of 271. The patient sodium level from this morning was 134 and a potassium level was at 6.7 and a serum bicarb was less than 5. BUN was 22 with a creatinine of 1.7 and the lactic acid was still elevated 11.3. BUN was 22 and the creatinine was at 1.7. Phosphorus level is at 8.7. Magnesium level is at 2 and the bilirubin is at 1.7 total with an AST of more than 750 and ALT of 1624. Amylase and lipase were nonelevated. Cultures are still pending. Blood cultures and sputum cultures were sent earlier and there is no growth for the time being. The patient remains on broad-spectrum antibiotics. The patient remains on a combination of Zosyn and Zyvox. ID is on the case. Patient's hyperkalemia was already treated. The patient received a total of 4 doses of IV sodium bicarb, 50 mill equivalents each and the patient was given D50 along with 10 units of insulin and the patient was also given calcium gluconate. Currently on a bicarb infusion. Follow-up blood work showed a sodium level of 138, potassium was down to 6, serum bicarb was up to 12, BUN 26 with a creatinine of 1.8. Most recent lactic acid level is down to 10.7. Family was brought into the hospital and was given a full explanation of his current condition and poor prognosis. ID still on the case. Exact source of infection is not clear. Could be pneumonia. Underlying urine tract infection with secondary sepsis cannot be completely ruled out. Objective - Vital Signs Vital signs: Vital Signs Temp 97.8 F 08/14/24 08:00 Pulse 90 08/14/24 14:00 Resp 26 H 08/14/24 14:00 BP 137/75 08/14/24 14:00 Pulse Ox 98 08/14/24 08:00 FiO2 100 08/14/24 12:05 Intake & Output 08/13/24 08/14/24 08/14/24 18:59 06:59 18:59 Intake Total 2295.253 2518.750 1673.466 Output Total 185 100 110 Balance 2110.253 2418.750 1563.466 Weight 65.771 kg 66.5 kg Intake: Intake, IV Titration 2295.253 2518.750 1673.466 Amount Amiodarone 450 mg In 230.56 Dextrose 5% in Water 250 ml @ 0.5 MG/MIN 16.667 mls/hr IV .Q15H [facility] Rx#: [id number] Calcium Gluconate in NaCl 100 1 gm In Saline 1 100ml. bag @ 400 mls/hr IVPB ONCE ONE Rx#:[id number] Dexmedetomidine/0.9% NaCl 61.031 (Pmx) 400 mcg In Empty Bag 1 bag @ 0.2 MCG/KG/HR 3.289 mls/hr IV .Q24H [facility] Rx#:[id number] Dextrose 5% in Water 1, 500 000 ml @ 100 mls/hr IV . [id number] [facility] with Sodium Bicarb (1 Meq/ml) 150 ml Rx#:[id number] Dextrose 5%-0.45% NaCl 1, 100 000 ml @ 100 mls/hr IV . Q10H [facility] Rx#:[id number] Linezolid 600 mg In 300 Dextrose/Water 1 300ml. bag @ 150 mls/hr IVPB Q12HR [facility] Rx#:[id number] Norepinephrine 4 mg In 225.908 Sodium Chloride 0.9% 250 ml @ 0.03 MCG/KG/MIN 7. 518 mls/hr IV .Q24H [facility] Rx#:[id number] Norepinephrine 8 mg In 19.345 427.159 310.073 Sodium Chloride 0.9% 250 ml @ 0.03 MCG/KG/MIN 3. 818 mls/hr IV .Q24H [facility] Rx#:[id number] Piperacillin-Tazobactam 3 100 100 .375 gm In Sodium Chloride 0.9% 100 ml @ 25 mls/hr IVPB Q8H [facility] Rx#: [id number] Sodium Chloride 0.9% 1, 1350 1500 300 000 ml @ 150 mls/hr IV . Q6H40M [facility] Rx#:[id number] Vancomycin 1,500 mg In 500 Sodium Chloride 0.9% 500 ml 500 ml @ 167 mls/hr IVPB ONCE ONE Rx#: [id number] Vasopressin 60 unit In 300 63.393 Sodium Chloride 0.9% 150 ml @ 0.03 UNITS/MIN 4.59 mls/hr IV .Q24H [facility] Rx#: [id number] Output: Urine 185 100 110 Other: Voiding Method Indwelling Catheter Indwelling Catheter Indwelling Catheter - Exam 9 the patient appeared well nourished and normally developed. Vital signs as documented. The patient is elderly, labored breathing and the patient is currently on a BiPAP pressures of 12 over 6 cm with an FiO2 of 100%. Breathing is labored. Head exam is unremarkable. No scleral icterus or corneal arcus noted. Neck is without jugular venous distension, thyromegaly, or carotid bruits. Carotid upstrokes are brisk bilaterally. Lungs diminished breath sound bilaterally and scattered expiratory wheezes heard throughout the lung gomez. Cardiac exam reveals the PMI to be normally sized and situated. Rhythm is regul ar. First and second heart sounds normal. No murmurs, rubs or gallops. Patient is tachycardic and the patient is currently in sinus tachycardia Abdominal exam reveals normal bowel sounds, no masses, no organomegaly and no aortic enlargement. Extremities are nonedematous and both femoral and pedal pulses are quite diminished and the skin is mottled lower extremities bilaterally. Unable to obtain palpable pulses in the lower extremity. Positive Doppler signals. Examination of the skin revealed no evidence of significant rashes, suspicious appearing nevi or other concerning lesions. Neurologically, the patient is awake and has diminished level of consciousness. Able to move all extremities. Cranial nerves are intact. - Labs CBC & Chem 7: 08/14/24 06:09 08/14/24 12:48 Labs: Abnormal Lab Results - Last 24 Hours (Table) 08/13/24 08/13/24 08/13/24 Range/Units 09:39 23:15 23:24 WBC (3.8-10.6) k/uL RBC (4.30-5.90) m/uL Hgb (13.0-17.5) gm/dL Hct (39.0-53.0) % MCV (80.0-100.0) fL MCH (25.0-35.0) pg MCHC (31.0-37.0) g/dL RDW (11.5-15.5) % Neutrophils # (1.3-7.7) k/uL Monocytes # (0-1.0) k/uL Macrocytosis Sodium (137-145) mmol/L Potassium (3.5-5.1) mmol/L Chloride (98-107) mmol/L Carbon Dioxide (22-30) mmol/L BUN (9-20) mg/dL Creatinine (0.66-1.25) mg/dL Glucose (74-99) mg/dL POC Glucose (mg/dL) 183 H (70-110) mg/dL Plasma Lactic Acid Rex 10.9 H* (0.7-2.0) mmol/L Calcium (8.4-10.2) mg/dL Phosphorus (2.5-4.5) mg/dL Total Bilirubin (0.2-1.3) mg/dL AST (17-59) U/L ALT (4-49) U/L Total Protein (6.3-8.2) g/dL Albumin (3.5-5.0) g/dL Urine Protein 1+ H (Negative) Urine Blood Trace H (Negative) Ur Leukocyte Esterase Large H (Negative) Urine RBC 16 H (0-5) /hpf Urine WBC >182 H (0-5) /hpf Urine WBC Clumps Few H (None) /hpf Hyaline Casts 5 H (0-2) /lpf Urine Mucus Rare H (None) /hpf 08/14/24 08/14/24 08/14/24 Range/Units 06:09 06:09 06:09 WBC 19.7 H (3.8-10.6) k/uL RBC 2.06 L (4.30-5.90) m/uL Hgb 7.9 L (13.0-17.5) gm/dL Hct 26.0 L (39.0-53.0) % MCV 126.0 H D (80.0-100.0) fL MCH 38.1 H (25.0-35.0) pg MCHC 30.2 L (31.0-37.0) g/dL RDW 16.9 H (11.5-15.5) % Neutrophils # 16.0 H (1.3-7.7) k/uL Monocytes # 1.3 H (0-1.0) k/uL Macrocytosis Marked A Sodium 134 L (137-145) mmol/L Potassium 6.7 H* (3.5-5.1) mmol/L Chloride 109 H (98-107) mmol/L Carbon Dioxide <5 L* (22-30) mmol/L BUN 22 H (9-20) mg/dL Creatinine 1.71 H (0.66-1.25) mg/dL Glucose 103 H (74-99) mg/dL POC Glucose (mg/dL) (70-110) mg/dL Plasma Lactic Acid Rex 11.3 H* (0.7-2.0) mmol/L Calcium 7.5 L (8.4-10.2) mg/dL Phosphorus 8.7 H (2.5-4.5) mg/dL Total Bilirubin 1.7 H (0.2-1.3) mg/dL AST >750 H (17-59) U/L ALT 1624 H (4-49) U/L Total Protein 6.0 L (6.3-8.2) g/dL Albumin 3.0 L (3.5-5.0) g/dL Urine Protein (Negative) Urine Blood (Negative) Ur Leukocyte Esterase (Negative) Urine RBC (0-5) /hpf Urine WBC (0-5) /hpf Urine WBC Clumps (None) /hpf Hyaline Casts (0-2) /lpf Urine Mucus (None) /hpf 08/14/24 08/14/24 Range/Units 12:48 12:48 WBC (3.8-10.6) k/uL RBC (4.30-5.90) m/uL Hgb (13.0-17.5) gm/dL Hct (39.0-53.0) % MCV (80.0-100.0) fL MCH (25.0-35.0) pg MCHC (31.0-37.0) g/dL RDW (11.5-15.5) % Neutrophils # (1.3-7.7) k/uL Monocytes # (0-1.0) k/uL Macrocytosis Sodium (137-145) mmol/L Potassium 6.0 H (3.5-5.1) mmol/L Chloride (98-107) mmol/L Carbon Dioxide 12 L (22-30) mmol/L BUN 26 H (9-20) mg/dL Creatinine 1.80 H (0.66-1.25) mg/dL Glucose 197 H (74-99) mg/dL POC Glucose (mg/dL) (70-110) mg/dL Plasma Lactic Acid Rex 10.7 H* (0.7-2.0) mmol/L Calcium 7.2 L (8.4-10.2) mg/dL Phosphorus (2.5-4.5) mg/dL Total Bilirubin (0.2-1.3) mg/dL AST (17-59) U/L ALT (4-49) U/L Total Protein (6.3-8.2) g/dL Albumin (3.5-5.0) g/dL Urine Protein (Negative) Urine Blood (Negative) Ur Leukocyte Esterase (Negative) Urine RBC (0-5) /hpf Urine WBC (0-5) /hpf Urine WBC Clumps (None) /hpf Hyaline Casts (0-2) /lpf Urine Mucus (None) /hpf Microbiology - Last 24 Hours (Table) 08/13/24 05:18 Blood Culture - Preliminary Blood 08/13/24 05:24 Gram Stain - Preliminary Sputum Sputum Culture - Preliminary Assessment and Plan Plan: Shock, likely septic in nature. Exact source is not clear, rule out pneumonia, rule out UTI and secondary sepsis. The patient has been adequately resuscitated IV fluids. The patient is currently on bicarb infusion. Patient remains on norepinephrine and vasopressin and the patient remains on broad-spectrum anti biotics currently on a combination of Zosyn and daptomycin. Remains hypotensive. Remains pressor dependent. Acute lactic acidosis, persistent elevation of the lactic acid level with anion gap metabolic acidosis. Acute hyperkalemia secondary to metabolic acidosis/anion gap metabolic acidosis and acute kidney injury. Patient is treated accordingly with a combination of bicarb, D50 insulin and the patient was also given calcium gluconate. Most recent potassium level is down to 6. Acute on chronic shortness of breath with hypoxemic respiratory failure. Currently on a BiPAP pressure of 12/6 with an FiO2 of 100%. Patient has developed bilateral pleural effusion and consolidation of the right lung base Acute leukocytosis, secondary to above Acute kidney injury and the creatinine is up to 1.8 and the patient is oliguric Shock liver, secondary to above. Amylase and lipase levels were normal at the time of admission Advanced COPD History of left upper lobe nodule suspicious for neoplasm. Patient has a solid 1.1 cm left upper lung pulmonary nodule treated by SBRT. No tissue diagnosis been established. Non-Hodgkin's lymphoma, diagnosed established by biopsy of a right upper quadrant lymph node that has shown intense metabolic activity on the prior PET/CT. Patient also has some nonspecific mediastinal lymph node uptake. Being followed up by medical oncology on outpatient basis. SVT, currently in sinus tachycardia and the patient is on amiodarone drip Daily alcohol use History of smoking Chronic anemia Valvular heart disease with a moderate degree aortic stenosis Hypertension Hyperlipidemia Hypothyroidism History of bladder cancer History of depression Plan: Condition remains critical. Discussed intubation and mechanical ventilation with the family. The patient has stated to the family that he does not want to be intubated and he is a DNI DNR CODE STATUS. Continue BiPAP for now at the same setting of 12/6 with an FiO2 of 100%. Continue f bicarb infusion at a rate of 100 cc an hour Continue norepinephrine and vasopressin physiologic dose Broad-spectrum IV antibiotics with Zosyn and daptomycin Monitor lactic acid levels Cultures are still negative Viral 4 Plex Discontinued amiodarone drip Precedex if needed Check an ultrasound right upper quadrant and the gallbladder Monitor LFTs Monitor renal function Monitor potassium level Involve medical oncology Check amylase and lipase Will need a CAT scan of the chest abdomen and pelvis once more stable. Keep the patient n.p.o. for now Condition is critical and will continue to follow make further recommendations based on the progress. Unable to establish an arterial line due to diminished pulses in lower extremities per extremities remain quite mottled. Prognosis remains extremely poor. This was discussed with the family. Evaluation was done and 60 minutes. Time with Patient: Greater than 30
--- NOTE | 2024-08-14 19:59 | US ---
EXAMINATION TYPE: US gallbladder DATE OF EXAM: 08/14/2024 COMPARISON: NONE CLINICAL INDICATION: Male, 89 years old with history of Abnormal LFTs; Gallbladder non-Hodgkin's lymp moses TECHNIQUE: Grayscale and color Doppler imaging of the right upper quadrant was performed. FINDINGS: EXAM MEASUREMENTS: Liver Length: 15.3 cm Fluid visualized. Gallbladder Wall: .8 cm CBD: .4 cm Right Kidney: 6.7 x 3.1 x 2.7 cm [employer] NOTES: Pancreas: Obscured by bowel gas Liver: Increased attenuation anechoic area may be a complex cyst with septations measuring 4.1 x 2. 9 x 4.2 cm. Hypoechoic area seen posterior renal fossa 6.1 x 4.2 x 6.3 cm. Gallbladder: Wall thickening pericholecystic fluid seen. Evidence for sonographic Garcia's sign: no CBD: wnl Right Kidney: Atrophic IMPRESSION: 1. Some ascites is adjacent to the liver. 2. Suspected complex cyst within the liver. Present previously 3. Soft tissue density within the right renal bed. Recurrent mass should be considered. [facility], , 08/14/2024 7:57 PM
--- NOTE | 2024-08-15 04:51 | P.PN ---
Subjective Progress Note Date: 08/14/24 89-year-old male came with increased shortness of breath hypoxemia and decreased level of consciousness and patient is presently on BiPAP at this time with FiO2 of 100% patient was also hypotensive presently on norepinephrine and also receiving normal saline at 150 cc/h had an episode of SVT was started on amiodarone drip. Patient source of sepsis is not clear at this time patient is on broad-spectrum antibiotics Zosyn and vancomycin urine analysis was not done yet chest x-ray showed cardiomegaly with diffuse interstitial changes and possible pulmonary edema small right-sided pleural effusion patient was started on empiric antibiotics waiting for pneumonia. Patient does complain of abdominal pain which is very nonspecific. Serum creatinine is 1.05. Patient has history of advanced COPD and had a left upper lobe mass of 1.1 cm suspicious for malignancy and is being worked up as an outpatient patient was diagnosed with non-Hodgkin's lymphoma recently, not yet started on chemotherapy. 08/14/2024 Patient is seen in follow-up in the ICU on BiPAP and per nursing staff is BiPAP dependent at this time. Patient also on antibiotics and pressor support as well as sodium bicarb drip and will continue for now. Patient is scheduled to undergo gallbladder ultrasound as well as CT of the chest. Multiple consultations following including pulmonary crew boss and infectious disease. Cultures thus far are pending although negative at this time. Sputum culture pending as well. Lengthy discussion was had with family regarding CODE STATUS and overall prognosis. Patient is a DNR/DNI and will remain BiPAP for now. Patient with a recent diagnosis of non-Hodgkin's lymphoma with oncology co nsulted and pending. No treatment was initiated as of yet. Kidney functions trending up and minimal urine output noted. Potassium 6.7 and corrected and will follow-up on repeat labs. Sodium is 134. Review of systems: Patient is talking through the BiPAP very muffled although he is alert and answering appropriately. Unable to completely assess PHYSICAL EXAMINATION: GENERAL: The patient is extremely lethargic although arousable, alert, fatigues very easily, thin built cachectic, on BiPAP, elderly appearing, ill-appearing HEENT: Pupils are round and equally reacting to light. EOMI. No scleral icterus. No conjunctival pallor. Normocephalic, atraumatic. No pharyngeal erythema. No thyromegaly. CARDIOVASCULAR: S1 and S2 muffled PULMONARY: Significantly diminished air entry to bilateral lung gomez. ABDOMEN: Soft, nontender, nondistended, normoactive bowel sounds. No palpable organomegaly. MUSCULOSKELETAL: No joint swelling or deformity. EXTREMITIES: No cyanosis, clubbing, or pedal edema. NEUROLOGICAL: Gross neurological examination did not reveal any focal deficits. Diffusely weak. SKIN: No rashes. Assessment: -Shock, likely septic, present on admission, source of sepsis is not clear, possible pneumonia -Acute renal failure possibly acute tubular necrosis with worsening function -Lactic acidosis secondary to severe sepsis -hyperkalemia secondary to acute renal failure and secondary to metabolic acidosis -acute hypoxic respiratory failure on BiPAP -Advanced COPD -Recently diagnosed Non-Hodgkin's lymphoma via needle biopsy, has not initiated treatment as of yet -SVT, for which patient is on amiodarone drip, drip has been discontinued currently rate controlled -History of alcohol abuse and nicotine use -Moderate aortic stenosis -Hypertension, patient is presently hypotensive -Hyperlipidemia -Hypothyroidism -History of bladder cancer in the past -Depression DVT prophylaxis GI prophylaxis No code Plan: Patient continues in the ICU with multiple consultations following maintained on antibiotics along with BiPAP CODE STATUS was discussed and patient does not want to be an event and is no code. Prognosis is extremely poor given advanced COPD, shock with sepsis requiring maximum pressor support. Family at bedside with questions and concerns that were answered to the best of our ability. Discussion was had about monitoring closely and if worsening or showing no improvements, considering comfort care Will follow-up on repeat labs, continue monitoring intake and output closely and continue current regimen at this time The impression and plan of care has been dictated by Christine Rodríguez, Nurse Practitioner as directed. Dr. Joanna MD I have performed a history and examination and MDM of this patient, discussed the same with the dictator, and agree with the dictator's assessment and plan as written ,documented as a scribe. Based on total visit time, I have performed more than 50% of the visit. Objective - Vital Signs Vital signs: Vital Signs Temp 97.8 F 08/13/24 16:30 Pulse 53 L 08/14/24 07:00 Resp 27 H 08/14/24 07:00 BP 105/89 08/14/24 07:00 Pulse Ox 98 08/13/24 14:00 FiO2 100 08/14/24 08:25 Intake & Output 08/13/24 08/14/24 08/14/24 18:59 06:59 18:59 Intake Total 2295.253 2518.750 219.496 Output Total 185 100 Balance 2110.253 2418.750 219.496 Weight 65.771 kg 66.5 kg Intake: Intake, IV Titration 2295.253 2518.750 219.496 Amount Amiodarone 450 mg In 230.56 Dextrose 5% in Water 250 ml @ 0.5 MG/MIN 16.667 mls/hr IV .Q15H [facility] Rx#: [id number] Dexmedetomidine/0.9% NaCl 61.031 (Pmx) 400 mcg In Empty Bag 1 bag @ 0.2 MCG/KG/HR 3.289 mls/hr IV .Q24H [facility] Rx#:[id number] Dextrose 5%-0.45% NaCl 1, 100 000 ml @ 100 mls/hr IV . Q10H [facility] Rx#:[id number] Norepinephrine 4 mg In 225.908 Sodium Chloride 0.9% 250 ml @ 0.03 MCG/KG/MIN 7. 518 mls/hr IV .Q24H [facility] Rx#:[id number] Norepinephrine 8 mg In 19.345 427.159 69.496 Sodium Chloride 0.9% 250 ml @ 0.03 MCG/KG/MIN 3. 818 mls/hr IV .Q24H [facility] Rx#:[id number] Piperacillin-Tazobactam 3 100 .375 gm In Sodium Chloride 0.9% 100 ml @ 25 mls/hr IVPB Q8H [facility] Rx#: [id number] Sodium Chloride 0.9% 1, 1350 1500 150 000 ml @ 150 mls/hr IV . Q6H40M [facility] Rx#:[id number] Vancomycin 1,500 mg In 500 Sodium Chloride 0.9% 500 ml 500 ml @ 167 mls/hr IVPB ONCE [facility] Rx#: [id number] Vasopressin 60 unit In 300 Sodium Chloride 0.9% 150 ml @ 0.03 UNITS/MIN 4.59 mls/hr IV .Q24H [facility] Rx#: [id number] Output: Urine 185 100 Other: Voiding Method Indwelling Catheter Indwelling Catheter - Labs CBC & Chem 7: 08/14/24 06:09 08/14/24 12:48 Labs: Abnormal Lab Results - Last 24 Hours (Table) 08/13/24 08/13/24 08/13/24 Range/Units 09:12 09:39 23:15 WBC (3.8-10.6) k/uL RBC (4.30-5.90) m/uL Hgb (13.0-17.5) gm/dL Hct (39.0-53.0) % MCV (80.0-100.0) fL MCH (25.0-35.0) pg MCHC (31.0-37.0) g/dL RDW (11.5-15.5) % Neutrophils # (1.3-7.7) k/uL Monocytes # (0-1.0) k/uL Macrocytosis Sodium (137-145) mmol/L Potassium (3.5-5.1) mmol/L Chloride (98-107) mmol/L Carbon Dioxide (22-30) mmol/L BUN (9-20) mg/dL Creatinine (0.66-1.25) mg/dL Glucose (74-99) mg/dL POC Glucose (mg/dL) (70-110) mg/dL Plasma Lactic Acid Rex 7.4 H* 10.9 H* (0.7-2.0) mmol/L Calcium (8.4-10.2) mg/dL Phosphorus (2.5-4.5) mg/dL Total Bilirubin (0.2-1.3) mg/dL AST (17-59) U/L ALT (4-49) U/L Total Protein (6.3-8.2) g/dL Albumin (3.5-5.0) g/dL Urine Protein 1+ H (Negative) Urine Blood Trace H (Negative) Ur Leukocyte Esterase Large H (Negative) Urine RBC 16 H (0-5) /hpf Urine WBC >182 H (0-5) /hpf Urine WBC Clumps Few H (None) /hpf Hyaline Casts 5 H (0-2) /lpf Urine Mucus Rare H (None) /hpf 08/13/24 08/14/24 08/14/24 Range/Units 23:24 06:09 06:09 WBC 19.7 H (3.8-10.6) k/uL RBC 2.06 L (4.30-5.90) m/uL Hgb 7.9 L (13.0-17.5) gm/dL Hct 26.0 L (39.0-53.0) % MCV 126.0 H D (80.0-100.0) fL MCH 38.1 H (25.0-35.0) pg MCHC 30.2 L (31.0-37.0) g/dL RDW 16.9 H (11.5-15.5) % Neutrophils # 16.0 H (1.3-7.7) k/uL Monocytes # 1.3 H (0-1.0) k/uL Macrocytosis Marked A Sodium 134 L (137-145) mmol/L Potassium 6.7 H* (3.5-5.1) mmol/L Chloride 109 H (98-107) mmol/L Carbon Dioxide <5 L* (22-30) mmol/L BUN 22 H (9-20) mg/dL Creatinine 1.71 H (0.66-1.25) mg/dL Glucose 103 H (74-99) mg/dL POC Glucose (mg/dL) 183 H (70-110) mg/dL Plasma Lactic Acid Rex (0.7-2.0) mmol/L Calcium 7.5 L (8.4-10.2) mg/dL Phosphorus 8.7 H (2.5-4.5) mg/dL Total Bilirubin 1.7 H (0.2-1.3) mg/dL AST >750 H (17-59) U/L ALT 1624 H (4-49) U/L Total Protein 6.0 L (6.3-8.2) g/dL Albumin 3.0 L (3.5-5.0) g/dL Urine Protein (Negative) Urine Blood (Negative) Ur Leukocyte Esterase (Negative) Urine RBC (0-5) /hpf Urine WBC (0-5) /hpf Urine WBC Clumps (None) /hpf Hyaline Casts (0-2) /lpf Urine Mucus (None) /hpf 08/14/24 Range/Units 06:09 WBC (3.8-10.6) k/uL RBC (4.30-5.90) m/uL Hgb (13.0-17.5) gm/dL Hct (39.0-53.0) % MCV (80.0-100.0) fL MCH (25.0-35.0) pg MCHC (31.0-37.0) g/dL RDW (11.5-15.5) % Neutrophils # (1.3-7.7) k/uL Monocytes # (0-1.0) k/uL Macrocytosis Sodium (137-145) mmol/L Potassium (3.5-5.1) mmol/L Chloride (98-107) mmol/L Carbon Dioxide (22-30) mmol/L BUN (9-20) mg/dL Creatinine (0.66-1.25) mg/dL Glucose (74-99) mg/dL POC Glucose (mg/dL) (70-110) mg/dL Plasma Lactic Acid Rex 11.3 H* (0.7-2.0) mmol/L Calcium (8.4-10.2) mg/dL Phosphorus (2.5-4.5) mg/dL Total Bilirubin (0.2-1.3) mg/dL AST (17-59) U/L ALT (4-49) U/L Total Protein (6.3-8.2) g/dL Albumin (3.5-5.0) g/dL Urine Protein (Negative) Urine Blood (Negative) Ur Leukocyte Esterase (Negative) Urine RBC (0-5) /hpf Urine WBC (0-5) /hpf Urine WBC Clumps (None) /hpf Hyaline Casts (0-2) /lpf Urine Mucus (None) /hpf Microbiology - Last 24 Hours (Table) 08/13/24 05:24 Gram Stain - Preliminary Sputum
[2024-08-15 06:06] LABS: African American GFR (CKD) 28 (>60 ml/min/1.73 sqM); Anion Gap 20 mmol/L; Blood Urea Nitrogen 35 mg/dL (9-20); Calcium 6.7 mg/dL (8.4-10.2); Carbon Dioxide 15 mmol/L (22-30); Chloride 104 mmol/L (98-107); Glucose 168 mg/dL (74-99); Non-African American GFR(CKD) 24 (>60 ml/min/1.73 sqM); Potassium 5.9 mmol/L (3.5-5.1); Sodium 139 mmol/L (137-145)
[2024-08-15 06:15] LABS: Anisocytosis Slight; HCT 27.4 % (39.0-53.0); HGB 8.7 gm/dL (13.0-17.5); Hypochromasia Marked; MCH 39.1 pg (25.0-35.0); MCHC 31.7 g/dL (31.0-37.0); MCV 123.4 fL (80.0-100.0); Macrocytosis Marked; Mean Platelet Volume 9.3; Platelet Count 280 k/uL (150-450); RBC 2.22 m/uL (4.30-5.90); RDW 17.1 % (11.5-15.5)
--- NOTE | 2024-08-15 08:19 | P.PN ---
Subjective Progress Note Date: 08/14/24 Principal diagnosis: Reason for follow-up is sepsis/pneumonia/UTI Patient is a 89-year-old male with a past medical history significant for COPD hypertension hyperlipidemia thyroid disorder non-Hodgkin lymphoma patient was brought into the hospital for evaluation of increasing shortness of breath and decreased level of consciousness has been diagnosed with sepsis con cerning for pneumonia subsequent noted to have significantly positive UA. On today's evaluation that is 08/14/2024,the patient has been afebrile patient remains to be on a BiPAP requiring 100% FiO2 he is lethargic but arousable unable to provide reliable history no vomiting diarrhea and the changes reported by the nursing staff. Patient white count is 19.7 creatinine is up to 1.80 lactic acid of 7.6 liver isms mildly elevated urine is significantly positive blood and sputum cultures currently pending Objective - Vital Signs Vital signs: Vital Signs Temp 97.8 F 08/14/24 08:00 Pulse 85 08/14/24 11:30 Resp 26 H 08/14/24 11:30 BP 136/92 08/14/24 11:30 Pulse Ox 98 08/14/24 08:00 FiO2 100 08/14/24 08:25 Intake & Output 08/13/24 08/14/24 08/14/24 18:59 06:59 18:59 Intake Total 2295.253 2518.750 1163.992 Output Total 185 100 60 Balance 2110.253 2418.750 1103.992 Weight 65.771 kg 66.5 kg Intake: Intake, IV Titration 2295.253 2518.750 1163.992 Amount Amiodarone 450 mg In 230.56 Dextrose 5% in Water 250 ml @ 0.5 MG/MIN 16.667 mls/hr IV .Q15H [facility] Rx#: [id number] Calcium Gluconate in NaCl 100 1 gm In Saline 1 100ml. bag @ 400 mls/hr IVPB ONCE [facility] Rx#:[id number] Dexmedetomidine/0.9% NaCl 61.031 (Pmx) 400 mcg In Empty Bag 1 bag @ 0.2 MCG/KG/HR 3.289 mls/hr IV .Q24H [facility] Rx#:[id number] Dextrose 5% in Water 1, 200 000 ml @ 100 mls/hr IV . [id number] [facility] with Sodium Bicarb (1 Meq/ml) 150 ml Rx#:[id number] Dextrose 5%-0.45% NaCl 1, 100 000 ml @ 100 mls/hr IV . Q10H [facility] Rx#:[id number] Linezolid 600 mg In 300 Dextrose/Water 1 300ml. bag @ 150 mls/hr IVPB Q12HR [facility] Rx#:[id number] Norepinephrine 4 mg In 225.908 Sodium Chloride 0.9% 250 ml @ 0.03 MCG/KG/MIN 7. 518 mls/hr IV .Q24H [facility] Rx#:[id number] Norepinephrine 8 mg In 19.345 427.159 163.992 Sodium Chloride 0.9% 250 ml @ 0.03 MCG/KG/MIN 3. 818 mls/hr IV .Q24H [facility] Rx#:[id number] Piperacillin-Tazobactam 3 100 100 .375 gm In Sodium Chloride 0.9% 100 ml @ 25 mls/hr IVPB Q8H [facility] Rx#: [id number] Sodium Chloride 0.9% 1, 1350 1500 300 000 ml @ 150 mls/hr IV . Q6H40M [facility] Rx#:[id number] Vancomycin 1,500 mg In 500 Sodium Chloride 0.9% 500 ml 500 ml @ 167 mls/hr IVPB ONCE [facility] Rx#: [id number] Vasopressin 60 unit In 300 Sodium Chloride 0.9% 150 ml @ 0.03 UNITS/MIN 4.59 mls/hr IV .Q24H [facility] Rx#: [id number] Output: Urine 185 100 60 Other: Voiding Method Indwelling Catheter Indwelling Catheter Indwelling Catheter - Exam GENERAL DESCRIPTION: An elderly male lying in bed in mild distress RESPIRATORY SYSTEM: Unlabored breathing , decreased breath sounds at bases HEART: S1 S2 regular rate and rhythm , ABDOMEN: Soft , no tenderness EXTREMITIES: No edema feet - Labs CBC & Chem 7: 08/15/24 05:10 08/15/24 05:01 Labs: Abnormal Lab Results - Last 24 Hours (Table) 08/13/24 08/13/24 08/13/24 Range/Units 09:39 23:15 23:24 WBC (3.8-10.6) k/uL RBC (4.30-5.90) m/uL Hgb (13.0-17.5) gm/dL Hct (39.0-53.0) % MCV (80.0-100.0) fL MCH (25.0-35.0) pg MCHC (31.0-37.0) g/dL RDW (11.5-15.5) % Neutrophils # (1.3-7.7) k/uL Monocytes # (0-1.0) k/uL Macrocytosis Sodium (137-145) mmol/L Potassium (3.5-5.1) mmol/L Chloride (98-107) mmol/L Carbon Dioxide (22-30) mmol/L BUN (9-20) mg/dL Creatinine (0.66-1.25) mg/dL Glucose (74-99) mg/dL POC Glucose (mg/dL) 183 H (70-110) mg/dL Plasma Lactic Acid Rex 10.9 H* (0.7-2.0) mmol/L Calcium (8.4-10.2) mg/dL Phosphorus (2.5-4.5) mg/dL Total Bilirubin (0.2-1.3) mg/dL AST (17-59) U/L ALT (4-49) U/L Total Protein (6.3-8.2) g/dL Albumin (3.5-5.0) g/dL Urine Protein 1+ H (Negative) Urine Blood Trace H (Negative) Ur Leukocyte Esterase Large H (Negative) Urine RBC 16 H (0-5) /hpf Urine WBC >182 H (0-5) /hpf Urine WBC Clumps Few H (None) /hpf Hyaline Casts 5 H (0-2) /lpf Urine Mucus Rare H (None) /hpf 08/14/24 08/14/24 08/14/24 Range/Units 06:09 06:09 06:09 WBC 19.7 H (3.8-10.6) k/uL RBC 2.06 L (4.30-5.90) m/uL Hgb 7.9 L (13.0-17.5) gm/dL Hct 26.0 L (39.0-53.0) % MCV 126.0 H D (80.0-100.0) fL MCH 38.1 H (25.0-35.0) pg MCHC 30.2 L (31.0-37.0) g/dL RDW 16.9 H (11.5-15.5) % Neutrophils # 16.0 H (1.3-7.7) k/uL Monocytes # 1.3 H (0-1.0) k/uL Macrocytosis Marked A Sodium 134 L (137-145) mmol/L Potassium 6.7 H* (3.5-5.1) mmol/L Chloride 109 H (98-107) mmol/L Carbon Dioxide <5 L* (22-30) mmol/L BUN 22 H (9-20) mg/dL Creatinine 1.71 H (0.66-1.25) mg/dL Glucose 103 H (74-99) mg/dL POC Glucose (mg/dL) (70-110) mg/dL Plasma Lactic Acid Rex 11.3 H* (0.7-2.0) mmol/L Calcium 7.5 L (8.4-10.2) mg/dL Phosphorus 8.7 H (2.5-4.5) mg/dL Total Bilirubin 1.7 H (0.2-1.3) mg/dL AST >750 H (17-59) U/L ALT 1624 H (4-49) U/L Total Protein 6.0 L (6.3-8.2) g/dL Albumin 3.0 L (3.5-5.0) g/dL Urine Protein (Negative) Urine Blood (Negative) Ur Leukocyte Esterase (Negative) Urine RBC (0-5) /hpf Urine WBC (0-5) /hpf Urine WBC Clumps (None) /hpf Hyaline Casts (0-2) /lpf Urine Mucus (None) /hpf Microbiology - Last 24 Hours (Table) 08/13/24 05:24 Gram Stain - Preliminary Sputum Assessment and Plan (1) Sepsis Current Visit: Yes Status: Acute Code(s): A41.9 - SEPSIS, UNSPECIFIED ORGANISM SNOMED Code(s): 05084245 (2) Pneumonia Current Visit: Yes Status: Acute Code(s): J18.9 - PNEUMONIA, UNSPECIFIED ORGANISM SNOMED Code(s): 957440366 Plan: 1patient presented hospital with sepsis/septic shock in this patient who did have a tachycardia hypotension requiring pressor support as well as elevated lactic acid concerning for possible pneumonia underlying abdominal source not entirely excluded. 2patient UA has been reported significantly positive with cultures pending blood and sputum culture currently pending 3patient noticed to have worsening of his kidney function we will discontinue vancomycin start the patient on Zyvox to cover for the gram-positive and continue with Zosyn to cover for the gram-negative while waiting for the culture to finalize Family at the bedside question concern answered Dictation was produced using [employer] dictation software. please excuse any grammatical, word or spelling errors. Time with Patient: Less than 30
[2024-08-15 08:29] LABS: Band Neutrophils % 10 %; Metamyelocytes % 3 %; Myelocytes % 4 %; Neutrophils % (M) 77 %; Nucleated Red Blood Cells 1 /100 WBC (0-0); Total Cells Counted 200
[2024-08-15 08:30] LABS: Lymphocytes # (M) 0.89 k/uL (1.0-4.8); Metamyelocytes # (M) 0.89 k/uL (0); Monocytes # (M) 1.48 k/uL (0-1.0); Myelocytes # (M) 1.18 k/uL (0); WBC 29.6 k/uL (3.8-10.6)
--- NOTE | 2024-08-15 08:36 | XR ---
EXAMINATION TYPE: XR chest 1V portable DATE OF EXAM: 08/15/2024 5:40 AM COMPARISON: Chest radiographs from 08/14/2024 TECHNIQUE: XR chest 1V portable Portable AP radiograph of the chest. CLINICAL INDICATION:Male, 89 years old with history of BIPAP dependent respiratory failure; FINDINGS: Lungs/Pleura: No pneumothorax. Increasing bilateral mid and lower lung airspace opacities. Blunting o f the costophrenic angles is present. Heart/mediastinum: Cardiomediastinal silhouette is enlarged and stable. Musculoskeletal: No acute osseous pathology. Remote right-sided rib fractures. IMPRESSION: Cardiomegaly with increasing bilateral mid and lower lung airspace opacities and small bilateral pleu ral effusions. Correlate with BNP for congestive heart failure with superimposed pneumonia not exclud ed. [facility], , 08/15/2024 8:33 AM
[2024-08-15 08:44] LABS: Spherocytes Present
[2024-08-15 08:45] LABS: Poikilocytosis (M) Present
--- NOTE | 2024-08-15 09:20 | XR ---
EXAMINATION TYPE: XR abdomen 1V DATE OF EXAM: 08/15/2024 COMPARISON: NONE HISTORY: Abdominal distention TECHNIQUE: Single supine KUB image of the abdomen is obtained FINDINGS: Small bowel demonstrates no evidence for dilatation or air fluid levels. Gas and fecal material is seen in non-distended colon. Dilated gas-filled stomach. No convincing evidence for pneumoperitoneum. Vascular calcifications. Right inguinal central venous catheter identified. The osseous structures are intact. Levoscoliotic curvature of the lumbar spine. Multilevel degenerati ve disc disease. IMPRESSION: Gas-filled distended stomach. No other dilated bowel identified. [facility], , 08/15/2024 9:18 AM
[2024-08-15] MEDS: CALCIUM GLUCONATE IN NACL 2 GM in SALINE 1 100ML.BAG IVPB ONE (09:27)
[2024-08-15] MEDS: FUROSEMIDE 10 MG/ML 10 ML VIAL IV SCH (09:33)
[2024-08-15 09:47] VITALS: TEMP 97.6
[2024-08-15 10:03] LABS: African American GFR (CKD) 27 (>60 ml/min/1.73 sqM); Albumin 2.9 g/dL (3.5-5.0); Alkaline Phosphatase 70 U/L (38-126); Anion Gap 15 mmol/L; Blood Urea Nitrogen 39 mg/dL (9-20); Calcium 6.8 mg/dL (8.4-10.2); Carbon Dioxide 22 mmol/L (22-30); Chloride 102 mmol/L (98-107); Glucose 161 mg/dL (74-99); Non-African American GFR(CKD) 23 (>60 ml/min/1.73 sqM); Potassium 5.5 mmol/L (3.5-5.1); Sodium 139 mmol/L (137-145); Total Bilirubin 1.7 mg/dL (0.2-1.3)
[2024-08-15 11:34] LABS: AST 11470 U/L (17-59)
[2024-08-15 11:35] LABS: ALT 5627 U/L (4-49)
[2024-08-15 11:49] LABS: Ionized Calcium 3.7 mg/dL (4.5-5.3)
--- NOTE | 2024-08-15 11:50 | XR ---
EXAMINATION TYPE: XR chest 1V DATE OF EXAM: 08/15/2024 11:42 AM COMPARISON: Chest radiographs from 08/15/2024 TECHNIQUE: XR chest 1V Frontal view of the chest. CLINICAL INDICATION:Male, 89 years old with history of NG REPOSITION #2 IMAGE; FINDINGS: Lungs/Pleura: No pneumothorax. Similar bilateral mid and lower lung airspace opacities. Most pronounc ed within the right mid and lower lung. Right costophrenic angle blunting present. Heart/mediastinum: Cardiomediastinal silhouette is enlarged and stable. Musculoskeletal: No acute osseous pathology. Remote right-sided rib fractures. Line/tubes: NG tube is demonstrated coiled within the upper esophagus/hypopharynx. IMPRESSION: 1. Cardiomegaly with similar bilateral mid and lower lung airspace opacities and small right pleural effusion. Correlate with BNP for congestive heart failure versus pneumonia. 2. Malpositioned NG tube demonstrated coiled within the upper esophagus/hypopharynx. [facility], , 08/15/2024 11:47 AM
--- NOTE | 2024-08-15 11:55 | XR ---
EXAMINATION TYPE: XR chest 1V DATE OF EXAM: 08/15/2024 11:42 AM COMPARISON: Multiple radiographs from earlier today. TECHNIQUE: XR chest 1V Frontal view of the chest. CLINICAL INDICATION:Male, 89 years old with history of NG REPOSITION #4; FINDINGS: Lungs/Pleura: No pneumothorax. Similar bilateral mid and lower lung airspace opacities. Most pronounc ed within the right mid and lower lung. Right costophrenic angle blunting present. Heart/mediastinum: Cardiomediastinal silhouette is enlarged and stable. Musculoskeletal: No acute osseous pathology. Remote right-sided rib fractures. Line/tubes: Repositioned NG tube with distal tip now within the left mainstem bronchus extending into the left lower lobe segmental bronchus. IMPRESSION: 1. Repositioned NG tube with distal tip now within the left mainstem bronchus extending into the lef t lower lobe segmental bronchus. 2. Cardiomegaly with similar bilateral mid and lower lung airspace opacities and small right pleural effusion. Correlate with BNP for congestive heart failure versus pneumonia. [facility], , 08/15/2024 11:53 AM
--- NOTE | 2024-08-15 11:56 | XR ---
EXAMINATION TYPE: XR chest 1V DATE OF EXAM: 08/15/2024 11:42 AM COMPARISON: Multiple radiographs from earlier today. TECHNIQUE: XR chest 1V Frontal view of the chest. CLINICAL INDICATION:Male, 89 years old with history of NG REPOSITION #3; FINDINGS: Lungs/Pleura: No pneumothorax. Similar bilateral mid and lower lung airspace opacities. Most pronounc ed within the right mid and lower lung. Right costophrenic angle blunting present. Heart/mediastinum: Cardiomediastinal silhouette is enlarged and stable. Musculoskeletal: No acute osseous pathology. Remote right-sided rib fractures. Line/tubes: NG tube with distal tip demonstrated within the left mainstem bronchus extending into the left lower lobe segmental bronchus. IMPRESSION: 1. NG tube with distal tip within the left mainstem bronchus extending into the left lower lobe segm ental bronchus. 2. Cardiomegaly with similar bilateral mid and lower lung airspace opacities and small right pleural effusion. Correlate with BNP for congestive heart failure versus pneumonia. [facility], , 08/15/2024 11:54 AM
--- NOTE | 2024-08-15 11:58 | XR ---
EXAMINATION TYPE: XR chest 1V portable DATE OF EXAM: 08/15/2024 11:42 AM COMPARISON: Multiple radiographs from earlier today. TECHNIQUE: XR chest 1V portable Portable AP radiograph of the chest. CLINICAL INDICATION:Male, 89 years old with history of NGT placement; FINDINGS: Lungs/Pleura: No pneumothorax. Similar bilateral mid and lower lung airspace opacities. Most pronounc ed within the right mid and lower lung. Right costophrenic angle blunting present. Heart/mediastinum: Cardiomediastinal silhouette is enlarged and stable. Atherosclerotic calcificatio ns are seen in the aorta. Musculoskeletal: No acute osseous pathology. Remote right-sided rib fractures. Line/tubes: NG tube is demonstrated coiled within the upper esophagus/hypopharynx. IMPRESSION: 1. Cardiomegaly with similar bilateral mid and lower lung airspace opacities and small right pleural effusion. Correlate with BNP for congestive heart failure versus pneumonia. 2. Malpositioned NG tube demonstrated coiled within the upper esophagus/hypopharynx. [facility], , 08/15/2024 11:55 AM
[2024-08-15 12:18] LABS: Amylase 577 U/L (30-110)
[2024-08-15 12:19] LABS: Lipase 2778 U/L (23-300)
[2024-08-15] MEDS: MORPHINE SULFATE 2 MG/ML SYRINGE IVP STA (12:53)
--- NOTE | 2024-08-15 14:55 | P.PN ---
Subjective Progress Note Date: 08/15/24 Principal diagnosis: Reason for follow-up is sepsis/pneumonia/UTI Patient is a 89-year-old male with a past medical history significant for COPD hypertension hyperlipidemia thyroid disorder non-Hodgkin lymphoma patient was brought into the hospital for evaluation of increasing shortness of breath and decreased level of consciousness has been diagnosed with sepsis con cerning for pneumonia subsequent noted to have significantly positive UA. On today's evaluation that is 08/15/2024,the patient remains to be afebrile, patient is on BiPAP 100% supplemental oxygen patient remains to be lethargic cannot provide any history he remains to be requiring pressor support no vomiting diarrhea and the changes reported by nursing staff. Patient white count is 29.6, creatinine is 2.40 liver enzymes slightly improved compared to this morning cultures are currently pending Objective - Vital Signs Vital signs: Vital Signs Temp 97.6 F 08/15/24 08:00 Pulse 92 08/15/24 11:15 Resp 13 08/15/24 11:15 BP 98/67 08/15/24 11:15 Pulse Ox 100 08/15/24 11:15 FiO2 100 08/15/24 08:55 Intake & Output 08/14/24 08/15/24 08/15/24 18:59 06:59 18:59 Intake Total 2399.802 2026.289 1162.375 Output Total 165 70 10 Balance 2234.802 0721.441 9517.375 Weight 75.4 kg Intake: IV 1710 430 0.9 KVO 110 50 Dextrose 5% in Water 1, 1100 350 000 ml @ 75 mls/hr IV . [id number] [facility] with Sodium Bicarb (1 Meq/ml) 150 ml Rx#:[id number] Linezolid 600 mg In 300 30 Dextrose/Water 1 300ml. bag @ 150 mls/hr IVPB Q12HR [facility] Rx#:[id number] Piperacillin-Tazobactam 3 200 .375 gm In Sodium Chloride 0.9% 100 ml @ 25 mls/hr IVPB Q8H [facility] Rx#: [id number] Intake, IV Titration 2399.802 316.289 732.375 Amount Calcium Gluconate in NaCl 100 1 gm In Saline 1 100ml. bag @ 400 mls/hr IVPB ONCE ONE Rx#:[id number] Calcium Gluconate in NaCl 100 2 gm In Saline 1 100ml. bag @ 100 mls/hr IVPB ONCE ONE Rx#:[id number] Dexmedetomidine/0.9% NaCl 6.056 (Pmx) 400 mcg In Empty Bag 1 bag @ 0.2 MCG/KG/HR 3.289 mls/hr IV .Q24H [facility] Rx#:[id number] Dextrose 5% in Water 1, 900 100 75 000 ml @ 75 mls/hr IV . [id number] [facility] with Sodium Bicarb (1 Meq/ml) 150 ml Rx#:[id number] Linezolid 600 mg In 300 300 Dextrose/Water 1 300ml. bag @ 150 mls/hr IVPB Q12HR [facility] Rx#:[id number] Norepinephrine 8 mg In 532.788 216.289 251.319 Sodium Chloride 0.9% 250 ml @ 0.03 MCG/KG/MIN 3. 818 mls/hr IV .Q24H [facility] Rx#:[id number] Piperacillin-Tazobactam 3 200 .375 gm In Sodium Chloride 0.9% 100 ml @ 25 mls/hr IVPB Q8H [facility] Rx#: [id number] Sodium Chloride 0.9% 1, 300 000 ml @ 150 mls/hr IV . Q6H40M [facility] Rx#:[id number] Vasopressin 60 unit In 67.014 Sodium Chloride 0.9% 150 ml @ 0.03 UNITS/MIN 4.59 mls/hr IV .Q24H [facility] Rx#: [id number] Output: Urine 165 70 10 Other: Voiding Method Indwelling Catheter Indwelling Catheter Indwelling Catheter - Exam GENERAL DESCRIPTION: An elderly male lying in bed in mild distress RESPIRATORY SYSTEM: Unlabored breathing , decreased breath sounds at bases HEART: S1 S2 regular rate and rhythm , ABDOMEN: Soft , no tenderness EXTREMITIES: No edema feet - Labs CBC & Chem 7: 08/15/24 05:10 08/15/24 09:35 Labs: Abnormal Lab Results - Last 24 Hours (Table) 08/14/24 08/14/24 08/14/24 Range/Units 12:48 12:48 15:36 WBC (3.8-10.6) k/uL RBC (4.30-5.90) m/uL Hgb (13.0-17.5) gm/dL Hct (39.0-53.0) % MCV (80.0-100.0) fL MCH (25.0-35.0) pg RDW (11.5-15.5) % Neutrophils # (Manual) (1.3-7.7) k/uL Lymphocytes # (Manual) (1.0-4.8) k/uL Monocytes # (Manual) (0-1.0) k/uL Metamyelocytes # (Man) (0) k/uL Myelocytes # (Manual) (0) k/uL Nucleated RBCs (0-0) /100 WBC Macrocytosis Potassium 6.0 H (3.5-5.1) mmol/L Carbon Dioxide 12 L (22-30) mmol/L BUN 26 H (9-20) mg/dL Creatinine 1.80 H (0.66-1.25) mg/dL Glucose 197 H (74-99) mg/dL Plasma Lactic Acid Rex 10.7 H* 11.5 H* (0.7-2.0) mmol/L Calcium 7.2 L (8.4-10.2) mg/dL Ionized Calcium Sai (4.5-5.3) mg/dL Total Bilirubin (0.2-1.3) mg/dL AST (17-59) U/L ALT (4-49) U/L Total Protein (6.3-8.2) g/dL Albumin (3.5-5.0) g/dL 08/14/24 08/15/24 08/15/24 Range/Units 18:54 05:01 05:10 WBC 29.6 H (3.8-10.6) k/uL RBC 2.22 L (4.30-5.90) m/uL Hgb 8.7 L (13.0-17.5) gm/dL Hct 27.4 L (39.0-53.0) % MCV 123.4 H (80.0-100.0) fL MCH 39.1 H (25.0-35.0) pg RDW 17.1 H (11.5-15.5) % Neutrophils # (Manual) 25.70 H (1.3-7.7) k/uL Lymphocytes # (Manual) 0.89 L (1.0-4.8) k/uL Monocytes # (Manual) 1.48 H (0-1.0) k/uL Metamyelocytes # (Man) 0.89 H (0) k/uL Myelocytes # (Manual) 1.18 H (0) k/uL Nucleated RBCs 1 H (0-0) /100 WBC Macrocytosis Marked A Potassium 5.9 H (3.5-5.1) mmol/L Carbon Dioxide 15 L (22-30) mmol/L BUN 35 H (9-20) mg/dL Creatinine 2.35 H (0.66-1.25) mg/dL Glucose 168 H (74-99) mg/dL Plasma Lactic Acid Rex 7.6 H* (0.7-2.0) mmol/L Calcium 6.7 L (8.4-10.2) mg/dL Ionized Calcium Sai (4.5-5.3) mg/dL Total Bilirubin (0.2-1.3) mg/dL AST (17-59) U/L ALT (4-49) U/L Total Protein (6.3-8.2) g/dL Albumin (3.5-5.0) g/dL 08/15/24 08/15/24 08/15/24 Range/Units 09:35 09:35 11:22 WBC (3.8-10.6) k/uL RBC (4.30-5.90) m/uL Hgb (13.0-17.5) gm/dL Hct (39.0-53.0) % MCV (80.0-100.0) fL MCH (25.0-35.0) pg RDW (11.5-15.5) % Neutrophils # (Manual) (1.3-7.7) k/uL Lymphocytes # (Manual) (1.0-4.8) k/uL Monocytes # (Manual) (0-1.0) k/uL Metamyelocytes # (Man) (0) k/uL Myelocytes # (Manual) (0) k/uL Nucleated RBCs (0-0) /100 WBC Macrocytosis Potassium 5.5 H (3.5-5.1) mmol/L Carbon Dioxide (22-30) mmol/L BUN 39 H (9-20) mg/dL Creatinine 2.40 H (0.66-1.25) mg/dL Glucose 161 H (74-99) mg/dL Plasma Lactic Acid Rex 6.5 H* (0.7-2.0) mmol/L Calcium 6.8 L (8.4-10.2) mg/dL Ionized Calcium Sai 3.7 L (4.5-5.3) mg/dL Total Bilirubin 1.7 H (0.2-1.3) mg/dL AST 57056 H (17-59) U/L ALT 5627 H (4-49) U/L Total Protein 6.0 L (6.3-8.2) g/dL Albumin 2.9 L (3.5-5.0) g/dL Microbiology - Last 24 Hours (Table) 08/13/24 05:24 Gram Stain - Final Sputum Sputum Culture - Final 08/13/24 09:39 Urine Culture - Preliminary Urine,Voided 08/13/24 05:18 Blood Culture - Preliminary Blood Assessment and Plan (1) Sepsis Current Visit: Yes Status: Acute Code(s): A41.9 - SEPSIS, UNSPECIFIED ORGANISM SNOMED Code(s): 48012800 (2) Pneumonia Current Visit: Yes Status: Acute Code(s): J18.9 - PNEUMONIA, UNSPECIFIED ORGANISM SNOMED Code(s): 859248230 Plan: 1patient presented hospital with sepsis/septic shock in this patient who did have a tachycardia hypotension requiring pressor support as well as elevated lactic acid concerning for possible pneumonia underlying abdominal source not entirely excluded. 2patient UA has been reported significantly positive with cultures pending blood and sputum culture currently pending 3patient condition remains to be critical currently being treated with Zyvox and Zosyn while waiting for the culture to finalize Prognosis remains to be guarded Dictation was produced using [employer] dictation software. please excuse any grammatical, word or spelling errors. Time with Patient: Less than 30
[2024-08-15 15:10] VITALS: BP 97/69; PULSE 92; RESP 15
[2024-08-15] MEDS ORDERED: MORPHINE SULFATE 2 MG/ML SYRINGE IV PRN (16:00)
[2024-08-15] MEDS ORDERED: ACETAMINOPHEN SUPPOSITORY 650 MG SUPP RECTAL PRN (16:00)
[2024-08-15] MEDS ORDERED: HYDROmorphone 0.5 MG/0.5 ML SYRINGE IVP PRN (16:00)
[2024-08-15] MEDS ORDERED: HYDROmorphone 1 MG/ML 1 ML SYRINGE IVP PRN (16:00)
[2024-08-15] MEDS ORDERED: MORPHINE SULFATE 4 MG/ML SYRINGE IV PRN (16:00)
--- NOTE | 2024-08-15 16:13 | P.PN ---
Subjective Progress Note Date: 08/15/24 89-year-old male patient, brought into the emergency department because of increased shortness of breath, hypoxemia, diminished level of consciousness, and the patient was subsequently transferred to the intensive care unit. At the time of my arrival to the ICU, the patient was quite lethargic, arousable, maintained on the BiPAP at a pressure of 12 over 6 cm of water and FiO2 of 100%. The patient was hemodynamically unstable. He was running high dose pressors and the patient is on norepinephrine running at 0.35 mcg/kg/min. He received a total of 2 L of normal saline and 1 L of lactated Ringer and the patient was on D5 half-normal saline at rate of 100 cc an hour. At the same time, the patient was maintained on a BiPAP. He did encounter a episode of SVT, started on amiodarone drip and currently amiodarone running at 1 mg/min and the patient's rhythm is sinus tachycardia. In terms of his blood work, the patient was found to have a white cell count of 7.3 with a hemoglobin 8.4 and a platelet count of 333. Initial lactic acid level was 9.0 dropped down to 4.2 with fluid resuscitation. Serum bicarb was 11 and the patient had an anion gap metabolic acidosis. Sodium levels at 133 with a potassium level of 5.3. BUN was 14 with a creatinine of 1.05. LFTs are normal. Troponin was 0.136. proBNP level was 1070. Albumin level is at 3.3. Urinalysis and urine cultures were not done. Blood cultures were not done. The patient was given broad-spectrum IV antibiotics and the patient is currently on a combination of Zosyn and vancomycin. I had a nice discussion with the patient's family. The niece and her arrived to the intensive care unit. The patient is known to have advanced COPD and the patient has been followed up in our office. At the same time, the patient was being worked up for a left upper lobe mass measuring 1.1 cm in size that was suspicious for malignancy. However, no further diagnostics were done based on his advanced lung disease and poor baseline performance and functional status. Furthermore, a PET/CT that was done back in 2023 showed intense metabolic activity in the right upper quadrant and the patient had a lesion in the IVC area with an SUV of 20. The right-sided adrenal gland was within normal limits. This may be a large retrocaval lymph node. At the same time, the PET scan showed a left upper lobe opacity with an SUV of 2.5 with punctate areas of more intense activity with an SUV of 4.5. There is also some activity anterior mediastinum with an SUV of 5 and couple of smaller lymph nodes in the left intramedullary lesion with an SUV of 3.6. This was worked up through [facility]. Fine-needle aspirate of the lymph node in the right upper quadrant was consistent with non-Hodgkin's lymphoma. He was supposed to start systemic chemotherapy on outpatient basis and treatment has not been initiated. He was being followed up by medical oncology. He also has other comorbidities including history of smoking, history of alcoholism, moderate degree of aortic stenosis based on previous echocardiograms, hypertension hyperlipidemia and hypothyroidism and previous history of bladder cancer. On 08/14/2024, the patient is still on a BiPAP pressure of 12/6 with an FiO2 of 100%. He is arousable. He is following some simple commands. Nevertheless, he continues to be profoundly septic. This morning, the patient is off Precedex. Lethargic yet arousable. He remains hemodynamically unstable. Remains on no repinephrine which is running at 0.45 mcg/kg/min and the patient is also on vasopressin at 0.03 units. Urine output is noted of 5 cc an hour. The patient is currently on a bicarb infusion which is running at the rate of 150 cc an hour. Cardiac rhythm is sinus. Chest x-ray shows development of bilateral pleural effusion and possibly right lower lobe consolidation. He remains on amiodarone drip at 0.5 mg/min. Follow-up labs from today showed significant abnormalities. Of concern is the leukocytosis and the patient was seconds at 19.7 with a heme of 7.9 and platelet count of 271. The patient sodium level from this morning was 134 and a potassium level was at 6.7 and a serum bicarb was less than 5. BUN was 22 with a creatinine of 1.7 and the lactic acid was still elevated 11.3. BUN was 22 and the creatinine was at 1.7. Phosphorus level is at 8.7. Magnesium level is at 2 and the bilirubin is at 1.7 total with an AST of more than 750 and ALT of 1624. Amylase and lipase were nonelevated. Cultures are still pending. Blood cultures and sputum cultures were sent earlier and there is no growth for the time being. The patient remains on broad-spectrum antibiotics. The patient remains on a combination of Zosyn and Zyvox. ID is on the case. Patient's hyperkalemia was already treated. The patient received a total of 4 doses of IV sodium bicarb, 50 mill equivalents each and the patient was given D50 along with 10 units of insulin and the patient was also given calcium gluconate. Currently on a bicarb infusion. Follow-up blood work showed a sodium level of 138, potassium was down to 6, serum bicarb was up to 12, BUN 26 with a creatinine of 1.8. Most recent lactic acid level is down to 10.7. Family was brought into the hospital and was given a full explanation of his current condition and poor prognosis. ID still on the case. Exact source of infection is not clear. Could be pneumonia. Underlying urine tract infection with secondary sepsis cannot be completely ruled out. On 08/15/2024, seen the patient for a follow-up. Remains encephalopathic, on a BiPAP at a pressure of 12 or 8 cm of water and FiO2 of 100%. Breathing seems to be less labored. The patient however is unable to follow commands and is not answering any questions. Hemodynamically, he remains on pressors. Vasopressin has been discontinued and the patient remains on norepinephrine at 0.19 mcg/kg/min. Urine output is quite diminished in the order of 5 to 10 cc an hour. Remains on a bicarb drip at rate of 150 cc an hour and the patient has a positive fluid balance of 4.1 L over the past 24 hours. The patient is afebrile. Remains on broad-spectrum antibiotics. Patient is currently on a combination of Zosyn and Zyvox. Remains on Precedex running at 0.2 mcg/kg/h. Blood work from today shows a white cell count of 29.6. Hemoglobin is 8.7 and a platelet count of 280. The lactic acid level improved slightly and currently down to 6.5. Sodium is at 139, potassium is 5.5 with a chloride of 102 and a bicarb level of 22. BUN is 39 with a creatinine of 2.4. LFTs are normal and the patient has a shock liver with an AST of 10,656 and an ALT of 5227. Bilirubin is at 1.7. Amylase is 577. Lipase is 2778. Procalcitonin level is at 0.24. Ultrasound of the right upper quadrant was performed yesterday and the patient was found to have some ascites, complex cyst in the liver, soft tissue density in the right renal bed/right lee hepatis area consistent with his underlying non-Hodgkin's lymphoma. There is also thickening of the gallbladder wall with pericholecystic fluid. Common bile duct was noted to be within normal limits. On examination, his abdomen is distended. Obstruction of the abdomen was done and the patient was found to have a considerable amount of gastric distention. Objective - Vital Signs Vital signs: Vital Signs Temp 97.8 F 08/15/24 04:00 Pulse 84 08/15/24 08:27 Resp 15 08/15/24 07:00 BP 125/76 08/15/24 07:00 Pulse Ox 99 08/15/24 07:00 FiO2 100 08/15/24 08:05 Intake & Output 08/14/24 08/15/24 08/15/24 18:59 06:59 18:59 Intake Total 2399.802 2026.289 256.993 Output Total 165 70 0 Balance 2234.802 1956.289 256.993 Weight 75.4 kg Intake: IV 1710 110 0.9 KVO 110 10 Dextrose 5% in Water 1, 1100 100 000 ml @ 100 mls/hr IV . [id number] [facility] with Sodium Bicarb (1 Meq/ml) 150 ml Rx#:[id number] Linezolid 600 mg In 300 Dextrose/Water 1 300ml. bag @ 150 mls/hr IVPB Q12HR [facility] Rx#:[id number] Piperacillin-Tazobactam 3 200 .375 gm In Sodium Chloride 0.9% 100 ml @ 25 mls/hr IVPB Q8H [facility] Rx#: [id number] Intake, IV Titration 2399.802 316.289 146.993 Amount Calcium Gluconate in NaCl 100 1 gm In Saline 1 100ml. bag @ 400 mls/hr IVPB ONCE ONE Rx#:[id number] Dextrose 5% in Water 1, 900 100 000 ml @ 100 mls/hr IV . [id number] [facility] with Sodium Bicarb (1 Meq/ml) 150 ml Rx#:[id number] Linezolid 600 mg In 300 Dextrose/Water 1 300ml. bag @ 150 mls/hr IVPB Q12HR [facility] Rx#:[id number] Norepinephrine 8 mg In 532.788 216.289 146.993 Sodium Chloride 0.9% 250 ml @ 0.03 MCG/KG/MIN 3. 818 mls/hr IV .Q24H [facility] Rx#:[id number] Piperacillin-Tazobactam 3 200 .375 gm In Sodium Chloride 0.9% 100 ml @ 25 mls/hr IVPB Q8H [facility] Rx#: [id number] Sodium Chloride 0.9% 1, 300 000 ml @ 150 mls/hr IV . Q6H40M [facility] Rx#:[id number] Vasopressin 60 unit In 67.014 Sodium Chloride 0.9% 150 ml @ 0.03 UNITS/MIN 4.59 mls/hr IV .Q24H [facility] Rx#: [id number] Output: Urine 165 70 0 Other: Voiding Method Indwelling Catheter Indwelling Catheter - Exam 9 the patient appeared well nourished and normally developed. Vital signs as documented. The patient is elderly, labored breathing and the patient is currently on a BiPAP pressures of 12 over 6 cm with an FiO2 of 100%. Breathing is labored. Head exam is unremarkable. No scleral icterus or corneal arcus noted. Neck is without jugular venous distension, thyromegaly, or carotid bruits. Carotid upstrokes are brisk bilaterally. Lungs diminished breath sound bilaterally and scattered expiratory wheezes heard throughout the lung gomez. Cardiac exam reveals the PMI to be normally sized and situated. Rhythm is regular. First and second heart sounds normal. No murmurs, rubs or gallops. Patient is tachycardic and the patient is currently in sinus tachycardia Abdominal exam shows diminished bowel sounds the abdomen is quite distended. No direct tenderness. No rebound tenderness or guarding. The patient is positive tympany. Extremities are nonedematous and both femoral and pedal pulses are quite diminished and the skin is mottled lower extremities bilaterally improved compared to yesterday.. Improved pulse in lower extremities bilaterally. Examination of the skin revealed no evidence of significant rashes, suspicious appearing nevi or other concerning lesions. Skin mottling of the lower extremities have improved. Neurologically, the patient has diminished level of consciousness. Not following any commands. Cranial nerves remain intact. - Labs CBC & Chem 7: 08/15/24 05:10 08/15/24 09:35 Labs: Abnormal Lab Results - Last 24 Hours (Table) 08/14/24 08/14/24 08/14/24 Range/Units 12:48 12:48 15:36 WBC (3.8-10.6) k/uL RBC (4.30-5.90) m/uL Hgb (13.0-17.5) gm/dL Hct (39.0-53.0) % MCV (80.0-100.0) fL MCH (25.0-35.0) pg RDW (11.5-15.5) % Neutrophils # (Manual) (1.3-7.7) k/uL Lymphocytes # (Manual) (1.0-4.8) k/uL Monocytes # (Manual) (0-1.0) k/uL Metamyelocytes # (Man) (0) k/uL Myelocytes # (Manual) (0) k/uL Nucleated RBCs (0-0) /100 WBC Macrocytosis Potassium 6.0 H (3.5-5.1) mmol/L Carbon Dioxide 12 L (22-30) mmol/L BUN 26 H (9-20) mg/dL Creatinine 1.80 H (0.66-1.25) mg/dL Glucose 197 H (74-99) mg/dL Plasma Lactic Acid Rex 10.7 H* 11.5 H* (0.7-2.0) mmol/L Calcium 7.2 L (8.4-10.2) mg/dL 08/14/24 08/15/24 08/15/24 Range/Units 18:54 05:01 05:10 WBC 29.6 H (3.8-10.6) k/uL RBC 2.22 L (4.30-5.90) m/uL Hgb 8.7 L (13.0-17.5) gm/dL Hct 27.4 L (39.0-53.0) % MCV 123.4 H (80.0-100.0) fL MCH 39.1 H (25.0-35.0) pg RDW 17.1 H (11.5-15.5) % Neutrophils # (Manual) 25.70 H (1.3-7.7) k/uL Lymphocytes # (Manual) 0.89 L (1.0-4.8) k/uL Monocytes # (Manual) 1.48 H (0-1.0) k/uL Metamyelocytes # (Man) 0.89 H (0) k/uL Myelocytes # (Manual) 1.18 H (0) k/uL Nucleated RBCs 1 H (0-0) /100 WBC Macrocytosis Marked A Potassium 5.9 H (3.5-5.1) mmol/L Carbon Dioxide 15 L (22-30) mmol/L BUN 35 H (9-20) mg/dL Creatinine 2.35 H (0.66-1.25) mg/dL Glucose 168 H (74-99) mg/dL Plasma Lactic Acid Rex 7.6 H* (0.7-2.0) mmol/L Calcium 6.7 L (8.4-10.2) mg/dL Microbiology - Last 24 Hours (Table) 08/13/24 09:39 Urine Culture - Preliminary Urine,Voided 08/13/24 05:18 Blood Culture - Preliminary Blood 08/13/24 05:24 Gram Stain - Preliminary Sputum Sputum Culture - Preliminary Assessment and Plan Plan: Shock, likely septic in nature. Exact source is not clear, rule out pneumonia, rule out UTI and secondary sepsis. The patient has been adequately resuscitated IV fluids. The patient is currently on bicarb infusion. Patient remains on norepinephrine vasopressin has been discontinued. The patient is still on norepinephrine running at 0.19 mcg/kg/min. Urine output remains quite diminished. The patient remains BiPAP dependent. Acute lactic acidosis, persistent elevation of the lactic acid level with anion gap metabolic acidosis. Lactic acid level has gradually improved although it remains quite elevated at 6.5 Acute hyperkalemia secondary to metabolic acidosis/anion gap metabolic acidosis and acute kidney injury, improved Acute on chronic shortness of breath with hypoxemic respiratory failure. Currently on a BiPAP pressure of 12/6 with an FiO2 of 100%. Patient has developed bilateral pleural effusion and consolidation of the right lung base Acute pancreatitis with considerable elevation of the lipase Shock liver Possible cholecystitis and the patient has increased gallbladder wall thickening and pericholecystic fluid Acute leukocytosis, secondary to above Acute kidney injury and the creatinine is on the rise and the patient remains significantly oliguric producing around 5 to 10 cc an hour of urine output. Gastric distention. Related to BiPAP therapy Shock liver, secondary to above. Amylase and lipase levels were normal at the time of admission Advanced COPD History of left upper lobe nodule suspicious for neoplasm. Patient has a solid 1.1 cm left upper lung pulmonary nodule treated by SBRT. No tissue diagnosis been established. Non-Hodgkin's lymphoma, diagnosed established by biopsy of a right upper quadrant lymph node that has shown intense metabolic activity on the prior P ET/CT. Patient also has some nonspecific mediastinal lymph node uptake. Being followed up by medical oncology on outpatient basis. SVT, currently in sinus tachycardia and the patient is on amiodarone drip Daily alcohol use History of smoking Chronic anemia Valvular heart disease with a moderate degree aortic stenosis Hypertension Hyperlipidemia Hypothyroidism History of bladder cancer History of depression Plan: Condition remains critical. Discussed intubation and mechanical ventilation with the family. The patient has stated to the family that he does not want to be intubated and he is a DNI DNR CODE STATUS. Continue BiPAP for now at the same setting of 05/31 with an FiO2 of 100%. Reduce the bicarb infusion to 75 cc an hour Continue norepinephrine and vasopressin has been discontinued Broad-spectrum IV antibiotics with Zosyn and daptomycin Monitor lactic acid levels, levels are improved although remains quite elevated. Cultures are still negative Viral 4 Plex Precedex to maintain synchrony with a BiPAP Monitor lipase levels Ultrasound the gallbladder was noted Monitor LFTs Monitor renal function Will insert NG tube for gastric decompression Start the patient on Lasix 80 mg IV every 12 hours Monitor potassium level Will need a CAT scan of the chest abdomen and pelvis once more stable. Keep the patient n.p.o. for now Condition is critical and will continue to follow make further recommendations based on the progress. At a later stage, I had a family meeting and the family opted to proceed with comfort care measures/hospice care. Based on that, the appropriate recommendations will be done for hospice per family's wishes. Evaluation was done and 60 minutes. Time with Patient: Greater than 30
[2024-08-15] MEDS: MORPHINE SULFATE 100 MG in SODIUM CHLORIDE 0.9% 90 ML IV SCH (16:49)
[2024-08-15] MEDS: SCOPOLAMINE 1 MG/72 HR PATCH TRANSDERM SCH (17:20)
[2024-08-15] MEDS: LORazepam 2 MG/ML INJ IV PRN (17:26)
[2024-08-15] MEDS: ATROPINE OPHTH SOLN 1% 5ML BTL SUBLINGUAL PRN (17:27)
[2024-08-15] MEDS: GLYCOPYRROLATE 0.2 MG/ML 2 ML VIAL IVP PRN (17:35)
--- NOTE | 2024-08-16 09:36 | P.DS ---
Providers Date of admission: 08/13/24 04:42 Expected date of discharge: 08/16/24 Attending physician: Emiliano Novoa Consults: 08/13/24 04:40 Consult Physician Routine Consulting Provider: Alona Strange Consult Reason/Comments: hypoxi Do you want consulting provider notified?: Yes 08/13/24 14:19 Consult Physician Routine Consulting Provider: Rosmery Rowan Consult Reason/Comments: Sepsis without any clear source Do you want consulting provider notified?: Yes Primary care physician: Sukhdev Wise Hospital Course: Preliminary cause of Advanced COPD with acute on chronic hypoxic respiratory failure Final diagnosis -Shock, likely septic, present on admission, source of sepsis is not clear, possible pneumonia versus possible acute cholecystitis as gallbladder ultrasound was noted to be wall thickening as well as pericholecystic fluid -Acute renal failure possibly acute tubular necrosis with worsening function -Lactic acidosis secondary to severe sepsis -hyperkalemia secondary to acute renal failure and secondary to metabolic acidosis -acute hypoxic respiratory failure on BiPAP -Acute pancreatitis with elevated LFTs -Shock liver -Advanced COPD -Recently diagnosed Non-Hodgkin's lymphoma via needle biopsy, has not initiated treatment as of yet -SVT, for which patient is on amiodarone drip, drip has been discontinued currently rate controlled -History of alcohol abuse and nicotine use -Moderate aortic stenosis -Hypertension, patient is presently hypotensive -Hyperlipidemia -Hypothyroidism -History of bladder cancer in the past -Depression DVT prophylaxis GI prophylaxis No code Discharge disposition Patient has . According to nursing documentation, time of was 2240 on 08/15/2024. Total time taken is greater than 35 minutes. Hospital course This is a 89-year-old male who was recently admitted with lactic acidosis with acute on chronic hypoxic respiratory failure requiring BiPAP and BiPAP dependent maintained in the ICU. Patient also with lactic acidosis with acute pancreatitis with elevated LFTs and shock liver with multiple complications ongoing. Patient also noted to have extremely elevated LFTs and underwent gallbladder ultrasound showing possible acute cholecystitis with gallbladder thickening as well as pericholecystic fluid. Patient is no code and family were awaiting for other family members to arrive and monitor to see if there was any improvements. Patient continued to decline and less urine output and maxed on BiPAP and dependent. Attempted to consult hospice for family support and overall comfort measures and family did not want hospice just wanted comfort care orders. This was discussed with benefits specialist recruiter and orders were placed. Patient was started on comfort medications and weaned off the BiPAP and placed on nasal cannula. According to nursing documentation, time of was 2240 on 08/15/2024. Please refer to other consultation notes and pulmonary benefits specialist recruiter notes for further HPI. The impression and plan of care has been dictated by Christine Rodríguez, Nurse Practitioner as directed. Dr. Joanna MD I have performed a history and examination and MDM of this patient, discussed the same with the dictator, and agree with the dictator's assessment and plan as written ,documented as a scribe. Based on total visit time, I have performed more than 50% of the visit. Patient Condition at Discharge: Poor Plan - Discharge Summary Discharge Rx Participant: Yes New Discharge Prescriptions: No Action Epoetin Yoav-Epbx [Retacrit] 20,000 unit SQ TH Citalopram Hydrobromide [CeleXA] 20 mg PO DAILY Atorvastatin [Lipitor] 10 mg PO HS Ferrous Sulfate [Feosol] 325 mg PO DAILY Multivit-Mins/Iron/Folic/Lycop [Centrum Men's Tablet] 1 tab PO DAILY Primidone 50 mg PO HS Losartan [Cozaar] 25 mg PO DAILY Cyproheptadine [Cyproheptadine HCl] 2 mg PO BID Levothyroxine Sodium [Synthroid] 25 mcg PO DAILY Magnesium Oxide [Mag-Ox] 400 mg PO DAILY Discharge Medication List Primidone 50 mg PO HS 12/14/23 [History] Atorvastatin [Lipitor] 10 mg PO HS 04/11/24 [History] Citalopram Hydrobromide [CeleXA] 20 mg PO DAILY 04/11/24 [History] Epoetin Yoav-Epbx [Retacrit] 20,000 unit SQ TH 04/11/24 [History] Losartan [Cozaar] 25 mg PO DAILY 04/11/24 [History] Cyproheptadine [Cyproheptadine HCl] 2 mg PO BID 08/13/24 [History] Ferrous Sulfate [Feosol] 325 mg PO DAILY 08/13/24 [History] Levothyroxine Sodium [Synthroid] 25 mcg PO DAILY 08/13/24 [History] Magnesium Oxide [Mag-Ox] 400 mg PO DAILY 08/13/24 [History] Multivit-Mins/Iron/Folic/Lycop [Centrum Men's Tablet] 1 tab PO DAILY 08/13/24 [History] Follow up Appointment(s)/Referral(s): Sukhdev Wise MD [Primary Care Provider] - 1-2 days [facility] [NON-STAFF] - 1 Week Discharge Disposition: - Preliminary Cause of Preliminary Cause of : Advanced COPD with hypoxic respiratory failure
== END 2024-08-15 22:40 | disposition expired | DRG 871 ==
LOC: EC 03:15 → 1SOBS 04:42 → 2SICU 06:15
PROVIDERS: ADMIT Hospitalist; ATTEND Hospitalist
PROC: 5A09457 Assistance with Respiratory Ventilation, 24-96 Consecutive Hours, Continuous Positive Airway Pressure (ICD-10-PCS; principal; 2024-08-13)
PROC: 02HV33Z Insertion of Infusion Device into Superior Vena Cava, Percutaneous Approach (ICD-10-PCS; 2024-08-13)
PROC: 3E053XZ Introduction of Vasopressor into Peripheral Artery, Percutaneous Approach (ICD-10-PCS; 2024-08-13)
PROC: 0D9670Z Drainage of Stomach with Drainage Device, Via Natural or Artificial Opening (ICD-10-PCS; 2024-08-15)
DX: A41.9 Sepsis, unspecified organism (principal); J18.9 Pneumonia, unspecified organism; J96.21 Acute and chronic respiratory failure with hypoxia; R65.21 Severe sepsis with septic shock; N17.0 Acute kidney failure with tubular necrosis; K72.00 Acute and subacute hepatic failure without coma; K85.90 Acute pancreatitis without necrosis or infection, unspecified; E87.20 Acidosis, unspecified; G93.40 Encephalopathy, unspecified; C85.90 Non-Hodgkin lymphoma, unspecified, unspecified site; C34.12 Malignant neoplasm of upper lobe, left bronchus or lung; J44.1 Chronic obstructive pulmonary disease with (acute) exacerbation; R64 Cachexia; E03.9 Hypothyroidism, unspecified; I10 Essential (primary) hypertension; I35.0 Nonrheumatic aortic (valve) stenosis; F10.10 Alcohol abuse, uncomplicated; F32.A Depression, unspecified; D63.0 Anemia in neoplastic disease; J44.0 Chronic obstructive pulmonary disease with (acute) lower respiratory infection; I47.10 Supraventricular tachycardia, unspecified; R18.8 Other ascites; N39.0 Urinary tract infection, site not specified; Z66 Do not resuscitate; Z51.5 Encounter for palliative care; E87.5 Hyperkalemia; E78.5 Hyperlipidemia, unspecified; Z79.890 Hormone replacement therapy; Z79.51 Long term (current) use of inhaled steroids; Z85.118 Personal history of other malignant neoplasm of bronchus and lung; Z85.51 Personal history of malignant neoplasm of bladder; Z92.3 Personal history of irradiation; Z87.891 Personal history of nicotine dependence; Z68.26 Body mass index [BMI] 26.0-26.9, adult; Z79.899 Other long term (current) drug therapy
CPT/HCPCS: 36415; 36600; 71045; 74018; 76705; 80048; 80053; 81001; 82150; 82330; 82805; 83605; 83690; 83735; 83880; 84100; 84145; 84450; 84460; 84484; 85025; 85379; 85610; 85730; 87040; 87070; 87077; 87086; 87186; 87205; 87449; 87636; 93005; 94640; 94660; 96361; 96365; 96367; 96368; 96375; 99291